=== PATIENT | female | born 1935 | race Caucasian/White ===

== ENCOUNTER 2020-06-26 05:29 | Emergency (ER) | payer MEDICARE, SELFPAY ==
--- NOTE | ~2020-06-26 | XR_ITS ---
EXAMINATION: XR hip LT min 2V DATE: 06/26/2020 06:14 INDICATION: Left hip pain. TECHNIQUE: 3 views of left hip were obtained. COMPARISON: Pelvis radiograph 05/26/2016 FINDINGS: Bone alignment is normal. No fracture. There is mild left hip osteoarthritis. IMPRESSION: 1. Mild left hip osteoarthritis. Reviewed, dictated and finalized at location A.
--- NOTE | ~2020-06-26 | XR_ITS ---
EXAMINATION: XR pelvis 1-2V DATE: 06/26/2020 06:14 INDICATION: Left hip pain. TECHNIQUE: An anteroposterior view of the pelvis was obtained. COMPARISON: Pelvis radiograph 05/26/2016 FINDINGS: There is thoracolumbar levoscoliosis and severe lumbar spondylosis. No fracture. There is s evere right hip osteoarthritis and mild left hip osteoarthritis. IMPRESSION: 1. Severe right hip osteoarthritis and mild left hip osteoarthritis. Reviewed, dictated and finalized at location A.
[2020-06-26 05:30] VITALS: BP 177/89; PULSE 76; RESP 22; TEMP 36.5; O2SAT 97
--- NOTE | 2020-06-26 05:49 | PC.NURSE ---
Called pt. daughter at [phone] to update her on pt. status.
[2020-06-26] MEDS: HYDROcodone/acetaminophen (*CRX) 5-325 MG TABLET 1 TAB PO (06:26)
--- NOTE | 2020-06-26 06:38 | ED.EXTPRO ---
HPI - Extremity Problem General Chief complaint: Extremity Problem,Nontraumatic Stated complaint: left hip pain x 3days Time Seen by Provider: 06/26/20 06:32 Source: patient Mode of arrival: wheelchair Limitations: no limitations History of Present Illness HPI Narrative: Patient is an 84-year-old female complaining of left hip pain, 10 out of 10, nonradiating, aching that started early this morning. Patient states that the pain started when she down to use the bathroom felt the severe pain in her left hip. Patient states that she has been favoring her right knee due to pain, history of chronic right knee pain and needing replacement according the patient, causing her to use her left lower extremity more which she attributes as a cause of her left hip pain. Patient denies any fall or direct injury. Patient denies any incontinence, weakness or numbness. Patient denies any urinary symptoms. Patient denies any fever or chills. Denies any chest pain, shortness of breath, abdominal pain or flank pain. Related Data Home Medications Medication Instructions Recorded Confirmed ascorbate calcium (vitamin C) 500 500 mg PO DAILY 09/06/19 04/05/20 mg tablet cranberry 400 mg capsule 400 mg PO DAILY 09/06/19 04/05/20 vitamin B complex 1 tablet PO DAILY 09/06/19 04/05/20 melatonin 3 mg capsule 3 mg PO DAILY cap 03/27/20 04/05/20 oxybutynin chloride 10 mg 10 mg PO DAILY 03/27/20 04/05/20 tablet,extended release 24 hr Allergies Allergy/AdvReac Type Severity Reaction Status Date / Time No Known Allergies Allergy Verified 06/26/20 05:40 Review of Systems Review of Systems: All systems reviewed & are unremarkable except as noted in HPI and below Constitutional: Constitutional: Denies body ache(s), Denies chills, Denies excessive sweating, Denies fatigue, Denies fever(s), Denies headache(s), Denies lethargy, Denies malaise, Denies weakness and Denies weight loss Eyes: Eyes: Denies blurry vision, Denies change in vision and Denies loss of vision ENT: Denies dizziness, Denies ear discharge, Denies headache(s), Denies lip swelling, Denies epistaxis, Denies nasal congestion, Denies neck pain, Denies throat swelling and Denies tongue swelling Cardiovascular: Cardiovascular: Denies chest pain, Denies chest pain at rest, Denies chest pain with activity, Denies diaphoresis, Denies rapid heart rate, Denies edema, Denies irregular heart rhythm, Denies lightheadedness, Denies palpitations, Denies dyspnea and Denies dyspnea on exertion Respiratory: Respiratory: Denies chest congestion, Denies cough, Denies hemoptysis, Denies dyspnea and Denies dyspnea on exertion Gastrointestinal: Gastrointestinal: Denies abdominal pain, Denies melena, Denies hematochezia, Denies diarrhea, Denies nausea, Denies vomiting and Denies hematemesis Musculoskeletal: Musculoskeletal: Denies deformity, Denies joint swelling, Denies neck pain and Denies numbness Neurologic: Denies Abnormal speech present, Denies abnormal gait, Denies confusion, Denies dizziness, Denies headache(s), Denies focal weakness, Denies loss of vision, Denies numbness, Denies Other visual disturbances, Denies Sensory deficit (Neuro) and Denies weakness Psychiatric: Psychiatric: Denies confusion, Denies depression, Denies auditory hallucinations, Denies homicidal ideation and Denies suicidal ideation Endocrine: Endocrine: Denies cold intolerance, Denies excessive sweating, Denies fatigue, Denies heat intolerance and Denies palpitations Hematologic/Lymphatic: Hematologic/Lymphatic: Denies easy bleeding and Denies easy bruising Allergic/Immunologic: Allergic/Immunologic: Denies lip swelling, Denies throat swelling and Denies tongue swelling PMFSH Past Medical History Medical History CKD (chronic kidney disease) stage 3, GFR 30-59 ml/min Essential hypertension Hyperlipidemia, unspecified Hypothyroidism (acquired) 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
[2020-06-26] MEDS: HYDROmorphone HCL INJ (*CRX) 1 MG/ML SYR 0.5 MG IM (06:56)
[2020-06-26] MEDS: KETOROLAC 30 MG/ML VIAL (*BKC) 15 MG IM (06:57)
[2020-06-26 07:34] VITALS: BP 154/91; PULSE 70; RESP 12; O2SAT 96
== END 2020-06-26 07:38 | disposition home or self-care (01) ==
PROVIDERS: Emergency Provider Emergency Medicine; PCP Family Medicine
DX: M54.32 Sciatica, left side (principal); M25.552 Pain in left hip; I12.9 Hypertensive chronic kidney disease with stage 1 through stage 4 chronic kidney disease, or unspecified chronic kidney disease; N18.30 Chronic kidney disease, stage 3 unspecified; E78.5 Hyperlipidemia, unspecified; E03.9 Hypothyroidism, unspecified; F32.9 Major depressive disorder, single episode, unspecified; M19.90 Unspecified osteoarthritis, unspecified site
CPT/HCPCS: 72170; 73502; 96372; 99284; A9270; J1170; J1885

== ENCOUNTER 2020-07-11 11:07 | Outpatient (CLI) | payer MEDICARE, SELFPAY ==
--- NOTE | 2020-07-11 | ECG_ITS ---
Measurements Intervals [place] Rate: 66 P: 29 AK: 147 QRS: 32 QRSD: 90 T: 11 QT: 403 QTc: 423 Interpretive Statements SINUS RHYTHM BORDERLINE ST-T WAVE ABNORMALITY- INFERIOR LEADS BASELINE ARTIFACT- II, III, AVL, AVF BORDERLINE ECG Electronically Signed On 07-11-2020 12:33:30 CDT by Alfredo Conner D.O.
[2020-07-11 12:29] LABS: Hematocrit 39.2 % (37.0-47.0); Hemoglobin 12.6 g/dL (12.0-15.0)
[2020-07-11 12:42] LABS: Albumin Level 4.1 g/dL (3.5-5.1); Estimated Glomerular Filt Rate 53; Glucose 84 mg/dL (65-105)
[2020-07-11 12:47] LABS: Urine Cotinine NEGATIVE
== END 2020-07-11 11:08 | disposition home or self-care (01) ==
PROVIDERS: PCP Family Medicine; Visit Provider Orthopaedic Surgery
DX: Z01.810 Encounter for preprocedural cardiovascular examination (principal); M17.11 Unilateral primary osteoarthritis, right knee; E78.5 Hyperlipidemia, unspecified; E03.9 Hypothyroidism, unspecified; I12.9 Hypertensive chronic kidney disease with stage 1 through stage 4 chronic kidney disease, or unspecified chronic kidney disease; R42 Dizziness and giddiness; N18.30 Chronic kidney disease, stage 3 unspecified; Z51.81 Encounter for therapeutic drug level monitoring; Z79.899 Other long term (current) drug therapy
CPT/HCPCS: 80307; 82040; 82565; 82947; 85014; 85018; 93005

== ENCOUNTER 2020-07-18 09:25 | Outpatient (CLI) | payer MEDICARE, SELFPAY ==
[2020-07-18 10:57] LABS: Basophils Absolute Auto 0.1 K/mm3 (0.0-0.1); Eosinophils Absolute Auto 0.1 K/mm3 (0-0.3); Eosinophils Percent Auto 1.6 % (0-4.4); Hematocrit 39.9 % (37.0-47.0); Immature Granulocyte Absolute 0.02 K/mm3 (0.00-0.031); Immature Granulocyte Percent A 0.3 % (0-0.5); Lymphocytes Absolute Auto 1.68 K/mm3 (0.9-3.2); Lymphocytes Percent Auto 24.7 % (18.3-44.2); Mean Corpuscular HGB Conc 32.6 g/dl (32-36); Mean Corpuscular Hemoglobin 30.7 pg (26-34); Mean Corpuscular Volume 94.3 fl (80-100); Mean Platelet Volume 9.4 fl (7.4-10.4); Monocytes Absolute Auto 0.6 K/mm3 (0.1-0.6); Monocytes Percent Auto 8.1 % (2.6-8.5); Neutrophils Absolute Auto 4.4 K/mm3 (1.3-6.7); Neutrophils Percent Auto 64.3 % (45.5-73.1); Platelet Count Result 226 k/mm3 (150-375); Red Blood Count 4.23 M/mm3 (4.2-5.4); Red Cell Distribution Width 14.9 % (11.5-14.5); White Blood Count 6.8 K/mm3 (4.5-10.0)
[2020-07-18 11:06] LABS: INR 0.9; Prothrombin Time 12.2 Seconds (11.1-14.7)
[2020-07-18 11:07] LABS: Anion Gap 5 mmol/L (8-16); Blood Urea Nitrogen 18 mg/dL (7-17); Calcium 9.7 mg/dL (8.4-10.2); Carbon Dioxide 27 mmol/L (22-30); Chloride 107 mmol/L (98-107); Estimated Glomerular Filt Rate 53; Glucose 86 mg/dL (65-105); Partial Thromboplastin Time 25.9 SECONDS (22.3-36.8); Sodium 139 mmol/L (137-145)
[2020-07-18 11:08] LABS: Hemoglobin A1C 5.1 % (<5.7)
== END 2020-07-18 09:26 | disposition home or self-care (01) ==
PROVIDERS: Anesthesiology; PCP Family Medicine; Visit Provider Orthopaedic Surgery
DX: Z01.818 Encounter for other preprocedural examination (principal); M17.11 Unilateral primary osteoarthritis, right knee; N18.30 Chronic kidney disease, stage 3 unspecified
CPT/HCPCS: 36415; 80048; 83036; 85025; 85610; 85730; 87081

== ENCOUNTER 2020-07-26 09:42 | Outpatient (CLI) | payer MEDICARE, SELFPAY ==
--- NOTE | ~2020-07-26 | NM_ITS ---
EXAMINATION: NM janice stress w perfusion DATE: 07/26/2020 13:28 INDICATION: Abnormal EKG TECHNIQUE: Rest images were obtained following intravenous administration of 10.5 mCi Tc99m tetrofosm in (Myoview). The patient was infused intravenously with Lexiscan (Regadenoson). Then, 29.1 mCi Tc99m tetrofosmin (Myoview) was administered intravenously, and stress images were obtained. Data was ben nstructed into short axis and horizontal and vertical long axis SPECT images. Gated SPECT images were also obtained. COMPARISON: None. FINDINGS: There is no definite reversible or fixed perfusion abnormality to suggest ischemia or infar ction. There is normal left ventricular chamber size, wall motion and ejection fraction. Left ventr icular ejection fraction measures 69%. IMPRESSION: 1. Normal myocardial perfusion at rest and during stress. 2. Left ventricular ejection fraction measuring 69%. Reviewed, dictated and finalized at location A.
--- NOTE | 2020-07-26 09:57 | EST_ITS ---
Patient Info Name: Eboni Farris Age: 84 years : 1935 Gender: Female Exam Date: 07/26/2020 11:19 AM Exam Location: [facility] Stress Patient Status: Outpatient Admit Date: 07/26/2020 Staff Ordering Physician: Karyn Villatoro MD Attending Provider: Karyn Villatoro MD Exercise Technologist: Charlene Contreras RDCS Exercise Physician: Alfredo Conner DO Exam Type: CA stress janice w NM Study Info Indications R94.31 - Abnormal electrocardiogram ECG EKG A regadenoson stress test was performed. Summary 1. 1. Abnormal lexiscan stress test for ischemic ST changes by ECG criteria. 2. 2. Baseline hypertension. 3. 3. Nuclear scan to follow and will be reported separately. Please correlate with it. 4. 4. Patient informed of the above results. Protocol: Lexiscan Stress ECG Details Stage: REST Duration (min): 8 min : 13 sec HR (bpm): 65 SBP (mmHg): 176 DBP (mmHg): 90 Stage: REST Duration (min): 15 min : 16 sec HR (bpm): 66 SBP (mmHg): 176 DBP (mmHg): 90 Stage: STAGE 1 Duration (min): 1 min : 0 sec HR (bpm): 89 SBP (mmHg): 184 DBP (mmHg): 108 Stage: RECOVERY Duration (min): 1 min : 0 sec HR (bpm): 98 SBP (mmHg): 130 DBP (mmHg): 88 Stage: RECOVERY Duration (min): 2 min : 0 sec HR (bpm): 96 SBP (mmHg): 130 DBP (mmHg): 88 Stage: RECOVERY Duration (min): 3 min : 0 sec HR (bpm): 90 SBP (mmHg): 145 DBP (mmHg): 86 Stage: RECOVERY Duration (min): 4 min : 0 sec HR (bpm): 87 SBP (mmHg): 145 DBP (mmHg): 86 Stage: RECOVERY Duration (min): 5 min : 0 sec HR (bpm): 85 SBP (mmHg): 152 DBP (mmHg): 85 Stage: RECOVERY Duration (min): 6 min : 0 sec HR (bpm): 81 SBP (mmHg): 152 DBP (mmHg): 85 Stage: RECOVERY Duration (min): 7 min : 0 sec HR (bpm): 81 SBP (mmHg): 146 DBP (mmHg): 78 Stage: RECOVERY Duration (min): 8 min : 0 sec HR (bpm): 81 SBP (mmHg): 146 DBP (mmHg): 78 Stage: RECOVERY Duration (min): 9 min : 0 sec HR (bpm): 76 SBP (mmHg): 146 DBP (mmHg): 78 Stage: RECOVERY Duration (min): 10 min : 0 sec HR (bpm): 75 SBP (mmHg): 146 DBP (mmHg): 78 Stage: RECOVERY Duration (min): 11 min : 0 sec HR (bpm): 76 SBP (mmHg): 153 DBP (mmHg): 93 Stage: RECOVERY Duration (min): 12 min : 0 sec HR (bpm): 76 SBP (mmHg): 153 DBP (mmHg): 93 Stage: RECOVERY Duration (min): 12 min : 44 sec HR (bpm): 74 SBP (mmHg): 158 DBP (mmHg): 92 Rest HR: 66 bpm Peak HR: 100 bpm Rest Sys BP: 176 mmHg Peak Sys BP: 184 mmHg Max Pred HR: 135 bpm % Max Pred HR: 74 % Target HR: 115 bpm Max RPP: 18,400 bpm*mmHg Termination Reason: Completed protocol Cardiac Symptoms: Shortness of breath, Dizzines Total Time: 1 min
== END 2020-07-26 09:43 | disposition home or self-care (01) ==
LOC: ANHCARD 09:43
PROVIDERS: PCP Family Medicine; Visit Provider Family Medicine
DX: E78.5 Hyperlipidemia, unspecified (principal); I10 Essential (primary) hypertension; R94.31 Abnormal electrocardiogram [ECG] [EKG]; Z01.818 Encounter for other preprocedural examination; Z91.89 Other specified personal risk factors, not elsewhere classified
CPT/HCPCS: 78452; 93017; A9502; J2785

== ENCOUNTER → 2020-08-06 01:15 | Outpatient (CLI) | payer MEDICARE, SELFPAY ==
[2020-08-06 18:48] LABS: SARS-CoV-2 RNA PCR Negative
== END ==
PROVIDERS: PCP Family Medicine; Visit Provider Orthopaedic Surgery
DX: Z01.812 Encounter for preprocedural laboratory examination (principal); Z20.822 Contact with and (suspected) exposure to COVID-19
CPT/HCPCS: C9803; U0003; U0005

== ENCOUNTER 2020-08-09 11:09 | Inpatient (IN) | payer MEDICARE, SELFPAY ==
[2020-07-18 09:55] VITALS: BP 176/88; PULSE 70; RESP 18; TEMP 37; O2SAT 97; BMI 25.4
--- NOTE | 2020-08-08 09:36 | WPDANESEPPF ---
Anes - Initial Pre Proc Eval Procedure: Operation Date: 08/09/20 07:30 Proposed Procedures p Right Total Knee Arthroplasty - Arnold Gant MD Date/Time: 08/08/20 09:36 Surgeon: Arnold Gant MD Pre Op Diagnosis: Primary OA, Right Knee Patient Data Age: 84 Gender: F Height: 1.63 m Weight: 67.4 kg Last Vital Signs Temp 37.0 C 07/18/20 09:55 Pulse 70 07/18/20 09:55 Resp 18 07/18/20 09:55 BP 176/88 H 07/18/20 09:55 Pulse Ox 97 07/18/20 09:55 Allergies Allergy/AdvReac Type Severity Reaction Status Date / Time No Known Allergies Allergy Verified 08/09/20 06:03 Home Medications Medication Instructions Recorded Confirmed Type ascorbate calcium (vitamin C) 500 500 mg PO DAILY 09/06/19 08/09/20 History mg tablet cranberry 400 mg capsule 400 mg PO DAILY 09/06/19 08/09/20 History vitamin B complex 1 tablet PO DAILY 09/06/19 08/09/20 History diclofenac sodium 1 % topical gel 2 g TOPICAL QID #150 g 03/27/20 08/09/20 Rx melatonin 3 mg capsule 3 mg PO HS cap 03/27/20 08/09/20 History oxybutynin chloride 10 mg 10 mg PO HS 03/27/20 08/09/20 History tablet,extended release 24 hr amlodipine 2.5 mg QAM 07/18/20 08/09/20 History cyanocobalamin (vitamin B-12) 1 tablet PO QAM 07/18/20 08/09/20 History levothyroxine 75 mcg QAM 07/18/20 08/09/20 History Patient hx anesthesia problems: none Family hx anesthesia problems: none PMFSH Past Medical History Medical History Acute pain of left hip CKD (chronic kidney disease) stage 3, GFR 30-59 ml/min Essential hypertension Hyperlipidemia, unspecified Hypothyroidism (acquired) 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n organic factor Major depression, recurrent, chronic Osteopenia Unspecified osteoarthritis, unspecified site Urinary incontinence Vertigo Surgical History Surgical History History of bladder surgery (~2017) 06/2017 - Colpocleisis and perineorrhaphy History of left knee replacement History of left shoulder replacement Status post total replacement of right shoulder (~05/2018) Family History Family History Sibling Family history of Parkinson's disease Father Family history of Alzheimer's disease Family history of heart disease in male family member before age 55 Family history of cardiovascular disease Other Family history of osteoarthritis Social History Social History Smoking status: Former smoker Second hand tobacco smoke exposure: No Smoking end date: 03/23/1949 Additional smoking assessment comments: STATE HX SOCIAL SMOKER X 2YRS QUIT 1960 Alcohol intake: current Alcohol use details: MAYBE 1/MONTH Substance use: never Substance use type: does not use Living arrangements: [facility] Additional living arrangements comments: [facility] Gender identity (if verbalized by the patient): Female Spiritual care concerns: No Anes - Eval Final PreProcedure Day of Procedure 08/08/20 09:36 Patient weight: overweight Heart: regular rate and rhythm Lungs: clear to auscultation and normal air movement Airway: Mallampati scale class III Neurological: alert and oriented Last oral intake: >/= 8 hours ASA classification: III Emergent: no Anesthetic plan: proceed Anesthesia type and monitoring: general LMA and standard monitoring Informed Consent: The patient's anesthetic plan and its attendant risks and benefits were discussed with the patient/family/POA. Questions were solicited and answers provided to the satisfaction of the patient/family/POA.
[2020-08-09] VITALS (14 sets, daily range): BP systolic 130–178; BP diastolic 66–86; PULSE 65–75; RESP 13–20; TEMP 35.6–36.7; O2SAT 90–100
--- NOTE | ~2020-08-09 | XR_ITS ---
EXAMINATION: XR knee RT 2V DATE: 08/09/2020 10:13 INDICATION: Total right knee arthroplasty. Postop. TECHNIQUE: 2 views of right knee were obtained. COMPARISON: Right knee radiographs 06/28/2020 FINDINGS: There is a total right knee arthroplasty. Tibia demonstrate 8 degrees posterior angulation with respect to tibial component. The patella is small. There is severe osteoarthritis of patellofemo ral compartment. There is gas in the soft tissues, consistent with recent surgery. IMPRESSION: 1. New total right knee arthroplasty. Reviewed, dictated and finalized at location A.
[2020-08-09] MEDS: ACETAMINOPHEN 500 MG TABLET 1000 MG PO (06:30)
[2020-08-09] MEDS: LACTATED RINGERS 1,000 ML 30 ML IV CONT ×2 (06:40→10:02)
[2020-08-09] MEDS: TRANEXAMIC ACID 1,000MG/ISO100 1,000 MG/100 ML BAG 200 MG IVPB (06:43)
--- NOTE | 2020-08-09 07:13 | WPDHPUPDATE1 ---
History and Physical Update Update Date/Time: 08/09/20 07:13 History and Physical has been reviewed, including an updated exam of the patient. There are NO changes in the patient's condition. Risks, benefits, and alternatives have been discussed and questions answered. Patient agrees to proceed with procedure.
--- NOTE | 2020-08-09 07:24 | WPDANESPNB ---
Anes - Peripheral Nerve Block Date/Time: 08/09/20 07:24 I have discussed with the patient/family/POA the placement of a peripheral nerve block for post-operative pain management, including associated risks, benefits, complications, and side effects. Alternative methods of post-operative analgesia were detailed. Questions were solicited and answers provided to the satisfaction of the patient/family/POA. Time-Out: A pre-procedural Time-Out was completed immediately before starting the procedure and confirmed: Patient Identification, Site, Procedure, Patient Position and the Availability of Requisite Equipment. Clinical Indications: Acute post-operative pain management requested by the operative surgeon. Nerve Block Insertion Note Anes-nerve block: adductor canal right Patient position: supine Skin prep: chlorhexidine Needle: 22 gauge, stimulating, insulated echogenic needle. Needle length: 80 mm Technique: ultrasound Injectate: bupivacaine 0.5% with epi 5 mcg/ml (30cc - no epi) Observations: tolerated well Complications: none Procedure start time:: 718 Procedure end time:: 721
[2020-08-09] MEDS: ceFAZolin 2 GM/D5W 50 ML 2 GM/50 ML BAG IVPB (07:27)
--- NOTE | 2020-08-09 10:20 | P.OP_ITS ---
Procedure Note - Detailed Date of procedure: 08/09/20 Pre-op diagnosis: Primary OA, Right Knee Post-op diagnosis: same Procedure performed: Total knee arthroplasty Description of procedure: Complex reconstruction due to near complete patellar erosion and associated anterior central femur erosion. Lateral release required. Typical bone resections with conservative distal femoral cut. Implants: [employer] Triathlon knee system, [place] base plate cemented tibia size 4, Posterior cruciate stabilized cemented femoral component size 4 ,and a 16 mm posterior stabilized polyethylene insert. Anesthesia: GETA and regional (subsartorial nerve block) Surgeon: Arnold Gant MD Channel Development Manager: Monika Briceno PA-C Estimated blood loss (mL): 100 Drains: No Pathology: none sent Complications: None Condition: stable Disposition: PACU Findings: Physician assistant casino shift manager, Monika Briceno PA-C, required for surgery; including patient positioning, draping, tissue retraction, maintaining instrument position, cement removal, wound closure, and dressing placement. OPERATIVE DETAILS: The patient was given a nerve block preoperatively, and then brought to the operating room. A general anesthetic was administered. The leg was prepped and draped in the usual sterile fashion. The limb was elevated and the tourniquet inflated to 300 mmHg during the procedure. A longitudinal incision was created along the medial border of the patella and patellar tendon, and a trivector approach to the knee was performed. A mild medial release was taken. The knee was then flexed. The osteophytes were carefully removed. The distal femur was severely deformed with a deep gouge in the anterior central aspect. The intramedullary guide was placed in the femoral canal. The distal femoral resection was then taken with the oscillating saw. The collateral ligaments were carefully protected. The tibia was carefully exposed. The jig was applied, and the proximal tibia was resected according to the preoperative plan. The knee was balanced in extension. Appropriate releases were taken where needed. A mild lateral release was done with a few pie crust incisions at the LCL. The anterior cruciate ligament and meniscal remnants were removed. The posterior cruciate ligament was sacrificed. The patella was only a small vertically oriented remnant. The femur was sized and rotation assessed using a combination of gap balancing, posterior referencing, and the AP axis. The 4 in 1 cutting block, and the box cut guide were used to finish the femoral cuts after equal gaps were assured. The osteophytes were carefully removed from the back of the knee. The knee was copiously irrigated with antibiotic solution p eriodically throughout the procedure. The meniscal remnants were removed. The spacer block was used to confirm equal flexion and extension gaps. The tibia was sized and broached. The bony surfaces were prepared for cementing with pulsatile lavage. The real tibia and femur were cemented. Excess cement was carefully removed. Patellar remnant tracking was carefully assessed. No additional releases were required. The wound was closed with #1 Vicryl suture, #2 Quill suture, 0-Quill suture, and 2-0 Quill suture followed by Steri-Strips. A sterile bulky dressing was applied. Meticulous hemostasis was maintained throughout the procedure. The Aquamantis device was used for additional hemostasis. The pain relieving mixture was injected after the exposure. There were no complications. The patient was extubated and brought to the recovery room in stable condition after the application of sterile dressing with Sotero bandage.
--- NOTE | 2020-08-09 10:36 | SUR.PHASEI ---
O2 removed at 1030.
[2020-08-09] MEDS: ONDANSETRON INJ 4 MG/2 ML VIAL IV PUSH (11:07)
--- NOTE | 2020-08-09 11:30 | ADMGEN ---
This patient, Eboni Farris, was admitted to Medical Room 247- from PACU reprot received from Luisa. Patient/family oriented to hospital policies and general routines including ID bracelet, bed and alarms, visiting hours, pain management, procedures, bathroom and other care routines, personal items, smoking policy, room service/diet, and visiting hours. Information on how to activate the Rapid Response Team has been discussed. Patient/Family are encouraged to report perceived risks to care and to ask questions if they do not understand what they are told or what they should do.
[2020-08-09] MEDS: oxyCODONE HCL (*CRX) 5 MG TAB IR PO ×3 (11:39→22:16)
[2020-08-09] MEDS: SODIUM CHLORIDE 0.9% IV 1,000 ML 125 ML IV CONT (11:40)
[2020-08-09] MEDS: ASPIRIN 81 MG ENTERIC TABLET PO (17:22)
[2020-08-09] MEDS: DOCUSATE SODIUM 100 MG CAPSULE PO (17:22)
[2020-08-09] MEDS: MELATONIN 3 MG TABLET PO (22:16)
[2020-08-10] VITALS (9 sets, daily range): BP systolic 127–155; BP diastolic 51–81; PULSE 76–91; RESP 16; TEMP 36.8–38; O2SAT 88–98
[2020-08-10] MEDS: oxyCODONE HCL (*CRX) 5 MG TAB IR 10 MG PO ×3 (03:02→17:17)
[2020-08-10 05:42] LABS: Basophils Percent Auto 0.3 % (0.2-1.2); Hematocrit 30.2 % (37.0-47.0); Immature Granulocyte Absolute 0.07 K/mm3 (0.00-0.031); Immature Granulocyte Percent A 0.6 % (0-0.5); Lymphocytes Absolute Auto 1.48 K/mm3 (0.9-3.2); Lymphocytes Percent Auto 11.8 % (18.3-44.2); Mean Corpuscular HGB Conc 33.1 g/dl (32-36); Mean Corpuscular Hemoglobin 30.8 pg (26-34); Mean Corpuscular Volume 92.9 fl (80-100); Mean Platelet Volume 9.3 fl (7.4-10.4); Monocytes Absolute Auto 1.5 K/mm3 (0.1-0.6); Monocytes Percent Auto 12.2 % (2.6-8.5); Neutrophils Absolute Auto 9.4 K/mm3 (1.3-6.7); Neutrophils Percent Auto 75.1 % (45.5-73.1); Platelet Count Result 226 k/mm3 (150-375); Red Blood Count 3.25 M/mm3 (4.2-5.4); White Blood Count 12.5 K/mm3 (4.5-10.0)
[2020-08-10 05:55] LABS: Anion Gap 5 mmol/L (8-16); Blood Urea Nitrogen 17 mg/dL (7-17); Calcium 8.4 mg/dL (8.4-10.2); Carbon Dioxide 25 mmol/L (22-30); Chloride 103 mmol/L (98-107); Estimated CRCL calculation 26 ml/min; Estimated Glomerular Filt Rate 43; Glucose 125 mg/dL (65-105); Potassium 4.1 mmol/L (3.4-5.0); Sodium 133 mmol/L (137-145)
[2020-08-10] MEDS: LEVOTHYROXINE SODIUM 75 MCG TABLET BY MOUTH (06:34)
[2020-08-10] MEDS: VITAMIN B COMPLEX CAPSULE 1 CAP PO (08:03)
[2020-08-10] MEDS: ASCORBIC ACID 500 MG TABLET PO (08:03)
[2020-08-10] MEDS: amLODIPine BESYLATE 2.5 MG TABLET BY MOUTH (08:03)
[2020-08-10] MEDS: CYANOCOBALAMIN 1,000 MCG TABLET 1000 MCG PO (08:03)
[2020-08-10] MEDS: DOCUSATE SODIUM 100 MG CAPSULE PO ×2 (08:03→17:15)
[2020-08-10] MEDS: ASPIRIN 81 MG ENTERIC TABLET PO ×2 (08:04→17:15)
[2020-08-10] MEDS: oxyCODONE HCL (*CRX) 5 MG TAB IR PO (08:18)
--- NOTE | 2020-08-10 10:04 | P.PNAN_ITS ---
Anes - Prog Note Post-Op Date/Time: 08/10/20 10:04 Cardiovascular status: normal Respiratory status: other (nc 02) Airway patency: baseline Mental status: baseline Post-Op hydration status: normal Vital Signs: Last Vital Signs Temp 37.3 C 08/10/20 08:54 Pulse 76 08/10/20 08:54 Resp 16 08/10/20 08:54 BP 131/66 08/10/20 08:54 Pulse Ox 90 08/10/20 08:54 Pain Score (VAS): 0 I/O: Intake & Output 08/09/20 08/10/20 08/10/20 23:59 07:59 15:59 Intake Total 1093 250 Output Total 1000 Balance 93 250 Laboratory Tests 08/10/20 05:28 08/10/20 05:28 08/10/20 08/10/20 05:28 05:28 WBC 12.5 H RBC 3.25 L Hgb 10.0 L D Hct 30.2 L MCV 92.9 MCH 30.8 MCHC 33.1 RDW 15.0 H Plt Count 226 MPV 9.3 Immature Gran % (Auto) 0.6 H Neut % (Auto) 75.1 H Lymph % (Auto) 11.8 L [place] % (Auto) 12.2 H Eos % (Auto) 0.0 Baso % (Auto) 0.3 Lymph # (Auto) 1.48 [place] # (Auto) 1.5 H Eos # (Auto) 0.0 Baso # (Auto) 0.0 Abs Immat Gran (auto) 0.07 H Absolute Neuts (auto) 9.4 H Absolute Nucleated RBC 0.0 Nucleated RBC % 0.0 Sodium 133 L Potassium 4.1 Chloride 103 Carbon Dioxide 25 Anion Gap 5 L BUN 17 Creatinine 1.20 H Estim Creat Clear Calc 26 Estimated GFR 43 L Glucose 125 H Calcium 8.4 Post-procedural complaints: none Patient Feedback: Patient satisfied with anesthetic care.
--- NOTE | 2020-08-10 10:38 | PM.IMCN ---
Assessment and Plan Assessment and plan (1) Status post total right knee replacement: Code(s): Z96.651 - Presence of right artificial knee joint Status: Acute Assessment and Plan: She is POD#1 s/p elective right total knee arthroplasty by Dr Gant 08/09/20. Management per the primary service to include wound care, pain control, DVT prophylaxis. (2) CKD (chronic kidney disease) stage 3, GFR 30-59 ml/min: Qualifiers: Chronic kidney disease stage 3 subtype: stage 3a (GFR 45-59) Qualified Code(s): N18.31 - Chronic kidney disease, stage 3a Code(s): N18.30 - Chronic kidney disease, stage 3 unspecified Status: Chronic Assessment and Plan: Seems her renal function has varied over the years based on review of previous labs. Cr 1.2 today. Monitor renal function and urine output. (3) Essential hypertension: Code(s): I10 - Essential (primary) hypertension Status: Chronic Assessment and Plan: Blood pressures reviewed, are stable last 131/66 maintained on her home amlodipine. Monitor BP and adjust treatment as needed. (4) Hypothyroidism (acquired): Code(s): E03.9 - Hypothyroidism, unspecified Status: Chronic Assessment and Plan: Maintained on her home levothyroxine. (5) Abnormal stress test: Code(s): R94.39 - Abnormal result of other cardiovascular function study Status: Acute Assessment and Plan: Preoperative Lexiscan 07/26/[address] changes on EKG, nuclear medicine portion demonstrated a normal myocardial perfusion without abnormality to suggest ischemia or infarction, no wall motion abnormality, EF normal at 69%. Stable, no chest pain or shortness of breath today. (6) Anemia: Qualifiers: Anemia type: unspecified type Qualified Code(s): D64.9 - Anemia, unspecified Code(s): D64.9 - Anemia, unspecified Status: Acute Assessment and Plan: H&H low at 10.0, 30.2% today. Suspect acute blood loss anemia from surgery superimposed on mild chronic anemia. No evidence of ongoing acute bleeding. Monitor H&H while she is here. (7) Vertigo: Code(s): R42 - Dizziness and giddiness Status: Chronic Assessment and Plan: She describes a history of vertigo. She notes she was a bit dizzy this morning. Monitor fluid status. Additional Plan Thank you for allowing me to participate in this pleasant patient's care. We will follow with you while she is here. HPI Data of Consult Consult date: 08/10/20 Requesting Physician: Arnold Gant MD Primary Care Provider: Jose Villatoro MD Consult Narrative Narrative: Date of Service 08/10/20 1000 I am asked to see this patient in consultation by Dr Gant for postoperative medical management. The supervising physician for this medical consultation is Dr Iza Black. Ms. Farris is a pleasant 84yo F with history of hypertension, hypothyroidism, chronic kidney disease, vertigo, urinary incontinence, and osteoarthritis who is seen in follow-up after elective right knee replacement. She has had severe osteoarthritis of the right knee not improving with conservative management and she underwent right total knee arthroplasty by Dr. Gant yesterday 08/10/20. She notes feeling a little bit dizzy earlier this morning which is now resolved at time of my exam. She denies any nausea, vomiting, chest pain, shortness of breath, or diaphoresis during her dizziness episode or at present. She notes she was having right knee pain with physical therapy this morning but was able to gabriele
--- NOTE | 2020-08-10 17:08 | PM.PNORT ---
Progress Note: A&P Assessment and Plan (1) Status post total right knee replacement: Code(s): Z96.651 - Presence of right artificial knee joint Status: Acute Assessment and Plan: Postop day 1: Right total Knee arthroplasty. Patient resting in bed at the time of visit. She was having trouble finishing her sentences. She has confusion after pain medication. She is having trouble with pain control. Pain worse after PT. Pain in the back of the knee. No calf tenderness. No numbness and tingling. Patient will need to stay in the hospital for a few more days until pain is controlled. Spoke with patient's daughter and nurse. Both agree. Pain significantly worse after PT. I recommend only one PT session a day. Oxycodone causes her to have trouble with finishing her sentences and causes confusion. I recommend limiting Oxycodone if possible. Tylenol added. D/c planning is for [facility]/rehab. Planning in progress. DVT prophylaxis: ASA 81 mg BID. Subjective Subjective Date/Time Seen: 08/10/20 17:08 Postop day 1: Right total Knee arthroplasty. Patient resting in bed at the time of visit. She was having trouble finishing her sentences. She has confusion after pain medication. She is having trouble with pain control. Pain worse after PT. Pain in the back of the knee. No calf tenderness. No numbness and tingling. Review of Systems Review of Systems: All systems reviewed & are unremarkable except as noted in HPI and below Exam Narrative: Exam Narrative: Pleasant elderly 84 y/o female. Alert and Oriented. No acute distress. Obviously uncomfortable. Wound dressing intact. No warmth, erythema drainage. Slight ecchymosis. Mild swelling. Range of motion not assessed due to pain. Calf nontender. Neurologic status intact. No varicosities. Distal pulses palpable. Objective Data Vital Signs Vital Signs: Vital Signs - 24 hr 08/09/20 19:54 08/09/20 23:53 08/10/20 04:07 Temperature 97.5 F L 97.4 F L 98.2 F Pulse Rate 72 72 78 Respiratory Rate 18 16 16 Blood Pressure 149/71 H 138/66 127/51 L Pulse Oximetry 94 94 95 08/10/20 08:54 08/10/20 11:52 08/10/20 12:54 Temperature 99.2 F 98.2 F Pulse Rate 76 81 Respiratory Rate 16 16 Blood Pressure 131/66 139/65 Pulse Oximetry 90 92 98 Intake/Output Intake/Output: Intake & Output 08/07/20 08/08/20 08/09/20 08/10/20 23:59 23:59 23:59 23:59 Intake Total 1683 780 Output Total 1170 Balance 513 780 Meds/Results Medications: Active Medications Generic Name Dose Route Start Last Admin Trade Name Freq PRN Reason Stop Dose Admin Amlodipine Besylate 2.5 mg 08/10/20 09:00 08/10/20 08:03 Amlodipine Besylate 2.5 Mg Tablet BY MOUTH 2.5 mg QAM ROYER Administration Ascorbic Acid 500 mg 08/10/20 09:00 08/10/20 08:03 Ascorbic Acid 500 Mg Tablet PO 500 mg DAILY ROYER Administration Aspirin 81 mg 08/09/20 17:00 08/10/20 08:04 Aspirin 81 Mg Enteric Tablet PO 81 mg BID ROYER Administration Cyanocobalamin 1,000 mcg 08/10/20 09:00 08/10/20 08:03 Cyanocobalamin 1,000 Mcg Tablet PO 1,000 mcg QAM ROYER Administration Docusate Sodium 100 mg 08/09/20 17:00 08/10/20 08:03 Docusate Sodium 100 Mg Capsule PO 100 mg BID ROYER Administration Levothyroxine Sodium 75 mcg 08/10/20 06:30 08/10/20 06:34 Levothyroxine Sodium 75 Mcg Tablet BY MOUTH 75 mcg DAILY@0630 ROYER Administration Melatonin 3 mg 08/09/20 21:00 08/09/20 22:16 Melatonin 3 Mg Tablet PO 3 mg HS ROYER Administration Naloxone HCl 0.1 mg 08/09/20 11:09 Naloxone Hcl 0.4 Mg/Ml Vial IV PUSH Q2M PRN Opiate Reversal Ondansetron HCl 4 mg 08/09/20 11:09 Ondansetron Inj 4 Mg/2 Ml Vial IV PUSH Q4H PRN Nausea And Vomiting Oxybutynin Chloride 10 mg 08/09/20 21:00 08/09/20 22:16 Oxybutynin Chloride Xl 5 Mg Tab.Er.24 PO 10 mg HS ROYER Administration Oxycodone HCl 5 mg 08/09/20 11:09 08/10/20 08:1
[2020-08-10] MEDS: MELATONIN 3 MG TABLET PO (21:32)
[2020-08-10] MEDS: ACETAMINOPHEN 500 MG TABLET 1000 MG PO (21:34)
[2020-08-11] VITALS (7 sets, daily range): BP systolic 139–149; BP diastolic 66–74; PULSE 78–93; RESP 18–20; TEMP 36.4–36.9; O2SAT 90–100; BMI 10.0
[2020-08-11] MEDS: oxyCODONE HCL (*CRX) 5 MG TAB IR 10 MG PO ×5 (00:40→22:01)
[2020-08-11] MEDS: LEVOTHYROXINE SODIUM 75 MCG TABLET BY MOUTH (05:55)
[2020-08-11 06:01] LABS: Hematocrit 33.1 % (37.0-47.0); Hemoglobin 10.8 g/dL (12.0-15.0)
[2020-08-11] MEDS: ACETAMINOPHEN 500 MG TABLET 1000 MG PO ×2 (06:02→20:25)
[2020-08-11 06:14] LABS: Anion Gap 4 mmol/L (8-16); Blood Urea Nitrogen 15 mg/dL (7-17); Calcium 8.8 mg/dL (8.4-10.2); Carbon Dioxide 26 mmol/L (22-30); Chloride 103 mmol/L (98-107); Estimated CRCL calculation 26 ml/min; Estimated Glomerular Filt Rate 43; Glucose 98 mg/dL (65-105); Potassium 4.2 mmol/L (3.4-5.0); Sodium 133 mmol/L (137-145)
[2020-08-11] MEDS: oxyCODONE HCL (*CRX) 5 MG TAB IR PO (08:28)
[2020-08-11] MEDS: CYANOCOBALAMIN 1,000 MCG TABLET 1000 MCG PO (08:29)
[2020-08-11] MEDS: VITAMIN B COMPLEX CAPSULE 1 CAP PO (08:29)
[2020-08-11] MEDS: DOCUSATE SODIUM 100 MG CAPSULE PO ×2 (08:29→16:30)
[2020-08-11] MEDS: ASPIRIN 81 MG ENTERIC TABLET PO ×2 (08:29→16:30)
[2020-08-11] MEDS: amLODIPine BESYLATE 2.5 MG TABLET BY MOUTH (08:29)
[2020-08-11] MEDS: ASCORBIC ACID 500 MG TABLET PO (08:29)
--- NOTE | 2020-08-11 12:21 | PM.PNORT ---
Progress Note: A&P Assessment and Plan (1) Status post total right knee replacement: Code(s): Z96.651 - Presence of right artificial knee joint Status: Acute Assessment and Plan: Moderate pain and slow mobilization. Reviewed restrictions and exercises. Questions answered with the patient and her daughter. Minimize narcotics due to some delerium. Subjective Subjective Date/Time Seen: 08/11/20 21:21 Interval history: Post op day 2. Moderate pain. Mild confusion. Exam Narrative: Exam Narrative: Afebrile. Dressing intact. Moderate swelling. No ecchymosis. Calves non tender. Wiggles toes. Objective Data Vital Signs Vital Signs: Vital Signs - 24 hr 08/11/20 00:00 08/11/20 06:00 08/11/20 09:13 Temperature 36.9 C 36.9 C Pulse Rate 78 Respiratory Rate 20 Blood Pressure 142/66 H Pulse Oximetry 97 90 08/11/20 14:00 08/11/20 20:58 Temperature 36.4 C L 36.8 C Pulse Rate 88 93 Respiratory Rate 18 20 Blood Pressure 139/73 149/74 H Pulse Oximetry 100 98 Intake/Output Intake/Output: Intake & Output 08/08/20 08/09/20 08/10/20 08/11/20 23:59 23:59 23:59 23:59 Intake Total 1683 1120 1140 Output Total 7360 724 6783 Balance 513 520 -910 Meds/Results Medications: Active Medications Generic Name Dose Route Start Last Admin Trade Name Freq PRN Reason Stop Dose Admin Acetaminophen 1,000 mg 08/10/20 17:08 08/11/20 20:25 Acetaminophen 500 Mg Tablet PO 1,000 mg Q6H PRN Administration Mild Pain (1-3) or Fever Amlodipine Besylate 2.5 mg 08/10/20 09:00 08/11/20 08:29 Amlodipine Besylate 2.5 Mg Tablet BY MOUTH 2.5 mg QAM ROYER Administration Ascorbic Acid 500 mg 08/10/20 09:00 08/11/20 08:29 Ascorbic Acid 500 Mg Tablet PO 500 mg DAILY ROYER Administration Aspirin 81 mg 08/09/20 17:00 08/11/20 16:30 Aspirin 81 Mg Enteric Tablet PO 81 mg BID ROYER Administration Cyanocobalamin 1,000 mcg 08/10/20 09:00 08/11/20 08:29 Cyanocobalamin 1,000 Mcg Tablet PO 1,000 mcg QAM ROYER Administration Docusate Sodium 100 mg 08/09/20 17:00 08/11/20 16:30 Docusate Sodium 100 Mg Capsule PO 100 mg BID ROYER Administration Levothyroxine Sodium 75 mcg 08/10/20 06:30 08/11/20 05:55 Levothyroxine Sodium 75 Mcg Tablet BY MOUTH 75 mcg DAILY@0630 ROYER Administration Melatonin 3 mg 08/09/20 21:00 08/11/20 20:24 Melatonin 3 Mg Tablet PO 3 mg HS ROYER Administration Naloxone HCl 0.1 mg 08/09/20 11:09 Naloxone Hcl 0.4 Mg/Ml Vial IV PUSH Q2M PRN Opiate Reversal Ondansetron HCl 4 mg 08/09/20 11:09 Ondansetron Inj 4 Mg/2 Ml Vial IV PUSH Q4H PRN Nausea And Vomiting Oxybutynin Chloride 10 mg 08/09/20 21:00 08/11/20 20:24 Oxybutynin Chloride Xl 5 Mg Tab.Er.24 PO 10 mg HS ROYER Administration Oxycodone HCl 5 mg 08/09/20 11:09 08/11/20 08:28 Oxycodone Hcl (*Crx) 5 Mg Tab Ir PO 5 mg Q4H PRN Administration Pain Rated 4-6 Oxycodone HCl 10 mg 08/09/20 11:09 08/11/20 16:30 Oxycodone Hcl (*Crx) 5 Mg Tab Ir PO 10 mg Q4H PRN Administration Pain Rated 7-10 Polyethylene Glycol 17 gm 08/11/20 12:05 08/11/20 12:37 Polyethylene Glycol 3350 17 Gm Powd.Pack PO 17 gm QAM ROYER Administration Vitamin B Complex 1 cap 08/10/20 09:00 08/11/20 08:29 Vitamin B Complex Capsule PO 1 cap DAILY ROYER Administration Radiology Results: ITS Impressions Knee X-Ray 08/09/20 10:24 IMPRESSION: 1. New total right knee arthroplasty. Labs Labs: Laboratory Results - last 24 hr 08/11/20 08/11/20 05:48 05:48 Hgb 10.8 L Hct 33.1 L Sodium 133 L Potassium 4.2 Chloride 103 Carbon Dioxide 26 Anion Gap 4 L BUN 15 Creatinine 1.20 H Estim Creat Clear Calc 26 Estimated GFR 43 L Glucose 98 Calcium 8.8 Magnesium 2.0 Quality VTE Prophylaxis VTE prophylaxis: mechanical ordered
[2020-08-11] MEDS: polyethylene glycoL 3350 17 GM POWD.PACK PO (12:37)
--- NOTE | 2020-08-11 15:11 | PM.IMPN ---
Progress Note: A&P Assessment and Plan (1) Status post total right knee replacement: Code(s): Z96.651 - Presence of right artificial knee joint Status: Acute Assessment and Plan: She is POD#2 s/p elective right total knee arthroplasty by Dr Gant 08/09/20. Management per the primary service to include wound care, pain control, DVT prophylaxis. (2) CKD (chronic kidney disease) stage 3, GFR 30-59 ml/min: Qualifiers: Chronic kidney disease stage 3 subtype: stage 3a (GFR 45-59) Qualified Code(s): N18.31 - Chronic kidney disease, stage 3a Code(s): N18.30 - Chronic kidney disease, stage 3 unspecified Status: Chronic Assessment and Plan: Seems her renal function has varied over the years based on review of previous labs. Cr 1.2 today. Monitor renal function and urine output. (3) Essential hypertension: Code(s): I10 - Essential (primary) hypertension Status: Chronic Assessment and Plan: Blood pressures reviewed, are intermittently mildly elevated but overall stable; last 139/73 maintained on her home amlodipine. Monitor BP and adjust treatment as needed. (4) Hypothyroidism (acquired): Code(s): E03.9 - Hypothyroidism, unspecified Status: Chronic Assessment and Plan: Maintained on her home levothyroxine. (5) Abnormal stress test: Code(s): R94.39 - Abnormal result of other cardiovascular function study Status: Acute Assessment and Plan: Preoperative Lexiscan 07/26/[address] changes on EKG, nuclear medicine portion demonstrated a normal myocardial perfusion without abnormality to suggest ischemia or infarction, no wall motion abnormality, EF normal at 69%. Stable, no chest pain or shortness of breath today. (6) Anemia: Qualifiers: Anemia type: unspecified type Qualified Code(s): D64.9 - Anemia, unspecified Code(s): D64.9 - Anemia, unspecified Status: Acute Assessment and Plan: H&H remains low but stable. Suspect acute blood loss anemia from surgery superimposed on mild chronic anemia. No evidence of ongoing acute bleeding. Monitor H&H while she is here. (7) Vertigo: Code(s): R42 - Dizziness and giddiness Status: Chronic Assessment and Plan: She describes a history of vertigo. No dizziness today. Additional Plan Thank you for allowing me to participate in this pleasant patient's care. We will follow with you while she is here. Subjective Date/time seen: 08/11/20 1445 Interval history: Ms. Farris is an 84yo F seen in follow up POD#2 s/p right total knee arthroplasty by Dr Gant. She is having quite a bit of pain today and is less mobile with therapy. She has been up to chair. She is sleeping much of today per daughter at bedside. No BM today or flatus. Denies abdominal pain, nausea or vomiting. No chest pain or shortness of breath. Review of Systems Review of Systems: All systems reviewed & are unremarkable except as noted in HPI and below Exam Narrative: Exam Narrative: General: Pleasant elderly female resting comfortably sitting up in bed in no acute distress. Sleeping but wakes easily. HEENT: Normocephalic, EOMI, sclerae anicteric. Oral mucosa moist. Neck: Supple. Chest: Clear to auscultation all mcgowan. Respirations are even and nonlabored. Tolerating 2 L O2 nasal cannula. Heart: Heart rate and rhythm regular with S1 and S2. No murmur, rub, or gallop appreciated. Abdomen: Soft, nontender, nondistended, bowel sounds present. Skin: Warm and dry, no rashes or lesions noted on limited exam.
[2020-08-11] MEDS: MELATONIN 3 MG TABLET PO (20:24)
[2020-08-12] VITALS (7 sets, daily range): BP systolic 128–155; BP diastolic 52–82; PULSE 79–91; RESP 16–20; TEMP 36.1–36.7; O2SAT 94–99
[2020-08-12] MEDS: oxyCODONE HCL (*CRX) 5 MG TAB IR 10 MG PO ×4 (01:35→18:21)
[2020-08-12] MEDS: LEVOTHYROXINE SODIUM 75 MCG TABLET BY MOUTH (06:22)
--- NOTE | 2020-08-12 08:28 | PM.IMPN ---
Progress Note: A&P Assessment and Plan (1) Status post total right knee replacement: Code(s): Z96.651 - Presence of right artificial knee joint Status: Acute Assessment and Plan: She is POD#3 s/p elective right total knee arthroplasty by Dr Gant 08/09/20. Management per the primary service to include wound care, pain control, DVT prophylaxis. (2) CKD (chronic kidney disease) stage 3, GFR 30-59 ml/min: Qualifiers: Chronic kidney disease stage 3 subtype: stage 3a (GFR 45-59) Qualified Code(s): N18.31 - Chronic kidney disease, stage 3a Code(s): N18.30 - Chronic kidney disease, stage 3 unspecified Status: Chronic Assessment and Plan: Seems her renal function has varied over the years based on review of previous labs. Cr 1.2. Monitor renal function and urine output. Parisi to come out per primary service when she can ambulate better. (3) Essential hypertension: Code(s): I10 - Essential (primary) hypertension Status: Chronic Assessment and Plan: Blood pressures reviewed, are intermittently mildly elevated (may be related to pain) but overall stable maintained on her home amlodipine. Monitor BP and adjust treatment as needed. (4) Hypothyroidism (acquired): Code(s): E03.9 - Hypothyroidism, unspecified Status: Chronic Assessment and Plan: Maintained on her home levothyroxine. (5) Abnormal stress test: Code(s): R94.39 - Abnormal result of other cardiovascular function study Status: Acute Assessment and Plan: Preoperative Lexiscan 07/26/[address] changes on EKG, nuclear medicine portion demonstrated a normal myocardial perfusion without abnormality to suggest ischemia or infarction, no wall motion abnormality, EF normal at 69%. Stable, no chest pain today. Mild shortness of breath in no acute respiratory distress. (6) Anemia: Qualifiers: Anemia type: unspecified type Qualified Code(s): D64.9 - Anemia, unspecified Code(s): D64.9 - Anemia, unspecified Status: Acute Assessment and Plan: H&H low but stable. Suspect acute blood loss anemia from surgery superimposed on mild chronic anemia. No evidence of ongoing acute bleeding. Monitor H&H while she is here. (7) Vertigo: Code(s): R42 - Dizziness and giddiness Status: Chronic Assessment and Plan: She describes a history of vertigo. No dizziness today. Additional Plan Thank you for allowing me to participate in this pleasant patient's care. We will follow with you while she is here. Subjective Date/time seen: 08/12/20 08:00 Interval history: Ms. Farris is an 84yo F seen in follow up POD#3 s/p right total knee arthroplasty by Dr Gant. She is sitting up in the bedside chair with very little pain but notes 10/10 severe pain with evening getting up to the chair. She is comfortable now. Tolerated some breakfast without nausea, vomiting or abdominal pain. She reports mild shortness of breath but thinks this is because she keeps holding her breath . No BM yet. Review of Systems Review of Systems: All systems reviewed & are unremarkable except as noted in HPI and below Exam Narrative: Exam Narrative: General: Pleasant elderly female resting comfortably sitting up in bedside chair in no acute distress. HEENT: Normocephalic, EOMI, sclerae anicteric. Oral mucosa moist. Neck: Supple. Chest: Clear to auscultation all mcgowan. Respirations are even and nonlabored. Tolerating 2 L O2 nasal cannula with O2 saturations high 90s. Heart: Heart rate and rhythm regular.
[2020-08-12] MEDS: ASPIRIN 81 MG ENTERIC TABLET PO ×2 (08:29→16:47)
[2020-08-12] MEDS: polyethylene glycoL 3350 17 GM POWD.PACK PO (08:29)
[2020-08-12] MEDS: ASCORBIC ACID 500 MG TABLET PO (08:29)
[2020-08-12] MEDS: amLODIPine BESYLATE 2.5 MG TABLET BY MOUTH (08:29)
[2020-08-12] MEDS: VITAMIN B COMPLEX CAPSULE 1 CAP PO (08:29)
[2020-08-12] MEDS: CYANOCOBALAMIN 1,000 MCG TABLET 1000 MCG PO (08:29)
[2020-08-12] MEDS: DOCUSATE SODIUM 100 MG CAPSULE PO ×2 (08:35→16:47)
--- NOTE | 2020-08-12 10:15 | PM.PNORT ---
Progress Note: A&P Assessment and Plan (1) Status post total right knee replacement: Code(s): Z96.651 - Presence of right artificial knee joint Status: Acute Assessment and Plan: Postop day 3: Right total Knee arthroplasty. Patient resting in bed at the time of visit. Confusion better today. Taking less pain medication. Pain rated 10/10. She is having trouble with pain control. Pain worse after PT. Pain in the back of the knee. No calf tenderness. No numbness and tingling. Patient will need to stay in the hospital until pain is controlled. Possible d/c tomorrow. Pain significantly worse after PT. I recommend only one PT session a day. Oxycodone causes her to have trouble with finishing her sentences and causes confusion. I recommend limiting Oxycodone if possible. Tylenol added. D/c planning is for [facility]/rehab. Planning in progress. DVT prophylaxis: ASA 81 mg BID. Subjective Subjective Date/Time Seen: 08/12/20 10:15 Postop day 3: Right total Knee arthroplasty. Patient resting in bed at the time of visit. Significant 10/10 pain. Worse behind her knee. She is less confused today. She has been taking less pain medication. She is having trouble with pain control. Pain worse after PT. No calf tenderness. No numbness and tingling. Review of Systems Review of Systems: All systems reviewed & are unremarkable except as noted in HPI and below Exam Narrative: Exam Narrative: Pleasant elderly 84 y/o female. Alert and Oriented. No acute distress. Obviously uncomfortable. Wound dressing intact. No warmth, erythema drainage. Slight ecchymosis. Mild swelling. Range of motion not assessed due to pain. Calf nontender. Neurologic status intact. No varicosities. Distal pulses palpable. Objective Data Vital Signs Vital Signs: Vital Signs - 24 hr 08/11/20 14:00 08/11/20 20:00 08/11/20 20:58 Temperature 97.5 F L 98.3 F Pulse Rate 88 93 Respiratory Rate 18 20 Blood Pressure 139/73 149/74 H Pulse Oximetry 100 98 98 08/11/20 22:55 08/12/20 00:17 08/12/20 05:40 Temperature 97.6 F 97.5 F L Pulse Rate 91 89 Respiratory Rate 16 20 Blood Pressure 128/52 L 148/82 H Pulse Oximetry 96 99 99 08/12/20 08:12 08/12/20 08:32 Temperature Pulse Rate Respiratory Rate Blood Pressure Pulse Oximetry 99 95 Intake/Output Intake/Output: Intake & Output 08/09/20 08/10/20 08/11/20 08/12/20 23:59 23:59 23:59 23:59 Intake Total 1683 1120 1140 460 Output Total 5551 370 0539 450 Balance 513 520 -910 10 Meds/Results Medications: Active Medications Generic Name Dose Route Start Last Admin Trade Name Freq PRN Reason Stop Dose Admin Acetaminophen 1,000 mg 08/10/20 17:08 08/11/20 20:25 Acetaminophen 500 Mg Tablet PO 1,000 mg Q6H PRN Administration Mild Pain (1-3) or Fever Amlodipine Besylate 2.5 mg 08/10/20 09:00 08/12/20 08:29 Amlodipine Besylate 2.5 Mg Tablet BY MOUTH 2.5 mg QAM ROYER Administration Ascorbic Acid 500 mg 08/10/20 09:00 08/12/20 08:29 Ascorbic Acid 500 Mg Tablet PO 500 mg DAILY ROYER Administration Aspirin 81 mg 08/09/20 17:00 08/12/20 08:29 Aspirin 81 Mg Enteric Tablet PO 81 mg BID ROYER Administration Bisacodyl 10 mg 08/12/20 08:11 Bisacodyl 10 Mg Suppository RECTAL QAM PRN Constipation Cyanocobalamin 1,000 mcg 08/10/20 09:00 08/12/20 08:29 Cyanocobalamin 1,000 Mcg Tablet PO 1,000 mcg QAM ROYER Administration Docusate Sodium 100 mg 08/09/20 17:00 08/12/20 08:35 Docusate Sodium 100 Mg Capsule PO 100 mg BID ROYER Administration Levothyroxine Sodium 75 mcg 08/10/20 06:30 08/12/20 06:22 Levothyroxine Sodium 75 Mcg Tablet BY MOUTH 75 mcg DAILY@0630 ROYER Administration Melatonin 3 mg 08/09/20 21:00 08/11/20 20:24 Melatonin 3 Mg Tablet PO 3 mg HS ROYER Administration Naloxone HCl 0.1 mg 08/09/20 11:09 Naloxone Hcl 0.4 Mg/Ml Vial IV PUSH Q2M PRN Opi
[2020-08-12] MEDS: BISACODYL 10 MG SUPPOSITORY RECTAL (16:47)
[2020-08-12] MEDS: MELATONIN 3 MG TABLET PO (20:12)
[2020-08-13] MEDS: oxyCODONE HCL (*CRX) 5 MG TAB IR PO (02:24)
[2020-08-13 05:16] LABS: Hematocrit 30.3 % (37.0-47.0); Hemoglobin 10.1 g/dL (12.0-15.0)
[2020-08-13 05:21] LABS: Anion Gap 1 mmol/L (8-16); Blood Urea Nitrogen 18 mg/dL (7-17); Calcium 8.4 mg/dL (8.4-10.2); Carbon Dioxide 26 mmol/L (22-30); Chloride 101 mmol/L (98-107); Estimated CRCL calculation 35 ml/min; Estimated Glomerular Filt Rate 60; Glucose 95 mg/dL (65-105); Magnesium 1.9 mg/dL (1.6-2.3); Potassium 3.9 mmol/L (3.4-5.0); Sodium 128 mmol/L (137-145)
[2020-08-13 05:22] VITALS: BP 139/66; PULSE 84; RESP 16; TEMP 36.3; O2SAT 93
[2020-08-13] MEDS: LEVOTHYROXINE SODIUM 75 MCG TABLET BY MOUTH (05:29)
[2020-08-13] MEDS: oxyCODONE HCL (*CRX) 5 MG TAB IR 10 MG PO (06:19)
[2020-08-13] MEDS: ACETAMINOPHEN 500 MG TABLET 1000 MG PO ×2 (08:55→15:15)
[2020-08-13] MEDS: amLODIPine BESYLATE 2.5 MG TABLET BY MOUTH (08:56)
[2020-08-13] MEDS: ASCORBIC ACID 500 MG TABLET PO (08:56)
[2020-08-13] MEDS: VITAMIN B COMPLEX CAPSULE 1 CAP PO (08:56)
[2020-08-13] MEDS: ASPIRIN 81 MG ENTERIC TABLET PO ×2 (08:56→16:08)
[2020-08-13] MEDS: CYANOCOBALAMIN 1,000 MCG TABLET 1000 MCG PO (08:56)
[2020-08-13] MEDS: DOCUSATE SODIUM 100 MG CAPSULE PO ×2 (08:57→16:08)
[2020-08-13] MEDS: polyethylene glycoL 3350 17 GM POWD.PACK PO (08:57)
[2020-08-13] MEDS: SODIUM CHLORIDE 0.9% IV 500 ML 100 ML IV CONT (09:07)
--- NOTE | 2020-08-13 11:51 | PM.IMPN ---
Progress Note: A&P Assessment and Plan (1) Status post total right knee replacement: Code(s): Z96.651 - Presence of right artificial knee joint Status: Acute Assessment and Plan: She is POD#4 s/p elective right total knee arthroplasty by Dr Gant 08/09/20. Management per the primary service to include wound care, pain control, DVT prophylaxis. Dispo is discharge to SNF today. She is medically stable for discharge today from hospitalist standpoint. Ordered for Ailin to come out. (2) CKD (chronic kidney disease) stage 3, GFR 30-59 ml/min: Qualifiers: Chronic kidney disease stage 3 subtype: stage 3a (GFR 45-59) Qualified Code(s): N18.31 - Chronic kidney disease, stage 3a Code(s): N18.30 - Chronic kidney disease, stage 3 unspecified Status: Chronic Assessment and Plan: Stable. Cr 0.9 this AM. (3) Essential hypertension: Code(s): I10 - Essential (primary) hypertension Status: Chronic Assessment and Plan: Blood pressures reviewed, are intermittently mildly elevated (may be related to pain) but overall stable maintained on her home amlodipine. (4) Hypothyroidism (acquired): Code(s): E03.9 - Hypothyroidism, unspecified Status: Chronic Assessment and Plan: Maintained on her home levothyroxine. (5) Abnormal stress test: Code(s): R94.39 - Abnormal result of other cardiovascular function study Status: Acute Assessment and Plan: Preoperative Lexiscan 07/26/[address] changes on EKG, nuclear medicine portion demonstrated a normal myocardial perfusion without abnormality to suggest ischemia or infarction, no wall motion abnormality, EF normal at 69%. Stable, no chest pain or shortness of breath today. (6) Anemia: Qualifiers: Anemia type: unspecified type Qualified Code(s): D64.9 - Anemia, unspecified Code(s): D64.9 - Anemia, unspecified Status: Acute Assessment and Plan: H&H low but stable. Suspect acute blood loss anemia from surgery superimposed on mild chronic anemia. No evidence of ongoing acute bleeding.\ (7) Vertigo: Code(s): R42 - Dizziness and giddiness Status: Chronic Assessment and Plan: She describes a history of vertigo. No dizziness today. (8) Hyponatremia: Code(s): E87.1 - Hypo-osmolality and hyponatremia Status: Acute Assessment and Plan: Na downtrending. Ordered 500mL NS which should be finished by 2pm. No neurological changes. Repeat labs outpatient and encourage oral intake. Additional Plan Thank you for allowing me to participate in this pleasant patient's care. She is medically stable for discharge today to SNF from hospitalist standpoint. Subjective Date/time seen: 08/13/20 11:45 Interval history: Ms. Farris is an 84yo F seen in follow up POD#4 s/p right total knee arthroplasty by Dr Gant. She tells me her pain with therapy was better today compared to days prior. Denies chest pain, shortness of breath, nausea or vomiting. One small BM this morning, she tells me she does not want suppository. Otherwise offers no complaints. Review of Systems Review of Systems: All systems reviewed & are unremarkable except as noted in HPI and below Exam Narrative: Exam Narrative: General: Pleasant elderly female resting comfortably sitting up in bed in no acute distress. HEENT: Normocephalic, EOMI, sclerae anicteric. Oral mucosa moist. Neck: Supple. Chest: Clear to auscultation all mcgowan. Respirations are even and nonlabored. R
[2020-08-13 14:00] VITALS: BP 144/79; PULSE 81; RESP 20; TEMP 36.3; O2SAT 99
--- NOTE | 2020-08-13 14:38 | PM.DS ---
DS: Admitting Diagnosis Admitting Diagnosis Admitting Diagnosis: Primary OA DS: Discharge Diagnosis Discharge Diagnosis (1) Status post total right knee replacement: Code(s): Z96.651 - Presence of right artificial knee joint Status: Acute Assessment and Plan: Postop day 4: Right total Knee arthroplasty. Patient resting in bed at the time of visit. Confusion better today. Taking less pain medication. Pain rated 5/10. Controlled with Tylenol today. Pain in the back of the knee. No calf tenderness. No numbness and tingling. Pain worse with after physical therapy however she is very motivated and is participating well with physical therapy. We had a lengthy discussion regarding postoperative wound care, limitations, expectations, and exercises. Patient shows good understanding. Patient may d/c to SNF. Follow up appointment in 3 weeks. D/C to SNF F/u in 3 weeks Wound Care: Remove Mepilex dressing at 7 days post op. Remove steristrips at 14 days post op. May shower. No soaking. PT: WBAT with walker DVT prophylaxis: ASA 81 mg BID, compression socks for 3 weeks. Pain medication: Percocet. DS: Summary Hospital Course Reason for hospitalization: Total knee arthroplasty Hospital Course: Patient presented for complex primary total knee arthroplasty on the right. Patient tolerated procedure well. Significant osteoarthritis with eroding of the femur. Patient struggled with pain management. She had some confusion with pain medications. Pain worse with after physical therapy however she is very motivated and is participating well with physical therapy. Discharge to nursing home. Status at Discharge Functional status at discharge: uses cane/walker Overall status at discharge: patient is progressing back to baseline Time Spent with Patient Time attestation: Total time spent providing and/or coordinating discharge services: Exam Narrative: Exam Narrative: Normal weight elderly 84 y/o female. Resting comfortably in bed. No acute distress. A&O x3. Wearing compression socks bilaterally. Dressing intact with no drainage. Moderate swelling. Small area of ecchymosis. No erythema. No hematoma. Range of motion limited by pain. Calf nontender. Neurologic status intact. No varicosities. Distal pulses palpable. DS: Data Data Completed and Pending Labs on day of discharge: Labs from last 24 hours 08/13/20 08/13/20 04:49 04:49 Hgb 10.1 L Hct 30.3 L Sodium 128 L Potassium 3.9 Chloride 101 Carbon Dioxide 26 Anion Gap 1 L BUN 18 H Creatinine 0.90 Estim Creat Clear Calc 35 Estimated GFR 60 Glucose 95 Calcium 8.4 Magnesium 1.9 Discharge Plan Discharge Attending physician on discharge: Arnold Gant Consulting providers: Mohini Wilson Discharging Clinician: Monika Briceno Patient Disposition: SNF Activity: other - see discharge instructions Diet: regular Wound Care Instructions: other - see discharge instructions Discharge Instructions: See blue instruction sheet for more instructions D/C to SNF F/u in 3 weeks Wound Care: Remove Mepilex dressing at 7 days post op. Remove steristrips at 14 days post op. May shower. No soaking. PT: WBAT with walker DVT prophylaxis: ASA 81 mg BID Pain medication: Percocet. Patient Instructions: Precautions after Total Joint Replacement Surgery (GEN), Knee Replacement (GEN) Stand Alone Forms: General Discharge Information Follow-up/Referrals: Monika Briceno, PA [Physician Grinding And Spraying Supervisor] - Discharge Medications: New oxycodone-acetaminophen 5-325 mg tablet 1 - 2 tablet PO Q4-6H MDD 6 PRN (Reason: pain) Qty: 30 RF: 0 aspirin 81 mg tablet,delayed release (DR/EC) 81 mg PO BID 14 Days Qty: 28 RF: 0 Continued ascorbate calcium (vitamin C) 500 mg tablet 500 mg PO DAILY RF: 0 vitamin B complex [B Complex-Vitamin B12] Tablet 1 tablet PO DAILY RF: 0 cran
== END 2020-08-13 18:49 | DRG 470 ==
LOC: ANH2MED 08-11 07:22 → ANHSURGERY 08-16 06:19
PROVIDERS: Physician Assistant; Admitting Provider Orthopaedic Surgery; PCP Family Medicine; Visit Provider Orthopaedic Surgery
PROC: 0SRC0J9 Replacement of Right Knee Joint with Synthetic Substitute, Cemented, Open Approach (ICD-10-PCS; CPT 27447; principal; 2020-08-09 07:30)
DX: M17.11 Unilateral primary osteoarthritis, right knee (principal); F33.9 Major depressive disorder, recurrent, unspecified; D62 Acute posthemorrhagic anemia; E87.1 Hypo-osmolality and hyponatremia; R42 Dizziness and giddiness; I12.9 Hypertensive chronic kidney disease with stage 1 through stage 4 chronic kidney disease, or unspecified chronic kidney disease; N18.30 Chronic kidney disease, stage 3 unspecified; E78.5 Hyperlipidemia, unspecified; E03.9 Hypothyroidism, unspecified; M85.80 Other specified disorders of bone density and structure, unspecified site; R32 Unspecified urinary incontinence; R94.39 Abnormal result of other cardiovascular function study; Z96.652 Presence of left artificial knee joint; Z96.612 Presence of left artificial shoulder joint; Z96.611 Presence of right artificial shoulder joint; Z87.891 Personal history of nicotine dependence
CPT/HCPCS: 36415; 73560; 80048; 83735; 85014; 85018; 85025; 86850; 86900; 86901; 97110; 97116; 97161; 97165; 97530; 97535; 99199; A9270; C1713; C1776; C9803; G0378; J0171; J0690; J1100; J1170; J1885; J2250; J2270; J2370; J2405; J2704; J2795; J3010; J7030; J7120; U0003; U0005

== ENCOUNTER 2020-11-16 10:12 | Emergency (ER) | payer MEDICARE, SELFPAY ==
[2020-11-16 10:25] VITALS: BP 143/118; PULSE 79; RESP 16; TEMP 36.9; O2SAT 98
--- NOTE | 2020-11-16 10:29 | ED.SKABFB ---
HPI - Skin/Abscess/Foreign Bdy General Chief complaint: Skin/Abscess/Foreign Body Stated complaint: lt arm laceration Source: patient and RN notes reviewed Limitations: no limitations History of Present Illness HPI narrative: The right-handed patient, on several meds, this was left arm laceration. Patient states she slipped and fell prior to arrival on kitchen floor, she uses a walker and has had bilateral knee and bilateral shoulder replacements. She complains of mild pain and bleeding from a proximal based, V-shaped flap laceration of the mid triceps area. Symptoms are mild, better with elevation or compression. No numbness/weakness, deformity, decreased range of motion [patient can actively use extremity]. Related Data Home Medications Medication Instructions Recorded Confirmed ascorbate calcium (vitamin C) 500 500 mg PO DAILY 09/06/19 11/16/20 mg tablet cranberry 400 mg capsule 400 mg PO DAILY 09/06/19 11/16/20 vitamin B complex 1 tablet PO DAILY 09/06/19 11/16/20 melatonin 3 mg capsule 3 mg PO HS cap 03/27/20 11/16/20 oxybutynin chloride 10 mg 10 mg PO HS 03/27/20 11/16/20 tablet,extended release 24 hr cyanocobalamin (vitamin B-12) 1 tablet PO QAM 07/18/20 11/16/20 acetaminophen 325 mg capsule 325 mg PO Q6H PRN 09/11/20 11/16/20 amlodipine 2.5 mg tablet 2.5 mg PO QAM 09/11/20 11/16/20 Allergies Allergy/AdvReac Type Severity Reaction Status Date / Time No Known Allergies Allergy Verified 11/16/20 10:33 Review of Systems Review of Systems: General/Constitutional: No weight loss,fever Eyes: N0: Redness,discharge Ears/Nose/Throat: No: Epistaxis,ear discharge Respiratory: Denies: Hemoptysis Gastrointestinal: No Vomiting, Bleeding-rectal Skin: No Lumps, eruption Neurologic: No Focal Weakness,Sz Hematologic: Denies: Petechiae/Purpura Psychiatric: No: Suicida ideationl All Other Systems: Reviewed and Negative [facility] Past Medical History Medical History Acute pain of left hip CKD (chronic kidney disease) stage 3, GFR 30-59 ml/min Essential hypertension Hyperlipidemia, unspecified Hypothyroidism (acquired) 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n organic factor Major depression, recurrent, chronic Osteopenia Unspecified osteoarthritis, unspecified site Urinary incontinence Vertigo Surgical History Surgical History History of bladder surgery (~2017) 06/2017 - Colpocleisis and perineorrhaphy History of left knee replacement History of left shoulder replacement 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 07/2020 Family History Family History Sibling Family history of Parkinson's disease Father Family history of Alzheimer's disease Family history of heart disease in male family member before age 55 Family history of cardiovascular disease Other Family history of osteoarthritis Social History Social History Tobacco type: cigarettes Second hand tobacco smoke exposure: No Smoking end date: 02/10/1961 Additional smoking assessment comments: STATE HX SOCIAL SMOKER X 2YRS QUIT 1960 Alcohol intake: never Alcohol use details: MAYBE 1/MONTH Substance use: never Substance use type: does not use Additional living arrangements comments: [facility] Gender identity (if verbalized by the patient): Female Sexual Orientation (if Verbalized by the Patient): Straight or Heterosexual Spiritual care concerns: No Comments At time of signature, agree with nursing past medical, surgical, social and family history. There is no relevant family history pertinent to the presenting complaint Exam Narrative: General Appearance: Aged appearing, No distress Skin: Warm, Dry; deep dermal with so
[2020-11-16] MEDS: LIDOCAINE, EPINEPHRINE, TETRACAINE VISCOUS SOLN 3 ML TOPICAL (10:30)
[2020-11-16 11:10] VITALS: BP 153/87; PULSE 71; RESP 16; O2SAT 99
== END 2020-11-16 11:10 | disposition home or self-care (01) ==
PROVIDERS: Emergency Provider Emergency Medicine; PCP Family Medicine
DX: S41.112A Laceration without foreign body of left upper arm, initial encounter (principal); W01.0XXA Fall on same level from slipping, tripping and stumbling without subsequent striking against object, initial encounter; I12.9 Hypertensive chronic kidney disease with stage 1 through stage 4 chronic kidney disease, or unspecified chronic kidney disease; N18.30 Chronic kidney disease, stage 3 unspecified; I50.9 Heart failure, unspecified; E78.5 Hyperlipidemia, unspecified; E03.9 Hypothyroidism, unspecified; M81.0 Age-related osteoporosis without current pathological fracture; M19.90 Unspecified osteoarthritis, unspecified site; Z96.653 Presence of artificial knee joint, bilateral; Z96.612 Presence of left artificial shoulder joint; Z96.611 Presence of right artificial shoulder joint
CPT/HCPCS: 12002; 99213; G0463

== ENCOUNTER 2021-04-10 10:54 | Outpatient (CLI) | payer MEDICARE, SELFPAY ==
--- NOTE | ~2021-04-10 | XR_ITS ---
XR hip RT min 3V w AP pelvis DATE: 04/10/2021 11:29 INDICATION: Right hip pain; history of fall. TECHNIQUE: AP pelvis. AP, lateral and crosstable lateral views of right hip COMPARISON: pelvis 04/22/2016 right hip FINDINGS: There is dextroscoliosis and multilevel severe degenerative disc disease of the lumbar spin e. The pubic symphysis and sacroiliac joints are intact. There is bilateral hip osteophytes arthritis, very severe on the right, moderately severe on the left . No pelvic fracture or bone destruction is detected. No recent fracture or dislocation of the right hip. IMPRESSION: Severe right and moderately severe left hip osteoarthritis Rotatory dextro scoliosis and multilevel severe degenerative disc disease of the lumbar spine Reviewed, dictated and finalized at location A. INTERPRETER IMPRESSION: Severe right and moderately severe left hip osteoarthritis Rotatory dextro scoliosis and multilevel severe degenerative disc disease of th e lumbar spine
== END 2021-04-10 10:55 | disposition home or self-care (01) ==
PROVIDERS: PCP Family Medicine; Referring Provider Orthopaedic Surgery; Visit Provider Family Medicine
DX: M16.0 Bilateral primary osteoarthritis of hip (principal)
CPT/HCPCS: 73502

== ENCOUNTER 2021-07-01 07:40 | Outpatient (CLI) | payer MEDICARE, SELFPAY ==
[2021-07-01 09:37] LABS: Basophils Absolute Auto 0.1 K/mm3 (0.0-0.1); Eosinophils Absolute Auto 0.3 K/mm3 (0-0.3); Eosinophils Percent Auto 4.1 % (0-4.4); Hematocrit 39.9 % (37.0-47.0); Hemoglobin 12.8 g/dL (12.0-15.0); Immature Granulocyte Absolute 0.02 K/mm3 (0.00-0.031); Immature Granulocyte Percent A 0.3 % (0-0.5); Mean Corpuscular HGB Conc 32.1 g/dl (32-36); Mean Corpuscular Hemoglobin 31.1 pg (26-34); Mean Corpuscular Volume 96.8 fl (80-100); Mean Platelet Volume 9.9 fl (7.4-10.4); Monocytes Absolute Auto 0.9 K/mm3 (0.1-0.6); Monocytes Percent Auto 12.3 % (2.6-8.5); Neutrophils Absolute Auto 3.9 K/mm3 (1.3-6.7); Neutrophils Percent Auto 54.3 % (45.5-73.1); Platelet Count Result 255 k/mm3 (150-375); Red Blood Count 4.12 M/mm3 (4.2-5.4); Red Cell Distribution Width 14.5 % (11.5-14.5); White Blood Count 7.1 K/mm3 (4.5-10.0)
[2021-07-01 09:40] LABS: Albumin Level 4.4 g/dL (3.5-5.1); Anion Gap 7 mmol/L (8-16); Blood Urea Nitrogen 25 mg/dL (7-17); Calcium 9.3 mg/dL (8.4-10.2); Carbon Dioxide 26 mmol/L (22-30); Chloride 103 mmol/L (98-107); Estimated Glomerular Filt Rate 47; Glucose 82 mg/dL (65-110); Potassium 4.3 mmol/L (3.4-5.0); Sodium 136 mmol/L (137-145)
[2021-07-01 09:44] LABS: Urine Cotinine NEGATIVE
[2021-07-01 10:06] LABS: Hemoglobin A1C 5.1 % (<5.7)
[2021-07-01 10:38] LABS: Prothrombin Time 12.8 Seconds (11.1-14.7)
[2021-07-01 10:39] LABS: Partial Thromboplastin Time 26.3 SECONDS (22.3-36.8)
== END 2021-07-01 07:41 | disposition home or self-care (01) ==
LOC: ANHSURGERY 07:46
PROVIDERS: Anesthesiology; PCP Family Medicine; Visit Provider Orthopaedic Surgery
DX: Z01.818 Encounter for other preprocedural examination (principal); M16.11 Unilateral primary osteoarthritis, right hip; N18.30 Chronic kidney disease, stage 3 unspecified
CPT/HCPCS: 36415; 80048; 80307; 82040; 83036; 85025; 85610; 85730; 87081

== ENCOUNTER 2021-08-27 12:18 | Emergency (ER) | payer MEDICARE, SELFPAY ==
--- NOTE | ~2021-08-27 | XR_ITS ---
XR hip RT min 3V w AP pelvis DATE: 08/27/2021 13:38 INDICATION: Right hip pain. Right hip gives out. Unable to bear weight. TECHNIQUE: AP pelvis. AP, lateral and crosstable lateral views of right hip COMPARISON: None FINDINGS: There is rotatory dextroscoliosis and severe degenerative disc disease of lumbar spine. Osteopenia. The pubic symphysis and sacroiliac joints are intact. No pelvic fracture or bone destruction. There is severe asymmetric right hip osteoarthritis with virtual obliteration of right hip joint spac e superiorly. There is patchy cystic and sclerotic change of the acetabulum and particularly the righ t femoral head. There is osteoarthritic spurring of the right hip. No fracture or dislocation of the right hip is evident. IMPRESSION: Severe osteoarthritis of the right hip Rotatory dextro scoliosis and severe degenerative disc disease of lumbar spine Osteopenia Reviewed, dictated and finalized at location A.
--- NOTE | ~2021-08-27 | XR_ITS ---
XR chest 1V DATE: 08/27/2021 13:38 INDICATION: Weakness. Right hip pain. Right hip gives out. Unable to bear weight. TECHNIQUE: AP chest COMPARISON: 05/25/2018 portable AP chest FINDINGS: Mild calcaneal. Aortic calcification, ectasia and unfolding. No hilar or mediastinal enlarg ement is noted. There is mild to moderate elevation of the right leaf of the diaphragm. No pulmonary infiltrate or co nsolidation, pleural effusion or pulmonary vascular congestion or pneumothorax. Prominent levoscoliosis and degenerative change of the thoracic spine. Bilateral glenohumeral joint replacement. IMPRESSION: Cardiomegaly, aortic atherosclerosis No active pulmonary disease Levoscoliosis and degenerative change of the thoracic spine Bilateral glenohumeral joint replacement Osteopenia Reviewed, dictated and finalized at location A.
[2021-08-27 12:16] VITALS: BP 158/75; PULSE 70; RESP 20; TEMP 36.6; O2SAT 97
--- NOTE | 2021-08-27 13:02 | ECG_ITS ---
Measurements Intervals [place] Rate: 73 P: 14 VT: 125 QRS: 51 QRSD: 88 T: -62 QT: 353 QTc: 391 Interpretive Statements SINUS RHYTHM WITH FREQUENT SUPRAVENTRICULAR PREMATURE COMPLEXES NONSPECIFIC ST AND T-WAVE ABNORMALITY COMPARED TO ECG 07/11/2020 12:25:34 INFEROLATERAL T-WAVE INVERSION IS NOW PRESENT Electronically Signed On 08-28-2021 7:19:01 CDT by Reji Gallardo M.D.
--- NOTE | 2021-08-27 13:07 | ED.FALL ---
HPI - Fall General Chief Complaint: Extremity Injury, Lower Stated Complaint: R hip pain Time Seen by Provider: 08/27/21 12:33 History of Present Illness HPI Narrative: 85-year-old female presents to the emergency room for evaluation of a fall prior to arrival. Patient states that she is scheduled to have a right hip replacement in approximately 4 weeks, and developed right hip pain causing her to fall. Patient states that she was caught by staff at the independent living center that she resides in. Patient states that he EMS was on scene, and they transferred her to her room via stretcher. Patient states that she was unable to stand due to right lower extremity weakness. Patient denies syncope or near syncope, shortness of breath, chest pain, or dysuria. Related Data Home Medications Medication Instructions Recorded Confirmed ascorbate calcium (vitamin C) 500 500 mg PO QAM 09/06/19 08/14/21 mg tablet cranberry 400 mg capsule 400 mg PO BID 09/06/19 08/14/21 oxybutynin chloride 10 mg 10 mg PO HS 03/27/20 08/14/21 tablet,extended release 24 hr cyanocobalamin (vitamin B-12) 1 tablet PO QAM 07/18/20 08/14/21 acetaminophen 325 mg capsule 325 mg PO Q6H PRN Breakthrough 09/11/20 08/14/21 (Tylenol) Pain, Mild calcium carbonate 600 mg calcium 600 mg PO QAM 03/19/21 08/14/21 (1,500 mg) tablet (Calcium) aspirin 81 mg tablet,delayed 81 mg PO DAILY 07/01/21 08/14/21 release melatonin 10 mg tablet 10 mg PO HS PRN Sleep 07/01/21 08/14/21 Allergies Allergy/AdvReac Type Severity Reaction Status Date / Time No Known Allergies Allergy Verified 08/27/21 12:22 Review of Systems Review of Systems: CONSTITUTIONAL: Denies fever, chills, or sweats. EYES: Denies visual changes, redness, or discharge. ENT: Denies rhinorrhea, congestion, sore throat, or otalgia. CARDIOVASCULAR: Denies chest pain, palpitations, or edema. RESPIRATORY: Denies cough or dyspnea. GASTROINTESTINAL: Denies abdominal pain, nausea, vomiting, or diarrhea. GENITOURINARY: Denies dysuria or hematuria. SKIN: Denies rash or itching. MUSCULOSKELETAL: Reports right hip pain NEUROLOGIC: Reports generalized weakness PSYCHIATRIC: Denies anxiety or depression. 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 07/2020 Family History Family History Sibling Family history of Parkinson's disease Father Family history of Alzheimer's disease Family history of heart disease in male family member before age 55 Family history of cardiovascular disease Other Family history of osteoarthritis Social History Social History Years smoked: 2 Smoking status: Former smoker Tobacco type: cigarettes Second hand tobacco smoke exposure: No Smoking end date: 02/10/1961 Additional smoking assessment comments: STATES HX SOCIAL SMOKER X2 YRS QUIT 1960- DENIES ALL FORMS OF TOBACCO USE Alcohol intake: never Drinks per week: 1 Alcohol use details: MAYBE 1/MONTH Substance use: never Substance use type: does not use Additional living arrangements comments: [facility] Gender identity (if verbalized by the patient): Female Sexual Orientation (if Verbalized by the Patient): Straight or Heterosexual Spiritual care conc
[2021-08-27 13:26] LABS: Basophils Absolute Auto 0.1 K/mm3 (0.0-0.1); Basophils Percent Auto 0.8 % (0.2-1.2); Eosinophils Absolute Auto 0.1 K/mm3 (0-0.3); Eosinophils Percent Auto 1.8 % (0-4.4); Hematocrit 37.1 % (37.0-47.0); Hemoglobin 12.1 g/dL (12.0-15.0); Immature Granulocyte Absolute 0.03 K/mm3 (0.00-0.031); Immature Granulocyte Percent A 0.4 % (0-0.5); Lymphocytes Percent Auto 19.7 % (18.3-44.2); Mean Corpuscular HGB Conc 32.6 g/dl (32-36); Mean Corpuscular Hemoglobin 30.9 pg (26-34); Mean Corpuscular Volume 94.9 fl (80-100); Mean Platelet Volume 9.9 fl (7.4-10.4); Monocytes Absolute Auto 0.6 K/mm3 (0.1-0.6); Monocytes Percent Auto 7.5 % (2.6-8.5); Neutrophils Absolute Auto 5.3 K/mm3 (1.3-6.7); Neutrophils Percent Auto 69.8 % (45.5-73.1); Platelet Count Result 258 k/mm3 (150-375); Red Blood Count 3.91 M/mm3 (4.2-5.4); Red Cell Distribution Width 14.8 % (11.5-14.5); White Blood Count 7.6 K/mm3 (4.5-10.0)
--- NOTE | 2021-08-27 13:28 | PC.NURSE ---
pt to Xray at this time.
[2021-08-27 13:42] LABS: Alanine Aminotransferase 13 U/L (6-35); Albumin Level 4.3 g/dL (3.5-5.1); Alkaline Phosphatase 93 U/L (38-126); Anion Gap 6 mmol/L (8-16); Aspartate Amino Transferase 32 U/L (14-36); Bilirubin,Total 0.9 mg/dL (0.2-1.3); Blood Urea Nitrogen 25 mg/dL (7-17); Calcium 8.9 mg/dL (8.4-10.2); Carbon Dioxide 22 mmol/L (22-30); Chloride 105 mmol/L (98-107); Estimated CRCL calculation 32 ml/min; Estimated Glomerular Filt Rate 53; Glucose 91 mg/dL (65-110); Potassium 4.1 mmol/L (3.4-5.0); Sodium 133 mmol/L (137-145)
[2021-08-27 14:22] LABS: Appearance Urine Clear (Clear); Bilirubin Urine Negative (Negative); Blood Urine Negative (Negative); Color Urine Yellow (Yellow); Glucose Urine UA Negative (Negative); Ketones Urine Negative (Negative); Leukocyte Esterase Ur Trace LEU/UL (Negative); Nitrate Urine Negative (Negative); Protein Urine Negative (Negative); Specific Grav Ur 1.015 (1.001-1.035); Urobilinogen Urine 0.2 mg/dL (<2.0)
[2021-08-27 14:28] LABS: Bacteria Urine Trace /hpf; Squamous Epithelial Cell Urine Rare /hpf (Few); WBC Urine 0-3 /hpf
[2021-08-27 14:38] LABS: Troponin I < 0.012 ng/mL (0.000-0.034)
[2021-08-27 14:41] LABS: Add Urine Microscopic? YES
--- NOTE | 2021-08-27 14:41 | PC.NURSE ---
Care Coordination at bedside.
--- NOTE | 2021-08-27 14:58 | PCCCNOTE ---
Met with patient and daughter Liz bedside, patient is alert and oriented x 4, lives at [facility]. patient was brought in to ED for a fall at home. CC asked patient if she wanted to go back home with home health or rehab. patient and daughter Liz were very adamant that patient returns back to home but would like a referral sent to [facility]. referral faxed and Pati from [facility] states that she will put patient on the schedule for 08/29.
[2021-08-27 15:36] VITALS: BP 151/90; PULSE 93; RESP 18; O2SAT 100
== END 2021-08-27 15:39 ==
PROVIDERS: Emergency Provider Nurse Practitioner Family; PCP Family Medicine
DX: M25.551 Pain in right hip (principal); G89.29 Other chronic pain; M62.81 Muscle weakness (generalized); M62.50 Muscle wasting and atrophy, not elsewhere classified, unspecified site; I12.9 Hypertensive chronic kidney disease with stage 1 through stage 4 chronic kidney disease, or unspecified chronic kidney disease; N18.30 Chronic kidney disease, stage 3 unspecified; E78.5 Hyperlipidemia, unspecified; Z79.82 Long term (current) use of aspirin; R94.31 Abnormal electrocardiogram [ECG] [EKG]; Z96.653 Presence of artificial knee joint, bilateral; Z96.612 Presence of left artificial shoulder joint; Z96.611 Presence of right artificial shoulder joint; Z87.891 Personal history of nicotine dependence; M51.36 Other intervertebral disc degeneration, lumbar region; M85.89 Other specified disorders of bone density and structure, multiple sites
CPT/HCPCS: 36415; 71045; 73502; 80053; 81001; 84484; 85025; 93005; 99284

== ENCOUNTER 2021-09-30 09:20 | Outpatient (CLI) | payer MEDICARE, SELFPAY ==
[2021-09-30 10:06] LABS: Prothrombin Time 13.2 Seconds (11.1-14.7); Urine Cotinine NEGATIVE
[2021-09-30 10:07] LABS: Partial Thromboplastin Time 27.8 SECONDS (22.3-36.8)
== END 2021-09-30 09:21 | disposition home or self-care (01) ==
LOC: ANHSURGERY 09:24
PROVIDERS: Anesthesiology; PCP Family Medicine; Visit Provider Orthopaedic Surgery
DX: Z01.818 Encounter for other preprocedural examination (principal); M16.11 Unilateral primary osteoarthritis, right hip; N18.30 Chronic kidney disease, stage 3 unspecified
CPT/HCPCS: 36415; 80307; 83036; 85610; 85730; 86850; 86900; 86901; 87081

== ENCOUNTER 2021-10-08 14:41 | Observation (INO) | payer MEDICARE, SELFPAY ==
--- NOTE | 2021-07-01 07:48 | PC.NURSE ---
Report to the Outpatient Waiting Room, entrance under the green pavilion located off [facility], at time _1000_ on date _07/30/21_. OR Time: _1200_. - You and your visitor will be asked a series of questions to screen for COVID 19 for your protection. - A mask is required within the hospital. One visitor will be allowed to accompany the patient into the hospital. Patients visitor will be instructed to remain with patient at all times or leave the building. VISITING HOURS 10AM-8PM, USE MAIN ENTRANCE Preoperative COVID Testing Requirements: NONE Patients may have clear liquids (water, carbonated beverages, clear teas, apple juice) until 3 hours prior to surgery (0900 AM) with a maximum of 20 ounces. - No food from midnight until time of surgery Take the following medications with a SIP of water the morning of surgery: _AMLODIPINE, CITALOPRAM, LEVOTHYROXINE, TYLENOL IF NEEDED_ Medications to discontinue per DR. CONTI - ASPIRIN 7 DAYS PRIOR TO SURGERY, Date to take last dose 07/22/21_ Medications to discontinue per ANESTHESIA - ALL VITAMINS AND SUPPLEMENTS 3 DAYS PRIOR TO SURGERY, Date to take last dose 07/26/21 Please no make-up, nail uruguayan, hairspray, perfume, deodorant, or body powder the day of surgery. No jewelry (including any body piercings) or valuables the day of surgery, leave them at home. Please take a shower or bath the night before, or the morning of, surgery with an antibacterial soap. Wear comfortable, loose fitting clothing. - Jewelry must be removed prior to entering the operating room. Rings and piercings that are not removed may be cut off. - The hospital will not accept responsibility for valuables. - Please leave all valuables, including medications, at home the day of surgery. If you are going home after surgery, a licensed mule driver must drive you home. - NO public transportation without another adult. - We recommend that an adult stay with you for 24 hours following discharge. - We also recommend that you do not drive, make important decision, drink alcoholic beverages, or take any drugs that were not prescribed by your health care provider for at least 24 hours after your discharge time. Follow any additional instructions given to you from DR. CONTI. Instructions given to ___PT and asked if any additional questions and then verbalized understanding. Patient advised to call surgeon office or pre surgery nurse liaison [phone] if any additional questions.
[2021-07-01 08:12] VITALS: BP 160/80; PULSE 68; RESP 18; TEMP 37.1; O2SAT 97; BMI 27.1
--- NOTE | 2021-09-26 15:43 | PC.NURSE ---
Report to the Outpatient Waiting Room, entrance under the green pavilion located off [facility], at time _1000 on date 10/07/21 . OR Time: _1200 . - You and your visitor will be asked a series of questions to screen for COVID 19 for your protection. - Only one visitor is allowed at this time. - The patient visitor is requested to leave or wait in car when not with patient. - A mask is required within the hospital. Patients may have clear liquids (water, carbonated beverages, clear teas, apple juice) until 3 hours prior to surgery with a maximum of 20 ounces. - No food from midnight until time of surgery - Infants may have breast milk until 4 hours before surgery, infant formula 6 hours prior to surgery. - Children will be allowed to drink immediately following surgery. If applicable, please bring a bottle or sippy cup to assist with drinking. Juice, water, soda, and popsicles are readily available. For infants on formula, please bring formula the day of surgery. Pacifiers are allowed. Take the following medications with a SIP of water the morning of surgery: __AMLODIPINE,CITALOPRAM,,LEVOTHYROXINE,_TYLENOL IF NEEDED Medications to discontinue per physician __MELOXICAM/ASPIRIN 7 DAYS PRE OP___.ALL VITAMINS AND SUPPLEMENTS 3 DAYS PRE OP Date to take last dose__09/29/21_MELOXICAM/ASPIRIN. 10/03/21 ALL VITAMINS AND SUPPLEMENTS Please no make-up, nail eritrean, hairspray, perfume, deodorant, or body powder the day of surgery. No jewelry (including any body piercings) or valuables the day of surgery, leave them at home. Please take a shower or bath the night before, or the morning of, surgery with an antibacterial soap. Wear comfortable, loose fitting clothing. Children are encouraged to wear pajamas. - Jewelry must be removed prior to entering the operating room. Rings and piercings that are not removed may be cut off. - The hospital will not accept responsibility for valuables. - Please leave all valuables, including medications, at home the day of surgery. If you are going home after surgery, a licensed transfer driver must drive you home. - NO public transportation without another adult. - We recommend that an adult stay with you for 24 hours following discharge. - We also recommend that you do not drive, make important decision, drink alcoholic beverages, or take any drugs that were not prescribed by your health care provider for at least 24 hours after your discharge time. For Pediatric surgeries, we recommend two adults accompany the child home (only one inside the building at this time). Follow any additional instructions given to you from your surgeon. If you or anyone in your household have experienced Covid symptoms in the past week, please notify your surgeon or the nurse liaison at the phone number below for possible testing. Telephone instructions given to __PATIENT and asked if any additional questions and then verbalized understanding. Patient advised to call surgeon office or pre surgery nurse liaison [phone] if any additional questions.
[2021-10-07] VITALS (12 sets, daily range): BP systolic 133–168; BP diastolic 58–99; PULSE 60–98; RESP 16–21; TEMP 36.4–36.9; O2SAT 93–100
[2021-10-07] MEDS: ACETAMINOPHEN 500 MG TABLET 1000 MG PO (10:01)
[2021-10-07] MEDS: LACTATED RINGERS 1,000 ML 30 ML IV CONT ×2 (10:29→14:39)
[2021-10-07] MEDS: MIDAZOLAM HCL (*CRX) 2 MG/2 ML VIAL 1 MG IV PUSH (10:53)
--- NOTE | 2021-10-07 11:07 | WPDANESEPPF ---
Anes - Initial Pre Proc Eval Procedure: Operation Date: 10/07/21 12:00 Proposed Procedures p Right Total Hip Arthroplasty - Arnold Gant MD Date/Time: 10/07/21 11:07 Surgeon: Arnold Gant MD Pre Op Diagnosis: primary OA right hip Patient Data Age: 85 Gender: F Height: 1.65 m Weight: 67 kg Last Vital Signs Temp 36.4 C L 10/07/21 10:26 Pulse 69 10/07/21 10:26 Resp 18 10/07/21 10:26 BP 154/99 H 10/07/21 10:26 Pulse Ox 100 10/07/21 10:26 O2 Del Method Room Air 10/07/21 10:26 Allergies Allergy/AdvReac Type Severity Reaction Status Date / Time No Known Allergies Allergy Verified 10/07/21 09:56 Home Medications Medication Instructions Recorded Confirmed Type cranberry 400 mg capsule 400 mg PO BID 09/06/19 10/07/21 History oxybutynin chloride 10 mg 10 mg PO HS 03/27/20 10/07/21 History tablet,extended release 24 hr cyanocobalamin (vitamin B-12) 1 tablet PO QAM 07/18/20 10/07/21 History calcium carbonate 600 mg calcium 600 mg PO QAM 03/19/21 10/07/21 History (1,500 mg) tablet (Calcium) amlodipine 2.5 mg tablet 2.5 mg PO QAM #90 tabs 06/10/21 10/07/21 Rx aspirin 81 mg tablet,delayed 81 mg PO DAILY PRN Pain 07/01/21 10/07/21 History release citalopram 20 mg tablet 20 mg PO QAM #90 tabs 07/22/21 10/07/21 Rx acetaminophen 500 mg tablet 1,000 mg PO Q6H PRN mild pain #1 08/30/21 10/07/21 Rx tablet ascorbic acid (vitamin C) 1,000 mg 1 g PO DAILY #1 tablet 08/30/21 10/07/21 Rx tablet cholecalciferol (vitamin D3) 50 50 mcg PO DAILY #1 cap 08/30/21 10/07/21 Rx mcg (2,000 unit) capsule melatonin 10 mg tablet 5 mg PO HS PRN Sleep 08/30/21 10/07/21 History levothyroxine 75 mcg tablet 75 mcg PO QAM #90 tabs 09/20/21 10/07/21 Rx meloxicam 7.5 mg tablet 7.5 mg PO DAILY #90 tabs 09/20/21 10/07/21 Rx Patient hx anesthesia problems: none Family hx anesthesia problems: none Results Review: All pre-operative results and documents have been reviewed as part of the pre-operative evaluation. 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 07/2020 Family History Family History Sibling Family history of Parkinson's disease Father Family history of Alzheimer's disease Family history of heart disease in male family member before age 55 Family history of cardiovascular disease Other Family history of osteoarthritis Social History Social History Years smoked: 2 Smoking status: Former smoker Tobacco type: cigarettes Second hand tobacco smoke exposure: No Smoking end date: 02/10/1961 Additional smoking assessment comments: STATES HX SOCIAL SMOKER X2 YRS QUIT 1960- DENIES ALL FORMS OF TOBACCO USE Alcohol intake: never Drinks per week: 1 Alcohol use details: MAYBE 1/MONTH Substance use: never Substance use type: does not use Living arrangements: alone Additional living arrangements comments: [facility] Gender identity (if verbalized by the patient): Female Sexual Orientation (if Verbalized by the Patient): Straight or Heterosexual Spiritual care concerns: No Anes - Eval Final PreProcedure Day of Procedure 10/07/21 11:07 Patient weight: normal Hea
[2021-10-07] MEDS: TRANEXAMIC ACID 1,000MG/ISO100 1,000 MG/100 ML BAG 200 MG IVPB (11:41)
[2021-10-07] MEDS: ceFAZolin 2 GM/D5W 50 ML 2 GM/50 ML BAG IVPB ×2 (12:13→20:37)
--- NOTE | 2021-10-07 12:16 | WPDHPUPDATE1 ---
History and Physical Update Update Date/Time: 10/07/21 12:16 History and Physical has been reviewed, including an updated exam of the patient. There are NO changes in the patient's condition. Risks, benefits, and alternatives have been discussed and questions answered. Patient agrees to proceed with procedure.
[2021-10-07] MEDS: fentaNYL CITRATE INJ (*CRX) 100 MCG/2 ML VIAL 25 MCG IV PUSH (15:12)
--- NOTE | 2021-10-07 15:22 | W.PM.PROC2 ---
Procedure Note - Detailed Date of Procedure 10/07/21 Pre-op Diagnosis primary OA right hip Post-op Diagnosis Same Procedure Performed Right Total Hip Arthroplasty Surgeon Arnold Gant MD Registered Safety Engineer Monika Brown PA-C Anesthesia General Indications Advanced degenerative arthritis. Severe pain and dysfunction. Unable to significantly mobilize despite satisfactory total knee arthroplasty done previously. Findings Advanced arthritic change. Large degenerative cyst in the acetabulum which was bone grafted. Overall reasonable bone quality. Significant hip flexion contracture consistent with history of primarily using the wheelchair over the past year. Description of Procedure The patient was given preoperative antibiotics. A general anesthetic was administered. The patient was carefully placed in the lateral decubitus position on the PEG board. The shoulders and hips were carefully positioned for component and leg length positioning reference. The hip was prepped and draped in the usual sterile fashion. A longitudinal incision was created over the posterior aspect of the greater trochanter. Careful dissection was brought down through the deep fascia with electrocautery. A minimally invasive optimized posterior approach to the hip was performed. The short external rotators and capsule were taken down in an L-shaped capsulotomy. The tissue was tagged for later repair using number 2 high strength suture. The femoral neck was measured and taken in situ. The femoral head was removed. The acetabulum was carefully exposed. The inferior capsule was released. The labrum was resected. The acetabulum was sequentially reamed to the intended cup size. The cup was impacted into position with excellent press-fit. Typical anatomic landmarks, including the bony contact points as well as the inferior transverse acetabular ligament were used to confirm cup positioning with preoperative templating. Due to the degenerative cyst and fair bone quality, a single superior screw was placed. Attention was turned to the femur, which was carefully exposed. The hip was reamed and then broached sequentially. Excellent press-fit was obtained with the broach. The hip was trialed. Measurements were utilized, including the lesser trochanter as well as the center of the femoral head and the tip of the trochanter, and excellent assessment of the offset and leg lengths were confirmed. The real component was impacted into position. Trialing confirmed appropriate leg length and offset with soft tissue balancing as well apparent feel of the leg, both at the knee and the heel. Soft tissues were assessed using the the iliotibial band. Reduction of the posterior capsule and external rotators were also used as a secondary assessment. The hip was copiously irrigated with pulsatile lavage antibiotic solution periodically throughout the procedure. The real components were then assembled and reduced. The hip was stable throughout typical maneuvers, including extension, external rotation to 70 degrees, the position of sleep as well as flexion to 90 degrees with internal rotation past 30 degrees. The shake test confirmed stability without impingement. Osteophytes were removed as necessary. The short external rotators and capsule were repaired back to the posterior trochanter through drill holes. The deep fascia was repaired with running number 2 Quill suture, followed by 0 Stratafix suture and 2-0 Stratafix suture in the dermis. Steri-Strips were placed on the skin, followed by a sterile silver occlusive dressing. There were no complications. Meticulous hemostasis was maintained with the AquaMantys device. The patient was brought to the recovery room in stable condition. There were no complications. Physician assistant housekeeping manager, Monika Brown PA-C, required for surgery; including patient positioning, draping, tissue retraction, maintaining instrument position, hip dislocation/ relocation,
--- NOTE | 2021-10-07 16:05 | ADMGEN ---
This patient, Eboni Farris, was admitted to 2 Medical Room 260-. Patient/family oriented to hospital policies and general routines including ID bracelet, bed and alarms, visiting hours, pain management, procedures, bathroom and other care routines, personal items, smoking policy, room service/diet, and visiting hours. Information on how to activate the Rapid Response Team has been discussed. Patient/Family are encouraged to report perceived risks to care and to ask questions if they do not understand what they are told or what they should do.
[2021-10-07] MEDS: SODIUM CHLORIDE 0.9% IV 1,000 ML 125 ML IV CONT (16:59)
[2021-10-07] MEDS: PROPARACAINE HCL 0.5% 15 ML OPHTH SOLN 1 DROP EACH EYE (18:11)
[2021-10-07] MEDS: DICLOFENAC SODIUM 0.1% OPHTH SOLN 2.5 ML BOTTLE 1 DROP EACH EYE (20:38)
[2021-10-07] MEDS: FAMOTIDINE 20 MG TABLET PO (20:38)
[2021-10-08] VITALS (7 sets, daily range): BP systolic 106–131; BP diastolic 51–66; PULSE 67–85; RESP 16–22; TEMP 36.4–36.8; O2SAT 98–99
--- NOTE | ~2021-10-08 | XR_ITS ---
XR hip RT min 2V 10/08/2021 10:54 Indication: Postop day 1 right hip arthroplasty Procedure: 2 views right hip Comparison: 10/07/2021 Findings: There is a right total hip arthroplasty. Prosthesis well seated. No underlying fracture or dislocation. Surrounding osseous structures and soft tissues are unremarkable. Impression: 1: Anatomic alignment of right total hip arthroplasty. No acute bone or joint abnormality. Reviewed, dictated and finalized at location A. Impression: 1: Anatomic alignment of right total hip arthroplasty. No acute bone or joint a bnormality.
--- NOTE | ~2021-10-08 | XR_ITS ---
EXAMINATION: XR hip RT min 2V DATE: 10/07/2021 14:52 INDICATION: Total right hip arthroplasty. Postop. TECHNIQUE: 2 views of right hip were obtained. COMPARISON: Right hip radiograph 08/27/21 FINDINGS: There is a total right hip arthroplasty in near-anatomic alignment. No fracture. There is s evere lumbar spondylosis. IMPRESSION: 1. Total right hip arthroplasty in near-anatomic alignment. Reviewed, dictated and finalized at location A.
[2021-10-08] MEDS: ceFAZolin 2 GM/D5W 50 ML 2 GM/50 ML BAG IVPB ×2 (04:16→12:19)
[2021-10-08] MEDS: LEVOTHYROXINE SODIUM 75 MCG TABLET PO (05:26)
[2021-10-08] MEDS: DICLOFENAC SODIUM 0.1% OPHTH SOLN 2.5 ML BOTTLE 1 DROP EACH EYE (05:26)
[2021-10-08 05:55] LABS: Basophils Percent Auto 0.3 % (0.2-1.2); Eosinophils Percent Auto 0.1 % (0-4.4); Hematocrit 31.9 % (37.0-47.0); Hemoglobin 10.4 g/dL (12.0-15.0); Immature Granulocyte Percent A 0.7 % (0-0.5); Lymphocytes Absolute Auto 1.64 K/mm3 (0.9-3.2); Lymphocytes Percent Auto 11.8 % (18.3-44.2); Mean Corpuscular HGB Conc 32.6 g/dl (32-36); Mean Corpuscular Hemoglobin 30.9 pg (26-34); Mean Corpuscular Volume 94.7 fl (80-100); Mean Platelet Volume 9.5 fl (7.4-10.4); Monocytes Absolute Auto 1.8 K/mm3 (0.1-0.6); Monocytes Percent Auto 12.7 % (2.6-8.5); Neutrophils Absolute Auto 10.4 K/mm3 (1.3-6.7); Neutrophils Percent Auto 74.4 % (45.5-73.1); Platelet Count Result 241 k/mm3 (150-375); Red Blood Count 3.37 M/mm3 (4.2-5.4); Red Cell Distribution Width 14.7 % (11.5-14.5); White Blood Count 13.9 K/mm3 (4.5-10.0)
[2021-10-08 06:06] LABS: Anion Gap 5 mmol/L (8-16); Blood Urea Nitrogen 18 mg/dL (7-17); Calcium 8.1 mg/dL (8.4-10.2); Carbon Dioxide 25 mmol/L (22-30); Chloride 106 mmol/L (98-107); Estimated CRCL calculation 35 ml/min; Estimated Glomerular Filt Rate 59; Glucose 103 mg/dL (65-110); Potassium 4.1 mmol/L (3.4-5.0); Sodium 136 mmol/L (137-145)
[2021-10-08] MEDS: HYDROcodone/acetaminophen (*CRX) 5-325 MG TABLET 1 TAB PO ×3 (07:48→22:33)
[2021-10-08] MEDS: SENNA/DOCUSATE SODIUM TABLET 2 TAB PO ×2 (07:59→17:32)
[2021-10-08] MEDS: amLODIPine BESYLATE 2.5 MG TABLET PO (07:59)
[2021-10-08] MEDS: ASCORBIC ACID 500 MG TABLET 1000 MG PO (07:59)
[2021-10-08] MEDS: FAMOTIDINE 20 MG TABLET PO ×2 (07:59→20:38)
[2021-10-08] MEDS: CHOLECALCIFEROL 1,000 UNITS TABLET 2000 UNITS PO (07:59)
[2021-10-08] MEDS: CALCIUM CARBONATE (OSCAL) 500 MG TABLET PO (07:59)
[2021-10-08] MEDS: CITALOPRAM HYDROBROMIDE 20 MG TABLET PO (08:00)
[2021-10-08] MEDS: MELOXICAM 7.5 MG TABLET PO (08:00)
[2021-10-08] MEDS: polyethylene glycoL 3350 17 GM POWD.PACK PO (08:00)
--- NOTE | 2021-10-08 09:21 | PCOTNOTE ---
Attempted to see pt. for occupational therapy evaluation. Pt.. wanting to wait until clothing has been dropped off from family to begin evaluation. Left message with nursing fro update. Will follow.
--- NOTE | 2021-10-08 10:51 | PCOTNOTE ---
Attempted to see pt. for occupational therapy evaluation. Pt. away from room for x-ray, potential hip dislocation Will follow with nursing.
--- NOTE | 2021-10-08 11:17 | PM.IMCN ---
Assessment and Plan Assessment and plan (1) S/P total right hip arthroplasty: Code(s): Z96.641 - Presence of right artificial hip joint Status: Acute Assessment and Plan: S/p right total hip arthroplasty on 10/07/[address] Gant Tolerated procedure well Management per Orthopedic surgery Continue PT/OT Continue with Parisi catheter. Plan for voiding trial when patient is more ambulatory (2) Anemia: Code(s): D64.9 - Anemia, unspecified Status: Acute Assessment and Plan: Slight decline in hemoglobin from prior labs. Hemoglobin is 10.4 this morning Likely related to blood loss from surgery, may also be dilutional component from IV fluids Continue to monitor H&H closely (3) CKD (chronic kidney disease) stage 3, GFR 30-59 ml/min: Qualifiers: Chronic kidney disease stage 3 subtype: stage 3a (GFR 45-59) Qualified Code(s): N18.31 - Chronic kidney disease, stage 3a Code(s): N18.30 - Chronic kidney disease, stage 3 unspecified Status: Chronic Assessment and Plan: Renal function is stable on review of prior labs (4) Essential hypertension: Code(s): I10 - Essential (primary) hypertension Status: Chronic Assessment and Plan: Blood pressures reviewed and had been running a bit high, likely due to pain. This has improved. Last BP 106/52 Continue amlodipine 2.5 mg daily Monitor BP trends (5) Hypothyroidism (acquired): Code(s): E03.9 - Hypothyroidism, unspecified Status: Chronic Assessment and Plan: No acute issues Continue levothyroxine HPI Data of Consult Consult date: 10/08/21 Requesting Physician: Arnold Gant MD Primary Care Provider: Jose Villatoro MD Consult Narrative Narrative: Date of service: 10/08/2021 Eboni Farris is a 85 year old female with a history of CKD, hypertension, hypothyroidism, dyslipidemia, urge incontinence, and osteoarthritis who is now s/p right total hip arthroplasty. The patient tolerated the surgery well. Her pain is well controlled at this time. When she is sitting down she has no pain. This morning she worked with physical therapy she was able to get out of bed and walk to the door and then sit down in the chair. She stated this movement did cause her to have pretty significant pain, which she rated as 10/10 but she felt that she did well with this. She had no issues immediately following the surgery or with anesthesia including nausea or vomiting. She has been able to tolerate her diet without difficulty. She is eating well. She denies shortness of breath, cough, chest pain. No palpitations. She denies dizziness, lightheadedness, or weakness. Her last bowel movement was 2 days ago. She denies abdominal cramping, bloating, or pain. No issues with her Parisi catheter. Lives at [facility] and has no stairs to enter her apartment. Review of Systems Review of Systems: All systems reviewed & are unremarkable except as noted in HPI and below PMFSH Past Medical History Medical History (Updated 10/08/21 @ 11:23 by Nila Fine PA-C) Chronic pain syndrome CKD (chronic kidney disease) stage 3, GFR 30-59 ml/min Dyslipidemia Essential hypertension Hypothyroidism (acquired) 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n organic factor Osteopenia Urinary incontinence Vertigo Surgical History Surgical History (Updated 10/08/21 @ 11:23 by Nila Fine PA-C) History of bladder surgery (~2017) 06/2017 - Colpocleisis and perineorrhaphy History of left knee replacement History of left shoulder replacement History of total right hip arthroplasty 10/07/2021 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 07/2020 Family History Family History (Updated 10/08/21 @ 11:24 by Nila Fine PA-C) Sibling Family history of Parkinson'
--- NOTE | 2021-10-08 12:55 | PM.PNORT ---
Progress Note: A&P Assessment and Plan (1) S/P total right hip arthroplasty: Code(s): Z96.641 - Presence of right artificial hip joint Status: Acute Plan POD #1 Right total hip arthroplasty. Patient resting comfortably in chair. Severe pain with motion. Did not do well with PT. Xray taken today shows no dislocation or fracture. SUKHDEV in normal alignment. Patient will need to be discharged to SNF or Rehab due to weakness and difficulty with PT. Patient's daughter has started arrangements for her already. Will reassess tomorrow. Subjective Subjective Date/Time Seen: 10/08/21 12:55 Interval history: Patient resting comfortably in a donaldo. States she has pain with any ROM. She was confused yesterday and was laying with her hip flexed and internally rotated. She has been having difficulty with PT. Notes she feels very weak. No other complaints. Review of Systems Review of Systems: All systems reviewed & are unremarkable except as noted in HPI and below Exam Narrative: Pleasant normal weight 85 y/o female. Alert and Oriented x3. No acute distress. Foot is slightly internally rotated. Dressing dry and intact without drainage. No erythema, ecchymosis, warmth. No rash or lesions.?Mild swelling. No distal edema. ROM limited to pain.? Light touch sensation intact. Dorsalis pedis pulse normal.?Thigh and Calf nontender. Objective Data Vital Signs Vital Signs: Vital Signs - 24 hr 10/07/21 14:39 10/07/21 14:50 10/07/21 15:05 Temperature 97.5 F L Pulse Rate 90 86 85 Respiratory Rate 21 H 16 16 Blood Pressure 168/93 H 163/58 H 155/66 H Pulse Oximetry 100 100 100 Oxygen Delivery Simple Face Mask Simple Face Mask Simple Face Mask Oxygen Flow Rate 8 8 8 10/07/21 15:20 10/07/21 15:35 10/07/21 15:50 Temperature Pulse Rate 83 82 70 Respiratory Rate Blood Pressure 151/61 H 144/98 H Pulse Oximetry 94 99 99 Oxygen Delivery Nasal Cannula Nasal Cannula Nasal Cannula Oxygen Flow Rate 2 2 2 10/07/21 16:15 10/07/21 16:30 10/07/21 17:00 Temperature 97.6 F 98.3 F 98.4 F Pulse Rate 70 60 89 Respiratory Rate 16 16 16 Blood Pressure 147/81 H 151/72 H 133/71 Pulse Oximetry 96 98 97 Oxygen Delivery Oxygen Flow Rate 10/07/21 16:20 10/07/21 19:32 10/08/21 00:07 Temperature 97.6 F 97.6 F Pulse Rate 98 74 Respiratory Rate 16 20 16 Blood Pressure 163/98 H 126/66 Pulse Oximetry 93 98 99 Oxygen Delivery Nasal Cannula Oxygen Flow Rate 2 10/08/21 04:25 10/08/21 08:51 10/08/21 08:00 Temperature 97.6 F Pulse Rate 67 67 Respiratory Rate 16 Blood Pressure 121/62 Pulse Oximetry 98 Oxygen Delivery Room Air Room Air Oxygen Flow Rate 10/08/21 09:59 Temperature 97.9 F Pulse Rate 77 Respiratory Rate 16 Blood Pressure 106/52 L Pulse Oximetry 98 Oxygen Delivery Oxygen Flow Rate Intake/Output Intake/Output: Intake & Output 10/05/21 10/06/21 10/07/21 10/08/21 23:59 23:59 23:59 23:59 Intake Total 800 590 Output Total 100 1475 Balance 700 -885 Meds/Results Medications: Active Medications Generic Name Dose Route Start Last Admin Trade Name Freq PRN Reason Stop Dose Admin Acetaminophen 1,000 mg 10/07/21 16:00 Acetaminophen 500 Mg Tablet PO Q6H PRN Pain Rated 1-3 Hydrocodone Bitart/Acetaminophen 1 tab 10/07/21 16:00 10/08/21 07:48 Hydrocodone/Acetaminophen (*Crx) 5-325 Mg Tablet PO 1 tab Q4H PRN Administration Pain Rated 4-6 Hydrocodone Bitart/Acetaminophen 2 tab 10/07/21 16:00 Hydrocodone/Acetaminophen (*Crx) 5-325 Mg Tablet PO Q6H PRN Pain Rated 7-10 Amlodipine Besylate 2.5 mg 10/08/21 09:00 10/08/21 07:59 Amlodipine Besylate 2.5 Mg Tablet PO 2.5 mg QAM ROYER Administration Artificial Tears 1 drop 10/07/21 17:13 Artificial Tears Ophth Soln 15 Ml Bottle EACH EYE Q2H PRN Dry Eye(s) Ascorbic Acid 1,000 mg 10/08/21 09:00 10/08/21 07:59 Ascorbic Acid 500 Mg Tablet PO 1,000
[2021-10-08] MEDS: ACETAMINOPHEN 500 MG TABLET 1000 MG PO (16:31)
--- NOTE | 2021-10-08 18:50 | P.PNAN_ITS ---
Anes - Prog Note Post-Op Date/Time: 10/08/21 18:50 Cardiovascular status: normal Respiratory status: normal Airway patency: baseline Mental status: baseline Post-Op hydration status: normal Vital Signs: Last Vital Signs Temp 36.8 C 10/08/21 14:48 Pulse 85 10/08/21 14:48 Resp 16 10/08/21 14:48 BP 122/56 L 10/08/21 14:48 Pulse Ox 99 10/08/21 14:48 O2 Del Method Room Air 10/08/21 08:51 O2 Flow Rate 2 10/07/21 16:20 Pain Score (VAS): 0 I/O: Intake & Output 10/08/21 10/08/21 10/08/21 07:59 15:59 23:59 Intake Total 350 530 830 Output Total 1475 300 100 Balance -1125 230 730 Laboratory Tests 10/08/21 05:35 10/08/21 05:35 10/08/21 10/08/21 05:35 05:35 WBC 13.9 H RBC 3.37 L Hgb 10.4 L Hct 31.9 L MCV 94.7 MCH 30.9 MCHC 32.6 RDW 14.7 H Plt Count 241 MPV 9.5 Immature Gran % (Auto) 0.7 H Neut % (Auto) 74.4 H Lymph % (Auto) 11.8 L [place] % (Auto) 12.7 H Eos % (Auto) 0.1 Baso % (Auto) 0.3 Lymph # (Auto) 1.64 [place] # (Auto) 1.8 H Eos # (Auto) 0.0 Baso # (Auto) 0.0 Abs Immat Gran (auto) 0.10 H Absolute Neuts (auto) 10.4 H Absolute Nucleated RBC 0.0 Nucleated RBC % 0.0 Sodium 136 L Potassium 4.1 Chloride 106 Carbon Dioxide 25 Anion Gap 5 L BUN 18 H Creatinine 0.90 Estim Creat Clear Calc 35 Estimated GFR 59 Glucose 103 Calcium 8.1 L Patient Feedback: Patient satisfied with anesthetic care.
[2021-10-09] VITALS (8 sets, daily range): BP systolic 108–143; BP diastolic 47–62; PULSE 75–85; RESP 16–20; TEMP 36.3–36.6; O2SAT 93–99
[2021-10-09] MEDS: HYDROcodone/acetaminophen (*CRX) 5-325 MG TABLET 1 TAB PO (03:14)
[2021-10-09 06:15] LABS: Anion Gap 3 mmol/L (8-16); Blood Urea Nitrogen 18 mg/dL (7-17); Calcium 8.2 mg/dL (8.4-10.2); Carbon Dioxide 26 mmol/L (22-30); Chloride 106 mmol/L (98-107); Estimated CRCL calculation 32 ml/min; Estimated Glomerular Filt Rate 53; Glucose 89 mg/dL (65-110); Potassium 4.1 mmol/L (3.4-5.0); Sodium 135 mmol/L (137-145)
[2021-10-09] MEDS: LEVOTHYROXINE SODIUM 75 MCG TABLET PO (06:18)
[2021-10-09 06:27] LABS: Hematocrit 30.4 % (37.0-47.0); Hemoglobin 10.1 g/dL (12.0-15.0); Mean Corpuscular HGB Conc 33.2 g/dl (32-36); Mean Corpuscular Hemoglobin 31.5 pg (26-34); Mean Corpuscular Volume 94.7 fl (80-100); Mean Platelet Volume 10.2 fl (7.4-10.4); Platelet Count Result 208 k/mm3 (150-375); Red Blood Count 3.21 M/mm3 (4.2-5.4); Red Cell Distribution Width 14.9 % (11.5-14.5)
[2021-10-09] MEDS: HYDROcodone/acetaminophen (*CRX) 5-325 MG TABLET 2 TAB PO ×3 (08:08→23:52)
[2021-10-09] MEDS: CITALOPRAM HYDROBROMIDE 20 MG TABLET PO (08:09)
[2021-10-09] MEDS: amLODIPine BESYLATE 2.5 MG TABLET PO (08:09)
[2021-10-09] MEDS: ASCORBIC ACID 500 MG TABLET 1000 MG PO (08:09)
[2021-10-09] MEDS: CHOLECALCIFEROL 1,000 UNITS TABLET 2000 UNITS PO (08:09)
[2021-10-09] MEDS: MELOXICAM 7.5 MG TABLET PO (08:10)
[2021-10-09] MEDS: SENNA/DOCUSATE SODIUM TABLET 2 TAB PO ×2 (08:10→17:11)
[2021-10-09] MEDS: CALCIUM CARBONATE (OSCAL) 500 MG TABLET PO (08:10)
[2021-10-09] MEDS: FAMOTIDINE 20 MG TABLET PO ×2 (08:10→21:18)
[2021-10-09] MEDS: polyethylene glycoL 3350 17 GM POWD.PACK PO (08:18)
[2021-10-09] MEDS: CYCLOBENZAPRINE HCL 10 MG TABLET PO ×2 (10:52→21:18)
--- NOTE | 2021-10-09 13:21 | PM.IMPN ---
Progress Note: A&P Assessment and Plan (1) S/P total right hip arthroplasty: Code(s): Z96.641 - Presence of right artificial hip joint Status: Acute Assessment and Plan: S/p right total hip arthroplasty on 10/07/[address] Gant Tolerated procedure well Management per Orthopedic surgery Continue PT/OT Planning for SNF on discharge (2) Anemia: Code(s): D64.9 - Anemia, unspecified Status: Acute Assessment and Plan: Slight decline in hemoglobin from prior labs. Hemoglobin is 10.1 this morning Likely related to blood loss from surgery, may also be dilutional component from IV fluids Continue to monitor H&H closely No active bleeding (3) CKD (chronic kidney disease) stage 3, GFR 30-59 ml/min: Qualifiers: Chronic kidney disease stage 3 subtype: stage 3a (GFR 45-59) Qualified Code(s): N18.31 - Chronic kidney disease, stage 3a Code(s): N18.30 - Chronic kidney disease, stage 3 unspecified Status: Chronic Assessment and Plan: Renal function is stable on review of prior labs (4) Essential hypertension: Code(s): I10 - Essential (primary) hypertension Status: Chronic Assessment and Plan: Blood pressures reviewed and has been a bit soft today. Last BP 108/62 Evaluate orthostatics given dizzy episode this morning. Encouraged adequate PO fluid intake. Will hold on IV fluid bolus at this time. Will hold low dose amlodipine if BP remains on the lower end Monitor BP trends (5) Hypothyroidism (acquired): Code(s): E03.9 - Hypothyroidism, unspecified Status: Chronic Assessment and Plan: No acute issues Continue levothyroxine Subjective Date/time seen: 10/09/21 13:21 Interval history: Date of service:? 10/08/2021 Eboni Farris is a 85 year old female with a history of CKD, hypertension, hypothyroidism, dyslipidemia, urge incontinence, and osteoarthritis who is now s/p right total hip arthroplasty.?She is feeling better today. Her hip pain at this time is 0/10. She had a pain pill several hours before I saw her and seems to be doing well with this. This morning when she was up and walking around her pain was about 7-8/10. After doing a bit of walking with therapy, she sat in the chair for a while. Eventually she did start to feel a little bit dizzy and was assisted back to bed. At this time she denies dizziness or lightheadedness. She did not lose consciousness. She denies abdominal pain, nausea, or vomiting. Her appetite is good. States her last bowel movement was 3 days ago. Her Parisi catheter was removed and she has been voiding without difficulty. Denies urinary symptoms including dysuria or hematuria. Review of Systems Review of Systems: All systems reviewed & are unremarkable except as noted in HPI and below Exam Narrative: General: Thin, well-appearing 85-year-old female, semi recumbent in bed eating lunch comfortable, NARD Neuro: awake, alert and oriented x4, speech clear, no focal neuro deficits noted HEENMT: normocephalic, atraumatic, EOMI, sclerae anicteric Respiratory: clear to auscultation bilaterally, nonlabored breathing Cardio: regular rate, regular rhythm with S1-S2 Abdomen: nondistended, normoactive bowel sounds, soft, nontender to palpation Extremities: Right hip covered in bandage that is clean and dry, tender to palpation of lateral mid thigh, bilateral lower extremities without edema, erythema, or tenderness to palpation, DP pulses 2+ bilaterally Skin: no rashes or lesions, warm and dry Psych: appropriate mood and affect, judgment and insight intact Objective Data Vital Signs Vital Signs: Vital Signs - 24 hr 10/08/21 14:48 10/08/21 18:26 10/08/21 21:07 Temperature 98.3 F 98.1 F 98.2 F Pulse Rate 85 77 78 Respiratory Rate 16 16 22 H Blood Pressure 122/56 L 113/56 L 131/51 L Pulse Oximetry 99 98 99 Oxygen Delivery 10/09/21 02:00 10/09/21 04:2
--- NOTE | 2021-10-09 16:13 | PM.PNORT ---
Progress Note: A&P Assessment and Plan (1) S/P total right hip arthroplasty: Code(s): Z96.641 - Presence of right artificial hip joint Status: Acute Plan POD #2 Right total hip arthroplasty. Patient resting comfortably in bed. Persistent severe pain with motion. Did not do well with PT. Xray taken today shows no dislocation or fracture. SUKHDEV in normal alignment. Patient's hip is likely flexed and rotated slightly due to patient's pre-operative deconditioning and tight iliopsoas muscle. She did have some benefit after a muscle relaxer. Dr. Gant saw the patient today as well and recommends she stay another night. Patient will need to be discharged to SNF or Rehab due to weakness and difficulty with PT. She has been accepted. Likely discharge tomorrow. Subjective Subjective Date/Time Seen: 10/09/21 16:13 Interval history: Patient resting comfortably in bed at the time of my visit. States she has severe pain with any ROM. Notes she had a rough night and had a lot of trouble going to the bathroom last night. She is still feeling very weak and having trouble with pain control. She states it took 3-4 people to help her get up last night. Review of Systems Review of Systems: All systems reviewed & are unremarkable except as noted in HPI and below Exam Narrative: Pleasant normal weight 85 y/o female. Alert and Oriented x3. No acute distress. Foot is slightly internally rotated and leg is flexed. Dressing dry and intact without drainage. No erythema, ecchymosis, warmth. No rash or lesions.?Mild swelling. No distal edema. ROM limited to pain.? Light touch sensation intact. Dorsalis pedis pulse normal.?Thigh and Calf nontender. Objective Data Vital Signs Vital Signs: Vital Signs - 24 hr 10/08/21 18:26 10/08/21 21:07 10/09/21 02:00 Temperature 98.1 F 98.2 F 98 F Pulse Rate 77 78 81 Respiratory Rate 16 22 H 20 Blood Pressure 113/56 L 131/51 L 114/58 L Pulse Oximetry 98 99 99 Oxygen Delivery 10/09/21 04:25 10/09/21 05:59 10/09/21 08:10 Temperature 98 F 97.7 F Pulse Rate 76 Respiratory Rate 20 20 Blood Pressure 143/60 H Pulse Oximetry 93 93 Oxygen Delivery Room Air 10/09/21 10:10 10/09/21 14:06 Temperature 97.3 F L 97.6 F Pulse Rate 80 78 Respiratory Rate 16 20 Blood Pressure 110/52 L 108/62 Pulse Oximetry 98 95 Oxygen Delivery Intake/Output Intake/Output: Intake & Output 10/06/21 10/07/21 10/08/21 10/09/21 23:59 23:59 23:59 23:59 Intake Total 800 1710 600 Output Total 100 1875 Balance 700 -165 600 Meds/Results Medications: Active Medications Generic Name Dose Route Start Last Admin Trade Name Freq PRN Reason Stop Dose Admin Acetaminophen 1,000 mg 10/07/21 16:00 10/08/21 16:31 Acetaminophen 500 Mg Tablet PO 1,000 mg Q6H PRN Administration Pain Rated 1-3 Hydrocodone Bitart/Acetaminophen 1 tab 10/07/21 16:00 10/09/21 03:14 Hydrocodone/Acetaminophen (*Crx) 5-325 Mg Tablet PO 1 tab Q4H PRN Administration Pain Rated 4-6 Hydrocodone Bitart/Acetaminophen 2 tab 10/07/21 16:00 10/09/21 08:08 Hydrocodone/Acetaminophen (*Crx) 5-325 Mg Tablet PO 2 tab Q6H PRN Administration Pain Rated 7-10 Amlodipine Besylate 2.5 mg 10/08/21 09:00 10/09/21 08:09 Amlodipine Besylate 2.5 Mg Tablet PO 2.5 mg QAM ROYER Administration Artificial Tears 1 drop 10/07/21 17:13 Artificial Tears Ophth Soln 15 Ml Bottle EACH EYE Q2H PRN Dry Eye(s) Ascorbic Acid 1,000 mg 10/08/21 09:00 10/09/21 08:09 Ascorbic Acid 500 Mg Tablet PO 1,000 mg DAILY ROYER Administration Calcium Carbonate 500 mg 10/08/21 09:00 10/09/21 08:10 Calcium Carbonate (Oscal) 500 Mg Tablet PO 500 mg QAM ROYER Administration Citalopram Hydrobromide 20 mg 10/08/21 09:00 10/09/21 08:09 Citalopram Hydrobromide 20 Mg Tablet PO 20 mg QAM ROYER Administration Cyclobenzaprine HCl 10 mg 10/07/21 16:00 10/09/21 10:52 Cycl
[2021-10-09] MEDS: DICLOFENAC SODIUM 0.1% OPHTH SOLN 2.5 ML BOTTLE 1 DROP EACH EYE (21:18)
[2021-10-09] MEDS: MELATONIN 5 MG TABLET PO (23:52)
[2021-10-10] VITALS (7 sets, daily range): BP systolic 108–148; BP diastolic 40–74; PULSE 76–88; RESP 18–24; TEMP 35.9–37.2; O2SAT 95–100
[2021-10-10 05:24] LABS: Hematocrit 30.9 % (37.0-47.0); Hemoglobin 9.8 g/dL (12.0-15.0); Mean Corpuscular HGB Conc 31.7 g/dl (32-36); Mean Corpuscular Hemoglobin 30.8 pg (26-34); Mean Corpuscular Volume 97.2 fl (80-100); Mean Platelet Volume 9.6 fl (7.4-10.4); Platelet Count Result 206 k/mm3 (150-375); Red Blood Count 3.18 M/mm3 (4.2-5.4)
[2021-10-10 05:39] LABS: Anion Gap 2 mmol/L (8-16); Blood Urea Nitrogen 17 mg/dL (7-17); Calcium 8.1 mg/dL (8.4-10.2); Carbon Dioxide 27 mmol/L (22-30); Chloride 105 mmol/L (98-107); Estimated CRCL calculation 32 ml/min; Estimated Glomerular Filt Rate 53; Glucose 83 mg/dL (65-110); Potassium 3.9 mmol/L (3.4-5.0); Sodium 134 mmol/L (137-145)
[2021-10-10] MEDS: LEVOTHYROXINE SODIUM 75 MCG TABLET PO (06:06)
[2021-10-10] MEDS: DICLOFENAC SODIUM 0.1% OPHTH SOLN 2.5 ML BOTTLE 1 DROP EACH EYE ×3 (06:06→21:00)
[2021-10-10] MEDS: HYDROcodone/acetaminophen (*CRX) 5-325 MG TABLET 2 TAB PO (06:06)
[2021-10-10] MEDS: FAMOTIDINE 20 MG TABLET PO ×2 (08:16→20:57)
[2021-10-10] MEDS: CHOLECALCIFEROL 1,000 UNITS TABLET 2000 UNITS PO (08:16)
[2021-10-10] MEDS: ASCORBIC ACID 500 MG TABLET 1000 MG PO (08:16)
[2021-10-10] MEDS: amLODIPine BESYLATE 2.5 MG TABLET PO (08:16)
[2021-10-10] MEDS: MELOXICAM 7.5 MG TABLET PO (08:16)
[2021-10-10] MEDS: polyethylene glycoL 3350 17 GM POWD.PACK PO (08:16)
[2021-10-10] MEDS: CITALOPRAM HYDROBROMIDE 20 MG TABLET PO (08:16)
[2021-10-10] MEDS: CALCIUM CARBONATE (OSCAL) 500 MG TABLET PO (08:16)
[2021-10-10] MEDS: SENNA/DOCUSATE SODIUM TABLET 2 TAB PO ×2 (08:16→16:35)
[2021-10-10] MEDS: CYCLOBENZAPRINE HCL 10 MG TABLET PO (08:17)
--- NOTE | 2021-10-10 08:44 | PM.DS ---
DS: Admitting Diagnosis Discharge Date 10/10/21 Admitting Diagnosis Right hip osteoarthritis. DS: Discharge Diagnosis Discharge Diagnosis Plan Postop day 3: Right total Hip arthroplasty. Patient resting at the side of her bed this morning. Stats she had a much better night last night. She states she is ready to go to rehab/SNF. She had some confusion the first day after surgery. This has improved. She has also been having trouble with PT and pain control. This is improving as well. Plan for discharge today to SNF/Rehab. We had a lengthy discussion regarding postoperative wound care, limitations, expectations, and exercises. Patient shows good understanding. D/C to SNF/Rehab F/u in 3 weeks Wound Care: Remove Mepilex dressing at 7 days post op. Remove steristrips at 14 days post op. May shower. No soaking. PT: WBAT with walker DVT prophylaxis: ASA 81 mg BID, compression socks for 3 weeks. Pain medication: Hydrocodone. DS: Summary Hospital Course Reason for hospitalization: SUKHDEV Hospital Course: SUKHDEV on 10/07/21. Mild confusion after surgery. She had some trouble with PT and pain control post operatively. She is improving. Plan to discharge to SNF/Rehab. Status at Discharge Functional status at discharge: uses cane/walker Overall status at discharge: patient is progressing back to baseline Time Spent with Patient Time attestation: Total time spent providing and/or coordinating discharge services: Exam Narrative: Overweight 85 y/o female. Resting comfortably in bed. Wearing compression socks bilaterally. Dressing dry and intact with no drainage. Moderate swelling. No ecchymosis. No erythema. No hematoma. Range of motion limited due to pain. Calf nontender. Thigh nontender. Neurologic status intact. No varicosities. Distal pulses palpable. DS: Data Data Completed and Pending Labs on day of discharge: Labs from last 24 hours 10/10/21 10/10/21 05:13 05:13 WBC 9.0 RBC 3.18 L Hgb 9.8 L Hct 30.9 L MCV 97.2 MCH 30.8 MCHC 31.7 L RDW 15.0 H Plt Count 206 MPV 9.6 Sodium 134 L Potassium 3.9 Chloride 105 Carbon Dioxide 27 Anion Gap 2 L BUN 17 Creatinine 1.00 Estim Creat Clear Calc 32 Estimated GFR 53 L Glucose 83 Calcium 8.1 L Discharge Plan Discharge Attending physician on discharge: Shepperson,Arnold P. Consulting providers: Nila Fine ; Tere Yañez Discharging Clinician: Monika Brown Patient Disposition: Inpatient Rehab Facility Activity: july shower Diet: as tolerated Wound Care Instructions: follow printed instructions Discharge Instructions: See green instructions sheets Patient Instructions: Pain Management (DC), Total Hip Replacement (DC) Stand Alone Forms: General Discharge Information Follow-up/Referrals: Monika Brown PA [Physician Transportation Supervisor] - Discharge Medications: New hydrocodone-acetaminophen 5-325 mg tablet 1 - 2 tablet PO Q4-6H MDD 6 PRN (Reason: pain) Qty: 30 0RF aspirin 81 mg tablet,delayed release (DR/EC) 81 mg PO BID 14 Days Qty: 28 0RF prednisone 5 mg tablet 5 mg PO DAILY 21 Days Qty: 21 0RF Continued cranberry 400 mg capsule 400 mg PO BID Rx Instructions: administer with a meal oxybutynin chloride 10 mg tablet extended release 24hr 10 mg PO HS calcium carbonate [Calcium 600] 600 mg calcium (1,500 mg) tablet 600 mg PO QAM cyanocobalamin (vitamin B-12) Tablet,Chewable 1 tablet PO QAM aspirin [Aspir-81] 81 mg Tablet,Delayed Release (Dr/Ec) 81 mg PO DAILY PRN (Reason: Pain) amlodipine 2.5 mg tablet 2.5 mg PO QAM Qty: 90 1RF Rx Instructions: TAKE ONE TABLET BY MOUTH DAILY citalopram 20 mg tablet 20 mg PO QAM Qty: 90 1RF ascorbic acid (vitamin C) 1,000 mg tablet 1 g PO DAILY Qty: 1 0RF acetaminophen 500 mg tablet 1,000 mg PO Q6H PRN (Reason: mild pain) Qty: 1 0RF Rx Instructio
--- NOTE | 2021-10-10 16:07 | PM.IMPN ---
Progress Note: A&P Assessment and Plan (1) S/P total right hip arthroplasty: Code(s): Z96.641 - Presence of right artificial hip joint Status: Acute Assessment and Plan: S/p right total hip arthroplasty on 10/07/[address] Gant Tolerated procedure well Management per Orthopedic surgery Continue PT/OT Planning for SNF on discharge. awaiting insurance authorization (2) Anemia: Code(s): D64.9 - Anemia, unspecified Status: Acute Assessment and Plan: Slight decline in hemoglobin from prior labs. Likely related to blood loss from surgery, may also be dilutional component from IV fluids H&H remaining stable. Hemoglobin 9.8 this morning Continue to monitor CBC No active bleeding (3) CKD (chronic kidney disease) stage 3, GFR 30-59 ml/min: Qualifiers: Chronic kidney disease stage 3 subtype: stage 3a (GFR 45-59) Qualified Code(s): N18.31 - Chronic kidney disease, stage 3a Code(s): N18.30 - Chronic kidney disease, stage 3 unspecified Status: Chronic Assessment and Plan: Renal function is stable on review of prior labs (4) Essential hypertension: Code(s): I10 - Essential (primary) hypertension Status: Chronic Assessment and Plan: Blood pressures reviewed and have still been a bit soft. Last BP 108/40 been a bit soft today. Last BP 108/62 Orthostatics ordered on 10/09 due to dizzy episode but not completed. Will put in another order for today. continue Constantino hose Hold low-dose amlodipine in light of decreased blood pressures Encourage adequate p.o. fluid intake Monitor BP trends (5) Hypothyroidism (acquired): Code(s): E03.9 - Hypothyroidism, unspecified Status: Chronic Assessment and Plan: No acute issues Continue levothyroxine Subjective Date/time seen: 10/10/21 16:07 Interval history: Date of service:? 10/10/2021 Eboni Farris is a 85 year old female with a history of CKD, hypertension, hypothyroidism, dyslipidemia, urge incontinence, and osteoarthritis who is now s/p right total hip arthroplasty.? she is feeling much better today. Her pain is more controlled today and she currently rates her right hip pain at 2/10. She did get up in walk around her room a bit today with a walker and sat in the chair for a while. She did feel just slightly dizzy again after sitting for a longer period of time. She denies lightheadedness. Denies palpitations, shortness of breath, chest pain. She has not had a bowel movement since surgery. She denies abdominal pain, cramping, or bloating. She is tolerating her diet. Denies urinary symptoms including dysuria or hematuria. Review of Systems Review of Systems: All systems reviewed & are unremarkable except as noted in HPI and below Exam Narrative: General: Thin, well-appearing 85-year-old female, sitting up in a chair, comfortable, NARD Neuro: awake, alert and oriented x4, speech clear, no focal neuro deficits noted HEENMT: normocephalic, atraumatic, EOMI, sclerae anicteric Respiratory: clear to auscultation bilaterally, nonlabored breathing Cardio: regular rate, regular rhythm with S1-S2 Abdomen: nondistended, normoactive bowel sounds, soft, nontender to palpation Extremities: Right hip covered in bandage that is clean and dry, nontender to palpation, bilateral lower extremities without edema, erythema, or tenderness to palpation, DP pulses 2+ bilaterally Skin: no rashes or lesions, warm and dry Psych: appropriate mood and affect, judgment and insight intact Objective Data Vital Signs Vital Signs: Vital Signs - 24 hr 10/09/21 18:00 10/09/21 20:16 10/10/21 00:35 Temperature 97.7 F 97.3 F L 97.2 F L Pulse Rate 85 75 88 Respiratory Rate 20 16 18 Blood Pressure 123/47 L 125/48 L 133/74 Pulse Oximetry 93 94 97 Oxygen Delivery 10/10/21 05:00 10/10/21 09:23 10/10/21 09:59 Temperature 98.2 F 96.7 F L Pulse Rate 78 81
[2021-10-11] VITALS (8 sets, daily range): BP systolic 102–152; BP diastolic 51–77; PULSE 74–84; RESP 16–20; TEMP 36.1–36.9; O2SAT 97–100
[2021-10-11] MEDS: HYDROcodone/acetaminophen (*CRX) 5-325 MG TABLET 2 TAB PO ×2 (03:51→21:25)
[2021-10-11 05:33] LABS: Hematocrit 30.8 % (37.0-47.0); Hemoglobin 10.3 g/dL (12.0-15.0)
[2021-10-11 05:44] LABS: Albumin Level 3.3 g/dL (3.5-5.1); Anion Gap 5 mmol/L (8-16); Blood Urea Nitrogen 17 mg/dL (7-17); Calcium 8.1 mg/dL (8.4-10.2); Carbon Dioxide 24 mmol/L (22-30); Chloride 105 mmol/L (98-107); Estimated CRCL calculation 32 ml/min; Estimated Glomerular Filt Rate 53; Glucose 93 mg/dL (65-110); Potassium 3.9 mmol/L (3.4-5.0); Sodium 134 mmol/L (137-145)
[2021-10-11] MEDS: LEVOTHYROXINE SODIUM 75 MCG TABLET PO (06:27)
[2021-10-11] MEDS: DICLOFENAC SODIUM 0.1% OPHTH SOLN 2.5 ML BOTTLE 1 DROP EACH EYE ×2 (06:27→13:53)
[2021-10-11] MEDS: ASCORBIC ACID 500 MG TABLET 1000 MG PO (08:43)
[2021-10-11] MEDS: CHOLECALCIFEROL 1,000 UNITS TABLET 2000 UNITS PO (08:44)
[2021-10-11] MEDS: CALCIUM CARBONATE (OSCAL) 500 MG TABLET PO (08:44)
[2021-10-11] MEDS: CITALOPRAM HYDROBROMIDE 20 MG TABLET PO (08:45)
[2021-10-11] MEDS: MELOXICAM 7.5 MG TABLET PO (08:45)
[2021-10-11] MEDS: SENNA/DOCUSATE SODIUM TABLET 2 TAB PO ×2 (08:46→17:36)
[2021-10-11] MEDS: FAMOTIDINE 20 MG TABLET PO ×2 (08:46→21:25)
--- NOTE | 2021-10-11 13:52 | PM.IMPN ---
Progress Note: A&P Assessment and Plan (1) S/P total right hip arthroplasty: Code(s): Z96.641 - Presence of right artificial hip joint Status: Acute Assessment and Plan: S/p right total hip arthroplasty on 10/07/[address] Gant Tolerated procedure well Management per Orthopedic surgery Continue PT/OT Planning for SNF on discharge. awaiting insurance authorization (2) Anemia: Code(s): D64.9 - Anemia, unspecified Status: Acute Assessment and Plan: Slight decline in H&Hfrom prior labs. Likely related to blood loss from surgery, may also be dilutional component from IV fluids H&H remaining stable. Hemoglobin 10.3 this morning Continue to monitor CBC No active bleeding (3) CKD (chronic kidney disease) stage 3, GFR 30-59 ml/min: Qualifiers: Chronic kidney disease stage 3 subtype: stage 3a (GFR 45-59) Qualified Code(s): N18.31 - Chronic kidney disease, stage 3a Code(s): N18.30 - Chronic kidney disease, stage 3 unspecified Status: Chronic Assessment and Plan: Renal function is stable on review of prior labs (4) Essential hypertension: Code(s): I10 - Essential (primary) hypertension Status: Chronic Assessment and Plan: Blood pressures reviewed and have still been a bit soft. Last BP 107/61 Orthostatics ordered due to dizzy episode but have not been completed. Nursing staff to obtain. Continue Constantino hose Hold low-dose amlodipine in light of decreased blood pressures Encourage adequate p.o. fluid intake Monitor BP trends (5) Hypothyroidism (acquired): Code(s): E03.9 - Hypothyroidism, unspecified Status: Chronic Assessment and Plan: No acute issues Continue levothyroxine (6) Confusion: Code(s): R41.0 - Disorientation, unspecified Status: Acute Assessment and Plan: Patients daughter feels patient is just slightly confused, notes issues with word finding Patient is A&Ox4 on my exam Likely due to analgesics. Adjusted pain scale for medications to avoid excess narcotics. Cyclobenzaprine discontinued. Discussed with pt and family that CT brain could be considered due to dizziness and concerns for confusion. They request this be deferred. They believe symptoms are due to pain medications which is indeed the most likely etiology. Patient has no focal neurologic deficits. Subjective Date/time seen: 10/11/21 13:52 Interval history: Date of service:? 10/10/2021 Eboni Farris is a 85 year old female with a history of CKD, hypertension, hypothyroidism, dyslipidemia, urge incontinence, and osteoarthritis who is now s/p right total hip arthroplasty. She is feeling well today. Her pain is controlled at this time. Resting in the chair currently she has no pain. She does have some discomfort when she gets up and walks around. She participated in therapy today. She continues to endorse intermittent dizzy episodes when she is sitting in the chair. She denies lightheadedness, palpitations, shortness of breath. Additionally, denies nausea, vomiting, fever, chills. She is tolerating her diet and states she is drinking plenty of water. Denies urinary symptoms. Her daughter is present at the bedside today and states that she has noticed her having some issues with word finding. She states she is just a bit more confused than normal. Review of Systems Review of Systems: All systems reviewed & are unremarkable except as noted in HPI and below Exam Narrative: General: Thin, well-appearing 85-year-old female, sitting up in a chair, comfortable, NARD Neuro: awake, alert and oriented x4, speech clear, CN II-XII intact HEENMT: normocephalic, atraumatic, EOMI, sclerae anicteric Respiratory: clear to auscultation bilaterally, nonlabored breathing Cardio: regular rate, regular rhythm with S1-S2 Abdomen: nondistended, normoactive bowel sounds, soft, nontender to pal
[2021-10-11] MEDS: BISACODYL 10 MG SUPPOSITORY RECTAL (13:53)
--- NOTE | 2021-10-11 15:22 | PM.PNORT ---
Progress Note: A&P Assessment and Plan (1) S/P total right hip arthroplasty: Code(s): Z96.641 - Presence of right artificial hip joint Status: Acute Plan POD #4 Right total hip arthroplasty. Patient resting comfortably in a chair. She is feeling better today. Pain controlled. She has been having some issues with confusion. Will limit narcotic pain medication and muscle relaxers. Discussed this with hospitalist and patient's daughter. She is ambulating better today as well. She has been accepted to SNF but we are awaiting insurance approval. Subjective Subjective Date/Time Seen: 10/11/21 15:22 Interval history: Patient resting comfortably in a chair at the time of my visit. States she is feeling much better and her pain is controlled. She and her daughter state she is having some confusion that is worse with pain medications. She was able to get up and walk to the bathroom today with walker and one person helping her. Review of Systems Review of Systems: All systems reviewed & are unremarkable except as noted in HPI and below Exam Narrative: Overweight 85 y/o female. Resting comfortably in bed. Wearing compression socks bilaterally. Dressing dry and intact with no drainage. Moderate swelling. No ecchymosis. No erythema. No hematoma. Range of motion limited due to pain. Calf nontender. Thigh nontender. Neurologic status intact. No varicosities. Distal pulses palpable. Objective Data Vital Signs Vital Signs: Vital Signs - 24 hr 10/10/21 18:18 10/10/21 21:16 10/10/21 20:00 Temperature 96.8 F L 98.9 F Pulse Rate 76 80 Respiratory Rate 24 H 21 H Blood Pressure 148/67 H 142/72 H Pulse Oximetry 98 100 Oxygen Delivery Room Air 10/11/21 01:36 10/11/21 05:17 10/11/21 10:40 Temperature 98.4 F 97.9 F 97.0 F L Pulse Rate 82 84 82 Respiratory Rate 20 18 16 Blood Pressure 136/51 L 148/77 H 102/59 L Pulse Oximetry 98 97 97 Oxygen Delivery 10/11/21 08:00 10/11/21 14:00 Temperature 97.3 F L Pulse Rate 77 Respiratory Rate 16 Blood Pressure 107/61 Pulse Oximetry 100 Oxygen Delivery Room Air Intake/Output Intake/Output: Intake & Output 10/08/21 10/09/21 10/10/2122 23:59 23:59 23:59 23:59 Intake Total 1710 900 970 860 Output Total 1875 450 Balance -165 900 970 410 Meds/Results Medications: Active Medications Generic Name Dose Route Start Last Admin Trade Name Freq PRN Reason Stop Dose Admin Acetaminophen 650 mg 10/11/21 12:02 Acetaminophen 325 Mg Tablet PO Q6H PRN Pain Rated 1-5 Hydrocodone Bitart/Acetaminophen 2 tab 10/11/21 12:02 Hydrocodone/Acetaminophen (*Crx) 5-325 Mg Tablet PO Q6H PRN Breakthrough Pain Hydrocodone Bitart/Acetaminophen 1 tab 10/11/21 12:02 Hydrocodone/Acetaminophen (*Crx) 5-325 Mg Tablet PO Q6H PRN Pain Rated 6-10 Amlodipine Besylate 2.5 mg 10/08/21 09:00 10/10/21 08:16 Amlodipine Besylate 2.5 Mg Tablet PO 2.5 mg QAM ROYER Administration Artificial Tears 1 drop 10/07/21 17:13 Artificial Tears Ophth Soln 15 Ml Bottle EACH EYE Q2H PRN Dry Eye(s) Ascorbic Acid 1,000 mg 10/08/21 09:00 10/11/21 08:43 Ascorbic Acid 500 Mg Tablet PO 1,000 mg DAILY ROYER Administration Bisacodyl 10 mg 10/09/21 17:28 Bisacodyl 10 Mg Suppository RECTAL QAM PRN Constipation Calcium Carbonate 500 mg 10/08/21 09:00 10/11/21 08:44 Calcium Carbonate (Oscal) 500 Mg Tablet PO 500 mg QAM ROYER Administration Citalopram Hydrobromide 20 mg 10/08/21 09:00 10/11/21 08:45 Citalopram Hydrobromide 20 Mg Tablet PO 20 mg QAM ROYER Administration Diclofenac Sodium 1 drop 10/07/21 22:00 10/11/21 13:53 Diclofenac Sodium 0.1% Ophth Soln 2.5 Ml Bottle EACH EYE 10/11/21 21:59 1 drop Q8HR ROYER Administration Diphenhydramine HCl 25 mg 10/07/21 16:00 Diphenhydramine Hcl Inj 50 Mg/Ml Vial IV PUSH Q6H PRN Itching Famotidine 20 mg
[2021-10-12 02:39] VITALS: BP 146/62; PULSE 83; RESP 20; TEMP 36.2; O2SAT 98
[2021-10-12] MEDS: LEVOTHYROXINE SODIUM 75 MCG TABLET PO (05:29)
[2021-10-12] MEDS: ACETAMINOPHEN 325 MG TABLET 650 MG PO (05:29)
[2021-10-12 05:32] LABS: Hematocrit 31.1 % (37.0-47.0); Hemoglobin 9.9 g/dL (12.0-15.0); Mean Corpuscular HGB Conc 31.8 g/dl (32-36); Mean Corpuscular Hemoglobin 30.8 pg (26-34); Mean Corpuscular Volume 96.9 fl (80-100); Mean Platelet Volume 9.7 fl (7.4-10.4); Platelet Count Result 265 k/mm3 (150-375); Red Blood Count 3.21 M/mm3 (4.2-5.4); Red Cell Distribution Width 14.8 % (11.5-14.5)
[2021-10-12 05:42] LABS: Anion Gap 4 mmol/L (8-16); Blood Urea Nitrogen 19 mg/dL (7-17); Calcium 8.3 mg/dL (8.4-10.2); Carbon Dioxide 29 mmol/L (22-30); Chloride 105 mmol/L (98-107); Estimated CRCL calculation 32 ml/min; Estimated Glomerular Filt Rate 53; Glucose 88 mg/dL (65-110); Potassium 4.5 mmol/L (3.4-5.0); Sodium 138 mmol/L (137-145)
[2021-10-12 06:20] VITALS: BP 141/81; PULSE 77; RESP 18; TEMP 36.4; O2SAT 96
[2021-10-12] MEDS: ASCORBIC ACID 500 MG TABLET 1000 MG PO (09:03)
[2021-10-12] MEDS: CALCIUM CARBONATE (OSCAL) 500 MG TABLET PO (09:04)
[2021-10-12] MEDS: CITALOPRAM HYDROBROMIDE 20 MG TABLET PO (09:04)
[2021-10-12] MEDS: CHOLECALCIFEROL 1,000 UNITS TABLET 2000 UNITS PO (09:04)
[2021-10-12] MEDS: SENNA/DOCUSATE SODIUM TABLET 2 TAB PO (09:05)
[2021-10-12] MEDS: MELOXICAM 7.5 MG TABLET PO (09:06)
[2021-10-12] MEDS: FAMOTIDINE 20 MG TABLET PO (09:06)
[2021-10-12] MEDS: polyethylene glycoL 3350 17 GM POWD.PACK PO (09:07)
[2021-10-12 09:51] VITALS: BP 125/67; PULSE 83; RESP 17; TEMP 36.3; O2SAT 99
[2021-10-12 09:56] VITALS: BP 125/67; PULSE 83; RESP 17; TEMP 36.3; O2SAT 99
[2021-10-12] MEDS: HYDROcodone/acetaminophen (*CRX) 5-325 MG TABLET 1 TAB PO (13:41)
[2021-10-12 14:25] VITALS: BP 125/51; PULSE 128; RESP 20; TEMP 36.7; O2SAT 98
--- NOTE | 2021-10-12 15:21 | PM.IMPN ---
Progress Note: A&P Assessment and Plan (1) S/P total right hip arthroplasty: Code(s): Z96.641 - Presence of right artificial hip joint Status: Acute Assessment and Plan: S/p right total hip arthroplasty on 10/07/[address] Gant Tolerated procedure well Management per Orthopedic surgery Continue PT/OT Planning for SNF on discharge. Has been accepted to [place]. (2) Anemia: Code(s): D64.9 - Anemia, unspecified Status: Acute Assessment and Plan: Slight decline in H&Hfrom baseline Likely related to blood loss from surgery, may also be dilutional component from IV fluids H&H has been stable postoperatively. Hgb 9.9 today No active bleeding (3) CKD (chronic kidney disease) stage 3, GFR 30-59 ml/min: Qualifiers: Chronic kidney disease stage 3 subtype: stage 3a (GFR 45-59) Qualified Code(s): N18.31 - Chronic kidney disease, stage 3a Code(s): N18.30 - Chronic kidney disease, stage 3 unspecified Status: Chronic Assessment and Plan: Renal function is stable on review of prior labs (4) Essential hypertension: Code(s): I10 - Essential (primary) hypertension Status: Chronic Assessment and Plan: Blood pressures reviewed and have been fluctuant. Some BP on lower end and low dose amlodipine held as pt complained of dizziness. Orthostatics negative. BP has been well controlled. Resume low dose amlodipine 2.5 mg daily. Continue to monitor BP daily at nursing facility (5) Hypothyroidism (acquired): Code(s): E03.9 - Hypothyroidism, unspecified Status: Chronic Assessment and Plan: No acute issues Continue levothyroxine (6) Confusion: Code(s): R41.0 - Disorientation, unspecified Status: Acute Assessment and Plan: 10/11: Patients daughter feels patient is just slightly confused, noted issues with word finding Patient A&Ox4 on my exam Likely due to analgesics. Adjusted pain scale for medications to avoid excess narcotics. Cyclobenzaprine discontinued. 10/12: Confusion resolved Continue to limit narcotics Subjective Date/time seen: 10/12/21 15:21 Interval history: Date of service:? 10/12/2021 Eboni Farris is a 85 year old female with a history of CKD, hypertension, hypothyroidism, dyslipidemia, urge incontinence, and osteoarthritis who is now s/p right total hip arthroplasty. she is feeling much better today. Her pain is well controlled at this time. She feels very comfortable. She did have a bowel movement today. She is tolerating her diet. She no longer endorses dizziness. She feels that her confusion is resolved entirely and she is no longer having trouble getting her words out. She is very eager for discharge. Review of Systems Review of Systems: All systems reviewed & are unremarkable except as noted in HPI and below Exam Narrative: General: Thin, well-appearing 85-year-old female, sitting up in a chair, comfortable, NARD Neuro: awake, alert and oriented x4, speech clear, no focal neurologic deficits noted HEENMT: normocephalic, atraumatic, EOMI, sclerae anicteric Respiratory: clear to auscultation bilaterally, nonlabored breathing Cardio: regular rate, regular rhythm with S1-S2 Abdomen: nondistended, normoactive bowel sounds, soft, nontender to palpation Extremities: Right hip incision covered with bandage that is clean and dry, nontender to palpation, bilateral lower extremities without edema, erythema, or tenderness to palpation, DP pulses 2+ bilaterally Skin: no rashes or lesions, warm and dry Psych: appropriate mood and affect, judgment and insight intact Objective Data Vital Signs Vital Signs: Vital Signs - 24 hr 10/11/21 17:20 10/11/21 17:23 10/11/21 18:00 Temperature 97.2 F L Pulse Rate 74 Respiratory Rate 16 Blood Pressure 139/57 L 130/72 Pulse Oximetry 97 Oxygen Delivery 10/11/21 22:53 10/11
[2021-10-12 16:27] LABS: EDCOVIDSCREEN Positive (Negative)
[2021-10-12 17:49] VITALS: BP 122/49; PULSE 79; RESP 16; TEMP 36.4; O2SAT 99
[2021-10-12 19:24] LABS: SARS-CoV-2 RNA PCR Negative
== END 2021-10-12 19:24 ==
LOC: ANHSURGERY 10-09 12:13 → ANH2MED 10-09 12:13
PROVIDERS: Orthopaedic Surgery; Physician Assistant; Physician Assistant Surgical; Admitting Provider Orthopaedic Surgery; PCP Family Medicine; Visit Provider Orthopaedic Surgery
PROC: (CPT 27130; principal; 2021-10-07 12:00)
DX: M16.11 Unilateral primary osteoarthritis, right hip (principal); G89.4 Chronic pain syndrome; I12.9 Hypertensive chronic kidney disease with stage 1 through stage 4 chronic kidney disease, or unspecified chronic kidney disease; N18.31 Chronic kidney disease, stage 3a; E78.5 Hyperlipidemia, unspecified; E03.9 Hypothyroidism, unspecified; M85.80 Other specified disorders of bone density and structure, unspecified site; D63.1 Anemia in chronic kidney disease; N39.41 Urge incontinence; R41.0 Disorientation, unspecified; Z96.653 Presence of artificial knee joint, bilateral; Z96.612 Presence of left artificial shoulder joint; Z96.611 Presence of right artificial shoulder joint; Z20.822 Contact with and (suspected) exposure to COVID-19; Z87.891 Personal history of nicotine dependence; Z79.82 Long term (current) use of aspirin; Z79.1 Long term (current) use of non-steroidal anti-inflammatories (NSAID); Z79.899 Other long term (current) drug therapy
CPT/HCPCS: 27130; 36415; 73502; 80048; 80307; 82040; 83036; 85014; 85018; 85025; 85027; 85610; 85730; 86850; 86900; 86901; 87081; 87426; 97110; 97116; 97161; 97165; 97530; 97535; A9270; C1776; C9803; G0378; J0131; J0171; J0690; J1100; J1170; J1885; J2250; J2270; J2405; J2704; J2710; J2795; J3010; J7030; J7120; U0003; U0005

== ENCOUNTER 2022-04-28 08:27 | Outpatient (CLI) | payer MEDICARE, SELFPAY ==
--- NOTE | ~2022-04-28 | XR_ITS ---
AP view of the pelvis and AP and lateral views of the right hip Clinical history: Pain Findings: No acute fracture or dislocation is seen. Right hip arthroplasty is present. No hardware co mplication identified. Osseous alignment is anatomic. Left hip joint is preserved. Mild degenerative change of both SI joints. Partially imaged extra scoliosis of the lumbar spine with degenerative disc disease. Soft tissues are unremarkable. Impression: No acute abnormality. Right hip arthroplasty. Degenerative change of the lumbar spine, partially imaged. Reviewed, dictated and finalized at location M. NEERING RECRUITER Impression: No acute abnormality. Right hip arthroplasty. Degenerative change of the lumbar spine, partially imaged.
--- NOTE | ~2022-04-28 | XR_ITS ---
Right Knee Technique: AP, lateral, and sunrise views were obtained. Clinical History: Pain COMPARISON: 06/03/2021 Findings: No acute fracture identified. Total knee arthroplasty is unchanged. There is apparent relat ively small, superiorly displaced patella, unchanged. Soft tissues are unremarkable. No joint effusio n is seen. Impression: Stable total knee arthroplasty. Small, superiorly displaced patella is similar to prior exam. No acute fracture evident. Reviewed, dictated and finalized at location M. MINE INSPECTOR Impression: Stable total knee arthroplasty. Small, superiorly displaced patella is similar to prior exam. No acute fracture evident.
== END 2022-04-28 08:28 | disposition home or self-care (01) ==
LOC: ANHIMG 08:32
PROVIDERS: PCP Family Medicine; Visit Provider Orthopaedic Surgery
DX: Z96.641 Presence of right artificial hip joint (principal); Z96.651 Presence of right artificial knee joint
CPT/HCPCS: 73502; 73562

== ENCOUNTER 2023-01-16 08:49 | Observation (INO) | payer MEDICARE, SELFPAY ==
[2023-01-16] VITALS (38 sets, daily range): BP systolic 75–163; BP diastolic 40–88; PULSE 65–89; RESP 8–29; TEMP 36.2–37.7; O2SAT 95–100; BMI 27.3
--- NOTE | ~2023-01-16 | CT_ITS ---
EXAMINATION: CT brain wo con DATE: 01/17/2023 15:56 INDICATION: blunt head trauma prior to admission . TECHNIQUE: Computed tomography (CT) of the head was performed without intravenous contrast. The mA wa s adjusted according to patient size. Iterative reconstruction technique was employed. The dose-lengt h product was 605.33 mGy-cm. COMPARISON: 04/01/2017. FINDINGS: No acute intracranial hemorrhage or extra-axial fluid collection. No hydrocephalus, mass, or herniation. No acute ischemic infarct. Unremarkable dural venous sinus attenuation. No acute osseous abnormality. The aerated spaces are clear. Mild atrophy and moderate chronic white matter change. Atherosclerotic intracranial calcification. Ri ght basal ganglia calcification. IMPRESSION: No acute intracranial process. Reviewed, dictated and finalized at location K.
--- NOTE | ~2023-01-16 | CT_ITS ---
EXAMINATION: CT abdomen pelvis w con DATE: 01/16/2023 09:59 INDICATION: Hematemesis. TECHNIQUE: Computed tomography (CT) of the abdomen and pelvis was performed with 100 mL Omnipaque-350 intravenous contrast. Automated exposure control and iterative reconstruction technique were employe d. The dose-length product was 639.00 mGy-cm. COMPARISON: None FINDINGS: Respiratory motion and mild atelectasis in the bilateral lower lungs. Heart size is normal. Atheroscl erotic coronary artery calcific lesion. No pericardial or pleural effusion. Small sliding-type hiatal hernia. There is some edematous wall thickening at the distal esophagus likely related to reflux eso phagitis. There appears to be some asymmetric wall thickening along the right side of the intrathorac ic portion of the stomach. Liver, gallbladder, spleen, pancreas and bilateral adrenal glands are norm al. Retained lobulations of the kidneys which demonstrate diffuse mild likely age-related atrop hy. Moderate amount of primarily distal colonic stool. No normal bowel wall thickening or dilated loo ps of gas-filled bowel to suggest obstruction. Bladder is normal. 1.6 cm hypodense fibroid at the fun dus of the uterus. 4.0 x 3.3 x 1.5 cm cystic right inguinal lesion likely representing small amount o f fluid within a right femoral hernia. No free intraperitoneal gas or fluid. No pathologically enlarg ed abdominal or pelvic lymphadenopathy. Moderate S-shaped scoliosis of the lumbar and lower thoracic spine with severe spondylosis. Moderate osteoarthritis at the left hip. Right total hip arthroplasty. IMPRESSION: 1. Small sliding-type hiatal hernia with edematous wall thickening of the distal esophagus which may be related to reflux esophagitis. There also appears to be some asymmetric wall thickening at the rig ht side of the intrathoracic portion of the stomach, assessment of which is limited by motion artifac t as level. Consider endoscopy for further evaluation. 2. 1.6 cm uterine fibroid. 3. Nonspecific 4.0 x 3.3 x 1.5 cm cystic right inguinal lesion likely a small amount of fluid within a right femoral hernia. Differential would include residual seroma related to prior femoral vein acce ss or ganglion cyst from the hip. Reviewed, dictated and finalized at location A. IMPRESSION: 1. Small sliding-type hiatal hernia with edematous wall thickening of the dista l esophagus which may be related to reflux esophagitis. There also appears to b e some asymmetric wall thickening at the right side of the intrathoracic portio n of the stomach, assessment of which is limited by motion artifact as level. C onsider endoscopy for further evaluation. 2. 1.6 cm uterine fibroid. 3. Nonspecific 4.0 x 3.3 x 1.5 cm cystic right inguinal lesion likely a small a mount of fluid within a right femoral hernia. Differential would include residu al seroma related to prior femoral vein access or ganglion cyst from the hip.
[2023-01-16] MEDS: ONDANSETRON INJ 4 MG/2 ML VIAL IV PUSH (09:13)
[2023-01-16 09:15] LABS: Basophils Absolute Auto 0.1 K/mm3 (0.0-0.1); Basophils Percent Auto 0.5 % (0.2-1.2); Eosinophils Percent Auto 0.1 % (0-4.4); Hematocrit 23.3 % (37.0-47.0); Hemoglobin 7.2 g/dL (12.0-15.0); Immature Granulocyte Absolute 0.25 K/mm3 (0.00-0.031); Immature Granulocyte Percent A 2.2 % (0-0.5); Lymphocytes Percent Auto 19.6 % (18.3-44.2); Mean Corpuscular HGB Conc 30.9 g/dl (32-36); Mean Corpuscular Hemoglobin 30.6 pg (26-34); Mean Corpuscular Volume 99.1 fl (80-100); Mean Platelet Volume 10.5 fl (7.4-10.4); Monocytes Absolute Auto 0.6 K/mm3 (0.1-0.6); Monocytes Percent Auto 5.3 % (2.6-8.5); Neutrophils Absolute Auto 8.1 K/mm3 (1.3-6.7); Neutrophils Percent Auto 72.3 % (45.5-73.1); Nucleated Red Blood Cells Perc 0.2 % (0.0-0.2); Platelet Count Result 258 k/mm3 (150-375); Red Blood Count 2.35 M/mm3 (4.2-5.4); Red Cell Distribution Width 15.2 % (11.5-14.5); White Blood Count 11.2 K/mm3 (4.5-10.0)
--- NOTE | 2023-01-16 09:20 | ED.GIBLEED ---
HPI - GI Bleed General Chief complaint: GI Bleed <JOSH Hwang Last Filed: 01/16/23 12:49> Stated complaint: emesis with blood clots <JOSH Hwang Last Filed: 01/16/23 12:49> Time Seen by Provider: 01/16/23 09:08 <JOSH Hwang Last Filed: 01/16/23 12:49> Source: patient <JOSH Hwang Last Filed: 01/16/23 12:49> Mode of arrival: EMS <JOSH Hwang Last Filed: 01/16/23 12:49> Limitations: no limitations <JOSH Hwang Last Filed: 01/16/23 12:49> History of Present Illness HPI Narrative: This is an 87-year-old female that presents to the emergency department for hematemesis. Reports she has had a couple of episodes of hematemesis since earlier this morning. She lives in independent living at [place]. She ended up pressing her emergency button in her room to call for help. Arrives via EMS. She is not on anticoagulation. Denies fevers, abdominal pain, or melena. <JOSH Hwang Last Filed: 01/16/23 12:49> Related Data Home medications: Home Medications Medication Instructions Recorded Confirmed cranberry 400 mg capsule 400 mg PO BID 09/06/19 01/16/23 oxybutynin chloride 10 mg 10 mg PO HS 03/27/20 01/16/23 tablet,extended release 24 hr cyanocobalamin (vitamin B-12) 1 tablet PO QAM 07/18/20 01/16/23 melatonin 10 mg tablet 5 mg PO HS PRN Sleep 08/30/21 01/16/23 acetaminophen 500 mg tablet 1,000 mg PO BID PRN mild pain 04/09/22 01/16/23 cholecalciferol (vitamin D3) 25 25 mcg PO DAILY 04/09/22 01/16/23 mcg (1,000 unit) tablet meloxicam 7.5 mg tablet 7.5 mg PO DAILY 01/16/23 01/16/23 <JOSH Hwang Last Filed: 01/16/23 12:49> Allergies/Adverse reactions: Allergies Allergy/AdvReac Type Severity Reaction Status Date / Time No Known Allergies Allergy Verified 01/16/23 13:15 <Babita Amador PA-C - Last Filed: 01/16/23 12:49> Review of Systems Review of Systems: CONSTITUTIONAL: Denies fever GASTROINTESTINAL: Reports nausea and vomiting. Denies abdominal pain, or diarrhea. <Babita Amador PA-C - Last Filed: 01/16/23 12:49> All systems reviewed & are unremarkable except as noted in HPI and below <Babita Amador PA-C - Last Filed: 01/16/23 12:49> [facility] Past Medical History Medical History: Medical History (Updated 01/16/23 @ 15:47 by Rayna Escalera PA-C) Chronic kidney disease, stage 3 Depression Dyslipidemia Essential hypertension Hypothyroidism Osteoarthritis of right knee Osteopenia Urinary incontinence <Babita Amador PA-C - Last Filed: 01/16/23 12:49> Surgical History Surgical History: Surgical History (Updated 01/16/23 @ 15:40 by Rayna Escalera PA-C) History of arthroplasty of right knee (07/2020) History of bladder surgery (06/2017) Colpocleisis and perineorrhaphy History of left knee replacement History of left shoulder replacement (1989) History of right shoulder replacement (05/2018) History of total right hip arthroplasty (10/07/21) <Babita Amador PA-C - Last Filed: 01/16/23 12:49> Family History Family History: Family History Sibling Family history of Parkinson's disease Father Family history of Alzheimer's disease Family history of heart disease in male family member before age 55 Family history of cardiovascular disease Mother Malignancy 21 DEALER cancer, unspecified location Other Family history of osteoarthritis <Babita Amador PA-C - Last Filed: 01/16/23 12:49> Social History Social History: Social History (Updated 01/16/23 @ 15:38 by Rayna Escalera PA-C) Social History: Ms. Farris lives alone at [facility]. She is independent with most tasks. Her primary care provider is. Dr. Villatoro. She designates her daughter, Liz, as her surrogate decision maker and she would like to be a full code.
[2023-01-16 09:24] LABS: INR 1.2; Prothrombin Time 15.2 Seconds (11.1-14.7)
[2023-01-16 09:25] LABS: Alanine Aminotransferase 16 U/L (6-35); Albumin Level 2.8 g/dL (3.5-5.1); Alkaline Phosphatase 58 U/L (38-126); Anion Gap 5 mmol/L (8-16); Aspartate Amino Transferase 23 U/L (14-36); Bilirubin,Total 0.4 mg/dL (0.2-1.3); Blood Urea Nitrogen 65 mg/dL (7-17); Calcium 7.9 mg/dL (8.4-10.2); Carbon Dioxide 18 mmol/L (22-30); Chloride 114 mmol/L (98-107); Estimated CRCL calculation 40 ml/min; Estimated Glomerular Filt Rate 59; Glucose 156 mg/dL (65-110); Partial Thromboplastin Time 23.9 SECONDS (22.3-36.8); Potassium 4.4 mmol/L (3.4-5.0); Sodium 137 mmol/L (137-145)
[2023-01-16] MEDS: PANTOPRAZOLE SODIUM IV 40 MG VIAL 80 MG IV PUSH (09:25)
[2023-01-16] MEDS: TUBING, BLOOD SET 1 EACH XX ×2 (10:55→12:22)
[2023-01-16] MEDS: SODIUM CHLORIDE 0.9% IV 250 ML 30 ML IV CONT (10:55)
--- NOTE | 2023-01-16 12:03 | PC.NURSE ---
spoke with shamika in GI lab. report and update given
--- NOTE | 2023-01-16 12:07 | WPDGICN ---
Assessment and Plan Assessment and plan (1) Acute GI bleeding: Code(s): K92.2 - Gastrointestinal hemorrhage, unspecified Status: Acute Assessment and Plan: she has had hematemesis beginning this morning. She cannot be sure about the color of her stools, whether not there has been any evidence of bleeding prior to this morning. Her hemoglobin is down to 7.2 but she has just finished receiving her 2nd unit of blood. (2) Anemia: Code(s): D64.9 - Anemia, unspecified Status: Acute Assessment and Plan: Her hemoglobin which was 10.3 a little over a year ago and 12.2 this September is now down to 7.2 on admission (3) Azotemia: Code(s): R79.89 - Other specified abnormal findings of blood chemistry Status: Acute Assessment and Plan: although creatinine has not increased significantly, her BUN which was 36 this September is up to 65 today. This is likely due to blood in the gastrointestinal tract. Plan EGD to be done today. Will follow H&H and if necessary transfusion. GI Consult Note Consult date/time: 01/16/23 12:07 HPI: Eboni Farris is a 87 year old female who early this morning felt that she was going to throw up. She went to the bathroom. She eventually fell but she says that it was coming up both hands she did not see the color of her stool, but she was vomiting up bright red blood clots. She has had no abdominal pain. She has not had any history of ulcers or other upper gastrointestinal issues. Her daughter states that many years ago the patient saw a liver specialist because some of the blood tests were abnormal. But she was never told that she has cirrhosis or any type of chronic liver disease. Her appetite has been good. She denies chronic heartburn or indigestion. There has been no weight loss. Review of Systems Review of Systems: All systems reviewed & are unremarkable except as noted in HPI and below PMFSH Past Medical History Medical History (Updated 01/17/23 @ 18:13 by Wisam Olsen MD) Chronic kidney disease, stage 3 Depression Dyslipidemia Erosive esophagitis Essential hypertension Hypothyroidism Osteoarthritis of right knee Osteopenia Urinary incontinence Surgical History Surgical History History of arthroplasty of right knee (07/2020) History of bladder surgery (06/2017) Colpocleisis and perineorrhaphy History of left knee replacement History of left shoulder replacement (1989) History of right shoulder replacement (05/2018) History of total right hip arthroplasty (10/07/21) Family History Family History Sibling Family history of Parkinson's disease Father Family history of Alzheimer's disease Family history of heart disease in male family member before age 55 Family history of cardiovascular disease Mother Malignancy 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 Farris lives alone at [facility]. She is independent with most tasks. Her primary care provider is. Dr. Villatoro. She designates her daughter, Liz, as her surrogate decision maker and she would like to be a full code. Years smoked: 4 Smoking status: Former smoker Tobacco type: cigarettes Second hand tobacco smoke exposure: Yes Alcohol intake: never Substance use: never Substance use type: does not use Lack of Transportation: No Lack of Food: Never True Current Housing: I Have Housing Concerned About Future Housing: No Difficulty Paying Gas/Electric Bills: No Difficulty Paying for Meds: No Currently Unemployed: No Education: High School Diploma/GED Difficulty w/ Childcare or Family Care: No Spiritual care concerns: No Meds Home M
[2023-01-16] MEDS: SODIUM CHLORIDE 0.9% IV 250 ML 50 ML (12:22)
[2023-01-16] MEDS: METOCLOPRAMIDE HCL INJ 10 MG/2 ML VIAL IV PUSH (12:31)
[2023-01-16] MEDS: LACTATED RINGERS 1,000 ML 150 ML IV CONT (13:20)
--- NOTE | 2023-01-16 13:26 | WPDANESEPPF ---
Anes - Initial Pre Proc Eval Procedure: Operation Date: 01/16/23 14:00 Proposed Procedures p Esophagogastroduodenoscopy - Juan Rooney MD Date/Time: 01/16/23 13:26 Pre Op Diagnosis: emesis with blood clots Patient Data Age: 87 Gender: F Height: 1.68 m Weight: 77.9 kg Last Vital Signs Temp 97.2 F L 01/16/23 13:16 Pulse 83 01/16/23 13:16 Resp 20 01/16/23 13:16 BP 163/77 H 01/16/23 13:16 Pulse Ox 100 01/16/23 13:16 O2 Del Method Room Air 01/16/23 13:16 Allergies Allergy/AdvReac Type Severity Reaction Status Date / Time No Known Allergies Allergy Verified 01/16/23 13:15 Home Medications Medication Instructions Recorded Confirmed Type cranberry 400 mg capsule 400 mg PO BID 09/06/19 10/07/22 History oxybutynin chloride 10 mg 10 mg PO HS 03/27/20 10/07/22 History tablet,extended release 24 hr cyanocobalamin (vitamin B-12) 1 tablet PO QAM 07/18/20 10/07/22 History ascorbic acid (vitamin C) 1,000 mg 1 g PO DAILY #1 tablet 08/30/21 10/07/22 Rx tablet melatonin 10 mg tablet 5 mg PO HS PRN Sleep 08/30/21 10/07/22 History aspirin 81 mg tablet,delayed 81 mg PO BID 14 days #28 tabs 10/10/21 10/07/22 Rx release magnesium citrate 150 ml PO ONCE #296 mL 12/20/21 10/07/22 Rx sennosides 8.6 mg capsule (senna) 8.6 mg PO DAILY PRN constipation 12/20/21 10/07/22 Rx #10 caps acetaminophen 500 mg tablet 1,000 mg PO BID PRN mild pain 04/09/22 10/07/22 History cholecalciferol (vitamin D3) 25 25 mcg PO DAILY 04/09/22 10/07/22 History mcg (1,000 unit) tablet citalopram 20 mg tablet 20 mg PO QAM #90 tabs 05/22/22 10/07/22 Rx levothyroxine 75 mcg tablet 75 mcg PO QAM #90 tabs 09/24/22 10/07/22 Rx amlodipine 2.5 mg tablet 2.5 mg PO QAM #90 tabs 12/29/22 Rx Laboratory Tests 01/16/23 09:09 WBC 11.2 H K/mm3 (4.5-10.0) RBC 2.35 L M/mm3 (4.2-5.4) Hgb 7.2 L g/dL (12.0-15.0) Hct 23.3 L % (37.0-47.0) MCV 99.1 fl (80-100) MCH 30.6 pg (26-34) MCHC 30.9 L g/dl (32-36) RDW 15.2 H % (11.5-14.5) Plt Count 258 k/mm3 (150-375) MPV 10.5 H fl (7.4-10.4) Immature Gran % (Auto) 2.2 H % (0-0.5) Neut % (Auto) 72.3 % (45.5-73.1) Lymph % (Auto) 19.6 % (18.3-44.2) [facility] % (Auto) 5.3 % (2.6-8.5) Eos % (Auto) 0.1 % (0-4.4) Baso % (Auto) 0.5 % (0.2-1.2) Lymph # (Auto) 2.20 K/mm3 (0.9-3.2) [facility] # (Auto) 0.6 K/mm3 (0.1-0.6) Eos # (Auto) 0.0 K/mm3 (0-0.3) Baso # (Auto) 0.1 K/mm3 (0.0-0.1) Abs Immat Gran (auto) 0.25 H K/mm3 (0.00-0.031) Absolute Neuts (auto) 8.1 H K/mm3 (1.3-6.7) Absolute Nucleated RBC 0.0 K/mm3 (0.0-0.012) Nucleated RBC % 0.2 % (0.0-0.2) PT 15.2 H Seconds (11.1-14.7) INR 1.2 APTT 23.9 SECONDS (22.3-36.8) Sodium 137 mmol/L (137-145) Potassium 4.4 mmol/L (3.4-5.0) Chloride 114 H mmol/L (98-107) Carbon Dioxide 18 L mmol/L (22-30) Anion Gap 5 L mmol/L (8-16) BUN 65 H D mg/dL (7-17) Creatinine 0.90 mg/dL (0.7-1.0) Estim Creat Clear Calc 40 ml/min Estimated GFR 59 (59 - ) Glucose 156 H mg/dL (65-110) Calcium 7.9 L mg/dL (8.4-10.2) Total Bilirubin 0.4 mg/dL (0.2-1.3) AST 23 U/L (14-36) ALT 16 U/L (6-35) Alkaline Phosphatase 58 U/L (38-126) Total Protein 5.0 L g/dL (6.3-8.2) Albumin 2.8 L g/dL (3.5-5.1) Blood Type O Positive Antibody Screen Negative Crossmatch See Detail Patient hx anesthesia problems: none Family hx anesthesia problems: none Results Review: All pre-operative results and documents have been reviewed as part of the pre-operative evaluation. [facility], [facility] Past Medical History Medical History CKD (chronic kidney disease) stage 3, GFR 30-59 ml/min Depression Dyslipidemia Essential hypertension Hypothyroidism (acquired) Osteoarthritis of right knee Os
--- NOTE | 2023-01-16 14:35 | PC.NURSE ---
This patient, Eboni Farris, was admitted to 3 [facility] Surg Room 331-01 @ 1435. Patient/family oriented to hospital policies and general routines including ID bracelet, bed and alarms, visiting hours, pain management, procedures, bathroom and other care routines, personal items, smoking policy, room service/diet, and visiting hours. Information on how to activate the Rapid Response Team has been discussed. Patient/Family are encouraged to report perceived risks to care and to ask questions if they do not understand what they are told or what they should do.
[2023-01-16 15:27] LABS: Hematocrit 31.1 % (37.0-47.0)
--- NOTE | 2023-01-16 15:35 | PM.IMHP ---
H&P: HPI History of Present Illness Date/Time: 01/16/23 17:00 Chief Complaint: Vomiting blood. Narrative: This is a very pleasant 87-year-old female with history of hypertension, dyslipidemia, chronic kidney disease, hypothyroidism, urge incontinence, and osteoarthritis who presented to the emergency department via EMS from [facility] for evaluation after she began vomiting blood sometime in the middle of the night. The patient provides the following history. She felt fine when she went to bed last evening and sometime during the middle of the night she awoke with a sudden urge to vomit. She got up to go to the bathroom at which time she vomited a large amount of bright red blood and blood clots. At the same time she started to feel extremely weak and lightheaded and she briefly passed out, landing on her back on the bathroom floor. Luckily she was able to reach her call light for help and she was brought in for evaluation. She had several other episodes of hematemesis prior to arrival and she has had at least 1 large, dark tarry stool since admission. Vital signs have been pretty stable though she has had some isolated soft blood pressures. Her initial hemoglobin was 7.2 and she was transfused 2 units of packed red blood cells. CT of the abdomen and pelvis showed a small sliding-type hiatal hernia with edematous wall thickening of the distal esophagus and what appears to be asymmetric wall thickening at the right side of the intrathoracic portion of the stomach. She has no history of GERD or peptic ulcers and she denies indigestion like symptoms. She only takes acetaminophen if needed for pain; she denies NSAID use. She takes a baby aspirin daily. No significant alcohol or caffeine use. She has no known history of cirrhosis but at 1 point time was referred to a liver specialist due to abnormal lab. No history of upper endoscopy. Review of Systems Review of Systems: Twelve systems were reviewed. No recent cold or flu symptoms. She denies chest pain shortness a breath. Except as documented, all other systems were reviewed and are negative. [facility] Past Medical History Medical History Chronic kidney disease, stage 3 Depression Dyslipidemia Essential hypertension Hypothyroidism Osteoarthritis of right knee Osteopenia Urinary incontinence Surgical History Surgical History History of arthroplasty of right knee (07/2020) History of bladder surgery (06/2017) Colpocleisis and perineorrhaphy History of left knee replacement History of left shoulder replacement (1989) History of right shoulder replacement (05/2018) History of total right hip arthroplasty (10/07/21) Family History Family History Sibling Family history of Parkinson's disease Father Family history of Alzheimer's disease Family history of heart disease in male family member before age 55 Family history of cardiovascular disease Mother Malignancy GLUE MAKER cancer, 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 Farris lives alone at [facility]. She is independent with most tasks. Her primary care provider is. Dr. Villatoro. She designates her daughter, Liz, as her surrogate decision maker and she would like to be a full code. Years smoked: 4 Smoking status: Former smoker Tobacco type: cigarettes Second hand tobacco smoke exposure: Yes Alcohol intake: never Substance use: never Substance use type: does not use Lack of Transportation: No Lack of Food: Never True Current Housing: I Have Housing Concerned About Future Housing: No Difficulty Paying Gas/Electric Bills: No Difficulty Paying for Meds: No Curren
[2023-01-16 20:47] LABS: Hematocrit 25.3 % (37.0-47.0); Hemoglobin 8.4 g/dL (12.0-15.0)
[2023-01-16] MEDS: PANTOPRAZOLE SODIUM IV 40 MG VIAL IV PUSH (21:32)
[2023-01-17] VITALS (9 sets, daily range): BP systolic 116–148; BP diastolic 52–84; PULSE 64–132; RESP 20; TEMP 36.5–37.1; O2SAT 97–100
[2023-01-17] MEDS: LEVOTHYROXINE SODIUM INJ 100 MCG/5 ML VIAL 37.5 MCG IV PUSH (06:32)
[2023-01-17 06:57] LABS: Hematocrit 26.3 % (37.0-47.0); Hemoglobin 8.6 g/dL (12.0-15.0); Mean Corpuscular HGB Conc 32.7 g/dl (32-36); Mean Corpuscular Volume 94.9 fl (80-100); Mean Platelet Volume 10.2 fl (7.4-10.4); Platelet Count Result 188 k/mm3 (150-375); Red Blood Count 2.77 M/mm3 (4.2-5.4); Red Cell Distribution Width 16.4 % (11.5-14.5); White Blood Count 9.4 K/mm3 (4.5-10.0)
[2023-01-17 07:23] LABS: Anion Gap 3 mmol/L (8-16); Blood Urea Nitrogen 44 mg/dL (7-17); Calcium 8.1 mg/dL (8.4-10.2); Carbon Dioxide 22 mmol/L (22-30); Chloride 113 mmol/L (98-107); Estimated CRCL calculation 32 ml/min; Estimated Glomerular Filt Rate 52; Glucose 89 mg/dL (65-110); Potassium 3.8 mmol/L (3.4-5.0); Sodium 138 mmol/L (137-145)
[2023-01-17] MEDS: PANTOPRAZOLE SODIUM IV 40 MG VIAL IV PUSH ×2 (09:10→21:32)
--- NOTE | 2023-01-17 13:16 | PM.IMPN ---
Progress Note: A&P Assessment and Plan (1) Acute blood loss anemia: Code(s): D62 - Acute posthemorrhagic anemia Status: Acute (2) Chronic kidney disease, stage 3: Code(s): N18.30 - Chronic kidney disease, stage 3 unspecified Status: Acute Plan 87F w/ PMH HTN, HLD, CKD stage 3, hypothyroidism, urge incontinence, OA presented with bright red vomitus. Admitted on 01/16 for suspected UGIB. 1) acute blood loss anemia 2/2 acute upper GI bleed - s/p 2 units prbc on admission. HB now stable. recheck again and then daily. no more vomitus, likely has resolved/improved on its own, she should still go for EGD for diagnostic purposes. plan for Thursday. GI consulted. continue clear liquid diet. start D5NS @ 83cc/hr. continue protonix IV BID. cont telemetry - no alcohol, tobacco, or excessive caffeine use. she takes tylenol for headaches and arthritis. was on daily aspirin for primary prevention. counseled to stop that and f/u with GI as outpatient. counseled on avoiding NSAIDS as well - during episode of vomiting at home she did fall onto her back and bumped her head. family requests CT scan. will perform. 2) CKD stage 3 - at baseline 3) HTN - hold meds in light of acute blood loss spent 20+ minutes in discussion with family FEN: thin liquids GI prophylaxis: protonix BID DVT prophylaxis: SCD's only Lines: pIV Code Status: Full Code Dispo: stable. pending EGD More than 35 minutes spent on chart review, patient interaction and assessment and plan. Subjective Date/time seen: 01/17/23 13:16 Interval history: NAOE. 3 family members at bedside. all questions answered in detail. pt had 1 bm overnight, no vomiting or nausea since then. she denies CP, abdominal pain, SOB. Review of Systems Review of Systems: All systems reviewed & are unremarkable except as noted in HPI and below Exam Const: General: comfortable and no acute distress Eyes: Pupils: Equal, round and reactive pupils present Resp: Effort & Inspection: normal respiratory effort Auscultation: clear to auscultation bilaterally Cardio: Rate: regular rate Rhythm: regular rhythm GI: Inspection: non-distended GI Palp: Yes Soft to palpation and No Tenderness to palpation present (GI) Auscultation: normal bowel sounds Extrem: General: no edema Objective Data Vital Signs Vital Signs: Vital Signs - 24 hr 01/16/23 13:51 01/16/23 14:01 01/16/23 14:11 Temperature Pulse Rate 85 70 70 Respiratory Rate 16 16 16 Blood Pressure 75/40 L 100/51 L 117/59 L Pulse Oximetry 100 100 97 Oxygen Delivery Room Air Room Air Room Air 01/16/23 14:40 01/16/23 22:00 01/16/23 20:00 Temperature 97.8 F 99.8 F H Pulse Rate 73 89 87 Respiratory Rate 14 20 Blood Pressure 148/69 H 127/46 L Pulse Oximetry 98 95 Oxygen Delivery 01/17/23 00:00 01/17/23 04:00 01/17/23 06:00 Temperature 98.8 F Pulse Rate 90 74 86 Respiratory Rate 20 Blood Pressure 116/52 L Pulse Oximetry 98 Oxygen Delivery Intake/Output Intake/Output: Intake & Output 01/14/23 01/15/23 01/16/23 01/17/23 23:59 23:59 23:59 23:59 Intake Total 1740 650 Output Total 500 Balance 1740 150 Meds/Results Medications: Active Medications Generic Name Dose Route Start Last Admin Trade Name Freq PRN Reason Stop Dose Admin Acetaminophen 650 mg 01/16/23 15:45 Acetaminophen 325 Mg Tablet PO Q6H PRN Mild Pain (1-3) or Fever Dextrose/Sodium Chloride 1,000 mls @ 83 mls/hr 01/17/23 13:15 Dextrose 5% Sodium Chloride 0.9% IV CONT .Q12H3M [facility] Levothyroxine Sodium 37.5 mcg 01/17/23 06:30 01/17/23 06:32 Levothyroxine Sodium Inj 100 Mcg/5 Ml Vial IV PUSH 37.5 mcg DAILY@0630 ROYER Administration Pantoprazole Sodium 40 mg 01/16/23 21:00 01/17/23 09:10 Pantoprazole Sodium Iv 40 Mg Vial IV PUSH 40 mg Q12H ROYER Administration Radiology Results: ITS Impressions Abdomen/Pelvis CT 01/16/23 10:01 IMPRESSION: 1. Sm
[2023-01-17] MEDS: ACETAMINOPHEN 325 MG TABLET 650 MG PO (14:25)
[2023-01-17] MEDS: DEXTROSE 5%/0.9% SOD CHL 1,000 ML 83 ML IV CONT (14:27)
[2023-01-17 14:28] LABS: Hematocrit 26.9 % (37.0-47.0); Hemoglobin 8.5 g/dL (12.0-15.0)
[2023-01-17 16:15] LABS: Glucose Point of Care 88 mg/dl (65-105)
--- NOTE | 2023-01-17 18:12 | WPDGIPROGNO ---
Progress Note: A&P Assessment and Plan (1) Erosive esophagitis: Code(s): K22.10 - Ulcer of esophagus without bleeding Status: Acute Assessment and Plan: continue with iv protonix bid, will add carafate advance diet as tolerated repeat EGD in about 6 weeks (2) Acute blood loss anemia: Code(s): D62 - Acute posthemorrhagic anemia Status: Acute Assessment and Plan: hgb stable 8.5, no more signs of bleeding (3) Hematemesis: Code(s): K92.0 - Hematemesis Status: Acute Assessment and Plan: no active bleeding but from egd findings (4) Chronic kidney disease, stage 3: Code(s): N18.30 - Chronic kidney disease, stage 3 unspecified Status: Acute Subjective Date/time seen: 01/17/23 18:12 Interval history: no more gib, egd yesterday with ulcerative esophagitis Review of Systems Review of Systems: All systems reviewed & are unremarkable except as noted in HPI and below Exam Const: General: comfortable and no acute distress HENMT: Face/Nose/Sinus: Normal nares present Eyes: Pupils: Equal, round and reactive pupils present Neck: Neck: supple Resp: Effort & Inspection: normal respiratory effort Auscultation: clear to auscultation bilaterally Cardio: Rate: regular rate Rhythm: regular rhythm GI: Inspection: non-distended GI Palp: Yes Soft to palpation and No Tenderness to palpation present (GI) Auscultation: normal bowel sounds Skin: General skin exam: normal color Neuro: Speech: normal speech Extrem: General: no edema Psych: Affect: normal affect Objective Data Vital Signs Vital Signs: Vital Signs - 24 hr 01/16/23 22:00 01/16/23 20:00 01/17/23 00:00 Temperature 99.8 F H Pulse Rate 89 87 90 Respiratory Rate 20 Blood Pressure 127/46 L Pulse Oximetry 95 01/17/23 04:00 01/17/23 06:00 01/17/23 14:00 Temperature 98.8 F 98.1 F Pulse Rate 74 86 69 Respiratory Rate 20 20 Blood Pressure 116/52 L 129/59 L Pulse Oximetry 98 100 Intake/Output Intake/Output: Intake & Output 01/14/23 01/15/23 01/16/23 01/17/23 23:59 23:59 23:59 23:59 Intake Total 1740 650 Output Total 1300 Balance 1740 -650 Meds/Results Medications: Active Medications Generic Name Dose Route Start Last Admin Trade Name Richard PRN Reason Stop Dose Admin Acetaminophen 650 mg 01/16/23 15:45 01/17/23 14:25 Acetaminophen 325 Mg Tablet PO 650 mg Q6H PRN Administration Mild Pain (1-3) or Fever Dextrose/Sodium Chloride 1,000 mls @ 83 mls/hr 01/17/23 13:15 01/17/23 14:27 Dextrose 5% Sodium Chloride 0.9% IV CONT 83 mls/hr .Q12H3M ROYER Administration Levothyroxine Sodium 37.5 mcg 01/17/23 06:30 01/17/23 06:32 Levothyroxine Sodium Inj 100 Mcg/5 Ml Vial IV PUSH 37.5 mcg DAILY@0630 ROYER Administration Pantoprazole Sodium 40 mg 01/16/23 21:00 01/17/23 09:10 Pantoprazole Sodium Iv 40 Mg Vial IV PUSH 40 mg Q12H ROYER Administration Radiology Results: ITS Impressions Abdomen/Pelvis CT 01/16/23 10:01 IMPRESSION: 1. Small sliding-type hiatal hernia with edematous wall thickening of the distal esophagus which may be related to reflux esophagitis. There also appears to be some asymmetric wall thickening at the right side of the intrathoracic portion of the stomach, assessment of which is limited by motion artifact as level. Consider endoscopy for further evaluation. 2. 1.6 cm uterine fibroid. 3. Nonspecific 4.0 x 3.3 x 1.5 cm cystic right inguinal lesion likely a small amount of fluid within a right femoral hernia. Differential would include residual seroma related to prior femoral vein access or ganglion cyst from the hip. Head CT 01/17/23 16:40 IMPRESSION: No acute intracranial process. Labs Labs: Laboratory Results - last 24 hr 01/16/23 01/17/23 01/17/23 20:41 06:07 13:32 WBC 9.4 RBC 2.77 L Hgb 8.4 L 8.6 L 8.5 L Hct 25.3 L 26.3 L 26.9 L MCV 94.9
[2023-01-17] MEDS: SUCRALFATE SUSP 100 MG/ML 10 ML UDC 1000 MG PO (21:32)
[2023-01-17 21:33] LABS: Glucose Point of Care 146 mg/dl (65-105)
[2023-01-18] VITALS (11 sets, daily range): BP systolic 115–150; BP diastolic 52–71; PULSE 63–87; RESP 16–20; TEMP 36.1–37; O2SAT 95–99
[2023-01-18] MEDS: ACETAMINOPHEN 325 MG TABLET 650 MG PO (00:13)
[2023-01-18] MEDS: DEXTROSE 5%/0.9% SOD CHL 1,000 ML 83 ML IV CONT (06:19)
[2023-01-18] MEDS: SUCRALFATE SUSP 100 MG/ML 10 ML UDC 1000 MG PO ×4 (06:20→20:10)
[2023-01-18] MEDS: LEVOTHYROXINE SODIUM INJ 100 MCG/5 ML VIAL 37.5 MCG IV PUSH (06:20)
[2023-01-18 06:39] LABS: Hemoglobin 8.6 g/dL (12.0-15.0); Mean Corpuscular HGB Conc 31.9 g/dl (32-36); Mean Corpuscular Hemoglobin 30.7 pg (26-34); Mean Corpuscular Volume 96.4 fl (80-100); Mean Platelet Volume 10.2 fl (7.4-10.4); Platelet Count Result 181 k/mm3 (150-375); Red Cell Distribution Width 16.2 % (11.5-14.5); White Blood Count 7.4 K/mm3 (4.5-10.0)
[2023-01-18 06:56] LABS: Anion Gap 5 mmol/L (8-16); Blood Urea Nitrogen 23 mg/dL (7-17); Calcium 7.9 mg/dL (8.4-10.2); Carbon Dioxide 20 mmol/L (22-30); Chloride 113 mmol/L (98-107); Estimated CRCL calculation 36 ml/min; Estimated Glomerular Filt Rate 59; Glucose 92 mg/dL (65-110); Potassium 3.3 mmol/L (3.4-5.0); Sodium 138 mmol/L (137-145)
[2023-01-18 08:26] LABS: Glucose Point of Care 85 mg/dl (65-105)
[2023-01-18] MEDS: PANTOPRAZOLE SODIUM IV 40 MG VIAL IV PUSH ×2 (09:02→20:10)
--- NOTE | 2023-01-18 09:10 | WPDGIPROGNO ---
Progress Note: A&P Assessment and Plan (1) Erosive esophagitis: Code(s): K22.10 - Ulcer of esophagus without bleeding Status: Acute Assessment and Plan: continue with iv protonix bid, also carafate tolerating diet and no more signs of bleeding with stable h/h repeat EGD in about 6 weeks (2) Acute blood loss anemia: Code(s): D62 - Acute posthemorrhagic anemia Status: Acute Assessment and Plan: hgb stable 8.5, no more signs of bleeding (3) Hematemesis: Code(s): K92.0 - Hematemesis Status: Acute Assessment and Plan: no active bleeding had erosive esophagitis (4) Chronic kidney disease, stage 3: Code(s): N18.30 - Chronic kidney disease, stage 3 unspecified Status: Acute Subjective Date/time seen: 01/18/23 09:10 Interval history: doing better, tolerating soft diet no more bleeding Review of Systems Review of Systems: All systems reviewed & are unremarkable except as noted in HPI and below Exam Const: General: comfortable and no acute distress HENMT: Face/Nose/Sinus: Normal nares present Eyes: Pupils: Equal, round and reactive pupils present Neck: Neck: supple Resp: Effort & Inspection: normal respiratory effort Auscultation: clear to auscultation bilaterally Cardio: Rate: regular rate Rhythm: regular rhythm GI: Inspection: non-distended GI Palp: Yes Soft to palpation and No Tenderness to palpation present (GI) Auscultation: normal bowel sounds Skin: General skin exam: normal color Neuro: Speech: normal speech Extrem: General: no edema Psych: Affect: normal affect Objective Data Vital Signs Vital Signs: Vital Signs - 24 hr 01/17/23 14:00 01/17/23 12:00 01/17/23 16:00 Temperature 98.1 F Pulse Rate 69 73 89 Respiratory Rate 20 Blood Pressure 129/59 L Pulse Oximetry 100 01/17/23 20:25 01/17/23 20:25 01/17/23 20:25 Temperature 97.7 F 97.7 F Pulse Rate 75 93 132 H Respiratory Rate 20 20 Blood Pressure 128/55 L 137/60 148/84 H Pulse Oximetry 97 97 01/17/23 20:00 01/18/23 00:00 01/18/23 04:00 Temperature Pulse Rate 64 71 80 Respiratory Rate Blood Pressure Pulse Oximetry 01/18/23 06:00 Temperature 97 F L Pulse Rate 64 Respiratory Rate 20 Blood Pressure 133/52 L Pulse Oximetry 95 Intake/Output Intake/Output: Intake & Output 01/15/23 01/16/23 01/17/23 01/18/23 23:59 23:59 23:59 23:59 Intake Total 1740 1610 1350 Output Total 1700 1400 Balance 1740 -90 -50 Meds/Results Medications: Active Medications Generic Name Dose Route Start Last Admin Trade Name Freq PRN Reason Stop Dose Admin Acetaminophen 650 mg 01/16/23 15:45 01/18/23 00:13 Acetaminophen 325 Mg Tablet PO 650 mg Q6H PRN Administration Mild Pain (1-3) or Fever Dextrose/Sodium Chloride 1,000 mls @ 83 mls/hr 01/17/23 13:15 01/18/23 09:01 Dextrose 5% Sodium Chloride 0.9% IV CONT 83 mls/hr .Q12H3M ROYER Infusion Levothyroxine Sodium 37.5 mcg 01/17/23 06:30 01/18/23 06:20 Levothyroxine Sodium Inj 100 Mcg/5 Ml Vial IV PUSH 37.5 mcg DAILY@0630 RYOER Administration Pantoprazole Sodium 40 mg 01/16/23 21:00 01/18/23 09:02 Pantoprazole Sodium Iv 40 Mg Vial IV PUSH 40 mg Q12H ROYER Administration Sucralfate 1,000 mg 01/17/23 21:00 01/18/23 06:20 Sucralfate Susp 100 Mg/Ml 10 Ml Udc PO 1,000 mg ACHS ROYER Administration Radiology Results: ITS Impressions Abdomen/Pelvis CT 01/16/23 10:01 IMPRESSION: 1. Small sliding-type hiatal hernia with edematous wall thickening of the distal esophagus which may be related to reflux esophagitis. There also appears to be some asymmetric wall thickening at the right side of the intrathoracic portion of the stomach, assessment of which is limited by motion artifact as level. Consider endoscopy for further evaluation. 2. 1.6 cm uterine fibroid. 3. Nonspecific 4.0 x 3.3 x 1.5 cm cystic right inguinal lesion likely a s
--- NOTE | 2023-01-18 14:29 | PM.IMPN ---
Progress Note: A&P Assessment and Plan (1) Acute blood loss anemia: Code(s): D62 - Acute posthemorrhagic anemia Status: Acute (2) Chronic kidney disease, stage 3: Code(s): N18.30 - Chronic kidney disease, stage 3 unspecified Status: Acute Plan 87F w/ PMH HTN, HLD, CKD stage 3, hypothyroidism, urge incontinence, hiatal hernia, OA presented with bright red vomitus. Admitted on 01/16 for suspected UGIB. 1) acute blood loss anemia 2/2 acute upper GI bleed - s/p 2 units prbc on admission. HB now stable. s/p EGD 01/16 demonstrating esophageal ulcer without active signs of bleeding. - cont IV protonix BID and continue to appreciate Gi recs. continue sucralfate. on regular diet now. - no alcohol, tobacco, or excessive caffeine use. she takes tylenol for headaches and arthritis. was on daily aspirin for primary prevention. counseled to stop that and f/u with GI as outpatient. counseled on avoiding NSAIDS as well - during episode of vomiting at home she did fall onto her back and bumped her head. ct head negative for acute abnormalities. 2) CKD stage 3 - at baseline 3) HTN - hold meds in light of acute blood loss. ctm and restart as appropriate FEN: regular diet, saline lock IV. GI prophylaxis: protonix BID DVT prophylaxis: SCD's only Lines: pIV Code Status: Full Code Dispo: stable. pending clearance to acute rehab. Subjective Date/time seen: 01/18/23 14:29 Interval history: NAOE. 3 family members in room. discussion held and all questions answered. pt feels weak but no other complaints Review of Systems Review of Systems: All systems reviewed & are unremarkable except as noted in HPI and below Exam Const: General: comfortable Eyes: Pupils: Equal, round and reactive pupils present Resp: Effort & Inspection: normal respiratory effort Auscultation: clear to auscultation bilaterally Cardio: Rate: regular rate Rhythm: regular rhythm GI: GI Palp: Yes Soft to palpation and No Tenderness to palpation present (GI) Auscultation: normal bowel sounds Extrem: General: no edema Objective Data Vital Signs Vital Signs: Vital Signs - 24 hr 01/17/23 16:00 01/17/23 20:25 01/17/23 20:25 Temperature 97.7 F 97.7 F Pulse Rate 89 75 93 Respiratory Rate 20 20 Blood Pressure 128/55 L 137/60 Pulse Oximetry 97 97 Oxygen Delivery 01/17/23 20:25 01/17/23 20:00 01/18/23 00:00 Temperature Pulse Rate 132 H 64 71 Respiratory Rate Blood Pressure 148/84 H Pulse Oximetry Oxygen Delivery 01/18/23 04:00 01/18/23 06:00 01/18/23 11:05 Temperature 97 F L Pulse Rate 80 64 Respiratory Rate 20 Blood Pressure 133/52 L Pulse Oximetry 95 Oxygen Delivery Room Air 01/18/23 09:00 01/18/23 09:00 01/18/23 08:00 Temperature Pulse Rate 63 Respiratory Rate Blood Pressure 121/66 Pulse Oximetry Oxygen Delivery Room Air 01/18/23 13:05 Temperature Pulse Rate Respiratory Rate Blood Pressure 115/64 Pulse Oximetry Oxygen Delivery Intake/Output Intake/Output: Intake & Output 01/15/23 01/16/23 01/17/23 01/18/23 23:59 23:59 23:59 23:59 Intake Total 1740 1610 1440 Output Total 1700 1400 Balance 1740 -90 40 Meds/Results Medications: Active Medications Generic Name Dose Route Start Last Admin Trade Name Freq PRN Reason Stop Dose Admin Acetaminophen 650 mg 01/16/23 15:45 01/18/23 00:13 Acetaminophen 325 Mg Tablet PO 650 mg Q6H PRN Administration Mild Pain (1-3) or Fever Levothyroxine Sodium 37.5 mcg 01/17/23 06:30 01/18/23 06:20 Levothyroxine Sodium Inj 100 Mcg/5 Ml Vial IV PUSH 37.5 mcg DAILY@0630 ROYER Administration Pantoprazole Sodium 40 mg 01/16/23 21:00 01/18/23 09:02 Pantoprazole Sodium Iv 40 Mg Vial IV PUSH 40 mg Q12H ROYER Administration Sucralfate 1,000 mg 01/17/23 21:00 01/18/23 11:50 Sucralfate Susp 100 Mg/Ml 10 Ml Udc PO 1,000 mg ACHS ROYER Administration Radiology Re
[2023-01-19] VITALS (9 sets, daily range): BP systolic 132–154; BP diastolic 54–88; PULSE 57–91; RESP 13–20; TEMP 36–37.3; O2SAT 97–99; BMI 26.9
[2023-01-19] MEDS: LEVOTHYROXINE SODIUM INJ 100 MCG/5 ML VIAL 37.5 MCG IV PUSH (05:43)
[2023-01-19] MEDS: SUCRALFATE SUSP 100 MG/ML 10 ML UDC 1000 MG PO ×4 (05:43→21:41)
[2023-01-19 06:36] LABS: Basophils Absolute Auto 0.1 K/mm3 (0.0-0.1); Basophils Percent Auto 0.9 % (0.2-1.2); Eosinophils Absolute Auto 0.4 K/mm3 (0-0.3); Eosinophils Percent Auto 5.4 % (0-4.4); Hematocrit 26.8 % (37.0-47.0); Hemoglobin 8.5 g/dL (12.0-15.0); Immature Granulocyte Absolute 0.04 K/mm3 (0.00-0.031); Immature Granulocyte Percent A 0.5 % (0-0.5); Lymphocytes Absolute Auto 2.43 K/mm3 (0.9-3.2); Lymphocytes Percent Auto 31.1 % (18.3-44.2); Mean Corpuscular HGB Conc 31.7 g/dl (32-36); Mean Corpuscular Hemoglobin 31.1 pg (26-34); Mean Corpuscular Volume 98.2 fl (80-100); Monocytes Absolute Auto 0.9 K/mm3 (0.1-0.6); Monocytes Percent Auto 11.8 % (2.6-8.5); Neutrophils Absolute Auto 3.9 K/mm3 (1.3-6.7); Neutrophils Percent Auto 50.3 % (45.5-73.1); Platelet Count Result 199 k/mm3 (150-375); Red Blood Count 2.73 M/mm3 (4.2-5.4); Red Cell Distribution Width 16.2 % (11.5-14.5); White Blood Count 7.8 K/mm3 (4.5-10.0)
[2023-01-19 06:47] LABS: Anion Gap 2 mmol/L (8-16); Blood Urea Nitrogen 17 mg/dL (7-17); Calcium 8.2 mg/dL (8.4-10.2); Carbon Dioxide 24 mmol/L (22-30); Chloride 110 mmol/L (98-107); Estimated CRCL calculation 36 ml/min; Estimated Glomerular Filt Rate 59; Glucose 87 mg/dL (65-110); Potassium 3.4 mmol/L (3.4-5.0); Sodium 136 mmol/L (137-145)
[2023-01-19] MEDS: PANTOPRAZOLE SODIUM IV 40 MG VIAL IV PUSH ×2 (09:03→21:41)
--- NOTE | 2023-01-19 10:33 | PC.NURSE ---
called pharmacy for carafate doses
--- NOTE | 2023-01-19 12:22 | PM.IMPN ---
Progress Note: A&P Assessment and Plan (1) Erosive esophagitis: Code(s): K22.10 - Ulcer of esophagus without bleeding Status: Acute (2) Acute blood loss anemia: Code(s): D62 - Acute posthemorrhagic anemia Status: Acute (3) Chronic kidney disease, stage 3: Code(s): N18.30 - Chronic kidney disease, stage 3 unspecified Status: Acute Plan 87F w/ PMH HTN, HLD, CKD stage 3, hypothyroidism, urge incontinence, hiatal hernia, OA presented with bright red vomitus. Admitted on 01/16 for suspected UGIB. 1) acute blood loss anemia 2/2 acute upper GI bleed - s/p 2 units prbc on admission. HB now stable. s/p EGD 01/16 demonstrating esophageal ulcer without active signs of bleeding. - cont IV protonix BID and continue to appreciate Gi recs. continue sucralfate. on regular diet now and tolerating - no alcohol, tobacco, or excessive caffeine use. she takes tylenol for headaches and arthritis. was on daily aspirin for primary prevention. counseled to stop that and f/u with GI as outpatient. counseled on avoiding NSAIDS as well - during episode of vomiting at home she did fall onto her back and bumped her head. ct head negative for acute abnormalities. 2) CKD stage 3 - at baseline 3) HTN - hold meds in light of acute blood loss. ctm and restart as appropriate FEN: regular diet, saline lock IV. GI prophylaxis: protonix BID DVT prophylaxis: SCD's only Lines: pIV Code Status: Full Code Dispo: stable. pending clearance to acute rehab, medically clear otherwise. Subjective Date/time seen: 01/19/23 12:22 Interval history: NAOE. pt w/o complaints. eating breakfast, tolerating Review of Systems Review of Systems: All systems reviewed & are unremarkable except as noted in HPI and below Exam Const: General: comfortable and no acute distress Eyes: Pupils: Equal, round and reactive pupils present Resp: Effort & Inspection: normal respiratory effort Auscultation: clear to auscultation bilaterally Cardio: Rate: regular rate Rhythm: regular rhythm GI: GI Palp: Yes Soft to palpation Extrem: General: no edema Objective Data Vital Signs Vital Signs: Vital Signs - 24 hr 01/18/23 13:05 01/18/23 16:00 01/18/23 14:00 Temperature 98.6 F Pulse Rate 71 76 Respiratory Rate 16 Blood Pressure 115/64 122/67 Pulse Oximetry 99 Oxygen Delivery 01/18/23 20:02 01/18/23 20:00 01/18/23 20:00 Temperature 98.3 F Pulse Rate 65 69 Respiratory Rate 16 Blood Pressure 122/71 141/58 H Pulse Oximetry 98 Oxygen Delivery 01/18/23 20:00 01/18/23 20:00 01/19/23 00:02 Temperature Pulse Rate 65 87 62 Respiratory Rate 16 16 Blood Pressure 150/64 H 136/66 Pulse Oximetry 99 99 Oxygen Delivery 01/19/23 04:02 01/19/23 06:00 01/19/23 07:40 Temperature 96.8 F L Pulse Rate 57 L 65 Respiratory Rate 20 Blood Pressure 148/59 H Pulse Oximetry 98 Oxygen Delivery Room Air 01/19/23 08:00 Temperature Pulse Rate 65 Respiratory Rate 20 Blood Pressure Pulse Oximetry 98 Oxygen Delivery Room Air Intake/Output Intake/Output: Intake & Output 01/16/23 01/17/23 01/18/23 01/19/23 23:59 23:59 23:59 23:59 Intake Total 1740 1610 1680 340 Output Total 1700 1400 Balance 1740 -90 280 340 Meds/Results Medications: Active Medications Generic Name Dose Route Start Last Admin Trade Name Freq PRN Reason Stop Dose Admin Acetaminophen 650 mg 01/16/23 15:45 01/18/23 00:13 Acetaminophen 325 Mg Tablet PO 650 mg Q6H PRN Administration Mild Pain (1-3) or Fever Levothyroxine Sodium 37.5 mcg 01/17/23 06:30 01/19/23 05:43 Levothyroxine Sodium Inj 100 Mcg/5 Ml Vial IV PUSH 37.5 mcg DAILY@0630 ROYER Administration Pantoprazole Sodium 40 mg 01/16/23 21:00 01/19/23 09:03 Pantoprazole Sodium Iv 40 Mg Vial IV PUSH 40 mg Q12H ROYER Administration Sucralfate 1,000 mg 01/17/23 21:00 01/19/23 10:45 Sucralfate Susp 100 Mg/Ml 10 Ml [facility]
[2023-01-20 05:45] VITALS: BP 149/70; PULSE 70; RESP 13; TEMP 36.4; O2SAT 98
[2023-01-20] MEDS: LEVOTHYROXINE SODIUM INJ 100 MCG/5 ML VIAL 37.5 MCG IV PUSH (06:29)
[2023-01-20] MEDS: SUCRALFATE SUSP 100 MG/ML 10 ML UDC 1000 MG PO ×2 (06:29→11:54)
--- NOTE | 2023-01-20 07:03 | WPDGIPROGNO ---
Progress Note: A&P Assessment and Plan (1) Acute GI bleeding: Code(s): K92.2 - Gastrointestinal hemorrhage, unspecified Status: Acute Assessment and Plan: she has had hematemesis beginning this morning. She cannot be sure about the color of her stools, whether not there has been any evidence of bleeding prior to this morning. Her hemoglobin is down to 7.2 but she has just finished receiving her 2nd unit of blood. EGD revealed Extensive ulceration of the distal esophagus likely due to reflux. She will be on b.i.d. PPI and will plan repeat EGD in 4-6 weeks. (2) Anemia: Code(s): D64.9 - Anemia, unspecified Status: Acute Assessment and Plan: Her hemoglobin which was 10.3 a little over a year ago and 12.2 this September is now down to 7.2 on admission Hemoglobin is holding steady at 8.5 (3) Azotemia: Code(s): R79.89 - Other specified abnormal findings of blood chemistry Status: Acute Assessment and Plan: although creatinine has not increased significantly, her BUN which was 36 this September is up to 65 today. This is likely due to blood in the gastrointestinal tract. Plan there is no further bleeding. From my perspective she can be discharged, On b.i.d. PPI.. I will arrange outpatient EGD in 5-6 weeks. I have reminded her that she will need to take meloxicam and aspirin With meals. Subjective Date/time seen: 01/20/23 07:03 She has no complaints today. There is no further sign of bleeding. She will need follow-up EGD in 4-6 weeks. Exam Const: General: cooperative, healthy appearing and other ( Pale ) Orientation/consciousness: patient oriented x3 HENMT: Head: normal to inspection Ears: hearing grossly normal bilaterally Mouth: Yes Normal oral and palatal mucosa present Eyes: General: appearance normal, both eyes and all related structures Neck: Neck: normal visual inspection Chest: Chest palpation & inspection: normal inspection of the chest Resp: Effort & Inspection: normal respiratory effort Auscultation: clear to auscultation bilaterally Cardio: Rate: regular rate Rhythm: regular rhythm GI: Inspection: normal to inspection Auscultation: normal bowel sounds Skin: General skin exam: normal color, no jaundice and pallor Neuro: General: patient oriented x3 Speech: normal speech Objective Data Vital Signs Vital Signs: Vital Signs - 24 hr 01/19/23 07:40 01/19/23 08:00 01/19/23 14:00 Temperature 36.1 C L Pulse Rate 65 68 Respiratory Rate 20 18 Blood Pressure 139/65 Pulse Oximetry 98 97 Oxygen Delivery Room Air Room Air 01/19/23 14:00 01/19/23 14:17 01/19/23 14:17 Temperature 36.1 C L Pulse Rate 68 Respiratory Rate 18 Blood Pressure 139/65 138/78 133/75 Pulse Oximetry 97 Oxygen Delivery 01/19/23 20:00 01/19/23 21:38 01/19/23 21:37 Temperature 37.3 C 37.3 C Pulse Rate 78 78 81 Respiratory Rate 13 14 Blood Pressure 134/54 L 134/54 L 154/88 H Pulse Oximetry 98 98 99 Oxygen Delivery 01/19/23 21:37 01/19/23 20:00 01/20/23 05:45 Temperature 36.4 C Pulse Rate 91 70 Respiratory Rate 13 Blood Pressure 132/74 149/70 H Pulse Oximetry 97 98 98 Oxygen Delivery Room Air Intake/Output Intake/Output: Intake & Output 01/17/23 01/18/23 01/19/23 01/20/23 23:59 23:59 23:59 23:59 Intake Total 1610 1680 1710 500 Output Total 1700 1400 Balance -90 280 1710 500 Meds/Results Medications: Active Medications Generic Name Dose Route Start Last Admin Trade Name Freq PRN Reason Stop Dose Admin Acetaminophen 650 mg 01/16/23 15:45 01/18/23 00:13 Acetaminophen 325 Mg Tablet PO 650 mg Q6H PRN Administration Mild Pain (1-3) or Fever Levothyroxine Sodium 37.5 mcg 01/17/23 06:30 01/20/23 06:29 Levothyroxine Sodium Inj 100 Mcg/5 Ml Vial IV PUSH 37.5 mcg DAILY@0630 ROYER Administration Pantoprazole Sodium 40 mg 01/16/23 21:00 01/19/23 21:41 Pantoprazole Sodi
[2023-01-20 08:00] VITALS: BP 153/65; PULSE 67; RESP 18; TEMP 36; O2SAT 96
[2023-01-20 08:25] VITALS: BP 135/92
[2023-01-20 08:26] VITALS: BP 122/93
[2023-01-20] MEDS: PANTOPRAZOLE SODIUM IV 40 MG VIAL IV PUSH (08:42)
[2023-01-20 09:22] LABS: Hematocrit 30.7 % (37.0-47.0); Hemoglobin 9.8 g/dL (12.0-15.0); Mean Corpuscular HGB Conc 31.9 g/dl (32-36); Mean Corpuscular Hemoglobin 31.1 pg (26-34); Mean Corpuscular Volume 97.5 fl (80-100); Mean Platelet Volume 10.7 fl (7.4-10.4); Platelet Count Result 253 k/mm3 (150-375); Red Blood Count 3.15 M/mm3 (4.2-5.4); Red Cell Distribution Width 16.1 % (11.5-14.5); White Blood Count 7.3 K/mm3 (4.5-10.0)
[2023-01-20 09:26] LABS: Anion Gap 4 mmol/L (8-16); Blood Urea Nitrogen 15 mg/dL (7-17); Calcium 8.8 mg/dL (8.4-10.2); Carbon Dioxide 26 mmol/L (22-30); Chloride 105 mmol/L (98-107); Estimated CRCL calculation 32 ml/min; Estimated Glomerular Filt Rate 52; Glucose 95 mg/dL (65-110); Potassium 3.6 mmol/L (3.4-5.0); Sodium 135 mmol/L (137-145)
[2023-01-20 13:58] VITALS: BP 125/57; PULSE 73; RESP 16; TEMP 36.3; O2SAT 99
--- NOTE | 2023-01-20 14:06 | PM.DS ---
DS: Admitting Diagnosis Discharge Date 01/20/2023 Admitting Diagnosis Vomiting blood. DS: Discharge Diagnosis Discharge Diagnosis (1) Erosive esophagitis: Code(s): K22.10 - Ulcer of esophagus without bleeding Status: Acute (2) Acute blood loss anemia: Code(s): D62 - Acute posthemorrhagic anemia Status: Acute (3) Chronic kidney disease, stage 3: Code(s): N18.30 - Chronic kidney disease, stage 3 unspecified Status: Acute Plan 1) acute blood loss anemia 2/2 acute upper GI bleed - s/p 2 units prbc on admission. HB now stable. s/p EGD 01/16 demonstrating esophageal ulcer without active signs of bleeding. - cont IV protonix BID and continue to appreciate Gi recs. continue sucralfate. on regular diet now and tolerating - no alcohol, tobacco, or excessive caffeine use. she takes tylenol for headaches and arthritis. was on daily aspirin for primary prevention. counseled to stop that and f/u with GI as outpatient. counseled on avoiding NSAIDS as well - during episode of vomiting at home she did fall onto her back and bumped her head. ct head negative for acute abnormalities. 2) CKD stage 3 - at baseline 3) HTN - hold meds in light of acute blood loss. ctm and restart as appropriate DS: Summary Hospital Course Hospital Course: F w/ PMH HTN, HLD, CKD stage 3, hypothyroidism, urge incontinence, hiatal hernia, OA presented with bright red vomitus. Admitted on 01/16 for suspected UGIB. - s/p 2 units prbc on admission. HB now stable. s/p EGD 01/16 demonstrating esophageal ulcer without active signs of bleeding. - cont IV protonix BID and continue to appreciate Gi recs. continue sucralfate. on regular diet now and tolerating - no alcohol, tobacco, or excessive caffeine use. she takes tylenol for headaches and arthritis. was on daily aspirin for primary prevention. counseled to stop that and f/u with GI as outpatient. counseled on avoiding NSAIDS as well - during episode of vomiting at home she did fall onto her back and bumped her head. ct head negative for acute abnormali Time Spent with Patient Time attestation: Total time spent providing and/or coordinating discharge services:40 minutes on day of DC Exam Narrative: General: Well-developed, mildly ill-appearing female sitting up in bed in no acute distress. Weight: 76.7 kg. BMI: 27.3. HEENT: PERRL, EOMI. Sclera anicteric. Oral mucosa moist. Neck: Supple. Respiratory: Lungs are clear to auscultation bilaterally. Cardiovascular: Regular rate and rhythm with S1-S2. Gastrointestinal: Abdomen is soft, nontender, and nondistended with positive bowel sounds. Skin: Warm and dry. Mild pallor. Extremities: No cyanosis, clubbing, or edema. Radial and pedal pulses intact. Neurological: Alert. Cranial nerves 2-12 are grossly intact. No gross focal deficits to casual conversation. Psychiatric: Pleasant and cooperative with normal mood and affect. Judgment and insight intact. Const: General: comfortable and no acute distress Resp: Effort & Inspection: normal respiratory effort Auscultation: clear to auscultation bilaterally Cardio: Rate: regular rate Rhythm: regular rhythm GI: Inspection: non-distended Auscultation: normal bowel sounds Neuro: Cranial nerves: Yes Equal, round and reactive pupils present Extrem: General: no edema DS: Data Data Completed and Pending Labs on day of discharge: Labs from last 24 hours 01/20/23 08:23 WBC 7.3 RBC 3.15 L Hgb 9.8 L Hct 30.7 L MCV 97.5 MCH 31.1 MCHC 31.9 L RDW 16.1 H Plt Count 253 MPV 10.7 H Sodium 135 L Potassium 3.6 Chloride 105 Carbon Dioxide 26 Anion Gap 4 L BUN 15 Creatinine 1.00 Estim Creat Clear Calc 32 Estimated GFR 52 L Glucose 95 Calcium 8.8 Discharge Plan Discharge Attending physician on discharge: Iza Black Consulting providers: Juan Rooney; Rayna Escalera; Rolan Vivar; Rainer Luna; Gloria Coburn;
[2023-01-20 14:56] LABS: SARS-CoV-2 RNA PCR Negative (Negative)
--- NOTE | 2023-01-20 15:22 | PC.NURSE ---
Telephone report given to Renee at [facility]. Discharge instructions faxed.
== END 2023-01-20 15:44 ==
LOC: ANHED 12:49 → ANH3MEDSUR 20:34
PROVIDERS: General Practice; Internal Medicine Gastroenterology; Physician Assistant; Preventive Medicine Aerospace Medicine; Admitting Provider Internal Medicine; Emergency Provider Physician Assistant; PCP Family Medicine; Visit Provider Family Medicine
PROC: 0DJ08ZZ Inspection of Upper Intestinal Tract, Via Natural or Artificial Opening Endoscopic (ICD-10-PCS; CPT 43235; principal; 2023-01-16 14:00)
DX: K22.10 Ulcer of esophagus without bleeding (principal); D62 Acute posthemorrhagic anemia; R79.89 Other specified abnormal findings of blood chemistry; K44.9 Diaphragmatic hernia without obstruction or gangrene; I12.9 Hypertensive chronic kidney disease with stage 1 through stage 4 chronic kidney disease, or unspecified chronic kidney disease; N18.30 Chronic kidney disease, stage 3 unspecified; R19.09 Other intra-abdominal and pelvic swelling, mass and lump; Z20.822 Contact with and (suspected) exposure to COVID-19; K59.00 Constipation, unspecified; F32.A Depression, unspecified; R93.5 Abnormal findings on diagnostic imaging of other abdominal regions, including retroperitoneum; E78.5 Hyperlipidemia, unspecified; E03.9 Hypothyroidism, unspecified; M85.80 Other specified disorders of bone density and structure, unspecified site; R32 Unspecified urinary incontinence; Z87.891 Personal history of nicotine dependence; Z79.82 Long term (current) use of aspirin; Z79.899 Other long term (current) drug therapy
CPT/HCPCS: 43239; 36415; 36430; 70450; 74177; 80048; 80053; 82948; 83735; 84443; 85014; 85018; 85025; 85027; 85610; 85730; 86850; 86900; 86901; 86923; 87081; 87635; 96361; 96374; 96375; 97116; 97161; 97165; 97530; 97535; 99285; A9270; C9113; G0378; J2405; J2704; J2765; J7042; J7050; J7120; P9016; Q9967

== ENCOUNTER 2023-02-02 01:09 | Day surgery (SDC) | payer MEDICARE, SELFPAY ==
[2023-01-21 12:49] VITALS: BMI 29.8
--- NOTE | 2023-01-30 09:12 | SUR.PREOP ---
Patient called regarding upcoming procedure. Reviewed preop instructions, appointment times, and procedure prep.
[2023-02-02 07:41] VITALS: BP 144/73; PULSE 73; RESP 16; TEMP 36.1; O2SAT 99
[2023-02-02] MEDS: LACTATED RINGERS 1,000 ML 150 ML IV CONT (07:46)
--- NOTE | 2023-02-02 08:15 | PM.HPGS ---
History of Present Illness History of Present Illness Consent: Risks, benefits, and alternatives have been discussed and questions answered. Patient agrees to proceed with procedure. Chief complaint: Ulcer of esophagus without bleeding Narrative: Eboni Farris is a 87 year old female was found have extensive ulcerations of the esophagus 1 month ago. She returns now for follow-up Review of Systems Review of Systems: All systems reviewed & are unremarkable except as noted in HPI and below PMFSH Past Medical History Medical History Chronic kidney disease, stage 3 Depression Dyslipidemia Erosive esophagitis Essential hypertension Hypothyroidism Osteoarthritis of right knee Osteopenia Urinary incontinence Surgical History Surgical History History of arthroplasty of right knee (07/2020) History of bladder surgery (06/2017) Colpocleisis and perineorrhaphy History of left knee replacement History of left shoulder replacement (1989) History of right shoulder replacement (05/2018) History of total right hip arthroplasty (10/07/21) Family History Family History Sibling Family history of Parkinson's disease Father Family history of Alzheimer's disease Family history of heart disease in male family member before age 55 Family history of cardiovascular disease Mother Malignancy RELEASE OF INFORMATION CLERK cancer, 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 Farris lives alone at [facility]. She is independent with most tasks. Her primary care provider is. Dr. Villatoro. She designates her daughter, Liz, as her surrogate decision maker and she would like to be a full code. Years smoked: 10 Smoking status: Former smoker Tobacco type: cigarettes Second hand tobacco smoke exposure: Yes Alcohol intake: never Substance use: never Substance use type: does not use Lack of Transportation: No Lack of Food: Never True Current Housing: I Have Housing Concerned About Future Housing: No Difficulty Paying Gas/Electric Bills: No Difficulty Paying for Meds: No Currently Unemployed: No Education: High School Diploma/GED Difficulty w/ Childcare or Family Care: No Living arrangements: assisted living Spiritual care concerns: No Meds Home Medications and Allergies Home Medications Medication Instructions Recorded Confirmed Type cranberry 400 mg capsule 400 mg PO BID 09/06/19 02/02/23 History oxybutynin chloride 10 mg 10 mg PO HS 03/27/20 02/02/23 History tablet,extended release 24 hr cyanocobalamin (vitamin B-12) 1 tablet PO QAM 07/18/20 02/02/23 History ascorbic acid (vitamin C) 1,000 mg 1 g PO DAILY #1 tablet 08/30/21 02/02/23 Rx tablet melatonin 10 mg tablet 5 mg PO HS PRN Sleep 08/30/21 02/02/23 History sennosides 8.6 mg capsule (senna) 8.6 mg PO DAILY PRN constipation 12/20/21 02/02/23 Rx #10 caps acetaminophen 500 mg tablet 1,000 mg PO BID PRN mild pain 04/09/22 02/02/23 History cholecalciferol (vitamin D3) 25 50 mcg PO DAILY 04/09/22 02/02/23 History mcg (1,000 unit) tablet citalopram 20 mg tablet 20 mg PO QAM #90 tabs 05/22/22 02/02/23 Rx levothyroxine 75 mcg tablet 75 mcg PO QAM #90 tabs 09/24/22 02/02/23 Rx amlodipine 2.5 mg tablet 2.5 mg PO QAM #90 tabs 12/29/22 02/02/23 Rx pantoprazole 40 mg tablet,delayed 40 mg PO HS #30 tabs 01/20/23 02/02/23 Rx release (Protonix) sucralfate 100 mg/mL oral 1,000 mg (10 mL) PO ACHS #150 mL 01/20/23 02/02/23 Rx suspension Allergies Allergy/AdvReac Type Severity Reaction Status Date / Time No Known Allergies Allergy Verified 02/02/23 07:40 Vital Signs Vital Signs - 24 hr 02/02/23 07:41 Temperature 36.1 C L Pulse Rate 7
--- NOTE | 2023-02-02 08:18 | WPDANESEPPF ---
Anes - Initial Pre Proc Eval Procedure: Operation Date: 02/02/23 09:00 Proposed Procedures p Esophagogastroduodenoscopy - Juan Rooney MD Date/Time: 02/02/23 08:18 Surgeon: Juan Rooney MD Pre Op Diagnosis: Ulcer of esophagus without bleeding Patient Data Age: 87 Gender: F Height: 1.6 m Weight: 73.9 kg Last Vital Signs Temp 96.9 F L 02/02/23 07:41 Pulse 73 02/02/23 07:41 Resp 16 02/02/23 07:41 BP 144/73 H 02/02/23 07:41 Pulse Ox 99 02/02/23 07:41 O2 Del Method Room Air 02/02/23 07:41 Allergies Allergy/AdvReac Type Severity Reaction Status Date / Time No Known Allergies Allergy Verified 02/02/23 07:40 Home Medications Medication Instructions Recorded Confirmed Type cranberry 400 mg capsule 400 mg PO BID 09/06/19 02/02/23 History oxybutynin chloride 10 mg 10 mg PO HS 03/27/20 02/02/23 History tablet,extended release 24 hr cyanocobalamin (vitamin B-12) 1 tablet PO QAM 07/18/20 02/02/23 History ascorbic acid (vitamin C) 1,000 mg 1 g PO DAILY #1 tablet 08/30/21 02/02/23 Rx tablet melatonin 10 mg tablet 5 mg PO HS PRN Sleep 08/30/21 02/02/23 History sennosides 8.6 mg capsule (senna) 8.6 mg PO DAILY PRN constipation 12/20/21 02/02/23 Rx #10 caps acetaminophen 500 mg tablet 1,000 mg PO BID PRN mild pain 04/09/22 02/02/23 History cholecalciferol (vitamin D3) 25 50 mcg PO DAILY 04/09/22 02/02/23 History mcg (1,000 unit) tablet citalopram 20 mg tablet 20 mg PO QAM #90 tabs 05/22/22 02/02/23 Rx levothyroxine 75 mcg tablet 75 mcg PO QAM #90 tabs 09/24/22 02/02/23 Rx amlodipine 2.5 mg tablet 2.5 mg PO QAM #90 tabs 12/29/22 02/02/23 Rx pantoprazole 40 mg tablet,delayed 40 mg PO HS #30 tabs 01/20/23 02/02/23 Rx release (Protonix) sucralfate 100 mg/mL oral 1,000 mg (10 mL) PO ACHS #150 mL 01/20/23 02/02/23 Rx suspension Patient hx anesthesia problems: none Family hx anesthesia problems: none Results Review: All pre-operative results and documents have been reviewed as part of the pre-operative evaluation. [facility] Past Medical History Medical History Chronic kidney disease, stage 3 Depression Dyslipidemia Erosive esophagitis Essential hypertension Hypothyroidism Osteoarthritis of right knee Osteopenia Urinary incontinence Surgical History Surgical History History of arthroplasty of right knee (07/2020) History of bladder surgery (06/2017) Colpocleisis and perineorrhaphy History of left knee replacement History of left shoulder replacement (1989) History of right shoulder replacement (05/2018) History of total right hip arthroplasty (10/07/21) Family History Family History Sibling Family history of Parkinson's disease Father Family history of Alzheimer's disease Family history of heart disease in male family member before age 55 Family history of cardiovascular disease Mother Malignancy COMMUNICATIONS PROJECT LEAD cancer, 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 Farris lives alone at [facility]. She is independent with most tasks. Her primary care provider is. Dr. Villatoro. She designates her daughter, Liz, as her surrogate decision maker and she would like to be a full code. Years smoked: 10 Smoking status: Former smoker Tobacco type: cigarettes Second hand tobacco smoke exposure: Yes Alcohol intake: never Substance use: never Substance use type: does not use Lack of Transportation: No Lack of Food: Never True Current Housing: I Have Housing Concerned About Future Housing: No Difficulty Paying Gas/Electric Bills: No Difficulty Paying for Meds: No Currently Unemployed: No Education: High School Diploma/GED Difficulty
[2023-02-02] MEDS: BENZOCAINE (*SP) 60 ML SPRAY CAN (HURRICAINE) 1 SPRAY MUCOUS MEM (08:51)
[2023-02-02 09:01] VITALS: BP 118/64; PULSE 63; RESP 22; O2SAT 98
[2023-02-02 09:11] VITALS: BP 106/64; PULSE 60; RESP 16; O2SAT 96
[2023-02-02 09:21] VITALS: BP 130/74; PULSE 62; RESP 17; O2SAT 96
== END 2023-02-02 09:31 | disposition home or self-care (01) ==
PROVIDERS: PCP Family Medicine; Visit Provider Internal Medicine Gastroenterology
PROC: 0DJ08ZZ Inspection of Upper Intestinal Tract, Via Natural or Artificial Opening Endoscopic (ICD-10-PCS; CPT 43235; principal; 2023-02-02 09:00)
DX: K22.10 Ulcer of esophagus without bleeding (principal); K44.9 Diaphragmatic hernia without obstruction or gangrene; I12.9 Hypertensive chronic kidney disease with stage 1 through stage 4 chronic kidney disease, or unspecified chronic kidney disease; N18.30 Chronic kidney disease, stage 3 unspecified; E78.5 Hyperlipidemia, unspecified; E03.9 Hypothyroidism, unspecified; F32.A Depression, unspecified; Z87.891 Personal history of nicotine dependence
CPT/HCPCS: 43239; 88305; 88313; 88342; J2704; J7120

== ENCOUNTER → 2023-04-17 08:12 | Outpatient (CLI) | payer MEDICARE, SELFPAY ==
--- NOTE | ~2023-04-17 | MR_ITS ---
MRI of the brain Clinical History: Cognitive impairment Technique: Axial and sagittal T1-weighted images were acquired. These were followed by axial T2-weigh maribel, diffusion weighted, gradient, and FLAIR images. Findings: There is no acute infarct, intracranial hemorrhage, or mass lesion. There are moderate to s evere chronic microvascular ischemic changes throughout the periventricular white matter bilaterally. Ventricles and subarachnoid spaces are dilated. Orbits are unremarkable. Paranasal sinuses and mastoi d air cells are clear. Major intracranial flow voids are intact. Sagittal midline structures are intact. IMPRESSION: No acute infarct, intracranial hemorrhage, or mass lesion. Moderate to severe chronic microvascular ischemic changes. Reviewed, dictated and finalized at location . 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
== END ==
PROVIDERS: PCP Family Medicine; Visit Provider Student in an Organized Health Care Education/Training Program
DX: G31.84 Mild cognitive impairment of uncertain or unknown etiology (principal)
CPT/HCPCS: 70551

== ENCOUNTER 2023-04-19 12:35 | Inpatient (IN) | payer MEDICARE, SELFPAY ==
[2023-04-19] VITALS (8 sets, daily range): BP systolic 140–163; BP diastolic 69–95; PULSE 65–71; RESP 12–20; TEMP 36.8; O2SAT 87–99
--- NOTE | ~2023-04-19 | XR_ITS ---
EXAM: XR abdomen gastric tube insert DATE: 04/19/2023 21:40 HISTORY: check NG tube placement . COMPARISON: X-ray chest, same date. FINDINGS: NG tube, tip and side port projecting over the expected location of the stomach. Unchanged pulmonary opacities. Unremarkable bowel gas pattern. Partially visualized shoulder arthroplasties. IMPRESSION: NG tube, in good position. Reviewed, dictated and finalized at location K. LLURGICAL TESTER IMPRESSION: NG tube, in good position.
--- NOTE | ~2023-04-19 | CT_ITS ---
EXAMINATION: CT abdomen pelvis w con DATE: 04/19/2023 20:06 INDICATION: N/V TECHNIQUE: Computed tomography (CT) of the abdomen and pelvis was performed with 100 mL Omnipaque-350 intravenous contrast. Automated exposure control and iterative reconstruction technique were employe d. The dose-length product was 428.32 mGy-cm. COMPARISON: 01/16/2023. FINDINGS: Motion limited examination. Lower thorax: Small right pleural effusion. Bilateral dependent scar/atelectasis. Moderate hiatal her autumn. Coronary and mitral calcifications Liver: Normal. Biliary/Gallbladder: Gallbladder is normal. No bile duct dilation. Pancreas: Atrophy. Spleen: Normal. Adrenals:No mass. Kidneys: Bilateral atrophy and scarring. No suspicious mass, hydronephrosis, or obstructing calcifica tion. GI tract: Multiple loops of dilated small bowel with uniform wall enhancement, transition point in a right femoral hernia. No free air. No large bowel dilation. Normal appendix. Mesentery/Peritoneum: No ascites, mass, or free air. Retroperitoneum: No mass. Pelvis: Pelvic organs are within normal limits. Trace free pelvic fluid. Soft Tissues: 5.0 x 3.8 cm inflamed, fluid and small bowel containing right femoral hernia. Bones: No acute osseous finding. Partially visualized, uncomplicated appearing right hip arthroplast y hardware. Thoracolumbar scoliosis. Multilevel severe degenerative disc disease with multilevel rupinder re central canal stenoses. IMPRESSION: Moderate hiatal hernia, moderate esophagitis/gastritis. Inflamed right femoral hernia containing fluid and a small loop of small bowel, causing small bowel o bstruction. Reviewed, dictated and finalized at location K. D MILLER IMPRESSION: Moderate hiatal hernia, moderate esophagitis/gastritis. Inflamed right femoral hernia containing fluid and a small loop of small bowel, causing small bowel obstruction.
--- NOTE | ~2023-04-19 | XR_ITS ---
XR chest 2V 04/22/2023 08:12 Indication: Pneumonia Procedure: 2 view chest Comparison: 04/19/2023 Findings: Heart size normal. Developing bilateral airspace disease, left greater than right. No signi ficant effusion. No pneumothorax. There are bilateral shoulder arthroplasties. There is levoscoliosis centered at the thoracolumbar junction. Impression: 1: Developing bilateral airspace disease, consistent with pneumonia. Reviewed, dictated and finalized at location A. PRESIDENT FIXED INCOME Impression: 1: Developing bilateral airspace disease, consistent with pneumonia.
--- NOTE | ~2023-04-19 | XR_ITS ---
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 RESULT: Lines, tubes, and devices: Bilateral shoulder arthroplasty hardware. Lungs and pleura: Antilordotic positioning with very low lung volumes and crowding. Mild diffuse ret icular opacities. Patchy areas of hazy bilateral mid lung opacities. Left basilar airspace disease. Cardiomediastinal silhouette: Stable. Other: No acute osseous or upper abdominal finding. IMPRESSION: Left basilar atelectasis/consolidation. Ill-defined mid lung and diffuse reticular opacities may repr esent atelectasis from low volumes, edema, or infection. Reviewed, dictated and finalized at location K. AURANT CREW PERSON IMPRESSION: Left basilar atelectasis/consolidation. Ill-defined mid lung and diffuse reticu lar opacities may represent atelectasis from low volumes, edema, or infection.
--- NOTE | 2023-04-19 18:56 | ED.GENADULT ---
HPI - General Adult General Chief complaint: GI Bleed <Jb German PA-C - Last Filed: 04/20/23 03:42> Stated complaint: upper gi bleed <JOSH Mcneill Last Filed: 04/20/23 03:42> Time Seen by Provider: 04/19/23 18:42 <Jb German PA-C - Last Filed: 04/20/23 03:42> Source: patient <JOSH Mcneill Last Filed: 04/20/23 03:42> Mode of arrival: EMS <JOSH Mcneill Last Filed: 04/20/23 03:42> Limitations: no limitations <JOSH Mcneill Last Filed: 04/20/23 03:42> History of Present Illness HPI narrative: This is a 87-year-old female with PMH of esophageal ulcer, HTN, CKD who presents to the ED via EMS from independent living with chief complaint of coffee-ground emesis onset today. Reports she has had multiple episodes of vomiting since Thursday afternoon. Family is here and states that she saw multiple episodes of the dark emesis. Patient reports intermittent abdominal pains in the epigastrium. They note that she was here a couple of months ago for the same and had a scope that showed the esophageal erosion. She has been on pantoprazole daily and was scheduled for another scope and the coming week. Denies fevers, chills, chest pain, diarrhea, melena, headache, LOC or lightheadedness. <Jb German PA-C - Last Filed: 04/20/23 03:42> Related Data Home medications: Home Medications Medication Instructions Recorded Confirmed cranberry 400 mg capsule 400 mg PO BID 09/06/19 04/15/23 oxybutynin chloride 10 mg 10 mg PO HS 03/27/20 04/15/23 tablet,extended release 24 hr cyanocobalamin (vitamin B-12) 1 tablet PO QAM 07/18/20 04/15/23 acetaminophen 500 mg tablet 1,000 mg PO BID PRN mild pain 04/09/22 04/15/23 cholecalciferol (vitamin D3) 25 50 mcg PO DAILY 04/09/22 04/15/23 mcg (1,000 unit) tablet pantoprazole 40 mg tablet,delayed 40 mg PO BID 04/15/23 04/15/23 release <Jb German PA-C - Last Filed: 04/20/23 03:42> Allergies/adverse reactions: Allergies Allergy/AdvReac Type Severity Reaction Status Date / Time No Known Allergies Allergy Verified 04/19/23 19:18 <Jb German PA-C - Last Filed: 04/20/23 03:42> Review of Systems Review of Systems: All systems as dictated in HPI <JOSH Mcneill Last Filed: 04/20/23 03:42> [facility] Past Medical History Medical History: Medical History Chronic kidney disease, stage 3 Depression Dyslipidemia Erosive esophagitis Esophageal ulcer Essential hypertension Hypothyroidism Osteoarthritis of right knee Osteopenia Urinary incontinence <Jb German PA-C - Last Filed: 04/20/23 03:42> Surgical History Surgical History: Surgical History History of arthroplasty of right knee (07/2020) History of bladder surgery (06/2017) Colpocleisis and perineorrhaphy History of left knee replacement History of left shoulder replacement (1989) History of right shoulder replacement (05/2018) History of total right hip arthroplasty (10/07/21) <Jb German PA-C - Last Filed: 04/20/23 03:42> Family History Family History: Family History Sibling Family history of Parkinson's disease Father Family history of Alzheimer's disease Family history of heart disease in male family member before age 55 Family history of cardiovascular disease Mother Malignancy HANGERSMITH cancer, unspecified location Other Family history of osteoarthritis <Jb German PA-C - Last Filed: 04/20/23 03:42> Social History Social History: Social History Social History: Ms. Farris lives alone at [facility]. She is independent with most tasks. Her primary care provider is. Dr. Villatoro. She designates her daughter, Liz, as her surrogate
--- NOTE | 2023-04-19 19:03 | ECG_ITS ---
Measurements Intervals [place] Rate: 75 P: -27 [place]: 87 QRS: 38 QRSD: 87 T: -11 QT: 371 QTc: 417 Interpretive Statements SINUS RHYTHM WITH SHORT [place] INTERVAL EARLY PRECORDIAL R/S TRANSITION NONSPECIFIC ST-T WAVE ABNORMALITY- ANTEROLAT/INF LEADS BASELINE ARTIFACT- I, II, III, AVR, AVL BORDERLINE ECG COMPARED TO ECG 08/27/2021 13:24:38 NO SIGNIFICANT CHANGES Electronically Signed On 04-20-2023 6:03:42 REGULATORY AFFAIRS PORTFOLIO LEADER by Alfredo Conner D.O.
[2023-04-19] MEDS: ONDANSETRON INJ 4 MG/2 ML VIAL IV PUSH ×2 (19:19→21:33)
[2023-04-19 19:27] LABS: Basophils Absolute Auto 0.1 K/mm3 (0.0-0.1); Basophils Percent Auto 0.4 % (0.2-1.2); Eosinophils Percent Auto 0.1 % (0-4.4); Hematocrit 33.8 % (37.0-47.0); Hemoglobin 10.4 g/dL (12.0-15.0); Immature Granulocyte Percent A 0.6 % (0-0.5); Lymphocytes Absolute Auto 2.06 K/mm3 (0.9-3.2); Lymphocytes Percent Auto 13.2 % (18.3-44.2); Mean Corpuscular HGB Conc 30.8 g/dl (32-36); Mean Corpuscular Hemoglobin 24.9 pg (26-34); Mean Corpuscular Volume 81.1 fl (80-100); Mean Platelet Volume 10.2 fl (7.4-10.4); Monocytes Absolute Auto 1.8 K/mm3 (0.1-0.6); Monocytes Percent Auto 11.5 % (2.6-8.5); Neutrophils Absolute Auto 11.5 K/mm3 (1.3-6.7); Neutrophils Percent Auto 74.2 % (45.5-73.1); Platelet Count Result 303 k/mm3 (150-375); Red Blood Count 4.17 M/mm3 (4.2-5.4); White Blood Count 15.6 K/mm3 (4.5-10.0)
[2023-04-19] MEDS: PANTOPRAZOLE SODIUM IV 40 MG VIAL IV PUSH (19:33)
[2023-04-19 19:44] LABS: Alanine Aminotransferase 15 U/L (6-35); Albumin Level 4.5 g/dL (3.5-5.1); Alkaline Phosphatase 82 U/L (38-126); Anion Gap 10 mmol/L (8-16); Aspartate Amino Transferase 32 U/L (14-36); Bilirubin,Total 1.4 mg/dL (0.2-1.3); Blood Urea Nitrogen 28 mg/dL (7-17); Calcium 10.1 mg/dL (8.4-10.2); Carbon Dioxide 29 mmol/L (22-30); Chloride 100 mmol/L (98-107); Estimated CRCL calculation 24 ml/min; Estimated Glomerular Filt Rate 35; Glucose 108 mg/dL (65-110); INR 1.1; Lipase 32 U/L (23-300); Potassium 4.4 mmol/L (3.4-5.0); Prothrombin Time 14.4 Seconds (11.1-14.7); Sodium 139 mmol/L (137-145)
[2023-04-19 19:45] LABS: Partial Thromboplastin Time 25.2 SECONDS (22.3-36.8)
--- NOTE | 2023-04-19 21:24 | PM.IMHP ---
H&P: HPI History of Present Illness Date/Time: 04/19/23 21:24 Chief Complaint: n/v Narrative: 87-year-old female with past medical history significant for GI bleed, hiatal hernia, presents to the emergency room with nausea vomiting and abdominal pain for the last 2 days or so EXAMINATION:? XR chest 1V portable Exam Date/Time:? 04/19/2023 19:00 MANAGER CRISIS HISTORY: N/V ? Comparison:? 08/27/2021. RESULT: Lines, tubes, and devices:? Bilateral shoulder arthroplasty hardware. Lungs and pleura:? Antilordotic positioning with very low lung volumes and crowding. Mild diffuse reticular opacities. Patchy areas of hazy bilateral mid lung opacities. Left basilar airspace disease. Cardiomediastinal silhouette:? Stable. Other:? No acute osseous or upper abdominal finding. ? IMPRESSION: Left basilar atelectasis/consolidation. Ill-defined mid lung and diffuse reticular opacities may represent atelectasis from low volumes, edema, or infection. EXAMINATION: CT abdomen pelvis w con DATE: 04/19/2023 20:06 INDICATION: N/V TECHNIQUE: Computed tomography (CT) of the abdomen and pelvis was performed with 100 mL Omnipaque-350 intravenous contrast. Automated exposure control and iterative reconstruction technique were employed. The dose-length product was 428.32 mGy-cm. COMPARISON: 01/16/2023. FINDINGS: Motion limited examination. Lower thorax: Small right pleural effusion. Bilateral dependent scar/atelectasis. Moderate hiatal hernia. Coronary and mitral calcifications Liver: Normal.? Biliary/Gallbladder: Gallbladder is normal. No bile duct dilation. Pancreas: Atrophy. Spleen: Normal. Adrenals:No mass. Kidneys: Bilateral atrophy and scarring. No suspicious mass, hydronephrosis, or obstructing calcification. GI tract: Multiple loops of dilated small bowel with uniform wall enhancement, transition point in a right femoral hernia. No free air. No large bowel dilation. Normal appendix. Mesentery/Peritoneum: No ascites, mass, or free air. Retroperitoneum: No mass. Pelvis: Pelvic organs are within normal limits. Trace free pelvic fluid. Soft Tissues: 5.0 x 3.8 cm inflamed, fluid and small bowel containing right femoral hernia. Bones:? No acute osseous finding. Partially visualized, uncomplicated appearing right hip arthroplasty hardware. Thoracolumbar scoliosis. Multilevel severe degenerative disc disease with multilevel severe central canal stenoses. IMPRESSION: Moderate hiatal hernia, moderate esophagitis/gastritis. Inflamed right femoral hernia containing fluid and a small loop of small bowel, causing small bowel obstruction. Review of Systems Review of Systems: n/v/abdominal pain. [facility] Past Medical History Medical History Chronic kidney disease, stage 3 Depression Dyslipidemia Erosive esophagitis Esophageal ulcer Essential hypertension Hypothyroidism Osteoarthritis of right knee Osteopenia Urinary incontinence Surgical History Surgical History History of arthroplasty of right knee (07/2020) History of bladder surgery (06/2017) Colpocleisis and perineorrhaphy History of left knee replacement History of left shoulder replacement (1989) History of right shoulder replacement (05/2018) History of total right hip arthroplasty (10/07/21) Family History Family History Sibling Family history of Parkinson's disease Father Family history of Alzheimer's disease Family history of heart disease in male family member before age 55 Family history of cardiovascular disease Mother Malignancy STORE LOSS PREVENTION MANAGER cancer, 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 Farris lives alone at [facility]. She is independent with most t
[2023-04-19] MEDS: SODIUM CHLORIDE 0.9% IV 1,000 ML 999 ML IV CONT (21:42)
[2023-04-19] MEDS: metroNIDAZOLE 500 MG/ISO 100ML 500 MG/100 ML BAG 100 MG IVPB (21:43)
--- NOTE | 2023-04-19 21:49 | PC.NURSE ---
Per VORB per ADY Duncan, NG tube okay to use.
[2023-04-19] MEDS: HYDROmorphone HCL INJ (*CRX) 1 MG/ML SYR 0.5 MG IV PUSH (22:53)
[2023-04-19] MEDS: CEFEPIME 2 GM/NS 50 ML 2 GM/50 ML BAG IVPB (22:54)
[2023-04-19] MEDS: SODIUM CHLORIDE 0.9% IV 1,000 ML 125 ML IV CONT (23:37)
[2023-04-20] VITALS (20 sets, daily range): BP systolic 115–160; BP diastolic 55–76; PULSE 61–83; RESP 14–20; TEMP 35.6–36.6; O2SAT 92–100; BMI 30.4
[2023-04-20] MEDS: metroNIDAZOLE 500 MG/ISO 100ML 500 MG/100 ML BAG 100 MG IVPB ×3 (06:51→20:57)
[2023-04-20] MEDS: SODIUM CHLORIDE 0.9% IV 1,000 ML 125 ML IV CONT ×2 (06:51→20:56)
--- NOTE | 2023-04-20 09:26 | PM.CNGS ---
Assessment and Plan Assessment and plan (1) Incarcerated femoral hernia: Code(s): K41.30 - Unilateral femoral hernia, with obstruction, without gangrene, not specified as recurrent Status: Acute Assessment and Plan: I have reviewed the CT and discussed the findings with the patient and her daughter. She has evidence of an incarcerated right inguinal hernia. This is unable to be reduced at the bedside. I have recommended emergent open incarcerated right femoral hernia repair, possible bowel resection. I discussed that there is a possibility that the bowel is already ischemic or necrotic and could require partial resection. I discussed the procedure, risks, benefits, and alternatives. Questions were answered. (2) SBO (small bowel obstruction): Code(s): K56.609 - Unspecified intestinal obstruction, unspecified as to partial versus complete obstruction Status: Acute (3) Chronic kidney disease, stage 3: Code(s): N18.30 - Chronic kidney disease, stage 3 unspecified Status: Acute History of Present Illness Consult details Consult date: 04/20/23 Reason for consult: other (Incarcerated right femoral hernia) Requesting physician: Santo Escobedo MD Narrative: This is an 87-year-old woman who presented to the emergency department last night with nausea and vomiting. She was having some right groin pain and generalized abdominal pain. She has had a history of a large hiatal hernia which had caused nausea and vomiting in the past, but she has not had any other symptoms like this. She denies any prior knowledge that she had a right inguinal hernia. She does have history of constipation. She currently lives in independent living at [place]. In the emergency department she was found to have a small-bowel obstruction caused by an incarcerated right femoral hernia. NG tube was placed and she was admitted for further treatment. She is still having some abdominal pain and right groin pain and denies any flatus or BM. Review of Systems Review of Systems: All systems reviewed & are unremarkable except as noted in HPI and below Eyes: Eyes: Denies change in vision ENT: Denies hearing loss, Denies neck pain and Denies sore throat Cardiovascular: Cardiovascular: Denies chest pain and Denies dyspnea Respiratory: Respiratory: Denies cough, Denies dyspnea and Denies wheezing Genitourinary: Genitourinary: Denies hematuria and Denies dysuria Musculoskeletal: Musculoskeletal: Denies arthralgias, Denies joint swelling and Denies neck pain Allergic/Immunologic: Allergic/Immunologic: Denies wheezing PMFSH Past Medical History Medical History Chronic kidney disease, stage 3 Depression Dyslipidemia Erosive esophagitis Esophageal ulcer Essential hypertension Hypothyroidism Osteoarthritis of right knee Osteopenia Urinary incontinence Surgical History Surgical History History of arthroplasty of right knee (07/2020) History of bladder surgery (06/2017) Colpocleisis and perineorrhaphy History of left knee replacement History of left shoulder replacement (1989) History of right shoulder replacement (05/2018) History of total right hip arthroplasty (10/07/21) Family History Family History Sibling Family history of Parkinson's disease Father Family history of Alzheimer's disease Family history of heart disease in male family member before age 55 Family history of cardiovascular disease Mother Malignancy CROP QUANTITATIVE GENETICIST cancer, 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 Farris lives alone at [facility]. She is independent with most tasks. Her primary care provider is.
--- NOTE | 2023-04-20 09:30 | WPDHPUPDATE1 ---
History and Physical Update Update Date/Time: 04/20/23 09:30 History and Physical has been reviewed, including an updated exam of the patient. There are NO changes in the patient's condition. Risks, benefits, and alternatives have been discussed and questions answered. Patient agrees to proceed with procedure.
[2023-04-20] MEDS: LACTATED RINGERS 1,000 ML 30 ML IV CONT ×2 (09:50→12:16)
--- NOTE | 2023-04-20 10:27 | WPDANESEPPF ---
Anes - Initial Pre Proc Eval Procedure: Operation Date: 04/20/23 10:45 Proposed Procedures p Open Incarcerated Right Femoral Hernia Repair, Possible Bowel Resection - Redd Gibbs DO Date/Time: 04/20/23 10:27 Surgeon: ELVIRA Gonzalez Pre Op Diagnosis: SBO Patient Data Age: 87 Gender: F Height: 1.6 m Weight: 78.1 kg Last Vital Signs Temp 36.6 C 04/20/23 09:46 Pulse 67 04/20/23 09:46 Resp 20 04/20/23 09:46 BP 142/64 H 04/20/23 09:46 Pulse Ox 96 04/20/23 09:46 O2 Del Method Nasal Cannula 04/20/23 09:46 O2 Flow Rate 2 04/20/23 09:46 Allergies Allergy/AdvReac Type Severity Reaction Status Date / Time No Known Allergies Allergy Verified 04/20/23 09:06 Home Medications Medication Instructions Recorded Confirmed Type cranberry 400 mg capsule 400 mg PO BID 09/06/19 04/20/23 History oxybutynin chloride 10 mg 10 mg PO HS 03/27/20 04/20/23 History tablet,extended release 24 hr cyanocobalamin (vitamin B-12) 1 tablet PO QAM 07/18/20 04/20/23 History ascorbic acid (vitamin C) 1,000 mg 1 g PO DAILY #1 tablet 08/30/21 04/20/23 Rx tablet sennosides 8.6 mg capsule (senna) 8.6 mg PO DAILY PRN constipation 12/20/21 04/20/23 Rx #10 caps acetaminophen 500 mg tablet 1,000 mg PO BID PRN mild pain 04/09/22 04/20/23 History cholecalciferol (vitamin D3) 25 50 mcg PO DAILY 04/09/22 04/20/23 History mcg (1,000 unit) tablet levothyroxine 75 mcg tablet 75 mcg PO QAM #90 tabs 09/24/22 04/20/23 Rx amlodipine 2.5 mg tablet 2.5 mg PO QAM #90 tabs 04/13/23 04/20/23 Rx pantoprazole 40 mg tablet,delayed 40 mg PO BID 04/15/23 04/20/23 History release citalopram 20 mg tablet 20 mg PO DAILY 04/20/23 04/20/23 History Laboratory Tests 04/19/23 04/19/23 19:22 19:22 WBC 15.6 H K/mm3 (4.5-10.0) RBC 4.17 L M/mm3 (4.2-5.4) Hgb 10.4 L g/dL (12.0-15.0) Hct 33.8 L % (37.0-47.0) MCV 81.1 fl (80-100) MCH 24.9 L pg (26-34) MCHC 30.8 L g/dl (32-36) RDW 18.0 H % (11.5-14.5) Plt Count 303 k/mm3 (150-375) MPV 10.2 fl (7.4-10.4) Immature Gran % (Auto) 0.6 H % (0-0.5) Neut % (Auto) 74.2 H % (45.5-73.1) Lymph % (Auto) 13.2 L % (18.3-44.2) [place] % (Auto) 11.5 H % (2.6-8.5) Eos % (Auto) 0.1 % (0-4.4) Baso % (Auto) 0.4 % (0.2-1.2) Lymph # (Auto) 2.06 K/mm3 (0.9-3.2) [place] # (Auto) 1.8 H K/mm3 (0.1-0.6) Eos # (Auto) 0.0 K/mm3 (0-0.3) Baso # (Auto) 0.1 K/mm3 (0.0-0.1) Abs Immat Gran (auto) 0.10 H K/mm3 (0.00-0.031) Absolute Neuts (auto) 11.5 H K/mm3 (1.3-6.7) Absolute Nucleated RBC 0.0 K/mm3 (0.0-0.012) Nucleated RBC % 0.0 % (0.0-0.2) PT 14.4 Seconds (11.1-14.7) INR 1.1 APTT 25.2 SECONDS (22.3-36.8) Sodium 139 mmol/L (137-145) Potassium 4.4 mmol/L (3.4-5.0) Chloride 100 mmol/L (98-107) Carbon Dioxide 29 mmol/L (22-30) Anion Gap 10 mmol/L (8-16) BUN 28 H D mg/dL (7-17) Creatinine 1.40 H mg/dL (0.7-1.0) Estim Creat Clear Calc 24 ml/min Estimated GFR 35 L (59 - ) Glucose 108 mg/dL (65-110) Lactic Acid 1.0 mmol/L (0.7-2.0) Calcium 10.1 mg/dL (8.4-10.2) Total Bilirubin 1.4 H mg/dL (0.2-1.3) AST 32 U/L (14-36) ALT 15 U/L (6-35) Alkaline Phosphatase 82 U/L (38-126) Total Protein 8.0 g/dL (6.3-8.2) Albumin 4.5 g/dL (3.5-5.1) Lipase 32 U/L Cancelled (23-300) Blood Type O Positive Antibody Screen Negative Patient hx anesthesia problems: none Family hx anesthesia problems: none Results Review: All pre-operative results and documents have been reviewed as part of the pre-operative evaluation. [facility]LY [facility] Past Medical History Medical History (Reviewed 04/20/23 @ 10:28 by Zulema
[2023-04-20] MEDS: BUPIVACAINE/EPINEPHRINE 0.5% 30 ML VIAL 10 ML INFILTRATE (11:29)
--- NOTE | 2023-04-20 12:00 | SUR.OPER ---
200mL of clear yellow urine drained from chavis catheter intraop
--- NOTE | 2023-04-20 12:05 | W.PM.PROC2 ---
Procedure Note - Detailed Date of Procedure 04/20/23 Pre-op Diagnosis Incarcerated right femoral hernia, small-bowel obstruction Post-op Diagnosis Same Procedure Performed Open incarcerated right femoral hernia repair with mesh Surgeon Redd Gibbs, DO Anesthesia General and Local (0.5% bupivacaine with epinephrine) Indications This is an 87-year-old woman who presented to the emergency department last night with abdominal pain with nausea and vomiting. She was having some pain in the right lower abdomen and groin region. CT showed evidence of a right femoral hernia incarcerated with small bowel causing a small bowel obstruction. The patient has some memory issues and does not recall noticing a bulge or the duration of when her pain 1st started. Discussions were made with the patient about treatment options and decision was made to proceed with open incarcerated right femoral hernia repair with possible bowel resection. Findings Open incarcerated right femoral hernia repair with mesh was performed. The patient was found have a right femoral hernia that was incarcerated with fluid and a loop of small bowel. The hernia sac itself appeared to be coming ischemic and necrotic, but once the hernia sac was opened, there did appear to be some clear ascites fluid within the hernia sac. The bowel contained within the hernia appeared pink and healthy and viable. This was gently inspected and then reduced with manual palpation and reduction. The hernia defect was very small measuring only about 5-10 mm. This was repaired initially primarily using 0 Ethibond [id number] sutures. I then chose to reinforce the repair with an 8 cm x 4 cm piece of polypropylene mesh. This was placed under the external oblique aponeuroses and advanced down overlying the shelving edge of the inguinal ligament. The hernia sac was sent for pathology. No other abnormalities were noted. I did decide to place a drain within the subcutaneous space to prevent any seroma formation. Description of Procedure Procedure as well as risks, benefits, and alternatives were discussed with the patient. Written consent was obtained and placed in chart prior to procedure. Patient was brought back to surgical suite. She was placed supine on operating table. Time-out was done to confirm patient and procedure. Her right groin area was prepped and draped in sterile fashion using chlorhexidine prep. 0.5% bupivacaine with epinephrine was infiltrated locally around the skin and subcutaneous tissue. A 10 cm oblique incision was then made using a 10 blade scalpel directly over the right groin region. Electrocautery was used for hemostasis and for dissection through the subcutaneous tissue. There was 1 branching vein from the superficial inferior epigastric vein that was clamped and ligated with 3-0 Vicryl ties. The dissection was then carried down further through Simone's fascia until the external oblique aponeuroses was identified. The hernia sac was identified just below the inguinal ligament within the femoral canal. The hernia sac was carefully freed up circumferentially all the way down to the level of the fascia. It was then opened he using Metzenbaum scissors. The contents of the hernia sac were then carefully inspected and the bowel appeared healthy and viable. I was able to reduce the bowel through the hernia defect. The hernia sac was then excised at the neck of the hernia defect using electrocautery. The fascial edges appeared to be able to be approximated in a Pascual's fashion. 0 Ethibond [id number] sutures were placed to approximate the Pascual's ligament to the inferior and posterior edge of the inguinal ligament. A total of 2 sutures were placed to bring the fascia together and close the femoral hernia defect. I then opened the external oblique aponeuroses down to the external ring and carefully inspected this region. To help prevent any hernia recurrence I chose to place a 4 cm x
--- NOTE | 2023-04-20 13:18 | P.PNIM_ITS ---
Progress Note: A&P Assessment and Plan (1) SBO (small bowel obstruction): Code(s): K56.609 - Unspecified intestinal obstruction, unspecified as to partial versus complete obstruction Status: Acute Assessment and Plan: * SBO secondary to incarcerated femoral hernia that is being repaired today. * General surgery eval and take to OR for repair * NG tube in place * See Surgery recs for further treatment. * Currently NPO * Continue abx per surgery recs post procedure. (2) Lung infiltrate: Code(s): R91.8 - Other nonspecific abnormal finding of lung field Status: Acute Assessment and Plan: * Vague abnormality per chest imaging that states, low lung volume vs, edema vs infection. * Pt placed on IV abx of Cefepime and Flagyl. Low suspicion for actual PNA. * Consider repeating imaging in 1-2 days. * Monitor respiratory function * Monitor labs and VS. (3) Chronic kidney disease, stage 3: Code(s): N18.30 - Chronic kidney disease, stage 3 unspecified Status: Chronic Assessment and Plan: * Baseline is 0.9-1.0 * Current Cr is 1.4. * Continue IVF hydration, suspect mild dehydration in setting of having acute N/V. * Avoid nephrotoxins as much as possible. (4) Incarcerated hernia of abdominal cavity: Code(s): K45.0 - Other specified abdominal hernia with obstruction, without gangrene Status: Acute Assessment and Plan: * General surgery consulted and will be taking pt to surgery. * Follow all recs of gen surgery. * Continue prn pain meds and anti-emetics. (5) Hypothyroidism: Code(s): E03.9 - Hypothyroidism, unspecified Status: Chronic Assessment and Plan: * When able to tolerate po therapy, restart Levothyroxine. (6) Vitamin D deficiency: Code(s): E55.9 - Vitamin D deficiency, unspecified Status: Chronic Assessment and Plan: * When able to restart oral therapy, restart Cholecalciferol (7) GERD (gastroesophageal reflux disease): Code(s): K21.9 - Gastro-esophageal reflux disease without esophagitis Status: Chronic Assessment and Plan: * Continue IV PPI therapy as pt recently had erosive Esophagitis. Protonix 40 mg IVP q12 HRS (8) Essential hypertension: Code(s): I10 - Essential (primary) hypertension Status: Chronic Assessment and Plan: * Continue home meds when able to tolerate po therapy. * Monitor VS * Consider prn meds as needed for BP. Time Spent With Patient Time with patient: 15 - 25 minutes Subjective Date/time seen: 04/20/23 0815 Interval history: Pt was evaluated at the bedside this morning prior to surgery taking to surgery for emergency repair of right sided incarcerated hernia. NG tube remains in place and the pt has been hemodynamically stable. It is my understanding that Dr. Roach will be performing the repair with or without possible resection of bowel and with mesh placement. No other acute complaints at this time. Review of Systems Review of Systems: All systems reviewed & are unremarkable except as noted in HPI and below Exam Narrative: Constitutional: Elderly, acutely ill appearing female pt lying supine in bed at this time. HEENT: Atraumatic and normocephalic. Dry mucous membranes. NG tube in place Eyes: PERRLA Neck: Supple, FROM Respiratory: Decreased in bases bilaterally Cardio: RRR, S1 and S2 present, and no peripheral edema GI: Tenderness to palpation RLQ into groin. BS active Skin: Pale, no lesions Extremities: MAEW N
--- NOTE | 2023-04-20 13:18 | PM.IMPN ---
Progress Note: A&P Assessment and Plan (1) SBO (small bowel obstruction): Code(s): K56.609 - Unspecified intestinal obstruction, unspecified as to partial versus complete obstruction Status: Acute Assessment and Plan: SBO secondary to incarcerated femoral hernia that is being repaired today. General surgery eval and take to OR for repair NG tube in place See Surgery recs for further treatment. Currently NPO Continue abx per surgery recs post procedure. (2) Lung infiltrate: Code(s): R91.8 - Other nonspecific abnormal finding of lung field Status: Acute Assessment and Plan: Vague abnormality per chest imaging that states, low lung volume vs, edema vs infection. Pt placed on IV abx of Cefepime and Flagyl. Low suspicion for actual PNA. Consider repeating imaging in 1-2 days. Monitor respiratory function Monitor labs and VS. (3) Chronic kidney disease, stage 3: Code(s): N18.30 - Chronic kidney disease, stage 3 unspecified Status: Chronic Assessment and Plan: Baseline is 0.9-1.0 Current Cr is 1.4. Continue IVF hydration, suspect mild dehydration in setting of having acute N/V. Avoid nephrotoxins as much as possible. (4) Incarcerated hernia of abdominal cavity: Code(s): K45.0 - Other specified abdominal hernia with obstruction, without gangrene Status: Acute Assessment and Plan: General surgery consulted and will be taking pt to surgery. Follow all recs of gen surgery. Continue prn pain meds and anti-emetics. (5) Hypothyroidism: Code(s): E03.9 - Hypothyroidism, unspecified Status: Chronic Assessment and Plan: When able to tolerate po therapy, restart Levothyroxine. (6) Vitamin D deficiency: Code(s): E55.9 - Vitamin D deficiency, unspecified Status: Chronic Assessment and Plan: When able to restart oral therapy, restart Cholecalciferol (7) GERD (gastroesophageal reflux disease): Code(s): K21.9 - Gastro-esophageal reflux disease without esophagitis Status: Chronic Assessment and Plan: Continue IV PPI therapy as pt recently had erosive Esophagitis. Protonix 40 mg IVP q12 HRS (8) Essential hypertension: Code(s): I10 - Essential (primary) hypertension Status: Chronic Assessment and Plan: Continue home meds when able to tolerate po therapy. Monitor VS Consider prn meds as needed for BP. Time Spent With Patient Time with patient: 15 - 25 minutes Subjective Date/time seen: 04/20/23 0815 Interval history: Pt was evaluated at the bedside this morning prior to surgery taking to surgery for emergency repair of right sided incarcerated hernia. NG tube remains in place and the pt has been hemodynamically stable. It is my understanding that Dr. Roach will be performing the repair with or without possible resection of bowel and with mesh placement. No other acute complaints at this time. Review of Systems Review of Systems: All systems reviewed & are unremarkable except as noted in HPI and below Exam Narrative: Constitutional: Elderly, acutely ill appearing female pt lying supine in bed at this time. HEENT: Atraumatic and normocephalic. Dry mucous membranes. NG tube in place Eyes: PERRLA Neck: Supple, FROM Respiratory: Decreased in bases bilaterally Cardio: RRR, S1 and S2 present, and no peripheral edema GI: Tenderness to palpation RLQ into groin. BS active Skin: Pale, no lesions Extremities: MAEW Neuro: Non-focal, alert and oriented x3 Psych: Pleasant, cooperative Objective Data Vital Signs Vital Signs: Vital Signs - 24 hr 04/19/23 19:17 04/19/23 20:37 04/19/23 20:42 Temperature Pulse Rate 65 70 Respiratory Rate 19 12 Blood Pressure 141/76 H 163/70 H Pulse Oximetry 94 96 Oxygen Delivery Oxygen Flow Rate 04/19/23 22:47 04/19/23 23:00 04/19/23 23:01 Temperature Pulse Rate 71 Respiratory Rate 20 Blood
--- NOTE | 2023-04-20 13:34 | PC.NURSE ---
Pt to floor from recovery @ 2425
[2023-04-20] MEDS: PANTOPRAZOLE SODIUM IV 40 MG VIAL IV PUSH (20:57)
[2023-04-20] MEDS: CEFEPIME 2 GM/NS 50 ML 2 GM/50 ML BAG IVPB (22:08)
[2023-04-21 03:10] VITALS: BP 128/67; PULSE 64; RESP 18; TEMP 36.4; O2SAT 99
[2023-04-21] MEDS: SODIUM CHLORIDE 0.9% IV 1,000 ML 125 ML IV CONT (05:42)
[2023-04-21] MEDS: metroNIDAZOLE 500 MG/ISO 100ML 500 MG/100 ML BAG 100 MG IVPB ×3 (05:42→19:51)
[2023-04-21 06:41] LABS: Hematocrit 29.4 % (37.0-47.0); Hemoglobin 8.6 g/dL (12.0-15.0); Mean Corpuscular HGB Conc 29.3 g/dl (32-36); Mean Corpuscular Volume 85.5 fl (80-100); Mean Platelet Volume 11.4 fl (7.4-10.4); Platelet Count Result 236 k/mm3 (150-375); Red Blood Count 3.44 M/mm3 (4.2-5.4); Red Cell Distribution Width 18.1 % (11.5-14.5); White Blood Count 10.2 K/mm3 (4.5-10.0)
[2023-04-21 06:56] LABS: Anion Gap 8 mmol/L (8-16); Blood Urea Nitrogen 24 mg/dL (7-17); Calcium 8.1 mg/dL (8.4-10.2); Carbon Dioxide 20 mmol/L (22-30); Chloride 111 mmol/L (98-107); Estimated CRCL calculation 31 ml/min; Estimated Glomerular Filt Rate 47; Glucose 88 mg/dL (65-110); Potassium 3.8 mmol/L (3.4-5.0); Sodium 139 mmol/L (137-145)
[2023-04-21] MEDS: PANTOPRAZOLE SODIUM IV 40 MG VIAL IV PUSH ×2 (08:02→19:50)
[2023-04-21] MEDS: ENOXAPARIN 40 MG/0.4 ML SYRINGE SUB-Q (08:02)
[2023-04-21 08:30] VITALS: BP 141/63; PULSE 58; RESP 14; TEMP 36; O2SAT 95
[2023-04-21] MEDS: IBUPROFEN IV 800 MG/200 ML 800 MG/200 ML BAG 400 MG IVPB (12:09)
[2023-04-21 12:23] VITALS: BP 128/58; PULSE 70; RESP 16; TEMP 37.3; O2SAT 93
--- NOTE | 2023-04-21 14:18 | WPDANESPN ---
Anes - Prog Note Post-Op Date/Time: 04/21/23 14:18 Cardiovascular status: normal Respiratory status: normal Airway patency: baseline Mental status: baseline Post-Op hydration status: normal Vital Signs: Last Vital Signs Temp 37.3 C 04/21/23 12:23 Pulse 70 04/21/23 12:23 Resp 16 04/21/23 12:23 BP 128/58 L 04/21/23 12:23 Pulse Ox 93 04/21/23 12:23 O2 Del Method Nasal Cannula 04/20/23 20:00 O2 Flow Rate 3 04/20/23 20:00 Pain Score (VAS): 0/10 I/O: Intake & Output 04/20/23 04/21/23 04/21/23 23:59 07:59 15:59 Intake Total 1100 1100 Output Total 805 250 Balance 1100 295 -250 Laboratory Tests 04/21/23 05:51 04/21/23 05:51 04/21/23 05:51 WBC 10.2 H RBC 3.44 L Hgb 8.6 L Hct 29.4 L MCV 85.5 D MCH 25.0 L MCHC 29.3 L RDW 18.1 H Plt Count 236 MPV 11.4 H Sodium 139 Potassium 3.8 Chloride 111 H Carbon Dioxide 20 L Anion Gap 8 BUN 24 H Creatinine 1.10 H Estim Creat Clear Calc 31 Estimated GFR 47 L Glucose 88 Calcium 8.1 L Post-procedural complaints: none Patient Feedback: Patient satisfied with anesthetic care.
--- NOTE | 2023-04-21 14:29 | PM.PNGS ---
Progress Note: A&P Assessment and Plan (1) Incarcerated femoral hernia: Code(s): K41.30 - Unilateral femoral hernia, with obstruction, without gangrene, not specified as recurrent Status: Acute Assessment and Plan: Remove NG and continue clear liquids today. Increase activity slowly. Subjective Subjective Date/Time Seen: 04/21/23 14:29 Interval history: +BM, tolerating clears with NG clamped. Pain controlled. Mostly complaining about discomfort from NG. Exam GI: Inspection: non-distended, incision (intact with glue) and other (VERONICA serosanguinous) GI Palp: Yes Soft to palpation and Yes Tenderness to palpation present (GI) (incisional) Objective Data Vital Signs Vital Signs: Vital Signs - 24 hr 04/20/23 15:20 04/20/23 19:10 04/20/23 20:00 Temperature 35.6 C L 36.4 C L Pulse Rate 61 68 70 Respiratory Rate 14 17 18 Blood Pressure 121/69 141/72 H Pulse Oximetry 99 99 96 Oxygen Delivery Nasal Cannula Oxygen Flow Rate 3 04/20/23 23:10 04/21/23 03:10 04/21/23 08:30 Temperature 36.4 C L 36.4 C L 36.0 C L Pulse Rate 62 64 58 L Respiratory Rate 18 18 14 Blood Pressure 123/62 128/67 141/63 H Pulse Oximetry 98 99 95 Oxygen Delivery Oxygen Flow Rate 04/21/23 12:23 Temperature 37.3 C Pulse Rate 70 Respiratory Rate 16 Blood Pressure 128/58 L Pulse Oximetry 93 Oxygen Delivery Oxygen Flow Rate Intake/Output Intake/Output: Intake & Output 04/18/23 04/19/23 04/20/23 04/21/23 23:59 23:59 23:59 23:59 Intake Total 1150 2400 1100 Output Total 1355 1055 Balance 1150 1045 45 Meds/Results Medications: Active Medications Generic Name Dose Route Start Last Admin Trade Name Freq PRN Reason Stop Dose Admin Diphenhydramine HCl 25 mg 04/20/23 13:25 Diphenhydramine Hcl Inj 50 Mg/Ml Vial IV PUSH Q6H PRN Itching Enoxaparin Sodium 40 mg 04/21/23 09:00 04/21/23 08:02 Enoxaparin 40 Mg/0.4 Ml Syringe SUB-Q 40 mg DAILY ROYER Administration Sodium Chloride 1,000 mls @ 125 mls/hr 04/19/23 21:35 04/21/23 05:42 Normal Saline Iv IV CONT 125 mls/hr .Q8H ROYER Administration Cefepime HCl 2 gm in 50 mls @ 100 mls/hr 04/20/23 23:00 04/20/23 22:08 Maxipime 2 Gm/Ns 50 Ml IVPB 100 mls/hr Q24H ROYER Administration Metronidazole 500 mg in 100 mls @ 100 mls/hr 04/20/23 06:00 04/21/23 14:01 Flagyl 500 Mg/Iso Soln 100 Ml IVPB 100 mls/hr Q8HR ROYER Administration Morphine Sulfate 2 mg 04/20/23 13:25 Morphine Sulfate (*Crx) 4 Mg/Ml Inj IV PUSH Q2H PRN Pain Rated 7-10 Naloxone HCl 0.1 mg 04/20/23 13:25 Naloxone Hcl 0.4 Mg/Ml Vial IV PUSH Q2M PRN Opiate Reversal Ondansetron HCl 4 mg 04/19/23 21:31 Ondansetron Inj 4 Mg/2 Ml Vial IV PUSH Q4H PRN Nausea Ondansetron HCl 4 mg 04/20/23 13:25 Ondansetron Inj 4 Mg/2 Ml Vial IV PUSH Q4H PRN Nausea And Vomiting Pantoprazole Sodium 40 mg 04/20/23 21:00 04/21/23 08:02 Pantoprazole Sodium Iv 40 Mg Vial IV PUSH 40 mg Q12HR ROYER Administration Radiology Results: ITS Impressions Chest X-Ray 04/19/23 19:34 IMPRESSION: Left basilar atelectasis/consolidation. Ill-defined mid lung and diffuse reticular opacities may represent atelectasis from low volumes, edema, or infection. Abdomen/Pelvis CT 04/19/23 20:16 IMPRESSION: Moderate hiatal hernia, moderate esophagitis/gastritis. Inflamed right femoral hernia containing fluid and a small loop of small bowel, causing small bowel obstruction. Abdomen X-Ray 04/19/23 21:45 IMPRESSION: NG tube, in good position. Labs Labs: Laboratory Results - last 24 hr 04/21/23 05:51 WBC 10.2 H RBC 3.44 L Hgb 8.6 L Hct 29.4 L MCV 85.5 D MCH 25.0 L MCHC 29.3 L RDW 18.1 H Plt Count 236 MPV 11.4 H Sodium 139 Potassium 3.8 Chloride 111 H Carbon Dioxide 20 L Anion Gap 8 BUN 24 H Creatinine 1.10 H Estim Creat Clear Calc 31 Estima
[2023-04-21 15:30] VITALS: BP 126/73; PULSE 56; RESP 16; TEMP 36.6; O2SAT 93
--- NOTE | 2023-04-21 15:41 | PC.NURSE ---
On 04/21/23, the student, Ana Herring,provided care and completed [facility] documentation on this patient. I have reviewed the student's documentation and agree with the findings.
--- NOTE | 2023-04-21 15:47 | P.PNIM_ITS ---
Progress Note: A&P Assessment and Plan (1) SBO (small bowel obstruction): Code(s): K56.609 - Unspecified intestinal obstruction, unspecified as to partial versus complete obstruction Status: Acute Assessment and Plan: * SBO secondary to incarcerated femoral hernia post repair on 04/20 * General surgery following * NG tube to be removed today * continue clear liquids * Continue abx per surgery recs post procedure. (2) Lung infiltrate: Code(s): R91.8 - Other nonspecific abnormal finding of lung field Status: Acute Assessment and Plan: * Vague abnormality per chest imaging that states, low lung volume vs, edema vs infection. * Pt placed on IV abx of Cefepime and Flagyl. Low suspicion for actual PNA. * Will repeat CXR tomorrow am * Monitor respiratory function * Monitor labs and VS. (3) Chronic kidney disease, stage 3: Code(s): N18.30 - Chronic kidney disease, stage 3 unspecified Status: Chronic Assessment and Plan: * Baseline is 0.9-1.0 * Current Cr is 1.10. * Continue to monitor, d/c fluids when tolerating PO (4) Incarcerated hernia of abdominal cavity: Code(s): K45.0 - Other specified abdominal hernia with obstruction, without gangrene Status: Acute Assessment and Plan: * General surgery consulted and repaired 04/20 * Drain in place with serosanguineous fluid * Continue prn pain meds and anti-emetics. (5) Hypothyroidism: Code(s): E03.9 - Hypothyroidism, unspecified Status: Chronic Assessment and Plan: * continue Levothyroxine. (6) Vitamin D deficiency: Code(s): E55.9 - Vitamin D deficiency, unspecified Status: Chronic Assessment and Plan: * continue Cholecalciferol (7) GERD (gastroesophageal reflux disease): Code(s): K21.9 - Gastro-esophageal reflux disease without esophagitis Status: Chronic Assessment and Plan: * Continue IV PPI therapy as pt recently had erosive Esophagitis. * Protonix 40 mg IVP q12 HRS (8) Essential hypertension: Code(s): I10 - Essential (primary) hypertension Status: Chronic Assessment and Plan: * Continue home meds * reviewed and stable Subjective Date/time seen: 04/21/23 15:47 Interval history: Patient in no acute distress, at the time she had her NG tube in but would like it out. She is tolerating clear liquids. Gen surgery following post hernia repair yesterday, Patient is tender with drain in place, but tolerating liquids. NG tube to be removed today, will advance diet as tolerated and increase activity as tolerated. Continue AB therapy and plan for repeat CXR in am. Review of Systems Review of Systems: All systems reviewed & are unremarkable except as noted in HPI and below Exam Narrative: GENERAL: Elderly, acutely ill appearing female HEENT: Atraumatic and normocephalic. Dry mucous membranes. NG tube in place Eyes: PERRLA, EOMI Neck: Supple Respiratory: Lungs clear to auscultation Cardio: RRR, S1 and S2 present, and no peripheral edema GI: BS present and active. Tenderness on RUQ near surgical site. Skin: Pale, no lesions. Drain dressing clean, dry and intact. Extremities: no edema. Neuro: alert and oriented x3, no deficits. Psych: Pleasant, cooperative. Objective Data Vital Signs Vital Signs: Vital Signs - 24 hr 04/20/23 19:10 04/20/23 20:00 04/20/23 23:10 Temperature 97.5 F L 97.5 F L
--- NOTE | 2023-04-21 15:47 | PM.IMPN ---
Progress Note: A&P Assessment and Plan (1) SBO (small bowel obstruction): Code(s): K56.609 - Unspecified intestinal obstruction, unspecified as to partial versus complete obstruction Status: Acute Assessment and Plan: SBO secondary to incarcerated femoral hernia post repair on 04/20 General surgery following NG tube to be removed today continue clear liquids Continue abx per surgery recs post procedure. (2) Lung infiltrate: Code(s): R91.8 - Other nonspecific abnormal finding of lung field Status: Acute Assessment and Plan: Vague abnormality per chest imaging that states, low lung volume vs, edema vs infection. Pt placed on IV abx of Cefepime and Flagyl. Low suspicion for actual PNA. Will repeat CXR tomorrow am Monitor respiratory function Monitor labs and VS. (3) Chronic kidney disease, stage 3: Code(s): N18.30 - Chronic kidney disease, stage 3 unspecified Status: Chronic Assessment and Plan: Baseline is 0.9-1.0 Current Cr is 1.10. Continue to monitor, d/c fluids when tolerating PO (4) Incarcerated hernia of abdominal cavity: Code(s): K45.0 - Other specified abdominal hernia with obstruction, without gangrene Status: Acute Assessment and Plan: General surgery consulted and repaired 04/[address] with serosanguineous fluid Continue prn pain meds and anti-emetics. (5) Hypothyroidism: Code(s): E03.9 - Hypothyroidism, unspecified Status: Chronic Assessment and Plan: continue Levothyroxine. (6) Vitamin D deficiency: Code(s): E55.9 - Vitamin D deficiency, unspecified Status: Chronic Assessment and Plan: continue Cholecalciferol (7) GERD (gastroesophageal reflux disease): Code(s): K21.9 - Gastro-esophageal reflux disease without esophagitis Status: Chronic Assessment and Plan: Continue IV PPI therapy as pt recently had erosive Esophagitis. Protonix 40 mg IVP q12 HRS (8) Essential hypertension: Code(s): I10 - Essential (primary) hypertension Status: Chronic Assessment and Plan: Continue home meds reviewed and stable Subjective Date/time seen: 04/21/23 15:47 Interval history: Patient in no acute distress, at the time she had her NG tube in but would like it out. She is tolerating clear liquids. Gen surgery following post hernia repair yesterday, Patient is tender with drain in place, but tolerating liquids. NG tube to be removed today, will advance diet as tolerated and increase activity as tolerated. Continue AB therapy and plan for repeat CXR in am. Review of Systems Review of Systems: All systems reviewed & are unremarkable except as noted in HPI and below Exam Narrative: GENERAL: Elderly, acutely ill appearing female HEENT: Atraumatic and normocephalic. Dry mucous membranes. NG tube in place Eyes: PERRLA, EOMI Neck: Supple Respiratory: Lungs clear to auscultation Cardio: RRR, S1 and S2 present, and no peripheral edema GI: BS present and active. Tenderness on RUQ near surgical site. Skin: Pale, no lesions. Drain dressing clean, dry and intact. Extremities: no edema. Neuro: alert and oriented x3, no deficits. Psych: Pleasant, cooperative. Objective Data Vital Signs Vital Signs: Vital Signs - 24 hr 04/20/23 19:10 04/20/23 20:00 04/20/23 23:10 Temperature 97.5 F L 97.5 F L Pulse Rate 68 70 62 Respiratory Rate 17 18 18 Blood Pressure 141/72 H 123/62 Pulse Oximetry 99 96 98 Oxygen Delivery Nasal Cannula Oxygen Flow Rate 3 04/21/23 03:10 04/21/23 08:30 04/21/23 12:23 Temperature 97.5 F L 96.8 F L 99.1 F Pulse Rate 64 58 L 70 Respiratory Rate 18 14 16 Blood Pressure 128/67 141/63 H 128/58 L Pulse Oximetry 99 95 93 Oxygen Delivery Oxygen Flow Rate 04/21/23 15:30 Temperature 98 F Pulse Rate 56 L Respiratory Rate 16 Blood Pressure 126/73 Pulse Oximetry 93 Oxygen Delivery Oxy
[2023-04-21] MEDS: SODIUM CHLORIDE 0.9% IV 1,000 ML 75 ML IV CONT (17:13)
[2023-04-21] MEDS: oxyBUTYnin CHLORIDE XL 5 MG TAB.ER.24 10 MG PO (19:51)
[2023-04-21 20:00] VITALS: PULSE 56; RESP 16; O2SAT 93
[2023-04-21 21:05] VITALS: BP 124/58; PULSE 69; RESP 16; TEMP 36.9; O2SAT 93
[2023-04-21] MEDS: CEFEPIME 2 GM/NS 50 ML 2 GM/50 ML BAG IVPB (22:57)
[2023-04-22] MEDS: HYDROcodone/acetaminophen (*CRX) 5-325 MG TABLET 1 TAB PO (02:38)
[2023-04-22] MEDS: SODIUM CHLORIDE 0.9% IV 1,000 ML 75 ML IV CONT (02:50)
[2023-04-22 05:20] VITALS: BP 142/66; PULSE 58; RESP 20; TEMP 36.5; O2SAT 90
[2023-04-22] MEDS: metroNIDAZOLE 500 MG/ISO 100ML 500 MG/100 ML BAG 100 MG IVPB ×3 (05:26→20:08)
[2023-04-22] MEDS: LEVOTHYROXINE SODIUM 75 MCG TABLET PO (05:26)
--- NOTE | 2023-04-22 06:16 | PC.NURSE ---
Parisi removed during day shift. Pt was bladder scanned by PCT at 2100 which showed 100 mL in bladder. Pt then re-checked at 0530 and showed [address] Castillo was called and made aware- no new orders at this time.
[2023-04-22 06:30] LABS: Hemoglobin 7.8 g/dL (12.0-15.0); Mean Corpuscular Hemoglobin 24.9 pg (26-34); Mean Corpuscular Volume 83.1 fl (80-100); Mean Platelet Volume 11.2 fl (7.4-10.4); Platelet Count Result 227 k/mm3 (150-375); Red Blood Count 3.13 M/mm3 (4.2-5.4); Red Cell Distribution Width 18.6 % (11.5-14.5); White Blood Count 8.1 K/mm3 (4.5-10.0)
[2023-04-22 06:55] LABS: Anion Gap 7 mmol/L (8-16); Blood Urea Nitrogen 23 mg/dL (7-17); Calcium 7.7 mg/dL (8.4-10.2); Carbon Dioxide 21 mmol/L (22-30); Chloride 111 mmol/L (98-107); Estimated CRCL calculation 31 ml/min; Estimated Glomerular Filt Rate 47; Glucose 85 mg/dL (65-110); Sodium 139 mmol/L (137-145)
[2023-04-22] MEDS: POTASSIUM CHLORIDE 20 MEQ PACKET (FOR LIQUID) 40 MEQ PO (08:34)
[2023-04-22] MEDS: CHOLECALCIFEROL 1,000 UNITS TABLET 2000 UNITS PO (08:34)
[2023-04-22] MEDS: ASCORBIC ACID 500 MG TABLET 1000 MG PO (08:34)
[2023-04-22] MEDS: amLODIPine BESYLATE 2.5 MG TABLET PO (08:34)
[2023-04-22] MEDS: CITALOPRAM HYDROBROMIDE 20 MG TABLET PO (08:34)
[2023-04-22] MEDS: CYANOCOBALAMIN 1,000 MCG TABLET 1000 MCG PO (08:35)
[2023-04-22] MEDS: PANTOPRAZOLE SODIUM IV 40 MG VIAL IV PUSH ×2 (08:39→20:07)
[2023-04-22] MEDS: ENOXAPARIN 40 MG/0.4 ML SYRINGE SUB-Q (08:39)
[2023-04-22] MEDS: polyethylene glycoL 3350 17 GM POWD.PACK PO (12:27)
[2023-04-22 14:00] VITALS: BP 119/60; PULSE 68; RESP 12; TEMP 36; O2SAT 96
--- NOTE | 2023-04-22 14:55 | PM.IMPN ---
Progress Note: A&P Assessment and Plan (1) SBO (small bowel obstruction): Code(s): K56.609 - Unspecified intestinal obstruction, unspecified as to partial versus complete obstruction Status: Acute Assessment and Plan: SBO secondary to incarcerated femoral hernia post repair on 04/20 General surgery following NG tube out, advance diet as tolerated. Continue abx per surgery recs post procedure. (2) Lung infiltrate: Code(s): R91.8 - Other nonspecific abnormal finding of lung field Status: Acute Assessment and Plan: repeat CXR confirms likely pneumonia Continue of Cefepime and Flagyl for now (3) Chronic kidney disease, stage 3: Code(s): N18.30 - Chronic kidney disease, stage 3 unspecified Status: Chronic Assessment and Plan: Baseline is 0.9-1.0 Current Cr is 1.10. continue to monitor (4) Incarcerated hernia of abdominal cavity: Code(s): K45.0 - Other specified abdominal hernia with obstruction, without gangrene Status: Acute Assessment and Plan: General surgery consulted and repaired 04/[address] with serosanguineous fluid Continue prn pain meds and anti-emetics. (5) Hypothyroidism: Code(s): E03.9 - Hypothyroidism, unspecified Status: Chronic Assessment and Plan: continue Levothyroxine. (6) Vitamin D deficiency: Code(s): E55.9 - Vitamin D deficiency, unspecified Status: Chronic Assessment and Plan: continue Cholecalciferol (7) GERD (gastroesophageal reflux disease): Code(s): K21.9 - Gastro-esophageal reflux disease without esophagitis Status: Chronic Assessment and Plan: Continue IV PPI therapy as pt recently had erosive Esophagitis. Protonix 40 mg IVP q12 HRS (8) Essential hypertension: Code(s): I10 - Essential (primary) hypertension Status: Chronic Assessment and Plan: Continue home meds reviewed and stable Subjective Date/time seen: 04/22/23 14:55 Interval history: Patient in no acute distress, at the time she had her NG tube in but would like it out. She is tolerating clear liquids. Gen surgery following post hernia repair yesterday, Patient is tender with drain in place, but tolerating liquids. NG tube to be removed today, will advance diet as tolerated and increase activity as tolerated. Continue AB therapy and plan for repeat CXR in am. Review of Systems Review of Systems: All systems reviewed & are unremarkable except as noted in HPI and below Exam Narrative: GENERAL: Elderly, acutely ill appearing female HEENT: Atraumatic and normocephalic. Dry mucous membranes. NG tube in place Eyes: PERRLA, EOMI Neck: Supple Respiratory: Lungs clear to auscultation Cardio: RRR, S1 and S2 present, and no peripheral edema GI: BS present and active. Tenderness on RUQ near surgical site. Skin: Pale, no lesions. Drain dressing clean, dry and intact. Extremities: no edema. Neuro: alert and oriented x3, no deficits. Psych: Pleasant, cooperative. Objective Data Vital Signs Vital Signs: Vital Signs - 24 hr 04/21/23 15:30 04/21/23 20:00 04/21/23 21:05 Temperature 98 F 98.4 F Pulse Rate 56 L 56 L 69 Respiratory Rate 16 16 16 Blood Pressure 126/73 124/58 L Pulse Oximetry 93 93 93 Oxygen Delivery Room Air 04/22/23 05:20 04/22/23 14:00 Temperature 97.7 F 96.8 F L Pulse Rate 58 L 68 Respiratory Rate 20 12 Blood Pressure 142/66 H 119/60 Pulse Oximetry 90 96 Oxygen Delivery Intake/Output Intake/Output: Intake & Output 04/19/23 04/20/23 04/21/23 04/22/23 23:59 23:59 23:59 23:59 Intake Total 1150 2450 2780 1490 Output Total 1355 1185 Balance 1150 1095 1595 1490 Meds/Results Medications: Active Medications Generic Name Dose Route Start Last Admin Trade Name Freq PRN Reason Stop Dose Admin Acetaminophen 1,000 mg 04/21/23 14:28 Acetaminophen 500 Mg Tablet PO Q6H PRN
--- NOTE | 2023-04-22 15:14 | PM.PNGS ---
Progress Note: A&P Assessment and Plan (1) Incarcerated femoral hernia: Code(s): K41.30 - Unilateral femoral hernia, with obstruction, without gangrene, not specified as recurrent Status: Acute Assessment and Plan: Doing well. Advance diet as tolerated. Will keep VERONICA drain in at least 1 more day. No abx necessary for surgery as there was no perforation or infection at time of surgery. Abx for suspected pneumonia per Hospitalist. PT/OT ordered for assistance with disposition recommendations. Subjective Subjective Date/Time Seen: 04/22/23 15:14 Interval history: Doing well from surgery. Pain controlled. Tolerating clears. Exam GI: Inspection: non-distended, incision (intact with glue) and other (VERONICA serosanguinous) GI Palp: Yes Soft to palpation and Yes Tenderness to palpation present (GI) (incisional) Objective Data Vital Signs Vital Signs: Vital Signs - 24 hr 04/21/23 15:30 04/21/23 20:00 04/21/23 21:05 Temperature 36.6 C 36.9 C Pulse Rate 56 L 56 L 69 Respiratory Rate 16 16 16 Blood Pressure 126/73 124/58 L Pulse Oximetry 93 93 93 Oxygen Delivery Room Air 04/22/23 05:20 04/22/23 14:00 Temperature 36.5 C 36.0 C L Pulse Rate 58 L 68 Respiratory Rate 20 12 Blood Pressure 142/66 H 119/60 Pulse Oximetry 90 96 Oxygen Delivery Intake/Output Intake/Output: Intake & Output 04/19/23 04/20/23 04/21/23 04/22/23 23:59 23:59 23:59 23:59 Intake Total 1150 2450 2780 1490 Output Total 1355 1185 Balance 1150 1095 1595 1490 Meds/Results Medications: Active Medications Generic Name Dose Route Start Last Admin Trade Name Freq PRN Reason Stop Dose Admin Acetaminophen 1,000 mg 04/21/23 14:28 Acetaminophen 500 Mg Tablet PO Q6H PRN Mild Pain (1-3) or Fever Hydrocodone Bitart/Acetaminophen 1 tab 04/21/23 14:28 04/22/23 02:38 Hydrocodone/Acetaminophen (*Crx) 5-325 Mg Tablet PO 1 tab Q4H PRN Administration Pain Rated 7-10 Amlodipine Besylate 2.5 mg 04/22/23 09:00 04/22/23 08:34 Amlodipine Besylate 2.5 Mg Tablet PO 2.5 mg QAM ROYER Administration Ascorbic Acid 1,000 mg 04/22/23 09:00 04/22/23 08:34 Ascorbic Acid 500 Mg Tablet PO 1,000 mg DAILY ROYER Administration Citalopram Hydrobromide 20 mg 04/22/23 09:00 04/22/23 08:34 Citalopram Hydrobromide 20 Mg Tablet PO 20 mg DAILY ROYER Administration Cyanocobalamin 1,000 mcg 04/22/23 09:00 04/22/23 08:35 Cyanocobalamin 1,000 Mcg Tablet PO 1,000 mcg QAM ROYER Administration Diphenhydramine HCl 25 mg 04/20/23 13:25 Diphenhydramine Hcl Inj 50 Mg/Ml Vial IV PUSH Q6H PRN Itching Enoxaparin Sodium 40 mg 04/21/23 09:00 04/22/23 08:39 Enoxaparin 40 Mg/0.4 Ml Syringe SUB-Q 40 mg DAILY ROYER Administration Cefepime HCl 2 gm in 50 mls @ 100 mls/hr 04/20/23 23:00 04/21/23 22:57 Maxipime 2 Gm/Ns 50 Ml IVPB 100 mls/hr Q24H ROYER Administration Metronidazole 500 mg in 100 mls @ 100 mls/hr 04/20/23 06:00 04/22/23 13:33 Flagyl 500 Mg/Iso Soln 100 Ml IVPB 100 mls/hr Q8HR ROYER Administration Ibuprofen 600 mg 04/21/23 14:28 Ibuprofen 600 Mg Tablet PO Q6H PRN Pain Rated 4-6 Levothyroxine Sodium 75 mcg 04/22/23 06:30 04/22/23 05:26 Levothyroxine Sodium 75 Mcg Tablet PO 75 mcg DAILY@0630 [facility] Administration Morphine Sulfate 2 mg 04/20/23 13:25 Morphine Sulfate (*Crx) 4 Mg/Ml Inj IV PUSH Q2H PRN Pain Rated 7-10 Naloxone HCl 0.1 mg 04/20/23 13:25 Naloxone Hcl 0.4 Mg/Ml Vial IV PUSH Q2M PRN Opiate Reversal Ondansetron HCl 4 mg 04/19/23 21:31 Ondansetron Inj 4 Mg/2 Ml Vial IV PUSH Q4H PRN Nausea Ondansetron HCl 4 mg 04/20/23 13:25 Ondansetron Inj 4 Mg/2 Ml Vial IV PUSH Q4H PRN Nausea And Vomiting Oxybutynin Chloride 10 mg 04/21/23 21:00 04/21/23 19:51 Oxybutynin Chloride Xl 5 Mg Tab.Er.24 PO 10 mg HS ROYER Administration Pantoprazole S
[2023-04-22 20:00] VITALS: PULSE 68; RESP 12; O2SAT 96
[2023-04-22] MEDS: oxyBUTYnin CHLORIDE XL 5 MG TAB.ER.24 10 MG PO (20:07)
[2023-04-22 20:20] VITALS: BP 138/61; PULSE 77; RESP 16; TEMP 37.2; O2SAT 95
[2023-04-22] MEDS: CEFEPIME 2 GM/NS 50 ML 2 GM/50 ML BAG IVPB (21:25)
[2023-04-23] MEDS: metroNIDAZOLE 500 MG/ISO 100ML 500 MG/100 ML BAG 100 MG IVPB (05:30)
[2023-04-23] MEDS: LEVOTHYROXINE SODIUM 75 MCG TABLET PO (05:30)
[2023-04-23 06:00] VITALS: BP 143/60; PULSE 79; RESP 18; TEMP 37.1; O2SAT 95
[2023-04-23 08:24] LABS: Basophils Absolute Auto 0.1 K/mm3 (0.0-0.1); Basophils Percent Auto 0.7 % (0.2-1.2); Eosinophils Absolute Auto 0.2 K/mm3 (0-0.3); Eosinophils Percent Auto 2.6 % (0-4.4); Hemoglobin 8.6 g/dL (12.0-15.0); Immature Granulocyte Absolute 0.03 K/mm3 (0.00-0.031); Immature Granulocyte Percent A 0.4 % (0-0.5); Lymphocytes Absolute Auto 2.23 K/mm3 (0.9-3.2); Lymphocytes Percent Auto 27.7 % (18.3-44.2); Mean Corpuscular HGB Conc 30.7 g/dl (32-36); Mean Corpuscular Hemoglobin 24.6 pg (26-34); Mean Corpuscular Volume 80.2 fl (80-100); Mean Platelet Volume 10.8 fl (7.4-10.4); Monocytes Percent Auto 11.9 % (2.6-8.5); Neutrophils Absolute Auto 4.6 K/mm3 (1.3-6.7); Neutrophils Percent Auto 56.7 % (45.5-73.1); Platelet Count Result 272 k/mm3 (150-375); Red Blood Count 3.49 M/mm3 (4.2-5.4); Red Cell Distribution Width 18.6 % (11.5-14.5); White Blood Count 8.1 K/mm3 (4.5-10.0)
[2023-04-23] MEDS: polyethylene glycoL 3350 17 GM POWD.PACK PO (08:30)
[2023-04-23] MEDS: CITALOPRAM HYDROBROMIDE 20 MG TABLET PO (08:30)
[2023-04-23] MEDS: CHOLECALCIFEROL 1,000 UNITS TABLET 2000 UNITS PO (08:30)
[2023-04-23] MEDS: amLODIPine BESYLATE 2.5 MG TABLET PO (08:30)
[2023-04-23] MEDS: ASCORBIC ACID 500 MG TABLET 1000 MG PO (08:30)
[2023-04-23] MEDS: CYANOCOBALAMIN 1,000 MCG TABLET 1000 MCG PO (08:30)
[2023-04-23] MEDS: PANTOPRAZOLE SODIUM IV 40 MG VIAL IV PUSH ×2 (08:38→20:29)
[2023-04-23] MEDS: ENOXAPARIN 40 MG/0.4 ML SYRINGE SUB-Q (08:38)
[2023-04-23 08:45] LABS: Anion Gap 7 mmol/L (8-16); Blood Urea Nitrogen 16 mg/dL (7-17); Carbon Dioxide 20 mmol/L (22-30); Chloride 109 mmol/L (98-107); Estimated CRCL calculation 38 ml/min; Estimated Glomerular Filt Rate 59; Glucose 90 mg/dL (65-110); Potassium 3.7 mmol/L (3.4-5.0); Sodium 136 mmol/L (137-145)
[2023-04-23 14:10] VITALS: BP 127/54; PULSE 114; RESP 20; TEMP 36.2; O2SAT 97
--- NOTE | 2023-04-23 15:25 | PM.IMPN ---
Progress Note: A&P Assessment and Plan (1) SBO (small bowel obstruction): Code(s): K56.609 - Unspecified intestinal obstruction, unspecified as to partial versus complete obstruction Status: Acute Assessment and Plan: SBO secondary to incarcerated femoral hernia post repair on 04/20 General surgery following - will remove VERONICA drain today or tomorrow NG tube out, now on regular diet d/c Flagyl (2) Lung infiltrate: Code(s): R91.8 - Other nonspecific abnormal finding of lung field Status: Acute Assessment and Plan: repeat CXR confirms likely pneumonia transitioned to PO Augmentin (3) Chronic kidney disease, stage 3: Code(s): N18.30 - Chronic kidney disease, stage 3 unspecified Status: Chronic Assessment and Plan: Baseline is 0.9-1.0 Current Cr is 0.90, improving labs from admission continue to monitor (4) Incarcerated hernia of abdominal cavity: Code(s): K45.0 - Other specified abdominal hernia with obstruction, without gangrene Status: Acute Assessment and Plan: General surgery consulted and repaired 04/[address] with serosanguineous fluid, to be removed prior to d/c Continue prn pain meds and anti-emetics. (5) Hypothyroidism: Code(s): E03.9 - Hypothyroidism, unspecified Status: Chronic Assessment and Plan: continue Levothyroxine. (6) Vitamin D deficiency: Code(s): E55.9 - Vitamin D deficiency, unspecified Status: Chronic Assessment and Plan: continue Cholecalciferol (7) GERD (gastroesophageal reflux disease): Code(s): K21.9 - Gastro-esophageal reflux disease without esophagitis Status: Chronic Assessment and Plan: Continue IV PPI therapy as pt recently had erosive Esophagitis. Protonix 40 mg IVP q12 HRS (8) Essential hypertension: Code(s): I10 - Essential (primary) hypertension Status: Chronic Assessment and Plan: Continue home meds reviewed and stable Subjective Date/time seen: 04/23/23 15:25 Interval history: Patient in no acute distress, sitting up in the chair. She denies pain this morning and is tolerating regular diet. Gen surgery following post hernia repair and will plan to take VERONICA drain out today or tomorrow prior to d/c. Transitioned to PO Augmentin, d/c Flagyl. Will plan for d/c once placement is arranged. Review of Systems Review of Systems: All systems reviewed & are unremarkable except as noted in HPI and below Exam Narrative: GENERAL: Elderly, well appearing female. No acute distress. HEENT: Atraumatic and normocephalic. Moist mucous membranes. Eyes: PERRLA, EOMI Neck: Supple Respiratory: Lungs clear to auscultation Cardio: RRR, S1 and S2 present, and no peripheral edema GI: BS present and active. Tenderness on RUQ near surgical site. Skin: Pale, no lesions. Drain dressing clean, dry and intact. Extremities: no edema. Neuro: alert and oriented x3, no deficits. Psych: Pleasant, cooperative. Objective Data Vital Signs Vital Signs: Vital Signs - 24 hr 04/22/23 20:00 04/22/23 20:20 04/23/23 06:00 Temperature 99 F 98.7 F Pulse Rate 68 77 79 Respiratory Rate 12 16 18 Blood Pressure 138/61 143/60 H Pulse Oximetry 96 95 95 Oxygen Delivery Room Air 04/23/23 09:57 04/23/23 10:46 04/23/23 08:00 Temperature Pulse Rate Respiratory Rate Blood Pressure Pulse Oximetry Oxygen Delivery Room Air Room Air Room Air 04/23/23 14:10 Temperature 97.2 F L Pulse Rate 114 H Respiratory Rate 20 Blood Pressure 127/54 L Pulse Oximetry 97 Oxygen Delivery Intake/Output Intake/Output: Intake & Output 04/20/23 04/21/23 04/22/23 04/23/23 23:59 23:59 23:59 23:59 Intake Total 2450 2830 2270 100 Output Total 1355 1185 15 Balance 1095 1645 2255 100 Meds/Results Medications: Active Medications Generic Name Dose Route Start Last Admin Trade Name Freq
--- NOTE | 2023-04-23 16:26 | PM.PNGS ---
Progress Note: A&P Assessment and Plan (1) Incarcerated femoral hernia: Code(s): K41.30 - Unilateral femoral hernia, with obstruction, without gangrene, not specified as recurrent Status: Acute Assessment and Plan: Drain difficult to remove today and had to extend drain site incision to remove completely. OK to discharge tomorrow if continuing to do well. Follow up in office in 2 weeks. Subjective Subjective Date/Time Seen: 04/23/23 16:26 Interval history: Patient doing well. Tolerating diet. Pain controlled. Had some difficulty removing VERONICA drain this morning and it is still partially in place. Exam GI: Inspection: non-distended, incision (intact with glue) and other (VERONICA serosanguinous) GI Palp: Yes Soft to palpation and Yes Tenderness to palpation present (GI) (incisional) Other: VERONICA drain meeting resistance while trying to pull it out. Drain fractured while pulling it with more force. Area anesthetized with 1%lidocaine with epi and drain site incision extended to 2 cm wide with 11-blade scalpel. Using a sterile hemostat, I was able to identify and remove the remaining drain fragment. Wound then packed with 1/4 plain gauze. Objective Data Vital Signs Vital Signs: Vital Signs - 24 hr 04/22/23 20:00 04/22/23 20:20 04/23/23 06:00 Temperature 37.2 C 37.1 C Pulse Rate 68 77 79 Respiratory Rate 12 16 18 Blood Pressure 138/61 143/60 H Pulse Oximetry 96 95 95 Oxygen Delivery Room Air 04/23/23 09:57 04/23/23 10:46 04/23/23 08:00 Temperature Pulse Rate Respiratory Rate Blood Pressure Pulse Oximetry Oxygen Delivery Room Air Room Air Room Air 04/23/23 14:10 Temperature 36.2 C L Pulse Rate 114 H Respiratory Rate 20 Blood Pressure 127/54 L Pulse Oximetry 97 Oxygen Delivery Intake/Output Intake/Output: Intake & Output 04/20/23 04/21/23 04/22/23 04/23/23 23:59 23:59 23:59 23:59 Intake Total 2450 2830 2270 100 Output Total 1355 1185 15 Balance 1095 1645 2255 100 Meds/Results Medications: Active Medications Generic Name Dose Route Start Last Admin Trade Name Freq PRN Reason Stop Dose Admin Acetaminophen 1,000 mg 04/21/23 14:28 Acetaminophen 500 Mg Tablet PO Q6H PRN Mild Pain (1-3) or Fever Hydrocodone Bitart/Acetaminophen 1 tab 04/21/23 14:28 04/22/23 02:38 Hydrocodone/Acetaminophen (*Crx) 5-325 Mg Tablet PO 1 tab Q4H PRN Administration Pain Rated 7-10 Amlodipine Besylate 2.5 mg 04/22/23 09:00 04/23/23 08:30 Amlodipine Besylate 2.5 Mg Tablet PO 2.5 mg QAM ROYER Administration Amoxicillin/Clavulanate Potassium 1 tablet 04/23/23 21:00 Amoxicillin/Clavulanate K 875-125 Mg Tab PO 04/24/23 09:01 Q12HR ROYER Ascorbic Acid 1,000 mg 04/22/23 09:00 04/23/23 08:30 Ascorbic Acid 500 Mg Tablet PO 1,000 mg DAILY ROYER Administration Citalopram Hydrobromide 20 mg 04/22/23 09:00 04/23/23 08:30 Citalopram Hydrobromide 20 Mg Tablet PO 20 mg DAILY ROYER Administration Cyanocobalamin 1,000 mcg 04/22/23 09:00 04/23/23 08:30 Cyanocobalamin 1,000 Mcg Tablet PO 1,000 mcg QAM ROYER Administration Diphenhydramine HCl 25 mg 04/20/23 13:25 Diphenhydramine Hcl Inj 50 Mg/Ml Vial IV PUSH Q6H PRN Itching Enoxaparin Sodium 40 mg 04/21/23 09:00 04/23/23 08:38 Enoxaparin 40 Mg/0.4 Ml Syringe SUB-Q 40 mg DAILY ROYER Administration Ibuprofen 600 mg 04/21/23 14:28 Ibuprofen 600 Mg Tablet PO Q6H PRN Pain Rated 4-6 Levothyroxine Sodium 75 mcg 04/22/23 06:30 04/23/23 05:30 Levothyroxine Sodium 75 Mcg Tablet PO 75 mcg DAILY@0630 ROYER Administration Morphine Sulfate 2 mg 04/20/23 13:25 Morphine Sulfate (*Crx) 4 Mg/Ml Inj IV PUSH Q2H PRN Pain Rated 7-10 Naloxone HCl 0.1 mg 04/20/23 13:25 Naloxone Hcl 0.4 Mg/Ml Vial IV PUSH Q2M PRN Opiate Reversal Ondansetron HCl 4 mg 04/19/23 21:31 Ondansetron Inj 4 Mg/2 Ml Vi
[2023-04-23] MEDS: HYDROcodone/acetaminophen (*CRX) 5-325 MG TABLET 1 TAB PO (17:03)
[2023-04-23] MEDS: LIDO 1%/EPINEPHRINE 1:100,000 20 ML VIAL INFILTRATE (18:11)
[2023-04-23 18:39] VITALS: PULSE 73; O2SAT 93
[2023-04-23 20:00] VITALS: O2SAT 93
[2023-04-23] MEDS: oxyBUTYnin CHLORIDE XL 5 MG TAB.ER.24 10 MG PO (20:29)
[2023-04-23] MEDS: AMOXICILLIN/CLAVULANATE K 875-125 MG TAB 1 TABLET PO (20:29)
[2023-04-23 22:00] VITALS: BP 149/82; PULSE 69; RESP 18; TEMP 37.4; O2SAT 96
[2023-04-24] MEDS: LEVOTHYROXINE SODIUM 75 MCG TABLET PO (05:22)
[2023-04-24 06:09] LABS: Basophils Absolute Auto 0.1 K/mm3 (0.0-0.1); Basophils Percent Auto 0.8 % (0.2-1.2); Eosinophils Absolute Auto 0.2 K/mm3 (0-0.3); Eosinophils Percent Auto 3.3 % (0-4.4); Hemoglobin 8.3 g/dL (12.0-15.0); Immature Granulocyte Absolute 0.05 K/mm3 (0.00-0.031); Immature Granulocyte Percent A 0.8 % (0-0.5); Lymphocytes Absolute Auto 1.97 K/mm3 (0.9-3.2); Lymphocytes Percent Auto 32.1 % (18.3-44.2); Mean Corpuscular HGB Conc 30.7 g/dl (32-36); Mean Corpuscular Hemoglobin 24.9 pg (26-34); Mean Corpuscular Volume 80.8 fl (80-100); Mean Platelet Volume 10.3 fl (7.4-10.4); Monocytes Absolute Auto 0.8 K/mm3 (0.1-0.6); Monocytes Percent Auto 13.7 % (2.6-8.5); Neutrophils Percent Auto 49.3 % (45.5-73.1); Platelet Count Result 249 k/mm3 (150-375); Red Blood Count 3.34 M/mm3 (4.2-5.4); Red Cell Distribution Width 18.7 % (11.5-14.5); White Blood Count 6.1 K/mm3 (4.5-10.0)
[2023-04-24 06:10] VITALS: BP 150/73; PULSE 68; RESP 16; TEMP 36.6; O2SAT 96
[2023-04-24 06:22] LABS: Anion Gap 5 mmol/L (8-16); Blood Urea Nitrogen 13 mg/dL (7-17); Calcium 8.2 mg/dL (8.4-10.2); Carbon Dioxide 26 mmol/L (22-30); Chloride 107 mmol/L (98-107); Estimated CRCL calculation 38 ml/min; Estimated Glomerular Filt Rate 59; Glucose 87 mg/dL (65-110); Potassium 3.9 mmol/L (3.4-5.0); Sodium 138 mmol/L (137-145)
[2023-04-24] MEDS: CITALOPRAM HYDROBROMIDE 20 MG TABLET PO (08:37)
[2023-04-24] MEDS: CHOLECALCIFEROL 1,000 UNITS TABLET 2000 UNITS PO (08:37)
[2023-04-24] MEDS: AMOXICILLIN/CLAVULANATE K 875-125 MG TAB 1 TABLET PO (08:37)
[2023-04-24] MEDS: CYANOCOBALAMIN 1,000 MCG TABLET 1000 MCG PO (08:37)
[2023-04-24] MEDS: amLODIPine BESYLATE 2.5 MG TABLET PO (08:37)
[2023-04-24] MEDS: PANTOPRAZOLE SODIUM IV 40 MG VIAL IV PUSH (08:37)
[2023-04-24] MEDS: ASCORBIC ACID 500 MG TABLET 1000 MG PO (08:37)
[2023-04-24] MEDS: ENOXAPARIN 40 MG/0.4 ML SYRINGE SUB-Q (08:38)
[2023-04-24] MEDS: polyethylene glycoL 3350 17 GM POWD.PACK PO (08:38)
--- NOTE | 2023-04-24 12:58 | PM.DS ---
DS: Admitting Diagnosis Discharge Date 04/24/23 Admitting Diagnosis N/V/abdominal pain DS: Discharge Diagnosis Discharge Diagnosis (1) SBO (small bowel obstruction): Code(s): K56.609 - Unspecified intestinal obstruction, unspecified as to partial versus complete obstruction Status: Resolved Assessment and Plan: SBO secondary to incarcerated femoral hernia post repair on 04/20 NG tube out, now on regular diet (2) Lung infiltrate: Code(s): R91.8 - Other nonspecific abnormal finding of lung field Status: Acute Assessment and Plan: repeat CXR confirms likely pneumonia completed AB course (3) Chronic kidney disease, stage 3: Code(s): N18.30 - Chronic kidney disease, stage 3 unspecified Status: Chronic Assessment and Plan: Baseline is 0.9-1.0 Current Cr is 0.90, improving labs from admission (4) Incarcerated hernia of abdominal cavity: Code(s): K45.0 - Other specified abdominal hernia with obstruction, without gangrene Status: Acute Assessment and Plan: General surgery consulted and repaired 04/20 Drain removed Continue prn pain meds and anti-emetics. (5) Hypothyroidism: Code(s): E03.9 - Hypothyroidism, unspecified Status: Chronic Assessment and Plan: continue Levothyroxine. (6) Vitamin D deficiency: Code(s): E55.9 - Vitamin D deficiency, unspecified Status: Chronic Assessment and Plan: continue Cholecalciferol (7) GERD (gastroesophageal reflux disease): Code(s): K21.9 - Gastro-esophageal reflux disease without esophagitis Status: Chronic Assessment and Plan: Continue PPI therapy as pt recently had erosive Esophagitis. (8) Essential hypertension: Code(s): I10 - Essential (primary) hypertension Status: Chronic DS: Summary Hospital Course Hospital Course: Patient is an 87 YO female with PMH of esophageal ulcer with GI bleed, HTN, CKD, and hiatal hernia admitted with nausea, vomiting, and abdominal pain. In the emergency department, she was found to have a small-bowel obstruction caused by an incarcerated right femoral hernia. NG tube was placed and general surgery repaired on 04/20. NG tube has since been removed and patient is tolerating regular diet at this point. VERONICA drain removed yesterday bu surgery and released for d/c. She was also treated with a complete course of AB for probably PNA found on chest imaging. She has remained stable on room air, denies any SOB chest pain or cough. She will be d/c to [place] today. Status at Discharge Functional status at discharge: wheelchair bound Overall status at discharge: patient is progressing back to baseline Time Spent with Patient Time attestation: Total time spent providing and/or coordinating discharge services: Exam Narrative: GENERAL: Elderly, well appearing female. No acute distress. HEENT: Atraumatic and normocephalic. Moist mucous membranes. Eyes: PERRLA, EOMI Neck: Supple Respiratory: Lungs clear to auscultation Cardio: RRR, S1 and S2 present, and no peripheral edema GI: BS present and active. Tenderness on RUQ near surgical site. Skin: normal color, no lesions. Incision site clean dry and intact. Extremities: no edema. Neuro: alert and oriented x3, no deficits. Psych: Pleasant, cooperative. DS: Data Data Completed and Pending Completed studies during hospitalization: Pending at discharge 04/20/23 11:33 Surgical [PTH] Routine Labs on day of discharge: Labs from last 24 hours 04/24/23 06:02 WBC 6.1 RBC 3.34 L Hgb 8.3 L Hct 27.0 L MCV 80.8 MCH 24.9 L MCHC 30.7 L RDW 18.7 H Plt Count 249 MPV 10.3 Immature Gran % (Auto) 0.8 H Neut % (Auto) 49.3 Lymph % (Auto) 32.1 [place] % (Auto) 13.7 H Eos % (Auto) 3.3 Baso % (Auto) 0.8 Lymph # (Auto) 1.97 [place] # (Auto) 0.8 H Eos # (Auto) 0.2 Baso # (Auto) 0.1 Abs Immat Gran (auto) 0.05 H Absolute N
[2023-04-24 14:00] VITALS: BP 127/63; PULSE 63; RESP 16; TEMP 36.3; O2SAT 99
[2023-04-24 14:45] LABS: SARS-CoV-2 RNA PCR Negative (Negative)
== END 2023-04-24 16:18 | DRG 350 ==
LOC: ANHED 18:42 → ANH3MEDSUR 21:56
PROVIDERS: Internal Medicine Critical Care Medicine; Surgery; Admitting Provider Internal Medicine; Emergency Provider Physician Assistant; PCP Family Medicine; Visit Provider Nurse Practitioner
PROC: 0YU70JZ Supplement Right Femoral Region with Synthetic Substitute, Open Approach (ICD-10-PCS; principal; 2023-04-20 10:45)
DX: K41.30 Unilateral femoral hernia, with obstruction, without gangrene, not specified as recurrent (principal); J18.9 Pneumonia, unspecified organism; K22.10 Ulcer of esophagus without bleeding; T85.618A Breakdown (mechanical) of other specified internal prosthetic devices, implants and grafts, initial encounter; I12.9 Hypertensive chronic kidney disease with stage 1 through stage 4 chronic kidney disease, or unspecified chronic kidney disease; N18.30 Chronic kidney disease, stage 3 unspecified; F32.A Depression, unspecified; E78.5 Hyperlipidemia, unspecified; E03.9 Hypothyroidism, unspecified; K44.9 Diaphragmatic hernia without obstruction or gangrene; M17.11 Unilateral primary osteoarthritis, right knee; M85.80 Other specified disorders of bone density and structure, unspecified site; Y81.8 Miscellaneous general- and plastic-surgery devices associated with adverse incidents, not elsewhere classified; Z96.652 Presence of left artificial knee joint; Z96.612 Presence of left artificial shoulder joint; Z96.611 Presence of right artificial shoulder joint; Z96.641 Presence of right artificial hip joint; Z87.891 Personal history of nicotine dependence; Z11.52 Encounter for screening for COVID-19
CPT/HCPCS: 36415; 71045; 71046; 74177; 80048; 80053; 83605; 83690; 85025; 85027; 85610; 85730; 86850; 86900; 86901; 87635; 88302; 93005; 96374; 96375; 96376; 97116; 97161; 97165; 97530; 97535; 99285; A9270; C1781; C9113; J0330; J0692; J1100; J1170; J1650; J1741; J1836; J2405; J2704; J3010; J7030; J7120; Q9967

== ENCOUNTER 2023-05-14 13:51 | Outpatient (CLI) | payer MEDICARE, SELFPAY ==
--- NOTE | ~2023-05-14 | XR_ITS ---
EXAMINATION: XR knee RT 3V DATE: 05/14/2023 14:22 INDICATION: Presence of right artificial knee joint. TECHNIQUE: 3 views of right knee were obtained. COMPARISON: Right knee radiographs 04/28/2022 FINDINGS: There is a total right knee arthroplasty in near-anatomic alignment. No periprosthetic luce ncy to suggest loosening or infection. There is severe volume loss of patella. Patella iris is noted. No knee joint effusion. IMPRESSION: 1. 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 2. 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 Reviewed, dictated and finalized at location E. N [employer]SE MANAGER
--- NOTE | ~2023-05-14 | XR_ITS ---
EXAMINATION: XR hip RT 2V w AP pelvis DATE: 05/14/2023 14:22 INDICATION: Presence of right artificial hip joint. TECHNIQUE: An anteroposterior view of the pelvis and 2 views of right hip were obtained. COMPARISON: Pelvis and right hip radiographs 04/28/22 FINDINGS: There is lumbar dextroscoliosis and severe spondylosis. No fracture. There is a total right hip arthroplasty in near-anatomic alignment. No periprosthetic lucency to suggest loosening or infec tion. There is moderate left hip osteoarthritis. IMPRESSION: 1. Total right hip arthroplasty in near-anatomic alignment. 2. Moderate left hip osteoarthritis. Reviewed, dictated and finalized at location E. OUT MAN
== END 2023-05-14 13:52 | disposition home or self-care (01) ==
PROVIDERS: PCP Family Medicine; Visit Provider Orthopaedic Surgery
DX: M16.12 Unilateral primary osteoarthritis, left hip (principal); Z96.651 Presence of right artificial knee joint; Z96.641 Presence of right artificial hip joint
CPT/HCPCS: 73502; 73562

== ENCOUNTER 2023-05-26 14:42 | Outpatient (CLI) | payer MEDICARE, SELFPAY ==
--- NOTE | ~2023-05-26 | US_ITS ---
EXAMINATION: US carotid duplex BI DATE: 05/26/2023 15:50 INDICATION: Dizziness and giddiness. Cerebral atherosclerosis. TECHNIQUE: Grayscale, color Doppler, and pulsed Doppler images of the cervical carotid arteries were obtained. The degree of vessel stenosis is placed in one of the following categories: normal, <50%, 5 0-69%, >=70% but less than near-occlusion, near-occlusion, or total occlusion. Note that percent sten osis relative to normal distal artery lumen diameter is indirectly measured from velocity measurement s as described by Speedy, et al. Radiology 2003; 229:[id number]. COMPARISON: None. FINDINGS: RIGHT: The right common carotid artery (CCA) peak systolic velocity (PSV) is 71 cm/s. The right internal car otid artery (ICA) PSV is 63 cm/s. The right ICA end-diastolic velocity (EDV) is 17 cm/s. The right IC A/CCA PSV ratio is 0.9. Grayscale and color Doppler images yield an estimate of <50% diameter reducti on from plaque in the ICA. The external carotid artery (ECA) PSV is 60 cm/s. There is antegrade flow in the right vertebral artery. LEFT: The left CCA PSV is 64 cm/s. The left ICA PSV is 77 cm/s. The left ICA EDV is 20 cm/s. The left ICA/C CA PSV ratio is 1.2. Grayscale and color Doppler images yield an estimate of <50% diameter reduction from plaque in the ICA. The ECA PSV is 42 cm/s. There is antegrade flow in the left vertebral artery. IMPRESSION: 1. <50% stenosis in the right internal carotid artery. 2. <50% stenosis in the left internal carotid artery. Reviewed, dictated and finalized at location [facility]. [employer]
== END 2023-05-26 14:43 | disposition home or self-care (01) ==
LOC: ANHIMG 14:43
PROVIDERS: PCP Family Medicine; Visit Provider Psychiatry & Neurology Neurology
DX: I65.23 Occlusion and stenosis of bilateral carotid arteries (principal); R41.89 Other symptoms and signs involving cognitive functions and awareness; I67.9 Cerebrovascular disease, unspecified; R29.6 Repeated falls
CPT/HCPCS: 93880

== ENCOUNTER 2023-07-08 00:33 | Day surgery (SDC) | payer MEDICARE, SELFPAY ==
[2023-06-30 11:42] VITALS: BMI 27.5
[2023-07-08 10:04] VITALS: BP 181/85; PULSE 65; RESP 18; TEMP 36.4; O2SAT 99; BMI 28.0
[2023-07-08] MEDS: LACTATED RINGERS 1,000 ML 150 ML IV CONT (10:08)
--- NOTE | 2023-07-08 10:34 | PM.HPGS ---
History of Present Illness History of Present Illness Consent: Risks, benefits, and alternatives have been discussed and questions answered. Patient agrees to proceed with procedure. Chief complaint: esophageal ulcer Narrative: Eboni Farris is a 87 year old female here for EGD, had severe ulcerative esophagitis now symptomatically much better with ppi daily Review of Systems Review of Systems: All systems reviewed & are unremarkable except as noted in HPI and below PMFSH Past Medical History Medical History Chronic kidney disease, stage 3 Depression Dyslipidemia Erosive esophagitis Esophageal ulcer Essential hypertension GERD (gastroesophageal reflux disease) Hypothyroidism Incarcerated hernia of abdominal cavity Osteoarthritis of right knee Osteopenia Urinary incontinence Vitamin D deficiency Surgical History Surgical History History of arthroplasty of right knee (07/2020) History of bladder surgery (06/2017) Colpocleisis and perineorrhaphy History of femoral hernia repair (~04/20/23) Open incarcerated right femoral hernia repair with mesh 04/20/23 [facility] History of left knee replacement History of left shoulder replacement (1989) History of right shoulder replacement (05/2018) History of total right hip arthroplasty (10/07/21) Hx of inguinal hernia repair Family History Family History Sibling Family history of Parkinson's disease Father Family history of Alzheimer's disease Family history of heart disease in male family member before age 55 Family history of cardiovascular disease Mother 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 Farris lives alone at [facility]. She is independent with most tasks. Her primary care provider is. Dr. Villatoro. She designates her daughter, Liz, as her surrogate decision maker and she would like to be a full code. Years smoked: 10 Smoking status: Former smoker Tobacco type: cigarettes Second hand tobacco smoke exposure: Yes Smoking end date: 03/23/59 Alcohol intake: former Substance use: never Substance use type: does not use Do You Feel Safe in your Home?: Yes Lack of Transportation: No Lack of Food: Never True Current Housing: I Have Housing Concerned About Future Housing: No Difficulty Paying Gas/Electric Bills: No Difficulty Paying for Meds: No Currently Unemployed: No Education: Don't Know Difficulty w/ Childcare or Family Care: No Living arrangements: long-term village Additional living arrangements comments: independent living Spiritual care concerns: No Meds Home Medications and Allergies Home Medications Medication Instructions Recorded Confirmed Type cranberry 400 mg capsule 400 mg PO BID 09/06/19 07/08/23 History oxybutynin chloride 10 mg 10 mg PO HS 03/27/20 07/08/23 History tablet,extended release 24 hr cyanocobalamin (vitamin B-12) 1 tablet PO QAM 07/18/20 07/08/23 History ascorbic acid (vitamin C) 1,000 mg 1 g PO DAILY #1 tablet 08/30/21 07/08/23 Rx tablet sennosides 8.6 mg capsule (senna) 8.6 mg PO DAILY PRN constipation 12/20/21 07/08/23 Rx #10 caps acetaminophen 500 mg tablet 1,000 mg PO BID PRN mild pain 04/09/22 07/08/23 History cholecalciferol (vitamin D3) 25 50 mcg PO DAILY 04/09/22 07/08/23 History mcg (1,000 unit) tablet levothyroxine 75 mcg tablet 75 mcg PO QAM #90 tabs 09/24/22 07/08/23 Rx amlodipine 2.5 mg tablet 2.5 mg PO QAM #90 tabs 04/13/23 07/08/23 Rx pantoprazole 40 mg tablet,delayed 40 mg PO BID 04/15/23 07/08/23 History release donepezil 5 mg tablet 5 mg PO QHS 05/14/23 07/08/23 History citalopram 10 mg tablet 10 mg PO DAILY 0
--- NOTE | 2023-07-08 10:35 | P.PNAN_ITS ---
Anes - Initial Pre Proc Eval Procedure: Operation Date: 07/08/23 11:00 Proposed Procedures p Esophagogastroduodenoscopy - Wisam Olsen MD Date/Time: 07/08/23 10:35 Surgeon: Wisam Olsen MD Pre Op Diagnosis: esophageal ulcer Patient Data Age: 87 Gender: F Height: 1.65 m Weight: 76.3 kg Last Vital Signs Temp 97.6 F 07/08/23 10:04 Pulse 65 07/08/23 10:04 Resp 18 07/08/23 10:04 BP 181/85 H 07/08/23 10:04 Pulse Ox 99 07/08/23 10:04 O2 Del Method Room Air 07/08/23 10:04 Allergies Allergy/AdvReac Type Severity Reaction Status Date / Time No Known Allergies Allergy Verified 07/08/23 09:59 Home Medications Medication Instructions Recorded Confirmed Type cranberry 400 mg capsule 400 mg PO BID 09/06/19 07/08/23 History oxybutynin chloride 10 mg 10 mg PO HS 03/27/20 07/08/23 History tablet,extended release 24 hr cyanocobalamin (vitamin B-12) 1 tablet PO QAM 07/18/20 07/08/23 History ascorbic acid (vitamin C) 1,000 mg 1 g PO DAILY #1 tablet 08/30/21 07/08/23 Rx tablet sennosides 8.6 mg capsule (senna) 8.6 mg PO DAILY PRN constipation 12/20/21 07/08/23 Rx #10 caps acetaminophen 500 mg tablet 1,000 mg PO BID PRN mild pain 04/09/22 07/08/23 History cholecalciferol (vitamin D3) 25 50 mcg PO DAILY 04/09/22 07/08/23 History mcg (1,000 unit) tablet levothyroxine 75 mcg tablet 75 mcg PO QAM #90 tabs 09/24/22 07/08/23 Rx amlodipine 2.5 mg tablet 2.5 mg PO QAM #90 tabs 04/13/23 07/08/23 Rx pantoprazole 40 mg tablet,delayed 40 mg PO BID 04/15/23 07/08/23 History release donepezil 5 mg tablet 5 mg PO QHS 05/14/23 07/08/23 History citalopram 10 mg tablet 10 mg PO DAILY 05/20/23 07/08/23 History Patient hx anesthesia problems: none Family hx anesthesia problems: none Results Review: All pre-operative results and documents have been reviewed as part of the pre- operative evaluation. [facility] Past Medical History Medical History Chronic kidney disease, stage 3 Depression Dyslipidemia Erosive esophagitis Esophageal ulcer Essential hypertension GERD (gastroesophageal reflux disease) Hypothyroidism Incarcerated hernia of abdominal cavity Osteoarthritis of right knee Osteopenia Urinary incontinence Vitamin D deficiency Surgical History Surgical History History of arthroplasty of right knee (07/2020) History of bladder surgery (06/2017) Colpocleisis and perineorrhaphy History of femoral hernia repair (~04/20/23) Open incarcerated right femoral hernia repair with mesh 04/20/23 [facility] History of left knee replacement History of left shoulder replacement (1989) History of right shoulder replacement (05/2018) History of total right hip arthroplasty (10/07/21) Hx of inguinal hernia repair Family History Family History Sibling Family history of Parkinson's disease Father Family history of Alzheimer's disease Family history of heart disease in male family member before age 55 Family history of cardiovascular disease Mother Malignancy J[employer]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
[2023-07-08 10:48] VITALS: BP 105/46; PULSE 56; RESP 14; O2SAT 97
[2023-07-08 10:58] VITALS: BP 116/56; PULSE 53; RESP 18; O2SAT 97
[2023-07-08 11:08] VITALS: BP 133/63; PULSE 60; RESP 18; O2SAT 99
== END 2023-07-08 11:37 | disposition home or self-care (01) ==
PROVIDERS: PCP Family Medicine; Visit Provider Internal Medicine Gastroenterology
PROC: 0DJ08ZZ Inspection of Upper Intestinal Tract, Via Natural or Artificial Opening Endoscopic (ICD-10-PCS; CPT 43235; principal; 2023-07-08 11:00)
DX: K21.9 Gastro-esophageal reflux disease without esophagitis (principal); K44.9 Diaphragmatic hernia without obstruction or gangrene; Z87.19 Personal history of other diseases of the digestive system; I12.9 Hypertensive chronic kidney disease with stage 1 through stage 4 chronic kidney disease, or unspecified chronic kidney disease; N18.30 Chronic kidney disease, stage 3 unspecified; E78.5 Hyperlipidemia, unspecified; E03.9 Hypothyroidism, unspecified; E55.9 Vitamin D deficiency, unspecified; F32.A Depression, unspecified
CPT/HCPCS: 43235; J2704; J7120

== ENCOUNTER 2024-04-27 10:09 | Outpatient (CLI) | payer MEDICARE, SELFPAY ==
--- NOTE | ~2024-04-27 | XR_ITS ---
Clinical Indication: Other signs/symptoms PA and lateral views of the chest: Comparison: 04/22/2023 Findings: The lungs are clear, without evidence of focal consolidation or pleural effusion. Cardiome diastinal silhouette is similar to prior exam. Probable prominent aortic knob. Bones and soft tissues are unremarkable. Impression: Probable prominent aortic knob. Chest CT could be considered to more definitively exclude mass lesion , though this is felt to be less likely. Clear lungs. Reviewed, dictated and finalized at [facility]. [employer] Impression: Probable prominent aortic knob. Chest CT could be considered to more definitive ly exclude mass lesion, though this is felt to be less likely. Clear lungs.
== END 2024-04-27 10:10 | disposition home or self-care (01) ==
PROVIDERS: PCP Family Medicine; Visit Provider Family Medicine
DX: R09.89 Other specified symptoms and signs involving the circulatory and respiratory systems (principal)
CPT/HCPCS: 71046

== ENCOUNTER 2024-05-03 06:50 | Outpatient (CLI) | payer MEDICARE, SELFPAY ==
--- NOTE | ~2024-05-03 | CT_ITS ---
Clinical Indication: Abnormal findings CT Scan of the Chest with Contrast: Technique: Contiguous sections were acquired throughout the chest after intravenous administration of 75 cc of Omnipaque 350. Dose reduction technique was used on this scan by utilizing automated exposu re control and iterative reconstruction technique. The dose-length product (DLP) was 279.07 mGy-cm. Findings: There is no evidence of any significant mediastinal, hilar or axillary lymphadenopathy. There is no f illing defect in the pulmonary arterial tree to suggest pulmonary embolus. There is no evidence of ao rtic dissection or aneurysm. Suggestion of mild diffuse esophageal dilatation and/or wall thickening. There is no evidence of pleural or pericardial effusion. The lungs are clear. No pulmonary nodules or infiltrates are noted. Images through the upper abdomen reveal no abnormalities. There is diffuse degenerative spondylosis o f the thoracic spine. Impression: Suspected mild diffuse esophageal dilatation or wall thickening. Correlate clinically for esophagitis or other esophageal pathology. Consider endoscopy or esophagram as indicated. No abnormal mass lesion. Clear lungs. Radiographic findings related to somewhat prominent positioning of the aortic knob. Reviewed, dictated and finalized at [facility]. MATIC EDGER Impression: Suspected mild diffuse esophageal dilatation or wall thickening. Correlate clin ically for esophagitis or other esophageal pathology. Consider endoscopy or eso phagram as indicated. No abnormal mass lesion. Clear lungs. Radiographic findings related to somewhat prominent positioning of the aortic knob.
--- OUTSIDE RECORDS SUMMARY | 2024-05-03 06:55 | XMS_ITS | Patient Health Summary ---
Author Organization [facility] [employer] Address [address] [place] [address] Care Team Providers Care Rod Pointer Name Role Phone Unavailable Primary Care Provider Unavailabl e Note from [facility] [employer] [facility],non-owned Affiliates and Associated Physician Practices is amultiple site organization consisting of ambulatory clinics and hospital sitesin [place], [place], [place] and [place]. This disclosure is being madepursuant to the Care Everywhere program and may not contain all information available regarding this patient. Last updated 17.[facility] [employer] Social History Tobacco Use Types Packs/Day Years Used Date Smoking Tobacco: Never Assessed Sex and Gender Information Value Date Recorded Sex Assigned at Not on file Gender Identity Not on file Sexual Orientation Not on file Procedures * MAMMO BILAT SCREENING(Performed 02/14/2014) Performed for Other screening mammogram * MAMMO BILAT SCREENING(Performed 09/22/2012) Performed for Other Screening Mammogram * DEXA BONE DENSITY 2 SITES(Performed 07/23/2011) Performed for Special screening for osteoporosis * MAMMO BILAT SCREENING(Performed 07/23/2011) Performed for Other screening mammogram * MAMMO BILAT SCREENING(Performed 06/04/2010) Performed for Other screening mammogram * HGB HCT PANEL(Performed 10/04/2008) Performed for Osteoarth NOS-Unspec * HGB HCT PANEL(Performed 10/03/2008) Performed for Osteoarth NOS-Unspec * XR SHOULDER SINGLE VIEW(Performed 10/02/2008) Performed for Osteoarth NOS-Unspec * MAMMO BILAT SCREENING(Performed 09/20/2008) Performed for Other Screening Mammogram * XR CHEST 2VW(Performed 08/23/2008) Performed for Other Specified Pre-Operative Examination * TSH(Performed 08/23/2008) Performed for Sprain Rotator Cuff * LIPID PROFILE(Performed 08/23/2008) Performed for Sprain Rotator Cuff * URINALYSIS REFLEX TO MICROSCOPIC NO CULTURE(Performed 08/23/2008) Performed for Unspecified Pre-Operative Examination * COMPREHENSIVE METABOLIC PANEL(Performed 08/23/2008) Performed for Unspecified Pre-Operative Examination * PTT(Performed 08/23/2008) Performed for Unspecified Pre-Operative Examination * PT-INR(Performed 08/23/2008) Performed for Unspecified Pre-Operative Examination * CBC W/O DIFFERENTIAL(Performed 08/23/2008) Performed for Unspecified Pre-Operative Examination * MRIO UPPR EXT JNT LT WO CONT(Performed 08/23/2008) Performed for Sprain Rotator Cuff * XR CHEST 2VW(Performed 04/11/2008) Performed for Unspecified Chest Pain Results * MAMM SCREENING DIGITAL IMAGE BILAT G0202 (02/14/2014 1:45 PM ANIMAL HUSBANDRY TEACHER) Only the most recent of5 resultswithin the time period is included. Anatomical Region Laterality Modality Breast Bilateral Mammography 02/17/2014 7:39 AM ANIMAL HUSBANDRY TEACHER Impressions 02/17/2014 7:40 AM ANIMAL HUSBANDRY TEACHER 1. Stable bilateral benign changes. 2. No mammographic evidence of malignancy. BI-RADS Category (2): Benign finding(s). RECOMMENDATION: Return for mammograms in one year or sooner if clinically indicated. Narrative 02/17/2014 7:40 AM ANIMAL HUSBANDRY TEACHER BILATERAL DIGITAL SCREENING MAMMOGRAPHY HISTORY: Screening mammogram. No personal or family history of breast cancer. TECHNIQUE: Bilateral digital mammography was obtained in the craniocaudal and mediolateral oblique projections. Image interpretation was assisted with CAD analysis. COMPARISON: Mammography 09/22/2012 and 07/23/2011 FINDINGS: Breast composition: Heterogeneously dense, which can decrease sensitivity of mammography. Stable bilateral benign changes are present, with no suspicious interval change. Bilateral scattered benign coarse calcifications again seen. No worrisome mass, suspicious microcalcifications, or other abnormality seen. Zina Ball MD MAMMO ORDERABLES * DEXA BONE DENSITY 2 SITES (07/23/2011 10:33 AM CDT) Anatomical Region Laterality Modality Mammography 07/23/2011 11:1 3 AM CDT Impressions 07/23/2011 11:13 AM CDT Normal calculi bone density in the spine. This is felt to be artificially elevated due to the scoliosis and degenerative change Reduced bone density in the hip. This value has diminished in the interval slightly but remains in the osteopenic range Narrative 07/23/2011 11:13 AM CDT BONE DENSITY. History: Osteoporosis Comparison: 2006 Using DEXA technique, the calculated bone density from L2 to L4 is 1.2 g/sq cm which is 115 % of predicted for young adults. The value in the left femoral neck is 0.675 g/sq cm which is 79% of predicted. The T-score is -1.6 and the Z-score is 0.6. Procedure Note Fortunato Galeana MD - 07/23/2011 BONE DENSITY. History: Osteoporosis Comparison: 2006 Using DEXA technique, the calculated bone density from L2 to L4 is 1.2 g/sq cm which is 115 % of predicted for young adults. The value in the left femoral neck is 0.675 g/sq cm which is 79% of predicted. The T-score is -1.6 and the Z-score is 0.6. IMPRESSION Normal calculi bone density in the spine. This is felt to be artificially elevated due to the scoliosis and degenerative change Reduced bone density in the hip. This value has diminished in the interval slightly but remains in the osteopenic range Zina Ball MD DEXA ORDERABLES * (ABNORMAL) HGB HCT PANEL (10/04/2008 5:09 AM CDT) Only the most recent of2 resultswithin the time period is included. Hemoglobin 8.9(L) 12.0 - 16.0 gm/dl [facility] Hematocrit 26.3(L) 36.0 - 48.0 % [facility] BLOOD SPECIMEN / Unknown 10/04/2008 5:09 AM CDT Sarah Ledezma MD LAB - HEMATOLOGY OR DERABLES [facility] [address] [place] [address] * XR SHOULDER SINGLE VIEW (10/02/2008 1:45 PM CDT) Anatomical Region Laterality Modality Other 10/02/2008 1:45 PM CDT Narrative 10/02/2008 6:03 PM CDT Indication- Left shoulder post op Single AP view of the left shoulder shows a left proximal humeral replacement. No acute fracture is identified nor complication. There is soft tissue swelling. Impression- Left humeral replacement. Read By- KEILA VIGIL M.D. Released By- KEILA VIGIL M.D. Released Date Time- 10/02/081802 Jesús ARNOLD M.D. SARAH GAMBOA KATHERINE A REF- CON- MCLAUGHLIN, SEAN PCP- MCLAUGHLIN, SEAN SCP- Procedure Note Keila Vigil - 10/02/2008 Indication- Left shoulder post op Single AP view of the left shoulder shows a left proximal humeral replacement. No acute fracture is identified nor complication. There is soft tissue swelling. Impression- Left humeral replacement. Read By- KEILA VIGIL M.D. Released By- KEILA VIGIL M.D. Released Date Time- 10/02/081802 Jesús ARNOLD M.D. SARAH GAMBOA KATHERINE A REF- CON- MCLAUGHLIN, SEAN PCP- JANELL FELTON- Sarah Ledezma MD DIAGNOSTIC IMAGING ORDERABLES * XR CHEST PA AND LATERAL (08/23/2008 12:10 PM CDT) Only the most recent of2 resultswithin the time period is included. Anatomical Region Laterality Modality Chest Other 08/23/2008 12:1 0 PM CDT Narrative 08/23/2008 1:13 PM CDT Chest 2 views Indication- Cough, preop, shoulder pain. Findings- Two views of the chest compared to April 11, 2008, show the lung mcgowan to be well-expanded and clear. The heart size is normal. IMPRESSION- No acute pulmonary disease. Read By- ESPERANZA OLSON M.D. Released By- ESPERANZA OLSON M.D. Released Date Time- 08/23/081312 Drier Belt Conveyor- BLAS SARAH GAMBOA KATHERINE A REF- BURNS, KATHERINE A CON- PCP- JANELL FELTON SCP- Procedure Note Esperanza Olson MD - 08/23/2008 Chest 2 views Indication- Cough, preop, shoulder pain. Findings- Two views of the chest compared to April 11, 2008, show the lung mcgowan to be well-expanded and clear. The heart size is normal. IMPRESSION- No acute pulmonary disease. Read By- ESPERANZA OLSON M.D. Released By- ESPERANZA OLSON M.D. Released Date Time- 08/23/081312 Drier Belt Conveyor- BLAS SARAH GAMBOA KATHERINE A REF- SARAH LEDEZMA CON- PCP- JANELL FELTON SCP- Sarah Ledezma MD DIAGNOSTIC IMAGING ORDERABLES * URINALYSIS ROUTINE AUTO (08/23/2008 11:55 AM CDT) Color UA YELLOW [facility] Character UA CLOUDY [facility] Specific [place] UA 1.015 1.005 - 1.0300 [facility] pH UA 7.0 4.6 - 8.0 pH Units [facility] Leukocyte UA LARGE Negative /ul [facility] Nitrite UA NEGATIVE Negative [facility] Protein UA NEGATIVE Negative mg/dl [facility] Glucose UA NEGATIVE Normal mg/dl [facility] Ketone UA NEGATIVE Negative mg/dl [facility] Urobilinogen UA 0.2 Normal Lara Units [facility] Bilirubin UA NEGATIVE Negative mg/dl [facility] Blood UA TRACE Negative /ul [facility] WBC UA 50-100 /HPF [facility] RBC UA <5 /cmm [facility] Epithelial Cell UA 5-10 /HPF [facility] Casts UA <2 /LPF [facility] Bacteria UA MANY [facility] URINE SPECIMEN OBTAINED BY CLEAN CATCH PROCEDURE / Unknown 08/23/2008 11:55 AM CDT Sarah Ledezma MD LAB - URINALYSIS OR DERABLES Performing Organization Address [facility] Co de Phone Number [facility] [address] [place] [address] * PTT (08/23/2008 11:55 AM CDT) PTT 25.8 24.0 - 32.0 seconds [facility] BLOOD SPECIMEN / Unknown 08/23/2008 11:55 AM CDT Sarah Ledezma MD LAB - COAGULATION O RDERABLES Performing Organization Address [facility] Co de Phone Number [facility] [address] [place] [address] * PT-INR (08/23/2008 11:55 AM CDT) PT 9.9 9.4 - 11.2 seconds [facility] INR 0.9 0.9 - 1.1 [facility] Interpretation INR D [facility] Comment: Conventional Anticoagulation INR 2.0-3.0 Intensive Anticoagulation INR 2.5-3.5 BLOOD SPECIMEN / Unknown 08/23/2008 11:55 AM CDT Sarah Ledezma MD LAB - COAGULATION O RDERABLES Performing Organization Address [facility] de Phone Number [facility] [address] [place] [phone] * CBC W/O DIFFERENTIAL (08/23/2008 11:55 AM CDT) WBC 6.6 4.5 - 11.0 1000/mm3 [facility] RBC 4.52 4.2 - 5.4 10X6 [facility] Hemoglobin 13.3 12.0 - 16.0 gm/dl [facility] Hematocrit 39.2 36.0 - 48.0 % [facility] MCV 86.7 80.0 - 99.0 fl [facility] MCH 29.4 25.0 - 31.0 pg [facility] MCHC 33.9 32.0 - 36.0 gm/dl [facility] RDW 13.0 11.5 - 14.5 % [facility] Platelet Count 232 130.0 - 400.0 1000/mm3 [facility] BLOOD SPECIMEN / Unknown 08/23/2008 11:55 AM CDT Sarah Ledezma MD LAB - HEMATOLOGY OR DERABLES Performing Organization Address [facility] de Phone Number [facility] [address] [place] [phone] * (ABNORMAL) COMPREHENSIVE METABOLIC PANEL (08/23/2008 11:55 AM CDT) BUN 28(H) 7.0 - 17.0 mg/dl [facility] Sodium 137 137 - 145 mEq/L [facility] Potassium 3.5(L) 3.6 - 5.0 mEq/L [facility] Chloride 100 98.0 - 107.0 mEq/L [facility] Glucose 93 75 - 110 mg/dl [facility] Creatinine 1.5(H) 0.7 - 1.2 mg/dl [facility] AST 28 14.0 - 36.0 U/L [facility] Alkaline Phosphatase 96 38.0 - 126.0 U/L [facility] Calcium 9.5 8.4 - 10.2 mg/dl [facility] Bilirubin Total 0.7 0.2 - 1.3 mg/dl [facility] Albumin 4.2 3.5 - 5.0 gm/dl [facility] Protein Total 7.3 6.3 - 8.2 gm/dl [facility] CO2 21(L) 22.0 - 30.0 mEq/L [facility] ALT 10 9.0 - 52.0 U/L [facility] eGFR by MDRD 36.2 ml/min/1.7 3m2 [facility] BLOOD SPECIMEN / Unknown 08/23/2008 11:55 AM CDT Sarah Ledezma MD LAB - CHEMISTRY ORD ERABLES Performing Organization Address City/[facility]/ZIP Co de Phone Number [facility] [address] [place] [address] * (ABNORMAL) TSH (08/23/2008 11:55 AM CDT) TSH 0.055(L) 0.35 - 5.50 uIU/ml [facility] BLOOD SPECIMEN / Unknown 08/23/2008 11:55 AM CDT Narrative Resulting Agency Comment Performed By [facility] - [facility] [address] [place] [address] Sarah Ledezma MD LAB - CHEMISTRY ORD ERABLES Performing Organization Address City/[facility]/ZIP Co de Phone Number [facility] [address] [place] [phone] * LIPID PROFILE (08/23/2008 11:55 AM CDT) Cholesterol 168 120.0 - 200.0 mg/dl [facility] Triglycerides 143 0.0 - 250.0 mg/dl [facility] HDL Cholesterol 60 >40 mg/dl [facility] LDL Calculated 79.4 mg/dl [facility] Chol HDL Ratio 2.8 [facility] Comment Lipid [facility] Comment: Risk Classification HDL CHOL LDL CHOL TOTAL CHOL According to NCEP (mg/dl) (mg/dL) (mg/dl) Desirable >40 <130 < 200 Borderline/High - 130-159 200-239 High - >159 > 239 The total cholesterol to HDL cholesterol ratio may be used to predict risk for coronary heart disease in untreated patients according to data reported from the [place] Study by Valeriy Darling M.D. The predictive value in patients over 60 years of age is uncertain. Risk TOTAL CHOL/HDL RATIO MEN WOMEN 1/2 Average 3.43 3.27 Average 4.97 4.44 2X Average 9.55 7.05 3X Average 23.39 11.04 In Coronary Artery Disease patients, in whom nonpharmacological therapy has failed, the AHA recommends that drug therapy should be prescribed to lower LDL cholesterol to <100mg/dL. Drug therapy may be instituted in patients with HDL <35mg/dL. The reported LDL is a calculated result. For a more precise measurement, a direct LDL test is available, as necessary. BLOOD SPECIMEN / Unknown 08/23/2008 11:55 AM CDT Sarah Ledezma MD LAB - CHEMISTRY ORD ERABLES Performing Organization Address City/State/[facility] Co de Phone Number [facility] [address] [place] [phone] * MRIO LT UPPER EXTREM JOINT W/O CONTRAST (08/23/2008 10:15 AM CDT) Anatomical Region Laterality Modality Other 08/23/2008 10:1 5 AM CDT Narrative 08/23/2008 5:39 PM CDT EXAMINATION- MRI LEFT SHOULDER. INDICATION FOR EXAMINATION- Left shoulder pain and limitation of range of motion. Noncontrast T1 and T2-weighted sagittal and coronal with T2-weighted axial images of the left shoulder are obtained. There is markedly advanced hypertrophic and degenerative change in the glenohumeral joint. There is reactive change within the bone marrow of the medial aspect of the head of the humerus. There is a glenohumeral joint effusion, moderate in quantity. There is atrophy with thinning of the supraspinatus tendon. There is hypertrophic change at the acromioclavicular joint with extrinsic encroachment and probable impingement. However no discrete full thickness rotator cuff tear is identified on this examination. There is no fluid in the subacromial or subdeltoid bursa. Tendon of the long head of the biceps appears intact. There is loss of definition of the subscapularis tendon suggesting marked atrophy. There is degeneration of the anterior and superior glenoid labrum with volume loss in the posterior glenoid labrum as well. CONCLUSION- MARKEDLY ADVANCED DEGENERATIVE ARTHRITIC CHANGE, GLENOHUMERAL JOINT. DEGENERATION WITH LOSS OF DEFINITION OF THE SUPERIOR, ANTERIOR AND POSTERIOR GLENOID LABRUM. THINNING OF THE SUPRASPINATUS TENDON WITH SUPRASPINATUS MUSCLE ATROPHY. THERE IS HYPERTROPHIC CHANGE, ACROMIOCLAVICULAR JOINT WITH PROBABLE ROTATOR CUFF IMPINGEMENT. NO FULL THICKNESS ROTATOR CUFF TEAR IDENTIFIED. NO FLUID IN THE SUBACROMIAL OR SUBDELTOID BURSA. LOSS OF DEFINITION, SUBSCAPULARIS TENDON. Read By- RAFAL DUNN M.D. Released By- RAFAL DUNN M.D. Released Date Time- 08/23/08 1739 Drier Belt Conveyor- PMN ADM- ASRAH LEDEZMA- SARAH LEDEZMA- SARAH LEDEZMA- PCP- JANELL FELTON SCP- Procedure Note Rafal Dunn MD - 08/23/2008 EXAMINATION- MRI LEFT SHOULDER. INDICATION FOR EXAMINATION- Left shoulder pain and limitation of range of motion. Noncontrast T1 and T2-weighted sagittal and coronal with T2-weighted axial images of the left shoulder are obtained. There is markedly advanced hypertrophic and degenerative change in the glenohumeral joint. There is reactive change within the bone marrow of the medial aspect of the head of the humerus. There is a glenohumeral joint effusion, moderate in quantity. There is atrophy with thinning of the supraspinatus tendon. There is hypertrophic change at the acromioclavicular joint with extrinsic encroachment and probable impingement. However no discrete full thickness rotator cuff tear is identified on this examination. There is no fluid in the subacromial or subdeltoid bursa. Tendon of the long head of the biceps appears intact. There is loss of definition of the subscapularis tendon suggesting marked atrophy. There is degeneration of the anterior and superior glenoid labrum with volume loss in the posterior glenoid labrum as well. CONCLUSION- MARKEDLY ADVANCED DEGENERATIVE ARTHRITIC CHANGE, GLENOHUMERAL JOINT. DEGENERATION WITH LOSS OF DEFINITION OF THE SUPERIOR, ANTERIOR AND POSTERIOR GLENOID LABRUM. THINNING OF THE SUPRASPINATUS TENDON WITH SUPRASPINATUS MUSCLE ATROPHY. THERE IS HYPERTROPHIC CHANGE, ACROMIOCLAVICULAR JOINT WITH PROBABLE ROTATOR CUFF IMPINGEMENT. NO FULL THICKNESS ROTATOR CUFF TEAR IDENTIFIED. NO FLUID IN THE SUBACROMIAL OR SUBDELTOID BURSA. LOSS OF DEFINITION, SUBSCAPULARIS TENDON. Read By- RAFAL DUNN M.D. Released By- RAFAL DUNN M.D. Released Date Time- 08/23/08 1739 Drier Belt Conveyor- PMN ADM- SARAH LEDEZMA ATT- SARAH LEDEZMA REF- SARAH LEDEZMA- PCP- JANELL FELTON SCP- Sarah Ledezma MD MR ORDERABLES
--- OUTSIDE RECORDS SUMMARY | 2024-05-03 06:55 | XMS_ITS | Encounter Summary ---
Author Organization [employer] Address 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
--- OUTSIDE RECORDS SUMMARY | 2024-05-03 06:55 | XMS_ITS | Clinical Summary ---
Author Organization [facility] Address [address] [place] [address] Attn: Epic Prelude ADT CURTIS COOPER [phone] Care Team Providers Care Human Resources Professional Name Role Phone Jb Mcghee MD Primary Care Provider Encounters Date Type Department Care Team Description 03/09/2024 [facility] Internal Medicine [address] [phone] Pari Haley FNP from Last 3 Months Social History Tobacco Use Types Packs/Day Years Used Date Smoking Tobacco: Never Assessed Comments Unknown Sex and Gender Information Value Date Recorded Sex Assigned at Not on file Legal Sex Female 4:00 AM ACADEMIC SUPPORT DIRECTOR Gender Identity Not on file Sexual Orientation Not on file Plan of Treatment Health Maintenance Due Date Last Done Comments DTAP/TDAP/TD VACCINES (1 - Tdap) 1954 PNEUMOCOCCAL VACCINE 65+ YEARS (1 of 1 - PCV) 11/08/18 85 ZOSTER VACCINE (1 of 2) 1984 RSV VACCINE (60+ or ) (1 - 1-dose 75+ series) 2009 INFLUENZA VACCINE (#1) 2023 OSTEOPOROSIS SCREENING Completed 08/05/2013 Care Teams Human Resources Professional Relationship Specialty [place] [id number] [phone] PCP - General 12/17/00
--- OUTSIDE RECORDS SUMMARY | 2024-05-03 06:55 | XMS_ITS | Referral Summary ---
Author Organization [facility] [address] Address [address] [facility] [place] [address] Care Team Providers Care Team Truck Driver Name Role Phone Unavailable Primary Care Provider Unavailabl e Source Comments [facility] [address],non-owned Affiliates and Associated Physician Practices is amultiple site organization consisting of ambulatory clinics and hospital sitesin [place], [place], [place] and [place]. This disclosure is being madepursuant to the Care Everywhere program and may not contain all information available regarding this patient. Last updated 17.[facility] [address] Social History Tobacco Use Types Packs/Day Years Used Date Smoking Tobacco: Never Assessed Sex and Gender Information Value Date Recorded Sex Assigned at Not on file Gender Identity Not on file Sexual Orientation Not on file Plan of Treatment Not on file Procedures Procedure Name Priority Date/Time Associated Diagnosis Comments DEXA BONE DENSITY 2 SITES Routine 07/23/2011 10:33 AM CDT Special screening for osteoporosis from Last 3 Months or Most Recently Relevant to Health Maintenance Results * DEXA BONE DENSITY 2 SITES (07/23/2011 [...] osteopenic range Zina Ball MD DEXA ORDERABLES from Last 3 Months or Most Recently Relevant to Health Maintenance
--- OUTSIDE RECORDS SUMMARY | 2024-05-03 06:55 | XMS_ITS | Clinical Summary ---
Author Organization [facility] Address [address] [place] [address] Care Team Providers Care Third Helper Name Role Phone Unavailable Primary Care Provider Unavailabl e Source Comments [facility],non-owned Affiliates and Associated Physician Practices is amultiple site organization consisting of ambulatory clinics and hospital sitesin [place], [place], [place] and [place]. This disclosure is being madepursuant to the Care Everywhere program and may not contain all information available regarding this patient. Last updated 17.[facility] Family History Medical History Relation Name Comments Cancer - Breast Neg Hx Social History Tobacco Use Types Packs/Day Years Used Date Smoking Tobacco: Never Assessed Sex and Gender Information Value Date Recorded Sex Assigned at Not on file Gender Identity Not on file Sexual Orientation Not on file Plan of Treatment Health Maintenance Due Date Last Done Comments DTAP/TDAP/TD VACCINES (1 - Tdap) 1953 PNEUMOCOCCAL VACCINE 50+ (1 of 1 - PCV) 1984 ZOSTER VACCINE (1 of 2) 1984 Respiratory Syncytial Virus (RSV) Vaccine Pt: or over 60 yrs (1 - 1-dose 75+ series) 2009 COVID-19 VACCINE ( - 2023-2 5 season) 2023 INFLUENZA VACCINE (#1) 2023 DEPRESSION SCREENING 03/23/2024 MEDICARE AWV CALENDAR YEAR 2024 BONE DENSITY TESTING Completed 07/23/2011 HEPATITIS B VACCINE Aged Out No longe r eligible based on patient's age to complete this topic HIB VACCINE Aged Out No longer eligi ble based on patient's age to complete this topic HPV VACCINE Aged Out No longer eligi ble based on patient's age to complete this topic MENINGOCOCCAL (Group B) VACCINE Aged Out No longer eligible based on patient's age to complete this topic MENINGOCOCCAL VACCINE Aged Out No watson mary eligible based on patient's age to complete this topic Procedures Procedure Name Priority Date/Time Associated Diagnosis [...]
--- OUTSIDE RECORDS SUMMARY | 2024-05-03 06:55 | XMS_ITS | Encounter Summary ---
Author Organization [facility] Address 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
--- OUTSIDE RECORDS SUMMARY | 2024-05-03 06:55 | XMS_ITS | Encounter Summary ---
Author Organization [facility] Address [address] [place]: Epic Prelude ADT [place]TIS CO[place] [address] Care Team Providers Care Paper Handler Name Role Phone Jb Mcghee MD Primary Care Provider Encounter Details Date Type Department Care Team (Late st Contact Info) Description 11/28/1997 Outpatient Historical Conversion, [place] [address] [place] [address] Social History Tobacco Use Types Packs/Day Years Used Date Smoking Tobacco: Never Assessed Comments Unknown Sex and Gender Information Value Date Recorded Sex Assigned at Not on file Legal Sex Female 4:00 AM BURN OUT TENDER LACE Gender Identity Not on file Sexual Orientation Not on file documented as of this encounter Plan of Treatment Not on file documented as of this encounter Visit Diagnoses Not on filedocumented in this encounter Care Teams Paper Handler Relationship Specialty [place] [address] [phone] PCP - General 12/17/00 documented as of this encounter
--- OUTSIDE RECORDS SUMMARY | 2024-05-03 06:55 | XMS_ITS | Clinical Summary ---
Author Organization [facility] Address [address] [place] [id number] Phone Care Team Providers Care Transportation Associate Name Role Phone Unavailable Primary Care Provider Unavailabl e Medications Medication Sig Dispensed Refills Start Date End Date Status Cranberry (CRANBERRY CONCENTRATE) 500 MG capsule 1 daily 0 12/06/2015 Active mirtazapine (REMERON) 15 MG tablet 1daily as needed for sleep 0 12/06/2015 Active calcium 500 MG tablet 1 daily 0 12/06/2015 Act zainab levothyroxine (SYNTHROID, LEVOTHROID) 75 MCG tablet 1 tablet (75 mcg) orally daily in the morning on an empty stomach 0 04/14/2016 Active pravastatin (PRAVACHOL) 20 MG tablet 1 dailyi in evening 12 02/20/2017 Active Cholecalciferol (VITAMIN D3) 2000 units tablet 1 dialy 0 12/06/2015 Active Methylcobalamin (X16-MKFRJR) 1 MG chewable tablet 1 daily 0 12/06/2015 Active Active Problems Problem Noted Date Diagnosed Date Chronic kidney disease, stage 3 (moderate) 12/09 Essential (primary) hypertension 12/10/2015 Other hyperlipidemia 12/10/2015 Overview (06/05/2018): Converted unresolved ICD9, potential mismatch. Family History Medical History Relation Comments Heart disease Father Kidney disease Neg Hx Kidney stone Neg Hx Relation Status Comments Father Social History Tobacco Use Types Packs/Day Years Used Date Smoking Tobacco: Former Cigarettes Q uit: 03/23/1962 Alcohol Use Standard Drinks/Week Comments No 0 (1 standard drink = 0.6 oz pur e alcohol) Sex and Gender Information Value Date Recorded Sex Assigned at Not on file Gender Identity Not on file Sexual Orientation Not on file Last Filed Vital Signs Vital Sign Reading Time Taken Comments Blood Pressure 138/76 02/18/2017 12:01 AM CLASSROOM TEACHER Pulse 84 02/18/2017 12:01 AM CLASSROOM TEACHER Temperature 36.1 C (97 F) 02/18/2017 12:01 AM CLASSROOM TEACHER Respiratory Rate - - Oxygen Saturation - - Inhaled Oxygen Concentration - - Weight 73.5 kg (162 lb) 02/18/2017 12:01 AM CLASSROOM TEACHER Height 160 cm (5' 3 ) 02/18/2017 12:01 AM CLASSROOM TEACHER Body Mass Index 28.7 02/18/2017 12:01 AM CLASSROOM TEACHER Plan of Treatment Not on file
== END 2024-05-03 06:51 | disposition home or self-care (01) ==
LOC: ANHIMG 06:53
PROVIDERS: PCP Family Medicine; Visit Provider Family Medicine
DX: R09.89 Other specified symptoms and signs involving the circulatory and respiratory systems (principal); R93.89 Abnormal findings on diagnostic imaging of other specified body structures
CPT/HCPCS: 71260; Q9967

== ENCOUNTER 2024-07-01 00:32 | Day surgery (SDC) | payer MEDICARE, SELFPAY ==
[2024-06-27 10:09] VITALS: BMI 32.3
--- OUTSIDE RECORDS SUMMARY | 2024-07-01 00:36 | XMS_ITS | Encounter Summary ---
Author Organization [facility] Address [address] [place]: Epic Prelude ADT [place]IS [place] [address] Care Team Providers Care Certified Medical Technician Name Role Phone Jb Mcghee MD Primary Care Provider [phone] Encounter Details Date Type Department Care Team (Late st Contact Info) Description 11/28/1997 Outpatient Historical Conversion, [place] [address] [place] [address] Social History Tobacco Use Types Packs/Day Years Used Date Smoking Tobacco: Never Assessed Comments Unknown Sex and Gender Information Value Date Recorded Sex Assigned at Not on file Legal Sex Female 4:00 AM BIZTALK ADMINISTRATOR Gender Identity Not on file Sexual Orientation Not on file documented as of this encounter Plan of Treatment Not on file documented as of this encounter Visit Diagnoses Not on filedocumented in this encounter Care Teams Certified Medical Technician Relationship Specialty [place] [address] [phone] PCP - General 12/17/00 documented as of this encounter
--- OUTSIDE RECORDS SUMMARY | 2024-07-01 00:36 | XMS_ITS | Clinical Summary ---
Author Organization [facility] Address [address] [place] [address] Care Team Providers Care Manager Merchandising Name Role Phone Unavailable Primary Care Provider Unavailabl e Source Comments [facility],non-owned Affiliates and Associated Physician Practices is amultiple site organization consisting of ambulatory clinics and hospital sitesin [place], [place], [place] and [place]. This disclosure is being madepursuant to the Care Everywhere program and may not contain all information available regarding this patient. Last updated 17.[facility] Family History Medical History Relation Name Comments [...] VACCINE ( - 2023-2 5 season) 2023 DEPRESSION SCREENING 03/23/2024 MEDICARE AWV CALENDAR YEAR 2024 INFLUENZA VACCINE (Season Ended) 2024 BONE DENSITY TESTING Completed 07/23/2011 HEPATITIS B VACCINE Aged Out No longe r eligible based on patient's age to complete this topic HIB VACCINE Aged Out No longer eligi ble based on patient's age to complete this topic HPV VACCINE Aged Out No longer eligi ble based on patient's age to complete this topic MENINGOCOCCAL (Group B) VACC INE SHARED DECISION-MAKING Aged Out No longer eligibl e based on patient's age to complete this topic MENINGOCOCCAL GROUPS A/C/Y/W VACCINE Aged Out No longer eligible b ased on patient's age to complete this topic [...]
--- OUTSIDE RECORDS SUMMARY | 2024-07-01 00:36 | XMS_ITS | Encounter Summary ---
Author Organization [facility] Address [address] [place] [address] Care Team Providers Care Artificial Flower Maker Name Role Phone Jb Mcghee MD Primary Care Provider [phone] Encounter Details Date Type Department Care Team (Latest Contact Info) Description 07/20/2001 Outpatient Historical HIS [facility] Rainer Klein MD FOLLOW-UP EXAM NEC (Primary Dx) Social History Tobacco Use Types Packs/Day Years Used Date Smoking Tobacco: Never Assessed Comments Unknown Sex and Gender Information Value Date Recorded Sex Assigned at Not on file Legal Sex Female 4:00 AM MOTOR VEHICLE OR CARAVAN SALESPERSON Gender Identity Not on file Sexual Orientation Not on file documented as of this encounter Plan of Treatment Not on file documented as of this encounter Visit Diagnoses Diagnosis Other follow-up examination(V67.59)- Primary Other follow-up examination documented in this encounter Care Teams Artificial Flower Maker Relationship Specialty [place] [address] [phone] PCP - General 12/17/00 documented as of this encounter
--- OUTSIDE RECORDS SUMMARY | 2024-07-01 00:36 | XMS_ITS | Clinical Summary ---
Author Organization [facility] Address [address] [place] [address] Phone Care Team Providers Care Corporate Legal Manager Name Role Phone Unavailable Primary Care Provider Unavailabl e Medications Cranberry (CRANBERRY CONCENTRATE) 500 MG capsule 1 daily 0 12/06/2015 Acti ve mirtazapine (REMERON) 15 MG tablet 1daily as needed for sleep 0 12/06/2015 Active calcium 500 MG tablet 1 daily 0 12/06/2015 Active levothyroxine (SYNTHROID, LEVOTHROID) 75 MCG tablet 1 tablet (75 mcg) orally daily in the morning on an empty stomach 0 04/14/2016 Active pravastatin (PRAVACHOL) 20 MG tablet 1 dailyi in evening 12 02/20/2017 Active Cholecalciferol (VITAMIN D3) 2000 units tablet 1 dialy 0 12/06/2015 Active Methylcobalamin (I46-YRZYNL) 1 MG chewable tablet 1 daily 0 [...] drink = 0.6 oz pur e alcohol) Comments Unknown Sex and Gender Information Value Date Recorded Sex Assigned at Not on file Legal Sex Female 9:52 AM MST Gender Identity Not on file Sexual Orientation Not on file Last Filed Vital Signs Vital Sign Reading Time Taken Comments Blood Pressure 138/76 02/18/2017 12:01 AM RELIEF SALESPERSON Pulse 84 02/18/2017 12:01 AM RELIEF SALESPERSON Temperature 36.1 C (97 F) 02/18/2017 12:01 AM RELIEF SALESPERSON Respiratory Rate - - Oxygen Saturation - - Inhaled Oxygen Concentration - - Weight 73.5 kg (162 lb) 02/18/2017 12:01 AM RELIEF SALESPERSON Height 160 cm (5' 3 ) 02/18/2017 12:01 AM RELIEF SALESPERSON Body Mass Index 28.7 02/18/2017 12:01 AM RELIEF SALESPERSON Plan of Treatment Not on file
--- OUTSIDE RECORDS SUMMARY | 2024-07-01 00:36 | XMS_ITS | Encounter Summary ---
Author Organization [facility] Address [address] [place] [address] Care Team Providers Care Cap Machine Operator Name Role Phone Jb Mcghee MD Primary Care Provider Encounter Details Date Type Department Care Team (Latest Contact Info) Description 12/17/2000 Outpatient Historical HIS [facility] Rainer Klein MD Lump or mass in breast (Primary Dx) Social History Tobacco Use Types Packs/Day Years Used Date Smoking Tobacco: Never Assessed Comments Unknown Sex and Gender Information Value Date Recorded Sex Assigned at Not on file Legal Sex Female 4:00 AM CITY EDITOR Gender Identity Not on file Sexual Orientation Not on file documented as of this encounter Plan of Treatment Not on file documented as of this encounter Visit Diagnoses Diagnosis Lump or mass in breast- Primary documented in this encounter Care Teams Cap Machine Operator Relationship Specialty [place] [address] [address] PCP - General 12/17/00 documented as of this encounter
--- OUTSIDE RECORDS SUMMARY | 2024-07-01 00:36 | XMS_ITS | Clinical Summary ---
Author Organization [facility] Address [address] Attn: Epic Prelude ADT [place] [address] Care Team Providers Care Chief Knowledge Officer Name Role Phone Jb Mcghee MD Primary Care Provider [phone] Social History Tobacco Use Types Packs/Day Years Used Date Smoking Tobacco: Never Assessed Comments Unknown Sex and Gender Information Value Date Recorded Sex Assigned at Not on file Legal Sex Female 4:00 AM BREAKER LAYER Gender Identity Not on file Sexual Orientation Not on file Plan of Treatment Health Maintenance Due Date Last Done Comments DTAP/TDAP/TD VACCINES (1 - Tdap) 1954 PNEUMOCOCCAL VACCINE 50+ YEARS (1 of 1 - PCV) 11/08/18 85 ZOSTER VACCINE (1 of 2) 1984 RSV VACCINE (60+ or ) (1 - 1-dose 75+ series) 2009 INFLUENZA VACCINE (#1) 2023 OSTEOPOROSIS SCREENING Completed 08/05/2013 Care Teams Chief Knowledge Officer Relationship Specialty [place] [address] [phone] PCP - General 12/17/00
[2024-07-01 12:50] VITALS: BP 173/89; PULSE 69; RESP 18; TEMP 36.1; O2SAT 99
[2024-07-01] MEDS: LACTATED RINGERS 1,000 ML 150 ML IV CONT (12:57)
--- NOTE | 2024-07-01 13:14 | WPDANESEPPF ---
Anes - Initial Pre Proc Eval Procedure: Operation Date: 07/01/24 14:15 Proposed Procedures p Esophagogastroduodenoscopy - Wisam Olsen MD Date/Time: 07/01/24 13:14 Surgeon: Wisma Olsen MD Pre Op Diagnosis: disease of esophagus,GERD,ulcer of esophagus Patient Data Age: 88 Gender: F Height: 1.52 m Weight: 75.7 kg Last Vital Signs Temp 97 F L 07/01/24 12:50 Pulse 69 07/01/24 12:50 Resp 18 07/01/24 12:50 BP 173/89 H 07/01/24 12:50 Pulse Ox 99 07/01/24 12:50 O2 Del Method Room Air 07/01/24 12:50 Allergies Allergy/AdvReac Type Severity Reaction Status Date / Time No Known Allergies Allergy Verified 07/01/24 12:48 Home Medications ?Medication ?Instructions ?Recorded ?Confirmed ?Type cranberry fruit 400 mg capsule 400 mg PO BID 09/06/19 07/01/24 History cyanocobalamin (vitamin B-12) 1 tablet PO QAM 07/18/20 07/01/24 History ascorbic acid (vitamin C) 1,000 mg 1 g PO DAILY #1 tablet 08/30/21 07/01/24 Rx tablet sennosides 8.6 mg capsule (senna) 8.6 mg PO DAILY PRN constipation 12/20/21 07/01/24 Rx #10 caps acetaminophen 500 mg tablet 1,000 mg PO BID PRN mild pain 04/09/22 06/27/24 History cholecalciferol (vitamin D3) 50 50 mcg PO DAILY 12/10/23 07/01/24 History mcg (2,000 unit) tablet oxybutynin chloride 10 mg 10 mg PO DAILY 12/10/23 07/01/24 History tablet,extended release 24 hr amlodipine 2.5 mg tablet 2.5 mg PO QAM #90 tabs 02/04/24 07/01/24 Rx citalopram 10 mg tablet 10 mg PO DAILY #90 tabs 03/11/24 07/01/24 Rx donepezil 5 mg tablet 5 mg PO QHS 04/27/24 07/01/24 History gabapentin 100 mg capsule 100 mg PO QHS #90 caps 04/27/24 07/01/24 Rx ferrous sulfate 325 mg (65 mg 325 mg PO DAILY #100 tabs 04/28/24 07/01/24 Rx iron) tablet pantoprazole 40 mg tablet,delayed 40 mg PO QAM #90 tabs 05/04/24 07/01/24 Rx release levothyroxine 75 mcg tablet 75 mcg PO QAM #90 tabs 05/09/24 07/01/24 Rx Patient hx anesthesia problems: none Family hx anesthesia problems: none Results Review: All pre-operative results and documents have been reviewed as part of the pre-operative evaluation. [facility] Past Medical History Medical History Incarcerated femoral hernia (~03/2023) SBO (small bowel obstruction) (~03/2023) Cerebrovascular disease Minimal cognitive impairment GERD (gastroesophageal reflux disease) Incarcerated hernia of abdominal cavity Esophageal ulcer Erosive esophagitis Dyslipidemia Depression Osteopenia Osteoarthritis of right knee Urinary incontinence Essential hypertension Surgical History Surgical History History of femoral hernia repair (~04/20/23) Open incarcerated right femoral hernia repair with mesh 04/20/23 [facility] Hx of inguinal hernia repair History of arthroplasty of right knee (07/2020) 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 Farris lives alone at [facility]. She is independent with most tasks. Her primary care provider is. Dr. Villatoro. She designates her daughter, Liz, as her surrogate decision maker and she would like to be a full code. Years smoked: 10 Smoking status: Former smoker Tobacco type: cigarettes Second hand tobacco smoke exposure: Yes Smoking end date: 03/23/59 Alcohol intake: never Substance use: never Substance use type: does not use Do You Feel Safe in your Home?: Yes Lack of Transportation: No Lack of Food: Never True Current Housing: I Have Housing Concerned About Future Housing: No Difficulty Paying Gas/Electric Bills: No Difficulty Paying for Meds: No Currently Unemployed: No Education: High School Diploma/GED Difficulty w/ Childcare or Family Care: No Living arrangements: [facility] Additional living arrangements comments: independent living Spiritual care concerns: No Anes - Eval Final PreProcedure Day of Procedure 07/01/24 13:14 Patient weight: obese Heart: regular rate and rhythm Lungs: clear to auscultation Airway: Mallampati scale class II Neurological: alert and oriented Last oral intake: >/= 8 hours ASA classification: III Emergent: no Anesthetic plan: proceed Anesthesia type and monitoring: general GIVS and standard monitoring Results Review: All pre-operative results and documents have been reviewed as part of the pre-operative evaluation. Informed Consent: The patient's anesthetic plan and its attendant risks and benefits were discussed with the patient/family/POA. Questions were solicited and answers provided to the satisfaction of the patient/family/POA.
--- NOTE | 2024-07-01 13:26 | P.HP_ITS ---
History of Present Illness History of Present Illness Consent: Risks, benefits, and alternatives have been discussed and questions answered. Patient agrees to proceed with procedure. Chief complaint: disease of esophagus,GERD,ulcer of esophagus Narrative: Eboni Farris is a 88 year old female with h/o gerd on ppi, last egd 06/2023 resolution of ulcerative esophagitis. Recently had CT chest that showed thickening of lower esophagus, radiologist advised evaluation. She is doing ok with ppi, no dysphagia. Review of Systems Review of Systems: All systems reviewed & are unremarkable except as noted in HPI and below [facility] Past Medical History Medical History (Updated 07/01/24 @ 13:27 by Wisam Olsen MD) Abnormal CT scan, esophagus Incarcerated femoral hernia (~03/2023) SBO (small bowel obstruction) (~03/2023) Cerebrovascular disease Minimal cognitive impairment GERD (gastroesophageal reflux disease) Incarcerated hernia of abdominal cavity Esophageal ulcer Erosive esophagitis Dyslipidemia Depression Osteopenia Osteoarthritis of right knee Urinary incontinence Essential hypertension Surgical History Surgical History History of femoral hernia repair (~04/20/23) Open incarcerated right femoral hernia repair with mesh 04/20/23 [facility] Hx of inguinal hernia repair History of arthroplasty of right knee (07/2020) 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 Farris lives alone at [facility]. She is independent with most tasks. Her primary care provider is. Dr. Villatoro. She designates her daughter, Liz, as her surrogate decision maker and she would like to be a full code. Years smoked: 10 Smoking status: Former smoker Tobacco type: cigarettes Second hand tobacco smoke exposure: Yes Smoking end date: 03/23/59 Alcohol intake: never Substance use: never Substance use type: does not use Do You Feel Safe in your Home?: Yes Lack of Transportation: No Lack of Food: Never True Current Housing: I Have Housing Concerned About Future Housing: No Difficulty Paying Gas/Electric Bills: No Difficulty Paying for Meds: No Currently Unemployed: No Education: High School Diploma/GED Difficulty w/ Childcare or Family Care: No Living arrangements: [facility] Additional living arrangements comments: independent living Spiritual care concerns: No Meds Home Medications and Allergies Home Medications ?Medication ?Instructions ?Recorded ?Confirmed ?Type cranberry fruit 400 mg capsule 400 mg PO BID 09/06/19 07/01/24 History cyanocobalamin (vitamin B-12) 1 tablet PO QAM 07/18/20 07/01/24 History ascorbic acid (vitamin C) 1,000 mg 1 g PO DAILY #1 tablet 08/30/21 07/01/24 Rx tablet sennosides 8.6 mg capsule (senna) 8.6 mg PO DAILY PRN constipation 12/20/21 07/01/24 Rx #10 caps acetaminophen 500 mg tablet 1,000 mg PO BID PRN mild pain 04/09/22 06/27/24 History cholecalciferol (vitamin D3) 50 50 mcg PO DAILY 12/10/23 07/01/24 History mcg (2,000 unit) tablet oxybutynin chloride 10 mg 10 mg PO DAILY 12/10/23 07/01/24 History tablet,extended release 24 hr amlodipine 2.5 mg tablet 2.5 mg PO QAM #90 tabs 02/04/24 07/01/24 Rx citalopram 10 mg tablet 10 mg PO DAILY #90 tabs 03/11/24 07/01/24 Rx donepezil 5 mg tablet 5 mg PO QHS 04/27/24 07/01/24 History gabapentin 100 mg capsule 100 mg PO QHS #90 caps 04/27/24 07/01/24 Rx ferrous sulfate 325 mg (65 mg 325 mg PO DAILY #100 tabs 04/28/24 07/01/24 Rx iron) tablet pantoprazole 40 mg tablet,delayed 40 mg PO QAM #90 tabs 02/12/25 04/11/25 Rx release levothyroxine 75 mcg tablet 75 mcg PO QAM #90 tabs 05/09/24 07/01/24 Rx Allergies Allergy/AdvReac Type Severity Reaction Status Date / Time No Known Allergies Allergy Verified 07/01/24 12:48 Vital Signs Vital Signs - 24 hr 07/01/24 12:50 Temperature 97 F L Pulse Rate 69 Respiratory Rate 18 Blood Pressure 173/89 H Pulse Oximetry 99 Oxygen Delivery Room Air Exam Const: General: comfortable and no acute distress HENMT: Face/Nose/Sinus: Normal nares present Eyes: General: appearance normal, both eyes and all related structures Neck: Neck: no JVD Resp: Auscultation: clear to auscultation bilaterally Cardio: Rate: regular rate Rhythm: regular rhythm GI: Inspection: non-distended GI Palp: Yes Soft to palpation Skin: General skin exam: normal color Neuro: Speech: normal speech Extrem: General: normal to inspection Psych: Mental Status: mental status grossly normal Assessment and Plan Assessment and plan (1) Abnormal CT scan, esophagus: Code(s): R93.3 - Abnormal findings on diagnostic imaging of other parts of digestive tract Status: Acute Assessment and Plan: will assess with egd gerd is controlled with ppi last egd 2023 no more esophagitis, she has hiatal hernia (2) GERD (gastroesophageal reflux disease): Qualifiers: Esophagitis presence: without esophagitis Qualified Code(s): K21.9 - Gastro-esophageal reflux disease without esophagitis Code(s): K21.9 - Gastro-esophageal reflux disease without esophagitis Status: Chronic
[2024-07-01 13:33] VITALS: BP 132/77; PULSE 61; RESP 20; O2SAT 97
[2024-07-01 13:43] VITALS: BP 122/74; PULSE 92; RESP 16; O2SAT 94
[2024-07-01 13:53] VITALS: BP 123/72; PULSE 95; RESP 17; O2SAT 94
== END 2024-07-01 14:00 | disposition home or self-care (01) ==
PROVIDERS: PCP Family Medicine; Referring Provider Family Medicine; Visit Provider Internal Medicine Gastroenterology
PROC: 0DJ08ZZ Inspection of Upper Intestinal Tract, Via Natural or Artificial Opening Endoscopic (ICD-10-PCS; CPT 43235; principal; 2024-07-01 14:15)
DX: R93.3 Abnormal findings on diagnostic imaging of other parts of digestive tract (principal); K21.00 Gastro-esophageal reflux disease with esophagitis, without bleeding; K44.9 Diaphragmatic hernia without obstruction or gangrene; E78.5 Hyperlipidemia, unspecified; I10 Essential (primary) hypertension; F32.A Depression, unspecified; M17.11 Unilateral primary osteoarthritis, right knee; R32 Unspecified urinary incontinence; M85.88 Other specified disorders of bone density and structure, other site; G31.84 Mild cognitive impairment of uncertain or unknown etiology; E66.9 Obesity, unspecified; Z68.32 Body mass index [BMI] 32.0-32.9, adult; Z98.890 Other specified postprocedural states; Z87.891 Personal history of nicotine dependence; Z87.19 Personal history of other diseases of the digestive system; Z86.79 Personal history of other diseases of the circulatory system; Z80.9 Family history of malignant neoplasm, unspecified; Z82.49 Family history of ischemic heart disease and other diseases of the circulatory system
CPT/HCPCS: 43235; J2704; J7120

== ENCOUNTER 2024-09-01 08:59 | Outpatient (CLI) | payer MEDICARE, SELFPAY ==
--- OUTSIDE RECORDS SUMMARY | 2024-09-01 09:30 | XMS_ITS | Clinical Summary ---
Author Organization [facility] Address [address] [place] [id number] Phone Care Team Providers Care Corporate Compliance Manager Name Role Phone Unavailable Primary Care [...] tablet 1 dialy 0 12/06/2015 Active Methylcobalamin ([id number]) 1 MG chewable tablet 1 daily 0 [...] Comments Blood Pressure 138/76 02/18/2017 12:01 AM GANG HEMSTITCHING MACHINE OPERATOR Pulse 84 02/18/2017 12:01 AM GANG HEMSTITCHING MACHINE OPERATOR Temperature 36.1 C (97 F) 02/18/2017 12:01 AM GANG HEMSTITCHING MACHINE OPERATOR Respiratory Rate - - Oxygen Saturation - - Inhaled Oxygen Concentration - - Weight 73.5 kg (162 lb) 02/18/2017 12:01 AM GANG HEMSTITCHING MACHINE OPERATOR Height 160 cm (5' 3) 02/18/2017 12:01 AM GANG HEMSTITCHING MACHINE OPERATOR Body Mass Index 28.7 02/18/2017 12:01 AM GANG HEMSTITCHING MACHINE OPERATOR Plan of Treatment Not on file
--- OUTSIDE RECORDS SUMMARY | 2024-09-01 09:30 | XMS_ITS | Clinical Summary ---
Author Organization [facility] Address [address] [place] [address] Care Team Providers Care Acute Care Certified Nursing Assistant Name Role Phone Unavailable Primary Care Provider Unavailabl e Source Comments [facility],non-owned Affiliates and Associated Physician Practices is amultiple site organization consisting of ambulatory clinics and hospital sitesin [place], [place], [place] and [place]. This disclosure is being madepursuant to the Care Everywhere program and may not contain all information available regarding this patient. Last updated 17.[facility] Family History Medical History Relation Name Comments Cancer - Breast Neg Hx Social History Tobacco Use Types Packs/Day Years Used Date Smoking Tobacco: Never Assessed Comments Unknown Sex and Gender Information Value Date Recorded Sex Assigned at Not on file Legal Sex Female 6:00 AM STAMP PRESS OPERATOR Gender Identity Not on file Sexual Orientation Not on file Plan of Treatment Health Maintenance Due Date Last Done Comments DTAP/TDAP/TD VACCINES (1 - Tdap) 1954 PNEUMOCOCCAL VACCINE 50+ (1 of 1 - PCV) 1984 ZOSTER VACCINE (1 of 2) 1984 Respiratory Syncytial Virus (RSV) Vaccine Pt: or over 60 yrs (1 - 1-dose 75+ series) 2009 COVID-19 VACCINE (2023-2 5 season) 2023 DEPRESSION SCREENING 03/23/2024 MEDICARE [...] slightly but remains in the osteopenic range us Zina Ball MD DEXA ORDERABLES Final Resu lt from Last 3 Months or Most Recently Relevant to Health Maintenance Insurance AETNA MEDICARE ADV AETNA MEDICARE ADV
--- OUTSIDE RECORDS SUMMARY | 2024-09-01 09:30 | XMS_ITS | Encounter Summary ---
Author Organization [facility] Address 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
--- OUTSIDE RECORDS SUMMARY | 2024-09-01 09:30 | XMS_ITS | Encounter Summary ---
Author Organization [facility] Address [address] 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
--- OUTSIDE RECORDS SUMMARY | 2024-09-01 09:30 | XMS_ITS | Clinical Summary ---
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
--- OUTSIDE RECORDS SUMMARY | 2024-09-01 09:30 | XMS_ITS ---
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 Name Role Phone Anand Franklin Unavailable GinachaseTomle Unavailable Darrell Lara S Unavailable Jose Villatoro Unavailable [phone] Functional Status No Results Mental Status No Results Allergies and Intolerances Name Onset Date Reaction Severity No Known Allergies (Allergy) [facility] Oct 12 21:03:00 EDT 2021 No Known Drug Allergies (Allergy) ThuMay 27 18: 36:00 EST 2018 Encounters Program Name Primary Diagnosis Admission Date/Time Dis charge Date/Time null ThuMar 07 06:59 :00 EST 2014 [facility] ThuDec 21 20:00:00 EDT 2023Dec 29 19:59:00 EDT 2023 Medications Medication Directions Start Date End Date citalopram 20 mg tablet 1 TABLET TABLET Oral 1 Time Daily Indication: depression. ThuMay 08 09:00:00 EST 2023May 08 01:00:00 EST 2023 citalopram 20 mg tablet 1 TABLET TABLET Oral 1 Time Daily Indication: depression ThuApr 27 09:00:00 EST 2023 [place] Feb 15 12:15:00 EST 2023 HYDROcodone 5 mg-acetaminophen 325 mg tablet 1 TABLET TABLET Oral PRN Every 6 Hours Indication: PAIN *DO NOT EXCEED 3GM APAP/DAY FROM ALL SOURCES* Fri Feb 02 17:00:00 EST 2023 Fri Feb 16 01:00:00 EST 2023 cranberry 400 mg capsule 1 CAPSULE CAPSU LE Oral 2 Times Daily Indication: supplement Fri Feb 02 17:00:00 EST 2023 Fri Feb 16 01:00:00 EST 2023 oxyBUTYnin chloride ER 10 mg tablet,extended release 24 hr 1 TABLET TABLET, EXTENDED RELEASE 24 HR Oral Hour Of Sleep Indication: urinary retention Fri Feb 02 17:00:00 EST 2023 Fri Feb 16 01:00:00 EST 2023 ascorbic acid (vitamin C) 1,000 mg tablet 1 TABLET TABLET Oral 1 Time Daily Indication: vitamin Fri Feb 02 17:00:00 EST 2023 Fri Feb 16 01:00:00 EST 2023 cyanocobalamin (vit B-12) 1,000 mcg tablet 1 TABLET TABLET Oral 1 Time Daily Indication: vitamin Fri Feb 02 17:00:00 EST 2023 Fri Feb 16 01:00:00 EST 2023 senna 8.6 mg tablet 1 TABLET TABLET Oral PRN 1 Time Daily Indication: CONSTIPATION Fri Feb 02 17:00:00 EST 2023 Fri Feb 16 01:00:00 EST 2023 cholecalciferol (vitamin D3) 50 mcg (2,000 unit) tablet 1 TABLET TABLET Oral 1 Time Daily Indication: supplement Fri Feb 02 17:00:00 EST 2023 Fri Feb 16 01:00:00 EST 2023 acetaminophen 500 mg tablet 2 TABLETS TA BLET Oral PRN 2 Times Daily Indication: MILD PAIN (2 TABLETS= 1000MG)*DO NOT EXCEED 3GM APAP/DAY FROM ALL SOURCES* Fri Feb 02 17:00:00 EST 2023 Fri Feb 16 01:00:00 EST 2023 levothyroxine 75 mcg tablet 1 TABLET TAB LET Oral 1 Time Daily Indication: thyroid Fri Feb 02 17:00:00 EST 2023 Fri Feb 16 01:00:00 EST 2023 amLODIPine 2.5 mg tablet 1 TABLET TABLET Oral 1 Time Daily Indication: HTN Fri Feb 02 17:00:00 EST 2023 Fri Feb 16 01:00:00 EST 2023 pantoprazole 40 mg tablet,delayed release 1 TABLET TABLET, DELAYED RELEASE (ENTERIC COATED) Oral 2 Times Daily Indication: Protonix ThuApr 24 17:00:00 EST 2023May 08 01:00:00 EST 2023 citalopram 20 mg tablet 1 TABLET TABLET Oral 1 Time Daily Indication: depression ThuApr 24 17:00:00 EST 2023 Mon Feb 05 13:03:00 EST 2023 TubersoL 5 tub. unit/0.1 mL intradermal injection solution 0.1 ml VIAL (ML) Intradermal 1 Time Weekly for 2 Weeks Indication: TB 1st injection on admission, then one week after. Read between 48 and 72 hours ThuApr 24 01:00:00 EST 2023May 08 00:59:00 EST 2023 TubersoL 5 tub. unit/0.1 mL intradermal injection solution Read Results VIAL (ML) Other 1 Time Weekly for 2 Weeks Indication: TB Read results between 48-72 hours after 1st and 2nd (1 week apart). If positive do chest x-ray. ThuApr 24 01:00:00 EST 2023May 08 00:59:00 EST 2023 acetaminophen 500 mg tablet 2 tabs TABLE T Oral PRN 3 Times Daily Indication: pain ThuJan 22 23:03:00 EDT 2022Jan 22 23:04:00 EDT 2022 acetaminophen 500 mg tablet 2 tablets TA BLET Oral PRN 3 Times Daily Indication: Pain ThuJan 22 14:00:00 EDT 2022Jan 30 01:00:00 EST 2022 Gemtesa 75 mg tablet 1 tab TABLET Oral 1 Time Daily Indication: urinary incontinence ThuJan 21 13:16:00 EDT 2022Jan 30 01:00:00 EST 2022 acetaminophen 500 mg tablet 2 tabs TABLE T Oral 3 Times Daily Indication: pain ThuJan 21 13:18:00 EDT 2022Jan 22 23:04:00 EDT 2022 clindamycin HCL 300 mg capsule 1 cap CAPSULE Oral 3 Times Daily for 7 Days Indication: cellulitis ThuJan 22 07:00:00 EDT 2022Jan 29 06:59:00 EST 2022 magnesium citrate 125 mg capsule 1 cap CAPSULE Oral 1 Time Daily Indication: supplement ThuJan 21 14:45:00 EDT 2022Jan 30 01:00:00 EST 2022 pantoprazole 40 mg tablet,delayed release 1 TABLET TABLET, DELAYED RELEASE (ENTERIC COATED) Oral Hour Of Sleep Indication: GERD ThuJan 20 17:40:00 ED2022Jan 30:: EST 2022 sucralfate 100 mg/mL oral suspension 10ML SUSPENSION, ORAL (FINAL DOSE FORM) Oral 4 Times Daily Indication: GI ulcers BEFORE MEALS AND AT BEDTIME ThuJan 20 17:40:00 ED2022Jan 30:: EST 2022 cranberry 400 mg capsule 1 CAPSULE CAPSU LE Oral 2 Times Daily Indication: Supplement WITH MEALS ThuJan 20 17:40:00 ED2022Jan 30:: EST 2022 oxyBUTYnin chloride ER 10 mg tablet,extended release 24 hr 1 TABLET TABLET, EXTENDED RELEASE 24 HR Oral Hour Of Sleep Indication: Urinary incontinence ThuJan 20 17:40:00 ED2022Jan 21 13:12:00 EDT 2022 ascorbic acid (vitamin C) 1,000 mg tablet 1 TABLET TABLET Oral 1 Time Daily Indication: Supplement ThuJan 20 17:40:00 2022Jan 30:: EST 2022 melatonin 5 mg tablet 1 TABLET TABLET Or al PRN Hour Of Sleep Indication: Insomnia ThuJan 20 17:40:00 2022Jan 30:: EST 2022 aspirin 81 mg tablet,delayed release 1 TABLET TABLET, DELAYED RELEASE (ENTERIC COATED) Oral 2 Times Daily for 14 Days Indication: DVT proph ThuJan 20 17:40:00 ED2022Jan 20 18:52:00 EDT 2022 senna 8.6 mg tablet 1 TABLET TABLET Oral PRN 1 Time Daily Indication: CONSTIPATION ThuJan 20 17:40:00 ED2022Jan 30:: EST 2022 cholecalciferol (vitamin D3) 25 mcg (1,000 unit) tablet 1 TABLET TABLET Oral 1 Time Daily Indication: Vitamin D deficiency ThuJan 20 17:40:00 2022Jan 30:: EST 2022 acetaminophen 500 mg tablet 2 TABLETS TA BLET Oral PRN 2 Times Daily Indication: MILD PAIN (2 TABLETS= 1000MG)*DO NOT EXCEED 4GM APAP/DAY ThuJan 20 17:40:00 2022Jan 30:: EST 2022 citalopram 20 mg tablet 1 TABLET TABLET Oral 1 Time Daily Indication: Depression ThuJan 20 17:40:00 EDT 2022Jan 30 01:00:00 EST 2022 levothyroxine 75 mcg tablet 1 TABLET TAB LET Oral 1 Time Daily Indication: Hypothyroidism ThuJan 20 17:40:00 EDT 2022Jan 30 01:00:00 EST 2022 amLODIPine 2.5 mg tablet 1 TABLET TABLET Oral 1 Time Daily Indication: HTN ThuJan 20 17:40:00 EDT 2022Jan 30 01:00:00 EST 2022 meloxicam 7.5 mg tablet 1 TABLET TABLET Oral 1 Time Daily Indication: Pain/Inflammation ThuJan 20 17:40:00 EDT 2022Jan 21 13:18:00 EDT 2022 TubersoL 5 tub. unit/0.1 mL intradermal injection solution 0.1 ml VIAL (ML) Intradermal 1 Time Weekly for 2 Weeks Indication: TB test 1st injection on admission, then one week after. Read between 48 and 72 hours ThuJan 21 01:00:00 EDT 2022Jan 30 01:00:00 EST 2022 TubersoL 5 tub. unit/0.1 mL intradermal injection solution Read Results VIAL (ML) Other 1 Time Weekly for 2 Weeks Indication: TB test Read results between 48-72 hours after 1st and 2nd (1 week apart). If positive do chest x-ray. ThuJan 21 01:00:00 T 2022Jan 30 01:00:00 EST 2022 TUBErsoL 5 tub. unit/0.1 mL intradermal injection solution 0.1 ml VIAL (ML) Intradermal 1 Time Weekly for 2 Weeks ThuOct 14 07:00:00 EDT 2021Oct 23 01:00:00 EDT 2021 TUBErsoL 5 tub. unit/0.1 mL intradermal injection solution Read Results VIAL (ML) Other 1 Time Weekly for 2 Weeks ThuOct 14 07:00:00 T 2021Oct 23 01:00:00 EDT 2021 aspirin 81 mg tablet,delayed release 81 mg TABLET, DELAYED RELEASE (ENTERIC COATED) Oral 2 Times Daily for 14 Days ThuOct 13 01:00:00 EDT 2021Oct 23 01:00:00 EDT 2021 aspirin 81 mg tablet,delayed release 81 mg TABLET, DELAYED RELEASE (ENTERIC COATED) Oral 1 Time Daily ThuOct 27:00:00 2021Oct 23:00:00 2021 predniSONE 5 mg tablet 5 mg TABLET Oral 1 Time Daily for 21 Days once daily x 21 days to reduce swelling. ThuOct 13:00:2021Oct 23:00:2021 Senokot-S 8.6 mg-50 mg tablet 2 tabs TABLET Oral 1 Time Daily ThuOct 13:00:2021Oct 23:00:2021 polyethylene glycoL 3350 17 gram/dose oral powder 17 grams POWDER (GRAM) Oral PRN 1 Time Daily ThuOct 13:00:2021Oct 23:00:00 2021 aspirin 81 mg chewable tablet 81 mg TABLET,CHEWABLE Oral 2 Times Daily ThuOct 12 22:00:2021Oct 13 01:09:00 2021 predniSONE 5 mg tablet 5 mg TABLET Oral 1 Time Daily ThuOct 12:30:00 2021Oct 13:15:00 2021 HYDROcodone 5 mg-acetaminophen 325 mg tablet 1-2 tablets TABLET Oral PRN Every 4 Hours 1-2 tablets every 4-6 hours as needed for pain.DO NOT exceed 6 tablets per day. ThuOct 12:30:2021Oct 23:00:00 2021 cranberry 400 mg capsule 400 mg CAPSULE Oral 2 Times Daily ThuOct 13:00:00 2021Oct 23:00:00 2021 oxybutynin chloride ER 10 mg tablet,extended release 24 hr 10 mg TABLET, EXTENDED RELEASE 24 HR Oral 1 Time Daily ThuOct 13:00:2021Oct 23:00:00 2021 calcium carbonate 600 mg calcium (1,500 mg) tablet 1 tablet TABLET Oral 1 Time Daily ThuOct 13:00:2021Oct 23:00:00 2021 amLODIPine 2.5 mg tablet 2.5 mg TABLET O ral 1 Time Daily ThuOct 13:00:00 2021Oct 23:00:00 2021 aspirin 81 mg chewable tablet 81 mg TABLET,CHEWABLE Oral PRN 1 Time Daily PRN for pain once daily ThuOct 13:00:00 EDT 2021Oct 13 01:09:00 EDT 2021 citalopram 20 mg tablet 20 mg TABLET Ora l 1 Time Daily ThuOct 13 00:00:00 EDT 2021Oct 23 01:00:00 EDT 2021 ascorbic acid (vitamin C) 1,000 mg chewable tablet 1 tablet TABLET,CHEWABLE Oral 1 Time Daily ThuOct 13 00:00:00 2021Oct 23 01:00:00 EDT 2021 acetaminophen 500 mg tablet 1000 mg TABL ET Oral PRN Every 6 Hours Do not exceed 4000mg per 24 hour period. ThuOct 13 00:00:00 T 2021Oct 23 01:00:00 EDT 2021 cholecalciferol (vitamin D3) 50 mcg (2,000 unit) tablet 1 tablet TABLET Oral 1 Time Daily ThuOct 13 00:00:00 EDT 2021Oct 23 01:00:00 EDT 2021 melatonin 5 mg tablet 5 mg TABLET Oral P RN 1 Time Daily At bedtime as needed. ThuOct 13 00:00:00 2021Oct 23 01:00:00 EDT 2021 meloxicam 7.5 mg tablet 1 tab TABLET Ora l 1 Time Daily ThuOct 13 00:00:00 EDT 2021Oct 13 01:14:00 EDT 2021 levothyroxine 75 mcg tablet 75 mcg TABLE T Oral 1 Time Daily ThuOct 13 00:00:00 EDT 2021Oct 23 01:00:00 EDT 2021 senna 8.6 mg tablet 2 tablets TABLET Ora l 2 Times Daily ThuAug 22 09:00:00 EDT 2020Aug 25 01:00:00 EDT 2020 senna 8.6 mg tablet 2 tablets TABLET Ora l 1 Time Daily ThuAugust 17 19:00:00 EDT 2020Aug 22 01:24:00 EDT 2020 Enulose 10 gram/15 mL oral solution 15 mL SOLUTION, ORAL Oral PRN 2 Times Daily ThuAugust 17 19:00:00 EDT 2020Aug 25 01:00:00 EDT 2020 Stool Softener 100 mg capsule 1 cap CAPSULE Oral 2 Times Daily dx constipation ThuAugust 15 13:00:00 ED2020Aug 25 01:00:00 EDT 2020 polyethylene glycoL 3350 17 gram oral powder packet 17 gm POWDER IN PACKET (EA) Oral 2 Times Daily dx constipation ThuAugust 15 13:00:00 EDT 2020 Sat Aug 25:00: EDT 2020 ferrous sulfate 325 mg (65 mg iron) tablet 1 tab TABLET Oral 2 Times Daily ThuAugust 15 13:00:00 EDT 2020Aug 25:00: EDT 2020 vitamin B complex tablet 1 tab TABLET Or al Every 2 Days order to give every other day ThuAugust 15 13:00: EDT 2020Aug 25:: EDT 2020 TylenoL 325 mg tablet 650mg TABLET Oral PRN Every 4 Hours Pain ThuAugust 14 15:00:00 EDT 2020Aug 25:: EDT 2020 amLODIPine 5 mg tablet 5mg TABLET Oral 1 Time Daily HTN ThuAugust 14 15:00: EDT 2020Aug 25:: EDT 2020 oxyCODONE-acetaminophen 5 mg-325 mg tablet 1 - 2 tablets TABLET Oral PRN Every 4 Hours ThuAugust 13:30: EDT 2020August 13:53:00 EDT 2020 oxyCODONE-acetaminophen 5 mg-325 mg tablet 1 -2 tabkets TABLET Oral PRN Every 4 Hours Do Not exceed 6 tablets per day. ThuAugust 13 21:30: ED2020Aug 25:: EDT 2020 aspirin 81 mg chewable tablet 81 mg TABLET,CHEWABLE Oral 2 Times Daily for 14 Days ThuAugust 14:30: EDT 2020Aug 25:00: EDT 2020 ascorbate calcium (vitamin C) 500 mg tablet 500 mg TABLET Oral 1 Time Daily ThuAugust 13:30: EDT 2020Aug 25 01:00:00 EDT 2020 B Complex-Vitamin B12 tablet one tablet TABLET Oral 1 Time Daily ThuAugust 13 21:30: EDT 2020August 15 13:23:00 ED2020 cranberry 400 mg capsule 400 mg CAPSULE Oral 1 Time Daily ThuAugust 13 22:00:00 EDT 2020Aug 25:00:00 EDT 2020 oxybutynin chloride ER 10 mg tablet,extended release 24 hr 10 mg TABLET, EXTENDED RELEASE 24 HR Oral 1 Time Daily ThuAugust 13 22:00:00 2020Aug 25 01:00: ED2020 melatonin 3 mg tablet 3 mg TABLET Oral 1 Time Daily ThuAugust 13 22:00:00 ED2020Aug 25 01:00: ED2020 diclofenac 1 % topical gel 2 gram GEL (G LURDES) Topical 4 Times Daily Four times daily topically for pain. ThuAugust 13 22:00:00 ED2020Aug 25 01:00: ED2020 amLODIPine 2.5 mg tablet 2.5 mg TABLET O ral 1 Time Daily ThuAugust 13 22:00:00 ED2020August 14 15:53:00 ED2020 levothyroxine 75 mcg tablet 75 mcg TABLE T Oral 1 Time Daily ThuAugust 13 22:00:00 ED2020Aug 25 01:00: ED2020 Vitamin D3 1,000 unit tablet 2 tab (TABLET) Oral Every 1 Day ThuJun 14 01:00:00 2018Jul 08 01:00:00 2018 levothyroxine 75 mcg tablet 1 tab (TABLE T) Oral Every Morning ThuJun 14 01:00:00 2018Jul 08 01:00:00 2018 oxybutynin chloride ER 10 mg tablet,extended release 24 hr 1 tab (TABLET, EXTENDED RELEASE 24 HR) Oral Every 1 Day ThuJun 14 01:00:00 2018Jul 08 01:00:00 2018 amLODIPine 2.5 mg tablet 1 tab (TABLET) Oral Every 1 Day ThuJun 14 01:00:00 2018Jul 08 01:00:00 2018 Colace 100 mg capsule 1 tab (CAPSULE) Or al 2 Times Daily ThuJun 14 01:00:00 2018Jul 08 01:00:00 ED2018 Senna Laxative-Stool Softener 8.6 mg-50 mg tablet 1 tab (TABLET) Oral 2 Times Daily ThuJun 14 01:00:00 2018Jul 08 01:00:00 2018 calcium carbonate 500 mg calcium (1,250 mg) tablet 1 tab (TABLET) Oral 2 Times Daily ThuJun 14 01:00:00 2018Jul 08 01:00:00 2018 aspirin 325 mg tablet 1 tab (TABLET) Ora l 2 Times Daily ThuJun 14 01:00:00 2018Jul 08 01:00:00 EDT 2018 mirtazapine 15 mg tablet 1 tab (TABLET) Oral Hour Of Sleep ThuJun 14 01:00:00 ED2018Jul 08 01:00:00 EDT 2018 Tylenol 325 mg tablet 2 tab (TABLET) Ora l Every 4 Hours, PRN pain ThuJun 14 01:00:00 EDT 2018Jul 08 01:00:00 EDT 2018 amLODIPine 2.5 mg tablet 1 tab TABLET Or al 1 Time Daily ThuJun 08 01:00:00 EDT 2018Jun 11 01:00:00 EDT 2018 Miralax 17 gram/dose oral powder 1 dose POWDER (GRAM) Oral PRN 1 Time Daily constipation ThuJun 04 13:00:00 2018Jun 11 01:00:00 EDT 2018 Senna Laxative-Stool Softener 8.6 mg-50 mg tablet 1 tab TABLET Oral 2 Times Daily Thu 14 21:00:00 EDT 2018Jun 11 01:00:00 EDT 2018 Miralax 17 gram/dose oral powder 1 dose POWDER (GRAM) Oral 1 Time Daily constipation ThuJun 04 01:00:00 ED2018Jun 04 10:44:00 EDT 2018 Colace 100 mg capsule 100mg CAPSULE Oral 2 Times Daily constipation ThuJun 04 01:00:00 2018Jun 11 01:00:00 EDT 2018 Tylenol 325 mg tablet 650mg TABLET Oral PRN Every 4 Hours pain Thu 14 01:00:00 EDT 2018Jun 11 01:00:00 EDT 2018 calcium carbonate 500 mg calcium (1,250 mg) tablet 500mg TABLET Oral 2 Times Daily Supplement ThuJun 02 07:00:00 EDT 2018Jun 11 01:00:00 EDT 2018 TUBErsol 5 tub. unit/0.1 mL intradermal injection solution 0.1 ml VIAL (ML) Intradermal 1 Time Weekly for 2 Weeks (PPD) 1st injection upon admission. Read between 48 and 72 hours and give 2nd injection 1 week after the 1st if result is negative. If positive result, proceed with chest x-ray to rule out active disease. ThuMay 28 07:00:00 EST 2018Jun 11 01:00:00 EDT 2018 TUBErsol 5 tub. unit/0.1 mL intradermal injection solution Read Results VIAL (ML) Other 1 Time Weekly for 2 Weeks Read results between 48-72 hours after 1st and 2nd 1 week apart. If positive do chest x-ray to rule out active disease. ThuMay 28 07:00:00 2018Jun 11 01:00:00 EDT 2018 zolpidem 10 mg tablet 0.5 tab TABLET Ora l 1 Time Daily Insomnia ThuMay 28 22:00:00 2018May 28 17:55:00 2018 mirtazapine 15 mg tablet 15mg TABLET Ora l 1 Time Daily Depression ThuMay 28 09:00:00 2018Jun 11 01:00:00 EDT 2018 zolpidem 10 mg tablet 0.5 tab TABLET Ora l PRN 1 Time Daily Insomnia ThuMay 27 17:00:00 2018Jun 11 01:00:00 EDT 2018 Colace 100 mg capsule 1 cap CAPSULE Oral 1 Time Daily Constipation ThuMay 28 07:00:00 2018 14 17:23:00 EDT 2019 senna 8.6 mg tablet 8.6mg TABLET Oral IN N 1 Time Daily Constipation ThuMay 28 18:00:00 2018Jun 11 01:00:00 EDT 2018 aspirin 325 mg tablet,delayed release 325mg TABLET, DELAYED RELEASE (ENTERIC COATED) Oral 2 Times Daily anticoagulant ThuMay 28 18:00:00 2018Jun 11 01:00:00 EDT 2018 oxyCODONE-acetaminophen 5 mg-325 mg tablet 1 TAB TABLET Oral PRN Every 4 Hours Pain ThuMay 27 18:00:00 2018 14 16:46:00 EDT 2018 oxyCODONE-acetaminophen 5 mg-325 mg tablet 2 tabs TABLET Oral PRN Every 4 Hours Pain ThuMay 27 18:00:00 2018Jun 11 01:00:00 EDT 2019 calcium carbonate 500 mg calcium (1,250 mg) tablet 500mg TABLET Oral 1 Time Daily Supplement ThuMay 28 07:00:00 2018 12 14:34:00 EDT 2019 Vitamin D3 1,000 unit tablet 2 tabs TABLET Oral 1 Time Daily Supplement ThuMay 28 07:00:00 2018Jun 11 01:00:00 EDT 2018 cranberry fruit 400 mg tablet 00mg TABLET Oral 1 Time Daily Supplement ThuMay 28 07:00:00 2018 11 17:22:00 EDT 2019 Vitamin B-12 1,000 mcg tablet 1 tab TABLET Oral 1 Time Daily ThuMay 28 07:00:00 EST 2018May 31 18:53:00 EDT 2018 levothyroxine 75 mcg tablet 75mcg TABLET Oral 1 Time Daily ThuMay 28 07:00:00 2018Jun 11 01:00:00 EDT 2018 mirtazapine 15 mg tablet 15mg TABLET Ora l 1 Time Daily Depression ThuMay 27 18:00:00 2018May 28 09:49:00 EST 2018 oxybutynin chloride ER 10 mg tablet,extended release 24 hr 1 tab TABLET, EXTENDED RELEASE 24 HR Oral 1 Time Daily ThuMay 28 07:00:00 2018Jun 11 01:00:00 EDT 2018 zolpidem 10 mg tablet 0.5 tab TABLET Ora l 1 Time Daily Insomnia ThuMay 27 18:00:00 2018May 28 09:49:00 EST 2018 Problems Active Concerns * Presence of right artificial shoulder joint* Code: * Start Date: ThuMay 27 00:00:00 2018 * End Date: * Text: * Hypothyroidism, unspecified* Code: * Start Date: ThuMay 27 00:00:00 2018 * End Date: * Text: * Gastro-esophageal reflux disease without esophagitis* Code: * Start Date: ThuMay 27 00:00:00 2018 * End Date: * Text: * Personal history of urinary (tract) infections* Code: * Start Date: ThuMay 27 00:00:00 2018 * End Date: * Text: * Insomnia, unspecified* Code: * Start Date: ThuMay 27 00:00:00 2018 * End Date: * Text: * Deficiency of other specified B group vitamins* Code: * Start Date: ThuMay 27 00:00:00 2018 * End Date: * Text: * Vitamin D deficiency, unspecified* Code: * Start Date: ThuMay 27 00:00:00 2018 * End Date: * Text: * Constipation, unspecified* Code: * Start Date: ThuMay 27 00:00:00 2018 * End Date: * Text: * 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* Code: * Start Date: ThuMay 27 00:00:00 2018 * End Date: * Text: * Anemia, unspecified* Code: * Start Date: ThuMay 27 00:00:00 EST 2018 * End Date: * Text: * Presence of right artificial knee joint* Code: * Start Date: ThuAugust 13 00:00:00 EDT 2020 * End Date: * Text: * Other specified disorders of bone density and structure, unspecified site* Code: * Start Date: ThuAugust 13 00:00:00 EDT 2020 * End Date: * Text: * Other peripheral vertigo, unspecified ear* Code: * Start Date: ThuAugust 13 00:00:00 EDT 2020 * End Date: * Text: * Hypertensive chronic kidney disease with stage 1 through stage 4 chronic kidney disease, or unspecified chronic kidney disease* Code: * Start Date: ThuAugust 13 00:00:00 EDT 2020 * End Date: * Text: * Chronic kidney disease, stage 3 unspecified* Code: * Start Date: ThuAugust 13 00:00:00 EDT 2020 * End Date: * Text: * Mixed incontinence* Code: * Start Date: ThuAugust 13 00:00:00 EDT 2020 * End Date: * Text: * Presence of right artificial hip joint* Code: * Start Date: ThuOct 12 00:00:00 EDT 2021 * End Date: * Text: * Personal history of nicotine dependence* Code: * Start Date: ThuJan 20 00:00:00 EDT 2022 * End Date: * Text: * Presence of left artificial shoulder joint* Code: * Start Date: ThuJan 20 00:00:00 EDT 2022 * End Date: * Text: * Presence of artificial knee joint, bilateral* Code: * Start Date: ThuJan 20 00:00:00 EDT 2022 * End Date: * Text: * Diaphragmatic hernia without obstruction or gangrene* Code: * Start Date: ThuJan 20 00:00:00 EDT 2022 * End Date: * Text: * Depression, unspecified* Code: * Start Date: ThuJan 20 00:00:00 EDT 2022 * End Date: * Text: * Unspecified intestinal obstruction, unspecified as to partial versus complete obstruction* Code: * Start Date: ThuApr 24 00:00:00 EST 2023 * End Date: * Text: * Other nonspecific abnormal finding of lung field* Code: * Start Date: ThuApr 24 00:00:00 EST 2023 * End Date: * Text: * Encounter for surgical aftercare following surgery on the digestive system* Code: * Start Date: ThuApr 24 00:00:00 EST 2023 * End Date: * Text: * Unilateral femoral hernia, with obstruction, without gangrene, not specified as recurrent* Code: * Start Date: ThuApr 24 00:00:00 EST 2023 * End Date: * Text: * Personal history of other diseases of the digestive system* Code: * Start Date: ThuApr 24 00:00:00 EST 2023 * End Date: * Text: * History of falling* Code: * Start Date: ThuMay 24 00:00:00 EST 2023 * End Date: * Text: * Unsteadiness on feet* Code: * Start Date: ThuMay 24 00:00:00 EST 2023 * End Date: * Text: * Muscle weakness (generalized)* Code: * Start Date: ThuMay 24 00:00:00 EST 2023 * End Date: * Text: * Weakness* Code: * Start Date: ThuMay 24 00:00:00 EST 2023 * End Date: * Text: * Pain in right hand* Code: * Start Date: ThuDec 22 00:00:00 EDT 2023 * End Date: * Text: * Pain in left hand* Code: * Start Date: ThuDec 22 00:00:00 EDT 2023 * End Date: * Text: Reason for Referral Past Medical History Resolved Concerns * Problem Muscle weakness (generalized)* Code: * Start Date: ThuMar 07 00:00:00 EST 2014 * End Date: ThuMay 27 00:00:00 EST 2018 * Problem Unsteadiness on feet* Code: * Start Date: ThuMar 07 00:00:00 EST 2014 * End Date: ThuMay 27 00:00:00 EST 2018 * Problem Pain in right shoulder* Code: * Start Date: ThuNov 17 00:00:00 EDT 2017 * End Date: ThuMay 27 00:00:00 EST 2018 * Problem Weakness* Code: * Start Date: ThuJan 07 00:00:00 EDT 2016 * End Date: ThuMay 27 00:00:00 EST 2018 * Problem Unilateral primary osteoarthritis, right knee* Code: * Start Date: ThuNov 17 00:00:00 EDT 2017 * End Date: ThuMay 27 00:00:00 EST 2019 * Problem Primary osteoarthritis, right shoulder* Code: * Start Date: ThuNov 17 00:00:00 EDT 2017 * End Date: ThuAugust 15 00:00:00 EDT 2020 * Problem Aftercare following joint replacement surgery* Code: * Start Date: ThuOct 08 00:00:00 EDT 2021 * End Date: ThuJan 22 00:00:00 EDT 2022 * Problem Chest pain, unspecified* Code: * Start Date: ThuMay 27 00:00:00 EST 2018 * End Date: ThuAugust 15 00:00:00 EDT 2020 * Problem Anxiety disorder, unspecified* Code: * Start Date: ThuMay 27 00:00:00 EST 2018 * End Date: ThuMay 27 00:00:00 EST 2018 * Problem Major depressive disorder, single episode, unspecified* Code: * Start Date: ThuMay 27 00:00:00 EST 2018 * End Date: ThuAugust 15 00:00:00 EDT 2020 * Problem Unspecified urinary incontinence* Code: * Start Date: ThuMay 27 00:00:00 EST 2018 * End Date: ThuJan 22 00:00:00 EDT 2022 * Problem Hypocalcemia* Code: * Start Date: ThuMay 27 00:00:00 EST 2018 * End Date: ThuAugust 15 00:00:00 EDT 2020 * Problem Essential (primary) hypertension* Code: * Start Date: ThuJun 12 00:00:00 EDT 2018 * End Date: ThuAugust 15 00:00:00 EDT 2020 * Problem Need for assistance with personal care* Code: * Start Date: ThuJun 12 00:00:00 EDT 2018 * End Date: ThuAugust 15 00:00:00 EDT 2020 * Problem Unilateral primary osteoarthritis, right knee* Code: * Start Date: ThuJul 02 00:00:00 EDT 2020 * End Date: ThuAugust 15 00:00:00 EDT 2020 * Problem Muscle weakness (generalized)* Code: * Start Date: ThuJul 04 00:00:00 EDT 2020 * End Date: ThuAugust 15 00:00:00 EDT 2020 * Problem Major depressive disorder, recurrent, unspecified* Code: * Start Date: ThuAugust 13 00:00:00 EDT 2020 * End Date: ThuApr 28 00:00:00 EST 2023 * Problem Muscle weakness (generalized)* Code: * Start Date: ThuAug 27 00:00:00 EDT 2020 * End Date: ThuJan 22 00:00:00 EDT 2022 * Problem Acute posthemorrhagic anemia* Code: * Start Date: ThuJan 20 00:00:00 EDT 2022 * End Date: ThuApr 28 00:00:00 EST 2023 * Problem Chronic kidney disease, stage 3a* Code: * Start Date: ThuOct 12 00:00:00 EDT 2021 * End Date: ThuJan 22 00:00:00 EDT 2022 * Problem Weakness* Code: * Start Date: ThuSep 09 00:00:00 EDT 2022 * End Date: ThuJan 22 00:00:00 EDT 2022 * Problem Unsteadiness on feet* Code: * Start Date: ThuSep 09 00:00:00 EDT 2022 * End Date: ThuJan 22 00:00:00 EDT 2022 * Problem Ulcer of esophagus with bleeding* Code: * Start Date: ThuJan 20 00:00:00 EDT 2022 * End Date: ThuApr 28 00:00:00 EST 2023 * Problem Abnormal findings on diagnostic imaging of other abdominal regions, including retroperitoneum* Code: * Start Date: ThuJan 20 00:00:00 EDT 2022 * End Date: ThuApr 28 00:00:00 EST 2023 * Problem Muscle weakness (generalized)* Code: * Start Date: ThuJan 28 00:00:00 EST 2022 * End Date: ThuApr 28 00:00:00 EST 2023 * Problem Unspecified abdominal hernia with obstruction, without gangrene* Code: * Start Date: ThuApr 24 00:00:00 EST 2023 * End Date: ThuApr 28 00:00:00 EST 2023
--- OUTSIDE RECORDS SUMMARY | 2024-09-01 09:30 | XMS_ITS | Encounter Summary ---
Author Organization [facility] Address 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
--- NOTE | 2024-09-01 10:45 | NEURO_ITS ---
History: The patient is 88-year-old with complaints of paresthesias in both hands for several years. On brief examination significant atrophy of thenar muscles were noted on both sides. No history of diabetes mellitus major trauma. The results of the nerve conduction study EMG are given below. Summary of findings: 1. Left and right median motor distal latency was significantly prolonged right more than left side. Amplitudes were also significantly decreased right more than left side conduction velocity was mildly decreased. 2. Left and right ulnar motor distal latencies and conduction velocities normal limits. Amplitude is a mild decrease however there was no focal slowing across the elbow. 3. Bilateral median sensory were absent. Left and right ulnar and radial sensory distal latency amplitude and conduction velocity were essentially within normal limits. The left ulnar palmar sensory decline is a mildly per decreased the distal latency was within normal limits and hence this finding is considered equivocal. 4. EMG examination performed wears various muscles examined both upper limbs which show no denervation changes but decreased recruitment in abductor pollicis brevis as shown below. Impression: EMG and nerve conduction study on both upper limbs show evidence of severe bilateral carpal tunnel syndrome right more than left side. Ally Cruz MD, FAAN, FAANEM Neurology and electrodiagnostic Medicine Nerve Conduction Studies Motor Nerve Results ? Latency Amplitude F-Lat Segment Distance CV Comment Site (ms) (mV) (ms) (cm) (m/s) Left Median (APB) Motor Wrist 10.0 2.8 Elbow 14.6 2.6 Elbow-Wrist 210 46 Right Median (APB) Motor Wrist 11.4 1.02 Elbow 16.6 1.02 Elbow-Wrist 220 42 Left Ulnar (ADM) Motor Wrist 3.2 5.2 Bel Elbow 6.7 4.5 Bel Elbow-Wrist 200 57 Abv Elbow 8.1 4.0 Abv Elbow-Bel Elbow 70 50 Right Ulnar (ADM) Motor Wrist 3.4 5.7 Bel Elbow 7.2 5.4 Bel Elbow-Wrist 200 53 Abv Elbow 8.6 5.6 Abv Elbow-Bel Elbow 70 50 Sensory Nerve Results ? Latency (Peak) Amplitude (P-P) Segment Distance CV Comment Site (ms) (?V) (cm) (m/s) Left Median DigIII Sensory Wrist-Dig III NR NR Wrist-Dig III 130 NR Left Median-Ulnar Palmar Sensory ? Median Palm-Wrist NR NR Palm-Wrist 80 NR ? Ulnar Palm-Wrist 2.1 6 Palm-Wrist 80 38 Right Median-Ulnar Palmar Sensory ? Median Palm-Wrist NR NR Palm-Wrist 80 NR ? Ulnar Palm-Wrist 1.95 14 Palm-Wrist 80 41 Left Radial Sensory Forearm-Wrist 1.78 30 Forearm-Wrist 100 56 Right Radial Sensory Forearm-Wrist 2.1 41 Forearm-Wrist 100 48 Left Ulnar Sensory Wrist-Dig V 2.8 20 Wrist-Dig V 110 39 Right Ulnar Sensory Wrist-Dig V 3.0 10 Wrist-Dig V 120 40 Electromyography ?Side Muscle Nerve Ins Act Fibs Psw Amp Dur Recrt Comment Right Deltoid Axillary Nml Nml Nml Nml Nml Nml Right Triceps Radial Nml Nml Nml Nml Nml Nml Right ExtCarUln Radial (Post Int) Nml Nml Nml Nml Nml Nml Right FlexPolLong Median (Ant Int) Nml Nml Nml Nml Nml Nml Right 1stDorInt Ulnar Nml Nml Nml Nml Nml Nml Right Abd Poll Brev Median Nml Nml Nml Incr >12ms +3 Right FlexDigProf Ulnar Nml Nml Nml Nml Nml Nml Left Deltoid Axillary Nml Nml Nml Nml Nml Nml Left Triceps Radial Nml Nml Nml Nml Nml Nml Left ExtCarUln Radial (Post Int) Nml Nml Nml Nml Nml Nml Left 1stDorInt Ulnar Nml Nml Nml Nml Nml Nml Left Abd Poll Brev Median Nml Nml Nml Incr >12ms +2
== END 2024-09-01 09:00 | disposition home or self-care (01) ==
PROVIDERS: PCP Family Medicine; Visit Provider Psychiatry & Neurology Neurology
DX: G56.00 Carpal tunnel syndrome, unspecified upper limb (principal); E11.9 Type 2 diabetes mellitus without complications
CPT/HCPCS: 95886; 95911